=== PATIENT | male | born 1940 | race Caucasian/White ===

== ENCOUNTER 2018-01-08 06:33 | Inpatient (IN) | payer MEDICARE, OTHER ==
--- NOTE | 2018-01-08 07:48 | EDM.PDOC ---
ED HPI GENERAL MEDICAL PROBLEM - General Chief Complaint: Neuro Symptoms/Deficits Stated Complaint: LEFT ARM GOING NUMB Time Seen by Provider: 01/08/18 07:05 Source of Information: Reports: Patient, Family () History Limitations: Reports: No Limitations - History of Present Illness INITIAL COMMENTS - FREE TEXT/NARRATIVE: The patient states that he developed left forearm, including his wrist, hand, and fingers, weakness and decreased sensation around 05:00 this morning. He states that he was trying to shave, and was unable to hold his razor. The symptoms lasted about 5 minutes, and were not associated with a headache, nausea , or visual changes. The symptoms recurred around 06:30, and again lasted about 5 minutes. The patient states that he did not try any home remedies or take any medications. Here in the ED, the patient is completely back to normal. No prior similar symptoms. The patient is right-handed. He ordinarily takes a baby aspirin daily. The patient's PCP is JAE Turk. - Related Data Allergies Allergy/AdvReac Type Severity Reaction Status Date / Time No Known Allergies Allergy Verified 01/08/18 06:44 Home Meds: Home Meds Aspirin [Children's Aspirin] 81 mg PO DAILY 10/01/15 [History] Levothyroxine Sodium [Synthroid] 100 mcg PO DAILY 10/01/15 [History] Multivitamins,Therapeutic [Thera] 1 each PO WITHBREAKFAST tablet 12/07/15 [Rx] Calcium Citrate/Vitamin D3 [Citracal + D Maximum Caplet] 1 each PO DAILY [History] Hydrocodone/Acetaminophen [Hydrocodon-Acetaminophen 5-325] 1 each PO Q4H [History] Past Medical History HEENT History: Reports: Impaired Vision, Other (See Below) Other HEENT History: wears glasses, has upper denture Gastrointestinal History: Reports: Hiatal Hernia Musculoskeletal History: Reports: Osteoarthritis Endocrine/Metabolic History: Reports: Hypothyroidism Hematologic History: Reports: Anemia Oncologic (Cancer) History: Reports: Bladder - Past Surgical History HEENT Surgical History: Reports: Cataract Surgery, Oral Surgery ([place] teeth extraction), Tonsillectomy Cardiovascular Surgical History: Reports: Other (See Below) (right Port-A-Cath) GI Surgical History: Reports: Colonoscopy, EGD, Hernia, Inguinal (right) Male Surgical History: Reports: Cystectomy, Nephrectomy (right), Prostatectomy, Other (See Below) (Urostomy) Musculoskeletal Surgical History: Reports: Knee Replacement (bilateral), Other ( See Below) (Right thumb pinning) Other Oncologic Surgeries/Procedures: last chemo treatment was February 01 Social & Family History - Tobacco Use Smoking Status *Q: Never Smoker Second Hand Smoke Exposure: No - Alcohol Use Alcohol Use History: Yes Alcohol Use Frequency: Socially - Recreational Drug Use Recreational Drug Use: No - Living Situation & Occupation Living situation: Reports: , with Spouse 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 ED EXAM, NEURO - Physical Exam Exam: See Below Exam Limited By: No Limitations General Appearance: Alert, WD/WN, No Apparent Distress Eye Exam: Bilateral Eye: EOMI, Normal Inspection, PERRL Ears: Normal External Exam, Hearing Grossly Normal Nose: Normal Inspection, No Blood Throat/Mouth: Normal Inspection, Normal Lips, Normal Voice, No Airway Compromise Head Exam: Atraumatic, Normocephalic Neck: Normal Inspection, Full Range of Motion Respiratory/Chest: No Respiratory Distress, Lungs Clear, Normal Breath Sounds, No Accessory Muscle Use Cardiovascular: Normal Peripheral Pulses, Regular Rate, Rhythm, No Edema, No Gallop, No JVD, No Murmur, No Rub GI/Abdominal: Normal Bowel Sounds, Soft, Non-Tender, No Organomegaly, No Distention, No Abnormal Bruit, No Mass, Other (Urostomy bag C/D/I) (Male) Exam: Deferred Rectal (Males) Exam: Deferred Neurological: Alert, Normal Dorsiflexion, CN II-XII Intact, Normal Plantar Flexion, No Motor/Sensory Deficits, Oriented x 3 Back Exam: Normal Inspection, Full Range of Motion, NT Extremities: Normal Inspection, Normal Range of Motion, No Pedal Edema, Normal Capillary Refill Psychiatric: Normal Affect Skin Exam: Warm, Dry, Intact, Normal Color, No Rash EKG INTERPRETATION EKG Date: 01/08/18 Time: 07:38 Rhythm: NSR Rate (Beats/Min): 75 [place]: LAD-Left [place] Deviation P-Wave: Present QRS: LBBB Comparison: NA - No Prior EKG Course - Vital Signs Last Recorded V/S: Last Vital Signs Temp 37.2 C 01/08/18 06:40 Pulse 88 01/08/18 06:40 Resp 16 01/08/18 06:40 BP 143/82 H 01/08/18 06:40 Pulse Ox 98 01/08/18 06:40 - Orders/Labs/Meds Orders: Active Orders 24 hr Category Date Time Status Accu Check [Blood Glucose Check, Bedside] [RC] ONETIME Care 01/08/18 07:27 Active EKG Documentation Completion [RC] STAT Care 01/08/18 07:26 Active Labs: Laboratory Tests 01/08/18 Range/Units 07:52 POC Glucose 93 (83-110) mg/dL - Re-Assessments/Exams Free Text/Narrative Re-Assessment/Exam: 01/08/18 08:19 CT of the head without contrast is read by Dr. Ramírez as: 1. Mild senescent change. No acute intracranial abnormality is identified. 2. Small amount of fluid within the left mastoid sinus most likely due to retained secretions. 01/08/18 08:[address] Olmos at 08:25. He accepts the patient for admission to telemetry. Departure - Departure Time of Disposition: 08:27 Disposition: Admitted As Inpatient 65 Condition: Good Clinical Impression: Weakness, Paresthesia - Discharge Information - My Orders Last 24 Hours: My Active Orders 01/08/18 07:26 EKG Documentation Completion [RC] STAT 01/08/18 07:27 Accu Check [Blood Glucose Check, Bedside] [RC] ONETIME - Assessment/Plan Last 24 Hours: My Active Orders 01/08/18 07:26 EKG Documentation Completion [RC] STAT 01/08/18 07:27 Accu Check [Blood Glucose Check, Bedside] [RC] ONETIME
--- NOTE | 2018-01-08 08:15 | CT ---
Head CT Technique: Multiple axial sections through the brain were obtained. Intravenous contrast was not utilized. Comparison: No previous intracranial imaging. Findings: Ventricles along with basal cisterns and sulci over the convexities are mildly prominent. No abnormal parenchymal densities are seen. No evidence of intracranial hemorrhage. No midline shift or mass effect is seen. Bone window settings were reviewed which shows no acute calvarial abnormality. Minimal fluid is noted within the left mastoid sinus. No acute calvarial abnormality is seen. Impression: 1. Mild senescent change. No acute intracranial abnormality is identified. 2. Small amount of fluid within the left mastoid sinus most likely due to retained secretions. Diagnostic code #2
[2018-01-08] MEDS ORDERED: Bisacodyl 5 MG Tab PO PRN (13:09)
[2018-01-08] MEDS ORDERED: Polyethylene Glycol 3350 Powder 17 GM Packet PO PRN (13:09)
[2018-01-08] MEDS ORDERED: Docusate Sodium 100 MG Cap PO PRN (13:09)
[2018-01-08] MEDS ORDERED: Temazepam 7.5 MG Cap PO PRN (13:09)
[2018-01-08] MEDS ORDERED: HYDROmorphone 0.5 MG/0.5 ML SYRINGE IVPUSH PRN (13:09)
[2018-01-08] MEDS ORDERED: Promethazine 25 MG Tab PO PRN (13:09)
[2018-01-08] MEDS ORDERED: Acetaminophen 325 MG Tab PO PRN (13:09)
[2018-01-08] MEDS ORDERED: Promethazine 6.25 MG in Sodium Chloride 0.9% 50 ML IV PRN (13:09)
[2018-01-08] MEDS ORDERED: Magnesium Hydroxide 400 MG/5 ML Susp 30 ML Cup PO PRN (13:09)
[2018-01-08] MEDS ORDERED: hydrALAZINE 20 MG/ML SDV IVPUSH PRN ×2 (13:27→13:28)
--- NOTE | 2018-01-08 13:43 | PCM.HP ---
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 No current pain. He reports no fever, chills, dizziness, weakness, headache, nausea , vomiting, diarrhea, chest pain, or GI/ complaints. His original symptoms of left forearm/wrist/hand/fingers weakness and decreased sensation improved after 5 minutes in each episode. He had 2 episodes within 2 hours at home and was back to normal once arriving in the ED. His initial workup in the ED showed a Blood Glucose of 93 and elevated BP of 143/82. EKG showed NSR, LAD and LBBB. CT of the head showed mild senescent change, no acute intracranial abnormality, small amount of fluid within the left mastoid sinus. He is subsequently admitted to the medical floor on telemetry. He is a Full Code. His PCP is JAE Turk. R hip Pain Score (Numeric/FACES): 8 - Related Data Allergies/Adverse Reactions: Allergies Allergy/AdvReac Type Severity Reaction Status Date / Time No Known Allergies Allergy Verified 01/08/18 10:41 Home Medications: Home Meds Aspirin [Children's Aspirin] 81 mg PO DAILY 10/01/15 [History] Levothyroxine Sodium [Synthroid] 100 mcg PO DAILY 10/01/15 [History] Calcium Citrate/Vitamin D3 [Citracal + D Maximum Caplet] 1 each PO DAILY [History] Hydrocodone/Acetaminophen [Hydrocodon-Acetaminophen 5-325] 1 each PO Q4H [History] Past Medical History HEENT History: Reports: Impaired Vision, Other (See Below) Other HEENT History: wears glasses, has upper denture Cardiovascular History: Reports: Hypertension Respiratory History: Reports: Other (See Below) Gastrointestinal History: Reports: Hiatal Hernia Other Gastrointestinal History: R groin hernia repair Genitourinary History: Reports: Other (See Below) Other Genitourinary History: Stage IV bladder cancer, cystecomy, elevated PSA, prostatectomy, only has 1 kidney and has had partial bladder removed in [place] July 2014, has urostomy Musculoskeletal History: Reports: Osteoarthritis, Other (See Below) Other Musculoskeletal History: chronic pelvic pain r/t cancer in that area. Endocrine/Metabolic History: Reports: Hypothyroidism Hematologic History: Reports: Anemia Other Hematologic History: hyperkalemia, thrombocytopenia Immunologic History: Reports: Immunosuppression Oncologic (Cancer) History: Reports: Bladder, Other (See Below) Other Oncologic History: outter pelvic bone cancer. Dermatologic History: Reports: Other (See Below) Other Dermatologic History: cyst to neck (once it was removed, but grew back on back of head) - 1 about quarter size, one dime sized. - Infectious Disease History Infectious Disease History: Reports: Chicken Pox - Past Surgical History HEENT Surgical History: Reports: Cataract Surgery, Oral Surgery, Tonsillectomy Cardiovascular Surgical History: Reports: Other (See Below) GI Surgical History: Reports: Colonoscopy, EGD, Hernia, Inguinal, Other (See Below) Other GI Surgeries/Procedures: last week on sunday had a MRCP scan in [place] at [facility] stated everything was negative. Male Surgical History: Reports: Cystectomy, Nephrectomy, Prostatectomy, Other (See Below) Other Male Surgeries/Procedures: right nephrectomy. Endocrine Surgical History: Reports: None Musculoskeletal Surgical History: Reports: Knee Replacement, Other (See Below) Other Musculoskeletal Surgeries/Procedures:: bilateral knee replacement. Other Oncologic Surgeries/Procedures: last chemo treatment was October 2016 Dermatological Surgical History: Reports: None Social & Family History - Family History Family Medical History: Noncontributory - Tobacco Use Smoking Status *Q: Never Smoker Second Hand Smoke Exposure: No - Caffeine Use Caffeine Use: Reports: Coffee, Soda - Recreational Drug Use Recreational Drug Use: No - Living Situation & Occupation Living situation: Reports: , with Spouse Occupation: Employed (oil and gas superintendent truck hopper) H&P Review of Systems - Review of Systems: Review Of Systems: ROS reveals no pertinent complaints other than HPI. Exam - Exam Exam: See Below - Vital Signs Vital Signs: Last Vital Signs Temp 98.9 F 01/08/18 06:40 Pulse 88 01/08/18 06:40 Resp 16 01/08/18 06:40 BP 143/82 H 01/08/18 06:40 Pulse Ox 98 01/08/18 06:40 Weight: 164 lb 12.8 oz - Exam Quality Assessment: DVT Prophylaxis General: Alert, Oriented, Cooperative, Mild Distress HEENT: Conjunctiva Clear, EACs Clear, EOMI, Hearing Intact, Mucosa Moist & [place] , Nares Patent, Normal Nasal Septum, Posterior Pharynx Clear, Pupils Equal, Pupils Reactive, TMs Clear, PERRLA Neck: Supple, Trachea Midline Lungs: Clear to Auscultation, Normal Respiratory Effort Cardiovascular: Regular Rate, Regular Rhythm GI/Abdominal Exam: Normal Bowel Sounds, Soft, Non-Tender, No Organomegaly, No Distention, No Abnormal Bruit, No Mass, Pelvis Stable, Other (Urostomy bag C/D/I ) (Male) Exam: Deferred Rectal (Males) Exam: Deferred Back Exam: Normal Inspection, Full Range of Motion, NT Extremities: Normal Inspection, Normal Range of Motion, Non-Tender, Normal Capillary Refill, Pedal Edema Peripheral Pulses: 2+: Posterior Tibial (L), Posterior Tibial (R), Dorsalis Pedis (L), Dorsalis Pedis (R) Skin: Warm, Dry, Intact Neurological: Cranial Nerves Intact (grossly) Neuro Extensive - Mental Status: Alert, Oriented x3, Normal Mood/Affect, Normal Cognition Psychiatric: Alert, Normal Affect, Normal Mood - Patient Data Lab Results Last 24 hrs: Laboratory Results - last 24 hr 01/08/18 Range/Units 07:52 POC Glucose 93 (83-110) mg/dL - Problem List (1) Paresthesia SNOMED Code(s): 76191160 ICD Code: R20.2 - PARESTHESIA OF SKIN Status: Acute Priority: High Current Visit: Yes (2) Weakness SNOMED Code(s): 67334343 ICD Code: R53.1 - WEAKNESS Status: Acute Priority: High Current Visit: Yes (3) Bladder cancer metastasized to bone SNOMED Code(s): 13869551, 093339988 ICD Code: C67.9 - MALIGNANT NEOPLASM OF BLADDER, UNSPECIFIED; C79.51 - SECONDARY MALIGNANT NEOPLASM OF BONE Status: Chronic Priority: Low Current Visit: Yes (4) History of nephrectomy, unilateral SNOMED Code(s): 15791084501112 ICD Code: Z90.5 - ACQUIRED ABSENCE OF KIDNEY Status: Chronic Priority: Medium Current Visit: Yes (5) Hypertension SNOMED Code(s): 40048412 ICD Code: I10 - ESSENTIAL (PRIMARY) HYPERTENSION Status: Chronic Priority : High Current Visit: Yes Qualifiers: Hypertension type: unspecified Qualified Code(s): I10 - Essential (primary ) hypertension (6) Hypothyroidism SNOMED Code(s): 02464111 ICD Code: E03.9 - HYPOTHYROIDISM, UNSPECIFIED Status: Chronic Priority: Medium Current Visit: No Qualifiers: Hypothyroidism type: unspecified Qualified Code(s): E03.9 - Hypothyroidism , unspecified (7) Anemia SNOMED Code(s): 716644931 ICD Code: D64.9 - ANEMIA, UNSPECIFIED Status: Chronic Priority: Medium Current Visit: Yes Qualifiers: Anemia type: unspecified type Qualified Code(s): D64.9 - Anemia, unspecified Problem List Initiated/Reviewed/Updated: Yes Orders Last 24hrs: Active Orders 24 hr Category Date Time Status Admission Status [Patient Status] [ADT] Routine ADT 01/08/18 09:55 Active Ambulate [RC] ASDIRECTED Care 01/08/18 13:09 Ordered Cardiac Monitoring [RC] CONTINUOUS Care 01/08/18 13:10 Ordered Height and Weight [RC] DAILY Care 01/08/18 13:09 Ordered Intake and Output [RC] QSHIFT Care 01/08/18 13:10 Ordered May Shower [RC] ASDIRECTED Care 01/08/18 13:09 Ordered Oxygen Therapy [RC] PRN Care 01/08/18 13:09 Ordered Pulse Oximetry [RC] PRN Care 01/08/18 13:10 Ordered Up to Chair [RC] ASDIRECTED Care 01/08/18 13:09 Ordered VTE/DVT Education [RC] PER UNIT ROUTINE Care 01/08/18 13:09 Ordered Vital Signs [RC] Q4H Care 01/08/18 13:09 Ordered Consult to Spiritual Care [CONS] Routine Cons 01/08/18 13:09 Ordered OT Evaluation and Treatment [CONS] Routine Cons 01/08/18 13:09 Ordered PT Evaluation and Treatment [CONS] Routine Cons 01/08/18 13:09 Ordered Heart Healthy Diet [DIET] Diet 01/08/18 Lunch Active Carotid Comp [US] Routine Exams 01/08/18 13:19 Ordered Echo 2D wo Cont [US] Routine Exams 01/08/18 13:22 Ordered Echo Comp wo Cont [US] Routine Exams 01/08/18 13:18 Stop Req MRA Head Without Contrast [Ang Head wo Cont] [MR] Exams 01/08/18 13:20 Ordered Routine MRA Neck Without Contrast [Ang Neck wo Cont] [MR] Exams 01/08/18 13:21 Ordered Routine CBC WITH AUTO DIFF [HEME] AM Lab 01/09/18 05:11 Ordered CBC WITH AUTO DIFF [HEME] AM Lab 01/10/18 05:11 Ordered CBC WITH AUTO DIFF [HEME] AM Lab 01/11/18 05:11 Ordered CBC WITH AUTO DIFF [HEME] AM Lab 01/12/18 05:11 Ordered CBC WITH AUTO DIFF [HEME] AM Lab 01/13/18 05:11 Ordered COMPREHENSIVE METABOLIC PN,CMP [CHEM] AM Lab 01/09/18 05:11 Ordered COMPREHENSIVE METABOLIC PN,CMP [CHEM] AM Lab 01/10/18 05:11 Ordered COMPREHENSIVE METABOLIC PN,CMP [CHEM] AM Lab 01/11/18 05:11 Ordered COMPREHENSIVE METABOLIC PN,CMP [CHEM] AM Lab 01/12/18 05:11 Ordered COMPREHENSIVE METABOLIC PN,CMP [CHEM] AM Lab 01/13/18 05:11 Ordered LIPID PANEL [CHEM] AM Lab 01/09/18 05:11 Ordered Acetaminophen [Tylenol] Med 01/08/18 13:09 Ordered 650 mg PO Q4H PRN Acetaminophen/HYDROcodone [[place] 325-5 MG] Med 01/08/18 13:09 Ordered 1 tab PO Q4H PRN Aspirin Med 01/09/18 09:00 Ordered 81 mg PO DAILY Bisacodyl [Dulcolax] Med 01/08/18 13:09 Ordered 5 mg PO DAILY PRN Calcium Citrate/Vitamin D3 Med 01/09/18 09:00 Ordered 1 each PO DAILY Docusate Sodium [Colace] Med 01/08/18 13:09 Ordered 100 mg PO BID PRN Docusate Sodium/Sennosides [Senna Plus] Med 01/08/18 13:09 Ordered 1 tab PO BID PRN Famotidine [Pepcid] Med 01/08/18 13:30 Ordered 20 mg PO BID HYDROmorphone [Dilaudid] Med 01/08/18 13:09 Ordered 0.25 mg IVPUSH Q2H PRN Levothyroxine Med 01/09/18 09:00 Ordered 100 mcg PO DAILY Magnesium Hydroxide [Milk of Magnesia] Med 01/08/18 13:09 Ordered 30 ml PO Q12H PRN Polyethylene Glycol 3350 [MiraLAX] Med 01/08/18 13:09 Ordered 17 gm PO DAILY PRN Promethazine [Phenergan] Med 01/08/18 13:09 Ordered 25 mg PO Q6H PRN Promethazine [Phenergan] 6.25 mg Med 01/08/18 13:09 Ordered Sodium Chloride 0.9% [Normal Saline] 50 ml IV Q6H Temazepam [Restoril] Med 01/08/18 13:09 Ordered 7.5 mg PO BEDTIME PRN hydrALAZINE [Apresoline] Med 01/08/18 13:28 Ordered 10 mg IVPUSH Q12H PRN hydrALAZINE [Apresoline] Med 01/08/18 13:27 Stop Req 10 mg IVPUSH Q4H PRN Sequential Compression Device [OM.PC] Per Unit Routine Oth 01/08/18 13:10 Ordered Resuscitation Status Routine Resus Stat 01/08/18 11:18 Ordered Medication Orders Acetaminophen (Tylenol) 650 mg PO Q4H PRN PRN Reason: Pain (Mild 1-3)/fever Hydrocodone Bitart/Acetaminophen ([place] 325-5 Mg) 1 tab PO Q4H PRN PRN Reason: Pain (moderate 4-6) Aspirin (Aspirin) 81 mg PO DAILY POOJA Bisacodyl (Dulcolax) 5 mg PO DAILY PRN PRN Reason: Constipation Calcium Carbonate (Calcium Carbonate/Vitamin D 600 Mg-200 Unit) 1 tab PO DAILY POOJA Docusate Sodium (Colace) 100 mg PO BID PRN PRN Reason: Constipation Famotidine (Pepcid) 20 mg PO BID POOJA Hydralazine HCl (Apresoline) 10 mg IVPUSH Q4H PRN PRN Reason: Hypertension Hydromorphone HCl (Dilaudid) 0.25 mg IVPUSH Q2H PRN PRN Reason: Pain (severe 7-10) Promethazine HCl 6.25 mg/ (Sodium Chloride) 50.25 mls @ 100 mls/hr IV Q6H PRN PRN Reason: Nausea/Vomiting Levothyroxine Sodium (Synthroid) 100 mcg PO DAILY POOJA Magnesium Hydroxide (Milk Of Magnesia) 30 ml PO Q12H PRN PRN Reason: Constipation Polyethylene Glycol (Miralax) 17 gm PO DAILY PRN PRN Reason: Constipation Promethazine HCl (Phenergan) 25 mg PO Q6H PRN PRN Reason: Nausea/Vomiting Senna/Docusate Sodium (Senna Plus) 1 tab PO BID PRN PRN Reason: Constipation Temazepam (Restoril) 7.5 mg PO BEDTIME PRN PRN Reason: Sleep Assessment/Plan Comment:: I/P: Acute: Transient Weakness/Paresthesia - R/O TIA - Risk Factors: HTN, VTE risk 5: moderate/high - First episode; No smoking history; Blood sugar normal - Weakness/Paresthesia of left forearm to fingers; 2 episodes w/in 2 hours, both resolved within 5 minutes. - EKG showed NSR, LAD and LBBB - CT of the head showed mild senescent change, no acute intracranial abnormality - Check lipids in AM - MRA of neck without contrast--> No definite stenosis in neck vessels - MRA of head without contrast--> No abnormality seen - U/S Carotids pending results - 2D echo pending results - Consider blood thinning agent s/p imaging - Consider Holter monitor at D/C HTN -Acute on Chronic -Risk Factor: h/o HTN currently not on medication, right hip pain 6/10 -Elevated BP of 149/78 here -Antihypertensive medications d/c'd after the nephrectomy per pt -Pt hasn't noticed an elevated BP until this hospital visit -Hydralazine PRN -Consider pain management or antihypertensive medication at D/C -Recommend blood pressure checks at home 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 Reeves -F/U with ortho after discharge Hypothyroidism Anemia H/o R nephrectomy Plan: Admit to [facility] on telemetry Routine AM Labs Resume Thyroid Medication Heart Health Diet Code status: Full Code DVT prophylaxis: SCD, on Baby ASA GI prophylaxis: Pepcid He is a Full Code. His PCP is JAE Turk.
--- NOTE | 2018-01-08 14:34 | MR ---
MR angiogram of brain Technique: MR angiogram was obtained centered to the [place]. Multiple MIP images were obtained in multiple projections. Findings: There is artifact identified within the base cuts. Basilar artery and posterior cerebral arteries appear within normal limits. Visualized carotid siphon is within normal limits. Middle and anterior cerebral arteries appear within normal limits. No focal areas of stenosis are seen. No aneurysm is identified. Impression: 1. Artifact on the base cuts. 2. No abnormality otherwise is seen on MR angiogram of the brain. Diagnostic code #2
--- NOTE | 2018-01-08 15:22 | MR ---
Addendum: Please note that intravenous gadolinium was not obtained and images were all noncontrast due to low GFR. Other portions of the dictation remain the same. --- Addendum1 above dictated on [01/08/2018 15:29] by [Darby Ramírez, Keon Christopher] --- --- Addendum1 above signed on [01/08/2018 15:31] by [Darby Ramírez Hilton J.] --- --- Original report below dictated on [01/08/2018 15:17] by [Darby Ramírez Hilton J.] --- --- Original report below signed on [01/08/2018 15:19] by [Darby Ramírez Hilton J.] --- MR angiogram of neck (without and with intravenous contrast) Technique: Time of flight MR angiogram study obtained centered to the carotid bulb. Multiple MIP images were obtained. Intravenous contrast was then given and imaging obtained of the neck with multiple reconstructed MIP images. Findings: Contrast images shows artifact from swallowing. Time of flight images shows the distal common carotid arteries to be widely patent. Proximal internal carotid arteries are also widely patent. There is no stenosis seen within the carotid bulb. Contrast images shows no definite findings of internal carotid artery stenosis or common carotid artery stenosis. Vertebral vessels are felt to be patent into the basilar artery. Impression: 1. Less than optimal exam due to swallowing artifact. 2. No definite stenosis is seen within the neck vessels. Diagnostic code #2 --- Addendum1 signed ---
[2018-01-08] MEDS: Acetaminophen/HYDROcodone 325-5 MG Tab PO PRN ×2 (15:28→20:59)
--- NOTE | 2018-01-08 16:59 | US ---
Carotid ultrasound: Duplex and color flow imaging was obtained of the carotid arteries. Findings: Small amount of plaque identified within the right carotid bulb. Velocity measurements Right side: CCA has a peak systolic velocity of 0.74 m/s. ICA has a peak systolic velocity of 0.55 m/s and peak end-diastolic velocity of 0.25 m/s. ECA has a peak systolic velocity of 0.47 m/s. Vertebral artery has a peak systolic velocity of 0.38 m/s. ICA/CCA ratio is 0.75. Left side: CCA has a peak systolic velocity of 0.82 m/s. ICA has a peak systolic velocity of 0.59 m/s and peak end-diastolic velocity of 0.27 m/s. ECA has a peak systolic velocity of 0.57 m/s. Vertebral artery has a peak systolic velocity of 0.45 m/s. ICA/CCA ratio is 0.72. Impression: 1. Small amount of plaque within the right carotid bulb. 2. Velocity measurements are normal. Diagnostic code #2
[2018-01-08] MEDS: Famotidine 20 MG Tab PO SCH (20:59)
[2018-01-09 08:05] VITALS: BP 113/83
[2018-01-09] MEDS ORDERED: Aspirin 81 MG Tab.Chew PO SCH (09:00)
[2018-01-09] MEDS ORDERED: Levothyroxine 100 MCG Tab PO SCH (09:00)
[2018-01-09] MEDS ORDERED: Calcium Carbonate/Vitamin D3 600 MG-200 Units Tab PO SCH (09:00)
[2018-01-09] MEDS: Famotidine 20 MG Tab PO SCH (09:58)
--- NOTE | 2018-01-09 11:35 | PCM.DCSUM1 ---
Discharge Summary - Hospital Course HPI Initial Comments: The patient states that he developed left forearm, including his wrist, hand, and fingers, weakness and decreased sensation around 05:00 this morning. He states that he was trying to shave, and was unable to hold his razor. The symptoms lasted about 5 minutes, and were not associated with a headache, nausea , or visual changes. The symptoms recurred around 06:30, and again lasted about 5 minutes. The patient states that he did not try any home remedies or take any medications. Here in the ED, the patient is completely back to normal. No prior similar symptoms. The patient is right-handed. He ordinarily takes a baby aspirin daily. The patient's PCP is JAE Turk. - Discharge Data Discharge Date: 01/09/18 (ADMIT 01/08/18) Discharge Disposition: Home, Self-Care 01 Condition: Good - Discharge Diagnosis/Problem(s) (1) Paresthesia SNOMED Code(s): 08385788 ICD Code: R20.2 - PARESTHESIA OF SKIN Status: Acute Priority: High Current Visit: Yes (2) Weakness SNOMED Code(s): 20064148 ICD Code: R53.1 - WEAKNESS Status: Acute Priority: High Current Visit: Yes (3) Bladder cancer metastasized to bone SNOMED Code(s): 69039263, 275529958 ICD Code: C67.9 - MALIGNANT NEOPLASM OF BLADDER, UNSPECIFIED; C79.51 - SECONDARY MALIGNANT NEOPLASM OF BONE Status: Chronic Priority: Low Current Visit: Yes (4) History of nephrectomy, unilateral SNOMED Code(s): 22168568506753 ICD Code: Z90.5 - ACQUIRED ABSENCE OF KIDNEY Status: Chronic Priority: Medium Current Visit: Yes (5) Hypertension SNOMED Code(s): 48254495 ICD Code: I10 - ESSENTIAL (PRIMARY) HYPERTENSION Status: Chronic Priority : High Current Visit: Yes Qualifiers: Hypertension type: unspecified Qualified Code(s): I10 - Essential (primary ) hypertension (6) Hypothyroidism SNOMED Code(s): 63287283 ICD Code: E03.9 - HYPOTHYROIDISM, UNSPECIFIED Status: Chronic Priority: Medium Current Visit: No Qualifiers: Hypothyroidism type: unspecified Qualified Code(s): E03.9 - Hypothyroidism , unspecified (7) Anemia SNOMED Code(s): 729713736 ICD Code: D64.9 - ANEMIA, UNSPECIFIED Status: Chronic Priority: Medium Current Visit: Yes Qualifiers: Anemia type: unspecified type Qualified Code(s): D64.9 - Anemia, unspecified - Patient Summary/Data Operative Procedure(s) Performed: none Complications: none Consults: Consultations 01/08/18 13:09 Consult to Spiritual Care [CONS] Routine OT Evaluation and Treatment [CONS] Routine PT Evaluation and Treatment [CONS] Routine Labs Pending at D/C: none Recommended Follow-up Testing/Procedures: Follow up with PCP in 7-10 days. Follow up with Dr. Reeves after PET scan for possible hip surgery Planned Operative Procedure(s) after DC: none Hospital Course: I/P: Acute: Transient Weakness/Paresthesia - R/O TIA - Risk Factors: HTN, VTE risk 5: moderate/high - First episode; No smoking history; Blood sugar normal - Weakness/Paresthesia of left forearm to fingers; 2 episodes w/in 2 hours, both resolved within 5 minutes. - EKG showed NSR, LAD and LBBB - CT of the head showed mild senescent change, no acute intracranial abnormality - Check lipids in AM--> HDL is low at 38 - MRA of neck without contrast--> No definite stenosis in neck vessels - MRA of head without contrast--> No abnormality seen - U/S Carotids--> small amount of plaque in right carotid bulb - 2D echo--> LVEF 55-60% - Increase baby ASA to two tablets daily - Holter monitor at D/C Resolved: HTN -Acute on Chronic -Risk Factor: h/o HTN currently not on medication, right hip pain / -Elevated BP of 149/78 here-->113/83 -Antihypertensive medications d/c'd after the nephrectomy per pt -Pt hasn't noticed an elevated BP until this hospital visit -Hydralazine PRN -Continue at home pain medication regimen -Recommend blood pressure checks at home 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 Reeves -F/U with ortho after discharge Hypothyroidism Anemia H/o R nephrectomy Plan: Admit to [facility] on telemetry Routine AM Labs Resume Thyroid Medication Heart Health Diet Code status: Full Code DVT prophylaxis: SCD, on Baby ASA GI prophylaxis: Pepcid He is a Full Code. His PCP is JAE Turk. Duncan has recovered quite well after being admitted for transient weakness/ paresthesia. He had multiple tests done. So far all have been negative except for the carotid U/S showed a small amount of plaque in the right carotid bulb and his HDL is slightly low. His BP was slightly elevated, the highest being 149 /78, and is most likely due to his 6/10 right hip pain. He should f/u with orthopedics for this. In the meantime, I have recommended checking his BP three times per day. Clinically he is doing well and has had no new symptoms. He should follow-up with his primary care provider in 7-10 days. He was not discharged home on any new medications, but was told to take increase his baby aspirin to two daily. He was also discharged home with a Holter monitor x48 hrs. His BP was slightly elevated here and should be rechecked with his primary care provider. He will be discharged home today. - Patient Instructions Diet: Heart Healthy Diet Activity: As Tolerated Driving: May Drive Today Showering/Bathing: May Shower Other/Special Instructions: Return to ED if return of one-sided weakness, or worsening of symptoms including slurred speech, difficulty walking, lightheadedness, blurred vision, confusion - Discharge Plan Home Medications: Home Meds Aspirin [Children's Aspirin] 81 mg PO DAILY 10/01/15 [History] Levothyroxine Sodium [Synthroid] 100 mcg PO DAILY 10/01/15 [History] Calcium Citrate/Vitamin D3 [Citracal + D Maximum Caplet] 1 each PO DAILY [History] Hydrocodone/Acetaminophen [Hydrocodon-Acetaminophen 5-325] 1 each PO Q4H [History] Patient Handouts: Transient Ischemic Attack, Pybd-da-Inup, Weakness, Easy-to- Read, Paresthesia, Dxob-ia-Hius Referrals: Roxie Copeland OPHTHALMIC TECH [Primary Care Provider] - 01/15/18 12:45 pm (please attend your post hospital follow up appointment as scheduled.) - Discharge Summary/Plan Comment DC Time >30 min.: Yes (40) - General Info Date of Service: 01/09/18 Admission Dx/Problem (Free Text: Admission Diagnosis/Problem Admission Diagnosis/Problem Weakness Functional Status: Reports: Pain Controlled, Tolerating Diet, Ambulating, Urinating - Review of Systems General: Reports: No Symptoms. Denies: Fever, Weakness, Chills HEENT: Reports: No Symptoms Pulmonary: Reports: No Symptoms Cardiovascular: Reports: No Symptoms Gastrointestinal: Reports: No Symptoms Genitourinary: Reports: No Symptoms Musculoskeletal: Reports: No Symptoms Skin: Reports: No Symptoms Neurological: Reports: No Symptoms. Denies: Dizziness, Headache, Numbness, Paresthesia, Tingling, Weakness Psychiatric: Reports: No Symptoms - Patient Data Vitals - Most Recent: Last Vital Signs Temp 98.8 F 01/09/18 07:49 Pulse 80 01/09/18 07:49 Resp 14 01/09/18 07:49 BP 113/83 01/09/18 07:49 Pulse Ox 96 01/09/18 07:49 Weight - Most Recent: 162 lb 14.4 oz I&O - Last 24 hours: Intake & Output 01/08/18 01/09/18 01/09/18 22:59 06:59 14:59 Intake Total 660 500 Output Total 200 1550 Balance 460 -1050 Lab Results - Last 24 hrs: Laboratory Results - last 24 hr 01/09/18 01/09/18 Range/Units 07:06 07:06 WBC 4.35 (4.23-9.07) K/mm3 RBC 4.10 L (4.63-6.08) M/mm3 Hgb 12.1 L (13.7-17.5) gm/L Hct 37.4 L (40.1-51.0) % MCV 91.2 (79.0-92.2) fl MCH 29.5 (25.7-32.2) pg MCHC 32.4 (32.2-35.5) g/dl RDW Std Deviation 45.3 H (35.1-43.9) fL Plt Count 249 (163-337) K/mm3 MPV 10.2 (9.4-12.3) fl Neut % (Auto) 75.8 H (34.0-67.9) % Lymph % (Auto) 12.9 L (21.8-53.1) % [place] % (Auto) 9.7 (5.3-12.2) % Eos % (Auto) 0.9 (0.8-7.0) Baso % (Auto) 0.5 (0.1-1.2) % Neut # (Auto) 3.30 (1.78-5.38) K/mm3 Lymph # (Auto) 0.56 L (1.32-3.57) K/mm3 [place] # (Auto) 0.42 (0.30-0.82) K/mm3 Eos # (Auto) 0.04 (0.04-0.54) K/mm3 Baso # (Auto) 0.02 (0.01-0.08) K/mm3 Sodium 137 (136-145) mEq/L Potassium 4.1 (3.5-5.1) mEq/L Chloride 105 (98-107) mEq/L Carbon Dioxide 22 (21-32) mEq/L Anion Gap 14.1 (5-15) BUN 17 (7-18) mg/dL Creatinine 2.0 H (0.7-1.3) mg/dL Est Cr Clr Drug Dosing 28.46 mL/min Estimated GFR (MDRD) 32 (>60) mL/min BUN/Creatinine Ratio 8.5 L (14-18) Glucose 118 H (83-115) mg/dL Calcium 8.4 L (8.5-10.1) mg/dL Total Bilirubin 0.7 (0.2-1.0) mg/dL AST 15 (15-37) U/L ALT 8 L (16-63) U/L Alkaline Phosphatase 63 (46-116) U/L Total Protein 6.2 L (6.4-8.2) g/dl Albumin 3.0 L (3.4-5.0) g/dl Globulin 3.2 gm/dL Albumin/Globulin Ratio 0.9 L (1-2) Triglycerides 117 (<150) mg/dL Cholesterol 130 (<200) mg/dL LDL Cholesterol Direct 74 (<100) mg/dL HDL Cholesterol 38.0 L (40-59) mg/dL Med Orders - Current: Current Medications Acetaminophen (Tylenol) 650 mg PO Q4H PRN PRN Reason: Pain (Mild 1-3)/fever Hydrocodone Bitart/Acetaminophen ([place] 325-5 Mg) 1 tab PO Q4H PRN PRN Reason: Pain (moderate 4-6) Last Admin: 01/08/18 20:59 Dose: 1 tab Aspirin (Aspirin) 81 mg PO DAILY [facility] Last Admin: 01/09/18 09:58 Dose: 81 mg Bisacodyl (Dulcolax) 5 mg PO DAILY PRN PRN Reason: Constipation Calcium Carbonate (Calcium Carbonate/Vitamin D 600 Mg-200 Unit) 1 tab PO DAILY [facility] Last Admin: 01/09/18 09:58 Dose: 1 tab Docusate Sodium (Colace) 100 mg PO BID PRN PRN Reason: Constipation Famotidine (Pepcid) 20 mg PO BID [facility] Last Admin: 01/09/18 09:58 Dose: 20 mg Hydralazine HCl (Apresoline) 10 mg IVPUSH Q12H PRN PRN Reason: Hypertension Hydromorphone HCl (Dilaudid) 0.25 mg IVPUSH Q2H PRN PRN Reason: Pain (severe 7-10) Promethazine HCl 6.25 mg/ (Sodium Chloride) 50.25 mls @ 100 mls/hr IV Q6H PRN PRN Reason: Nausea/Vomiting Levothyroxine Sodium (Synthroid) 100 mcg PO DAILY [facility] Last Admin: 01/09/18 09:58 Dose: 100 mcg Magnesium Hydroxide (Milk Of Magnesia) 30 ml PO Q12H PRN PRN Reason: Constipation Polyethylene Glycol (Miralax) 17 gm PO DAILY PRN PRN Reason: Constipation Promethazine HCl (Phenergan) 25 mg PO Q6H PRN PRN Reason: Nausea/Vomiting Senna/Docusate Sodium (Senna Plus) 1 tab PO BID PRN PRN Reason: Constipation Temazepam (Restoril) 7.5 mg PO BEDTIME PRN PRN Reason: Sleep Discontinued Medications Hydralazine HCl (Apresoline) 10 mg IVPUSH Q4H PRN PRN Reason: Hypertension - Exam Quality Assessment: Reports: DVT Prophylaxis General: Reports: Alert, Oriented, Cooperative, No Acute Distress HEENT: Reports: Pupils Equal, Pupils Reactive, EOMI, Mucous Membr. Moist/Jones Neck: Reports: Supple Lungs: Reports: Clear to Auscultation, Normal Respiratory Effort Cardiovascular: Reports: Regular Rate, Regular Rhythm GI/Abdominal Exam: Normal Bowel Sounds, Soft, Non-Tender, No Organomegaly, No Distention, No Abnormal Bruit, No Mass, Pelvis Stable (Male) Exam: Deferred Rectal (Males) Exam: Deferred Back Exam: Reports: Normal Inspection, Full Range of Motion Extremities: Normal Inspection, Normal Range of Motion, Non-Tender, No Pedal Edema, Normal Capillary Refill Skin: Reports: Warm, Dry, Intact Neurological: Reports: No New Focal Deficit Psy/Mental Status: Reports: Alert, Normal Affect, Normal Mood
== END 2018-01-09 12:30 | disposition home or self-care (01) | DRG 948 ==
LOC: JD.ED 06:33 → JD.MS 09:55
PROVIDERS: ADMIT Internal Medicine; ATTEND Internal Medicine
DX: R53.1 Weakness (principal); C79.51 Secondary malignant neoplasm of bone; R20.2 Paresthesia of skin; H54.7 Unspecified visual loss; C67.9 Malignant neoplasm of bladder, unspecified; G89.3 Neoplasm related pain (acute) (chronic); Z85.51 Personal history of malignant neoplasm of bladder; Z90.5 Acquired absence of kidney; I65.21 Occlusion and stenosis of right carotid artery; M81.0 Age-related osteoporosis without current pathological fracture; E03.9 Hypothyroidism, unspecified; D64.9 Anemia, unspecified; I10 Essential (primary) hypertension; M19.90 Unspecified osteoarthritis, unspecified site; Z93.6 Other artificial openings of urinary tract status; Z90.6 Acquired absence of other parts of urinary tract; Z90.79 Acquired absence of other genital organ(s); Z96.653 Presence of artificial knee joint, bilateral; Z79.82 Long term (current) use of aspirin; Z79.899 Other long term (current) drug therapy; Z92.21 Personal history of antineoplastic chemotherapy
CPT/HCPCS: 36415; 70450; 70450-26; 70544; 70544-26; 70547; 70547-26; 80053; 80061; 82962; 85025; 93005; 93010; 93306; 93880; 93880-26; 96523; 97110-GP; 97161-GP; 97165-GO; 99285; 99285-25; A9270-GY; J1642

== ENCOUNTER 2018-02-02 05:00 | Inpatient (IN) | payer MEDICARE, OTHER ==
[2018-02-02] MEDS ORDERED: Ondansetron 4 MG/2 ML SDV IVPUSH ONE ×2 (05:36→07:58)
[2018-02-02] MEDS ORDERED: HYDROmorphone 0.5 MG/0.5 ML SYRINGE IVPUSH ONE (05:38)
--- NOTE | 2018-02-02 05:42 | EDM.PDOC ---
<Ivan Mehta - Last Filed: 02/02/18 06:50> ED HPI GENERAL MEDICAL PROBLEM - General Chief Complaint: Abdominal Pain Stated Complaint: ABDOMINAL PAIN/CA PT Time Seen by Provider: 02/02/18 05:18 Source of Information: Reports: Patient, Family () History Limitations: Reports: No Limitations - History of Present Illness INITIAL COMMENTS - FREE TEXT/NARRATIVE: The patient has a history of bladder cancer, status post cystectomy, right nephrectomy, prostatectomy, and urostomy. The patient states that he has had lower abdominal pain, primarily in the left lower quadrant, for the past 3-4 weeks. He was seen at [facility] on 12/30/2017, where, he states, a CT scan of the abdomen and pelvis found ileus. He states that he was put on a liquid diet for 4 days, which did not really help. Further workup included a MRCP, which was negative. Our medical records indicate that the patient underwent a CT scan of the pelvis on 01/15/2018, which found a right acetabular fracture. The patient indicates that he subsequently underwent and a PET scan last week which found metastases to the pelvis, possibly responsible for the pelvic fracture, however, the fracture is on the right, and the patient's pain is primarily on the left. The patient recently had diarrhea. A stool sample was sent on 01/30/2018 which was positive for C. difficile toxin, and the patient was started on oral vancomycin this past p.m., 01/31/2018. While he no longer has diarrhea, he continues to have abdominal pain. The patient now presents to the ED after developing nausea and emesis around 19: 00 last night. He took one tablet of Zofran ODT around 22:30, without much relief. No recent fever. No recent chest pain, dyspnea, or palpitations. The patient's PCP is Roxie Copeland. Left Lower Abdominal Pain Score (Numeric/FACES): 8 - Related Data Allergies Allergy/AdvReac Type Severity Reaction Status Date / Time No Known Allergies Allergy Verified 02/02/18 10:04 Home Meds: Home Meds Aspirin [Children's Aspirin] 162 mg PO DAILY 10/01/15 [History] Levothyroxine Sodium [Synthroid] 112 mcg PO DAILY 10/01/15 [History] Calcium Citrate/Vitamin D3 [Citracal + D Maximum Caplet] 2 tab PO DAILY [History] Morphine Sulfate [Morphine Sulfate ER] 15 mg PO QID 02/02/18 [History] Vancomycin 125 mg PO QID 02/02/18 [History] Past Medical History HEENT History: Reports: Impaired Vision, Other (See Below) Other HEENT History: wears glasses, has upper denture Gastrointestinal History: Reports: Hiatal Hernia Musculoskeletal History: Reports: Osteoarthritis Endocrine/Metabolic History: Reports: Hypothyroidism Hematologic History: Reports: Anemia Oncologic (Cancer) History: Reports: Bladder (Stage IV. Last CTx October 2016) - Infectious Disease History Infectious Disease History: Reports: Chicken Pox - Past Surgical History HEENT Surgical History: Reports: Cataract Surgery, Oral Surgery ([place] teeth extraction), Tonsillectomy Cardiovascular Surgical History: Reports: Vascular Surgery (right Port-A-Cath) GI Surgical History: Reports: Colonoscopy, EGD, Hernia, Inguinal (right) Male Surgical History: Reports: Cystectomy (July 2014), Nephrectomy ( right), Prostatectomy, Other (See Below) (Urostomy) Musculoskeletal Surgical History: Reports: Knee Replacement (bilateral), Other ( See Below) (Right thumb pinning) Social & Family History - Family History Family Medical History: Noncontributory - Tobacco Use Smoking Status *Q: Never Smoker - Caffeine Use Caffeine Use: Reports: Coffee, Soda - Alcohol Use Alcohol Use History: Yes Alcohol Use Frequency: Socially - Recreational Drug Use Recreational Drug Use: No - Living Situation & Occupation Living situation: Reports: , with Spouse Occupation: Retired ED ROS GENERAL - Review of Systems Review Of Systems: ROS reveals no pertinent complaints other than HPI. ED EXAM, GI/ABD - Physical Exam Exam: See Below Exam Limited By: No Limitations General Appearance: Alert, WD/WN, No Apparent Distress Eyes: Bilateral: Normal Appearance, EOMI Ears: Normal External Exam, Hearing Grossly Normal Nose: Normal Inspection, No Blood Throat/Mouth: Normal Inspection, Normal Lips, Normal Voice, No Airway Compromise Head: Atraumatic, Normocephalic Neck: Normal Inspection, Full Range of Motion Respiratory/Chest: No Respiratory Distress, Lungs Clear, Normal Breath Sounds, No Accessory Muscle Use Cardiovascular: Normal Peripheral Pulses, No Edema, No Gallop, No JVD, No Murmur , No Rub, Tachycardia (regular) GI/Abdominal Exam: Soft, No Organomegaly, No Distention, No Abnormal Bruit, No Mass, Tender (Primarily in the left lower quadrant, with mild tenderness to the remainder of the abdomen), Abnormal Bowel Sounds (Rushes), Other (Urostomy to the RLQ is C/D/I. Dark urine in the bag.) (Male) Exam: Deferred Rectal (Males) Exam: Deferred Back Exam: Normal Inspection, Full Range of Motion, NT Extremities: Normal Inspection, Normal Range of Motion, No Pedal Edema, Normal Capillary Refill Neurological: Alert, Oriented, Normal Cognition, No Motor/Sensory Deficits Psychiatric: Normal Affect Skin Exam: Warm, Dry, Intact, Normal Color, No Rash Course - Vital Signs Last Recorded V/S: Last Vital Signs Temp 36.3 C 02/02/18 05:06 Pulse 118 H 02/02/18 05:06 Resp 16 02/02/18 05:06 BP 148/84 H 02/02/18 05:06 Pulse Ox 96 02/02/18 05:06 - Orders/Labs/Meds Orders: Active Orders 24 hr Category Date Time Status Abdomen Pelvis w Cont [CT] Stat Exams 02/02/18 05:36 Taken UA W/MICROSCOPIC [URIN] Stat Lab 02/02/18 05:36 Ordered Morphine Med 02/02/18 07:38 Active 8 mg IVPUSH Q2H PRN Sodium Chloride 0.9% [Normal Saline] 1,000 ml Med 02/02/18 05:45 Active IV ASDIRECTED NG [Nasogastric Orogastric Tube Insertion] [OM.PC] Oth 02/02/18 08:28 Ordered Routine Medication Orders Sodium Chloride (Normal Saline) 1,000 mls @ 150 mls/hr IV ASDIRECTED POOJA Last Admin: 02/02/18 05:45 Dose: 150 mls/hr Morphine Sulfate (Morphine) 8 mg IVPUSH Q2H PRN PRN Reason: Pain Last Admin: 02/02/18 07:45 Dose: 8 mg Labs: Laboratory Tests 02/02/18 02/02/18 02/02/18 Range/Units 05:45 05:45 08:40 WBC 6.09 (4.23-9.07) K/mm3 RBC 4.66 (4.63-6.08) M/mm3 Hgb 13.6 L (13.7-17.5) gm/L Hct 41.3 (40.1-51.0) % MCV 88.6 (79.0-92.2) fl MCH 29.2 (25.7-32.2) pg MCHC 32.9 (32.2-35.5) g/dl RDW Std Deviation 46.0 H (35.1-43.9) fL Plt Count 331 (163-337) K/mm3 MPV 9.5 (9.4-12.3) fl Neutrophils % (Manual) 72 H (40-60) % Band Neutrophils % 13 H (0-10) % Lymphocytes % (Manual) 11 L (20-40) % Atypical Lymphs % 0 % Monocytes % (Manual) 4 (2-10) % Eosinophils % (Manual) 0 L (0.8-7.0) % Basophils % (Manual) 0 L (0.2-1.2) Platelet Estimate Adequate RBC Morph Comment Normal Sodium 139 (136-145) mEq/L Potassium 4.6 (3.5-5.1) mEq/L Chloride 103 (98-107) mEq/L Carbon Dioxide 24 (21-32) mEq/L Anion Gap 16.6 H (5-15) BUN 23 H (7-18) mg/dL Creatinine 2.3 H (0.7-1.3) mg/dL Est Cr Clr Drug Dosing 24.75 mL/min Estimated GFR (MDRD) 28 (>60) mL/min BUN/Creatinine Ratio 10.0 L (14-18) Glucose 148 H (83-115) mg/dL Lactic Acid 1.2 (0.4-2.0) mmol/L Calcium 8.8 (8.5-10.1) mg/dL Total Bilirubin 1.4 H (0.2-1.0) mg/dL AST 16 (15-37) U/L ALT 17 (16-63) U/L Alkaline Phosphatase 82 (46-116) U/L Total Protein 7.1 (6.4-8.2) g/dl Albumin 3.3 L (3.4-5.0) g/dl Globulin 3.8 gm/dL Albumin/Globulin Ratio 0.9 L (1-2) Lipase 132 (73-393) U/L Meds: Medications Generic Name Dose Route Start Last Admin Trade Name Freq PRN Reason Stop Dose Admin Sodium Chloride 1,000 mls @ 150 mls/hr 02/02/18 05:45 02/02/18 05:45 Normal Saline IV 150 mls/hr ASDIRECTED POOJA Administration Morphine Sulfate 8 mg 02/02/18 07:38 02/02/18 07:45 Morphine IVPUSH 8 mg Q2H PRN Administration Pain Discontinued Medications Generic Name Dose Route Start Last Admin Trade Name Donq PRN Reason Stop Dose Admin Diatrizoate Meglum/Diatrizoate Sod 90 ml 02/02/18 07:39 02/02/18 07:40 Gastrografin 37% PO 02/02/18 07:40 90 ml ONETIME ONE Administration Hydromorphone HCl 0.5 mg 02/02/18 05:38 02/02/18 05:45 Dilaudid IVPUSH 02/02/18 05:39 0.5 mg ONETIME ONE Administration Sodium Chloride 1,000 mls @ 1,000 mls/hr 02/02/18 08:28 Normal Saline IV 02/02/18 09:27 ONETIME ONE Iopamidol 100 ml 02/02/18 07:03 02/02/18 07:39 Isovue-370 (76%) IVPUSH 02/02/18 07:04 100 ml ONETIME ONE Administration Ondansetron HCl 4 mg 02/02/18 05:36 02/02/18 05:45 Zofran IVPUSH 02/02/18 05:37 4 mg ONETIME ONE Administration Ondansetron HCl Confirm 02/02/18 07:53 02/02/18 08:00 Zofran Administered 02/02/18 07:54 Not Given Dose 4 mg .ROUTE .STK-MED ONE Ondansetron HCl 4 mg 02/02/18 07:58 02/02/18 08:01 Zofran IVPUSH 02/02/18 07:59 4 mg ONETIME ONE Administration - Re-Assessments/Exams Free Text/Narrative Re-Assessment/Exam: 02/02/18 07:[address] Donta Mena, and care of the patient turned over to her at this time, for change of shift. Departure - Departure Disposition: Admitted As Inpatient 65 Clinical Impression: Small bowel obstruction Vomiting Qualifiers: Vomiting type: bilious vomiting Nausea presence: with nausea Qualified Code(s) : R11.14 - Bilious vomiting Abdominal pain Qualifiers: Abdominal location: generalized Qualified Code(s): R10.84 - Generalized abdominal pain Chronic kidney disease Qualifiers: Chronic kidney disease stage: unspecified stage Qualified Code(s): N18.9 - Chronic kidney disease, unspecified - Discharge Information - My Orders Last 24 Hours: My Active Orders 02/02/18 07:38 Morphine 8 mg IVPUSH Q2H PRN 02/02/18 08:28 NG [Nasogastric Orogastric Tube Insertion] [OM.PC] Routine - Assessment/Plan Last 24 Hours: My Active Orders 02/02/18 07:38 Morphine 8 mg IVPUSH Q2H PRN 02/02/18 08:28 NG [Nasogastric Orogastric Tube Insertion] [OM.PC] Routine <Donta Mena A - Last Filed: 02/02/18 10:19> Course - Re-Assessments/Exams Free Text/Narrative Re-Assessment/Exam: 02/02/18 08:53 Patient signed out to me. His labs are significant for a creatinine of 2.3. Review shows that baseline is 2 - 2.3. CBC is normal, no white count elevation. On reexam, patient appears well, no distress, mild diffuse abd TTP. He did have additional vomiting in the ED. CT a/p with contrast completed prior to my arrival shows Distended stomach, multiple loops of dilated small bowel with air- fluid levels which may represent illeus or small bowel obstruction and tapering of the small bowel in the anterior right inferior hemipelvis He also has a comminuted displaced unhealed R acetabular fracture which is already known. Discussed with Dr. Deshpande (surgeon) who recommends NG tube and requests we send lactate. He feels patient is appropriate for admission here. Discussed with Dr. Samuels who is concerned that with his co-morbidities he may require greater than 96 hours of admission. She will evaluate the patient in the ED and make a decision about whether or not to admit him here. Patient received IV contrast for scan prior to my arrival. He has no history of CAD/CHF or pulmonary disease. He appears mildly dehydrated. Will fluid resuscitate. Given ongoing vomiting (600cc of vomit when I arrived) we will give 2L NS. Departure - Departure Time of Disposition: 09:00
[2018-02-02] MEDS ORDERED: Sodium Chloride 0.9% 1,000 ML IV SCH (05:45)
[2018-02-02] MEDS ORDERED: Iopamidol 755 Mg/ML 100 ML Bottle IVPUSH ONE (07:03)
[2018-02-02] MEDS ORDERED: Morphine 4 MG/ML Syringe IVPUSH PRN ×2 (07:38→11:50)
[2018-02-02] MEDS ORDERED: Diatrizoate Meglumine/Diatrizoate Sodium 37% 120 ML Bottle PO ONE (07:39)
[2018-02-02] MEDS ORDERED: Ondansetron 4 MG/2 ML SDV ONE (07:53)
[2018-02-02] MEDS ORDERED: Sodium Chloride 0.9% 1,000 ML IV ONE (08:28)
--- NOTE | 2018-02-02 10:33 | PCM.CONS ---
H&P History of Present Illness - General Date of Service: 02/02/18 Admit Problem/Dx: Admission Diagnosis/Problem Admission Diagnosis/Problem Small bowel obstruction Source of Information: Patient - History of Present Illness Initial Comments - Free Text/Narative: 77 yo male, h/o multiple medical problems, presents with abdominal pain and nausea/emesis, which started last night (about 12 hours prior to presentation). He vomited several times at home and several times in the hospital. Has been passing flatus. Last BM was yesterday. He presented to the ED, where he received Zofran x 2 doses, Dilaudid, and morphine IV. CT was obtained in the ER, which was concerning for small bowel obstruction. An NG tube was placed in the ED, with removal of 300 cc of bilious fluid. No prior know episodes of SBO. In December 2017, he went to the ER in [place], and was told he had an ileus and was given a course of liquid diet for four days, with resolution. 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 His last course of chemotherapy was October of 2016. For his cancer care, he goes to [place] regularly (about every 1-3 months). He also has a h/o hypothyroidism, anemia, HTN, and CRF. Of note, the patient was diagnosed with C diff colitis about 3 days ago. Prior to that he was having diarrhea for about a week. He has been on a course of oral vancomycin. Diarrhea has resolved. He was on antibiotics a few months ago for some reason that the patient and family could not recall. His last admission at this facility was in December 2017, at which time, he had symptoms of possible TIA. Work-up was negative for TIA. He has a urostomy that has been functioning without problems. Patient is a poor historian, and medical records were incomplete, since he gets a lot of his care in [place]. Left Lower Abdominal Pain Score (Numeric/FACES): 0 - Related Data Allergies/Adverse Reactions: Allergies Allergy/AdvReac Type Severity Reaction Status Date / Time No Known Allergies Allergy Verified 02/02/18 10:04 Home Medications: Home Meds Aspirin [Children's Aspirin] 162 mg PO DAILY 10/01/15 [History] Levothyroxine Sodium [Synthroid] 112 mcg PO DAILY 10/01/15 [History] Calcium Citrate/Vitamin D3 [Citracal + D Maximum Caplet] 2 tab PO DAILY [History] Morphine Sulfate [Morphine Sulfate ER] 15 mg PO QID 02/02/18 [History] Vancomycin 125 mg PO QID 02/02/18 [History] Past Medical History HEENT History: Reports: Impaired Vision, Other (See Below) Other HEENT History: wears glasses, has upper denture Cardiovascular History: Reports: None Gastrointestinal History: Reports: Hiatal Hernia Other Gastrointestinal History: R groin hernia repair Genitourinary History: Reports: Other (See Below) Other Genitourinary History: h/o bladder cancer s/p cystectomy with urostomy ( stoma in RLQ) Musculoskeletal History: Reports: Arthritis Other Musculoskeletal History: chronic pelvic pain r/t cancer in that area. 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 - Infectious Disease History Infectious Disease History: Reports: C-Difficile (diagnosed 3 days ago.), Chicken Pox - Past Surgical History HEENT Surgical History: Reports: Cataract Surgery, Oral Surgery, Tonsillectomy Cardiovascular Surgical History: Reports: None GI Surgical History: Reports: Colonoscopy, EGD, Hernia, Inguinal Male Surgical History: Reports: Cystectomy (performed 4 years ago for bladder cancer), Nephrectomy, Prostatectomy, Other (See Below) Musculoskeletal Surgical History: Reports: Knee Replacement, Other (See Below) Other Musculoskeletal Surgeries/Procedures:: bilateral knee replacements Oncologic Surgical History: Reports: None Dermatological Surgical History: Reports: None Social & Family History - Family History Family Medical History: Noncontributory - Tobacco Use Smoking Status *Q: Never Smoker - Caffeine Use Caffeine Use: Reports: Coffee, Soda - Alcohol Use Alcohol Use History: No - Recreational Drug Use Recreational Drug Use: No - Living Situation & Occupation Living situation: Reports: (Lives with here in [place]), with Spouse Occupation: Retired H&P Review of Systems - Review of Systems: Review Of Systems: See Below General: Reports: No Symptoms Pulmonary: Reports: No Symptoms Cardiovascular: Reports: No Symptoms Musculoskeletal: Reports: Other (patient ambulates with a cane/walker at home, given his RIGHT hip fracture) Skin: Reports: No Symptoms Exam - Exam Exam: See Below - Vital Signs Vital Signs: Last Vital Signs Temp 36.7 C 02/02/18 10:01 Pulse 94 02/02/18 10:01 Resp 18 02/02/18 10:01 BP 121/79 02/02/18 10:01 Pulse Ox 95 02/02/18 10:01 Weight: 73.21 kg - Exam General: Alert, Oriented, Cooperative HEENT: Conjunctiva Clear. No: Scleral Icterus Lungs: Clear to Auscultation, Normal Respiratory Effort Cardiovascular: Regular Rate, Regular Rhythm, Normal S1, Normal S2. No: Systolic Murmur GI/Abdominal Exam: Normal Bowel Sounds, Soft, Non-Tender, Distended (MODERATELY DISTENDED), Other (well-healed midline surgical scar) Extremities: Normal Inspection Neuro Extensive - Mental Status: Alert, Oriented x3, Normal Mood/Affect Psychiatric: Alert, Normal Affect, Normal Mood - Patient Data Lab Results Last 24 hrs: Laboratory Results - last 24 hr 02/02/18 02/02/18 02/02/18 Range/Units 05:45 05:45 08:40 WBC 6.09 (4.23-9.07) K/mm3 RBC 4.66 (4.63-6.08) M/mm3 Hgb 13.6 L (13.7-17.5) gm/L Hct 41.3 (40.1-51.0) % MCV 88.6 (79.0-92.2) fl MCH 29.2 (25.7-32.2) pg MCHC 32.9 (32.2-35.5) g/dl RDW Std Deviation 46.0 H (35.1-43.9) fL Plt Count 331 (163-337) K/mm3 MPV 9.5 (9.4-12.3) fl Neutrophils % (Manual) 72 H (40-60) % Band Neutrophils % 13 H (0-10) % Lymphocytes % (Manual) 11 L (20-40) % Atypical Lymphs % 0 % Monocytes % (Manual) 4 (2-10) % Eosinophils % (Manual) 0 L (0.8-7.0) % Basophils % (Manual) 0 L (0.2-1.2) Platelet Estimate Adequate RBC Morph Comment Normal Sodium 139 (136-145) mEq/L Potassium 4.6 (3.5-5.1) mEq/L Chloride 103 (98-107) mEq/L Carbon Dioxide 24 (21-32) mEq/L Anion Gap 16.6 H (5-15) BUN 23 H (7-18) mg/dL Creatinine 2.3 H (0.7-1.3) mg/dL Est Cr Clr Drug Dosing 24.75 mL/min Estimated GFR (MDRD) 28 (>60) mL/min BUN/Creatinine Ratio 10.0 L (14-18) Glucose 148 H (83-115) mg/dL Lactic Acid 1.2 (0.4-2.0) mmol/L Calcium 8.8 (8.5-10.1) mg/dL Total Bilirubin 1.4 H (0.2-1.0) mg/dL AST 16 (15-37) U/L ALT 17 (16-63) U/L Alkaline Phosphatase 82 (46-116) U/L Total Protein 7.1 (6.4-8.2) g/dl Albumin 3.3 L (3.4-5.0) g/dl Globulin 3.8 gm/dL Albumin/Globulin Ratio 0.9 L (1-2) Lipase 132 (73-393) U/L Result Diagrams: 02/02/18 05:45 02/02/18 05:45 Imaging Impressions Last 24 hrs: CT Abd/Pelvis with PO/IV contrast: Per [facility]Rad: 1. Right nephrectomy 2. Distended stomach. There are multiple loops of dilated small bowel with air- fluid levels. This may represent ileus or small bowel obstruction. Tapering of the small bowel in the anterior right inferior hemipelvis. 3. Right ileostomy and left ureteral diversion. 4. Comminuted displaced unhealed right acetabular fracture. Cement is seen in the right ileum. Unhealed fractures in this region. Consult PN Assessment/Plan Procedures: Procedures ASSAY OF CREATININE (12/14/15) ASSAY OF FERRITIN (11/25/15) ASSAY OF LIPASE (07/27/17) ASSAY OF SERUM ALBUMIN (11/25/15) ASSAY OF TROPONIN QUANT (12/14/15) ASSAY THYROID STIM HORMONE (01/28/18) C DIFF AMPLIFIED PROBE (01/30/18) C-REACTIVE PROTEIN (07/27/17) CHEST X-RAY 2VW FRONTAL&LATL (12/14/15) COMPLETE CBC AUTOMATED (07/27/17) COMPLETE CBC W/AUTO DIFF WBC (01/15/18) COMPREHEN METABOLIC PANEL (01/15/18) CREATINE MB FRACTION (12/14/15) CRYPTOSPORIDIUM AG IA (01/30/18) CT ABD & PELVIS W/O CONTRAST (05/13/14) CT HEAD/BRAIN W/O DYE (01/08/18) CT PELVIS W/O DYE (01/15/18) ECG MONIT/REPRT UP TO 48 HRS (01/09/18) ECG MONIT/REPRT UP TO 48 HRS (01/09/18) ELECTROCARDIOGRAM TRACING (01/08/18) EMERGENCY DEPT VISIT (01/08/18) EXTRACRANIAL BILAT STUDY (01/08/18) GAIT TRAINING THERAPY (12/06/15) GIARDIA AG IA (01/30/18) GLUCOSE BLOOD TEST (01/08/18) H PYLORI (C-13) BREATH (01/15/18) IRRIG DRUG DELIVERY DEVICE (01/08/18) LEUKOCYTE ASSESSMENT FECAL (01/30/18) LIPID PANEL (01/08/18) LUNG PERFUSION IMAGING (12/14/15) MANUAL THERAPY 1/> REGIONS (12/28/15) MEASURE BLOOD OXYGEN LEVEL (12/06/15) METABOLIC PANEL TOTAL CA (11/25/15) MICROBE SUSCEPTIBLE BLAIRE (09/05/17) MR ANGIOGRAPHY HEAD W/O DYE (01/08/18) MR ANGIOGRAPHY NECK W/O DYE (01/08/18) MR-STAPH DNA AMP PROBE (11/30/15) MRI JNT OF LWR EXTRE W/O DYE (08/10/17) NEUROMUSCULAR REEDUCATION (12/28/15) OFFICE/OUTPATIENT VISIT EST (11/22/17) OT EVAL LOW COMPLEX 30 MIN (01/08/18) OT EVALUATION (12/06/15) PROTHROMBIN TIME (12/14/15) PT EVAL LOW COMPLEX 20 MIN (01/08/18) PT EVALUATION (12/17/15) ROTAVIRUS AG IA (01/30/18) ROUTINE VENIPUNCTURE (01/28/18) SELF CARE MNGMENT TRAINING (12/06/15) STOOL CULTR AEROBIC BACT EA (01/30/18) THERAPEUTIC ACTIVITIES (12/06/15) THERAPEUTIC EXERCISES (01/08/18) THROMBOPLASTIN TIME PARTIAL (09/10/15) TTE W/DOPPLER COMPLETE (01/08/18) URINALYSIS AUTO W/SCOPE (09/05/17) URINE BACTERIA CULTURE (09/05/17) URINE CULTURE/COLONY COUNT (09/05/17) X-RAY EXAM HIP UNI 2-3 VIEWS (01/15/18) X-RAY EXAM OF FEMUR 2/> (11/22/17) X-RAY EXAM OF KNEE 1 OR 2 (12/06/15) X-RAY EXAM OF KNEE 3 (11/22/17) X-RAY UPPER GI DELAY W/O KUB (05/04/14) (1) Small bowel obstruction SNOMED Code(s): 730286041 Code(s): K56.609 - UNSP INTESTNL OBST, UNSP TO PARTIAL VERSUS COMPLETE OBST Current Visit: Yes Problem List Initiated/Reviewed/Updated: Yes Plan: 77 yo male, h/o multiple medical problems (CRF - baseline Cr 2.0, today is 2.3, hypothyroidism, anemia), on ASA 162 mg daily, with a history significant for bladder cancer s/p laparotomy, cystectomy, RIGHT nephrectomy, and urostomy, presenting with small bowel obstruction. No evidence of abdominal wall hernias on exam and on CT scan. 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 Afebrile, with benign abdominal exam, WBC nomal, and lactate normal. No concern for bowel ischemia at this time. CT scan images and result reviewed. There appears to be a possible transition point in the pelvis. Contrast reaches the proximal to mid small bowel. - NG tube for proximal decompression. This will be riley to resolution of his SBO. - Repeat abdominal X-ray to assess passage of oral contrast into the colon. If contrast transits successfully into colon, the patient has a very high chance of avoiding surgical intervention. - If patient requires surgical intervention, it may be beneficial to be at a hospital with urology support (given the urostomy). Recent h/o C diff colitis. - Since patient will be NPO, IV Flagyl is a good option. Appreciate primary management by the Hospitalist service. Case was discussed with Dr. Purnima Samuels, hospitalist. Sae Villa M.D., F.A.C.S. General Surgery Pager: [phone] Requesting Provider: Dr. Donta Mena Date Consult Requested: 02/02/18 Reason for Consult: small bowel obstruction
[2018-02-02] MEDS ORDERED: Ondansetron 4 MG/2 ML SDV IVPUSH PRN (11:49)
--- NOTE | 2018-02-02 11:51 | PCM.HP ---
H&P History of Present Illness - General Date of Service: 02/02/18 Admit Problem/Dx: Admission Diagnosis/Problem Admission Diagnosis/Problem Small bowel obstruction Source of Information: Patient, Family, Provider History Limitations: Reports: No Limitations - History of Present Illness Initial Comments - Free Text/Narative: 77 year old male with PMH of bladder cancer, stage IV who recently had a PET scan in late December 2017 which documented mets to his pelvis. He had been seen at [facility] roughly 2 weeks ago with left UE numbness. He and his stated that a stroke work up was negative. Around that same time frame, he reported having abdominal pain. This was roughly one to two weeks prior to the left arm discomfort. At that time the abdominal discomfort was evaluated at [facility]. They (he and his ) reported that he had an ileus, and he was treated conservatively on a liquid diet. He lost weight, still experienced discomfort and had additional work up including an MRCP. It was negative. On this occasional, he reportedly had an ileus, however with his presentation, an SBO would be more likely. He has had worsening abdominal pain with nausea and vomiting. No fever. No difficulty passing urine. He has had flatus. He continues to have an appetite. There has been no bile or blood in the vomitus. He will be admitted to [facility] with telemetry. He is NPO, an NGT will be placed on the floor. Contact precautions have been ordered, he apparently was diagnosed with C diff roughly forty-eight hours [employer] [employer]. He has taken about six doses of oral Vancomycin. A general surgical consult has been placed for evaluation of his abdominal pain. Additional factors affecting treatment include an extensive surgical past history: cystectomy; right nephrectomy; prostatectomy; urostomy. He is a full code. Onset of Symptoms: Reports: Gradual Symptom Onset Date: 01/19/18 Duration of Symptoms: Reports: Week(s):, Getting Worse Location: Reports: Abdomen, Generalized Quality: Reports: Same as Previous Episode Severity: Moderate Improves with: Reports: Medication Worsens with: Reports: Eating Associated Symptoms: Reports: Confusion (no), Chest Pain (no), Cough (no), Diaphoresis (no), Fever/Chills (no), Loss of Appetite, Nausea/Vomiting, Weakness Left Lower Abdominal Pain Score (Numeric/FACES): 0 - Related Data Allergies/Adverse Reactions: Allergies Allergy/AdvReac Type Severity Reaction Status Date / Time No Known Allergies Allergy Verified 02/02/18 10:04 Home Medications: Home Meds Aspirin [Children's Aspirin] 162 mg PO DAILY 10/01/15 [History] Levothyroxine Sodium [Synthroid] 112 mcg PO DAILY 10/01/15 [History] Calcium Citrate/Vitamin D3 [Citracal + D Maximum Caplet] 2 tab PO DAILY [History] Morphine Sulfate [Morphine Sulfate ER] 15 mg PO QID 02/02/18 [History] Vancomycin 125 mg PO QID 02/02/18 [History] Past Medical History HEENT History: Reports: Impaired Vision, Other (See Below) Other HEENT History: wears glasses, has upper denture Cardiovascular History: Reports: None Respiratory History: Reports: PE (h/o pulmonary embolism, now off anticoagulation) Gastrointestinal History: Reports: Hiatal Hernia Other Gastrointestinal History: R groin hernia repair Genitourinary History: Reports: Other (See Below) Other Genitourinary History: h/o bladder cancer s/p cystectomy with urostomy ( stoma in RLQ) Musculoskeletal History: Reports: Arthritis Other Musculoskeletal History: chronic pelvic pain r/t cancer in that area. 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 - Infectious Disease History Infectious Disease History: Reports: C-Difficile (diagnosed 3 days ago.), Chicken Pox - Past Surgical History HEENT Surgical History: Reports: Cataract Surgery, Oral Surgery, Tonsillectomy Cardiovascular Surgical History: Reports: None GI Surgical History: Reports: Colonoscopy, EGD, Hernia, Inguinal Male Surgical History: Reports: Cystectomy, Nephrectomy, Prostatectomy, Other (See Below) Musculoskeletal Surgical History: Reports: Knee Replacement, Other (See Below) Other Musculoskeletal Surgeries/Procedures:: bilateral knee replacements Oncologic Surgical History: Reports: None Dermatological Surgical History: Reports: None Social & Family History - Family History Family Medical History: Noncontributory - Tobacco Use Smoking Status *Q: Never Smoker - Caffeine Use Caffeine Use: Reports: Coffee, Soda - Recreational Drug Use Recreational Drug Use: No - Living Situation & Occupation Living situation: Reports: , with Spouse Occupation: Retired H&P Review of Systems - Review of Systems: Review Of Systems: See Below General: Reports: Weakness HEENT: Reports: No Symptoms Pulmonary: Reports: No Symptoms Cardiovascular: Reports: No Symptoms Gastrointestinal: Reports: Abdominal Pain, Flatus, Nausea, Vomiting Genitourinary: Reports: No Symptoms Musculoskeletal: Reports: No Symptoms Skin: Reports: No Symptoms Psychiatric: Reports: No Symptoms Neurological: Reports: No Symptoms Hematologic/Lymphatic: Reports: No Symptoms Immunologic: Reports: No Symptoms Exam - Exam Exam: See Below - Vital Signs Vital Signs: Last Vital Signs Temp 36.7 C 02/02/18 10:01 Pulse 94 02/02/18 10:01 Resp 18 02/02/18 10:01 BP 121/79 02/02/18 10:01 Pulse Ox 95 02/02/18 10:01 Weight: 73.21 kg - Exam Quality Assessment: Supplemental Oxygen, DVT Prophylaxis General: Alert, Oriented, Cooperative HEENT: Conjunctiva Clear, EOMI, Hearing Intact, Mucosa Moist & [place], Nares Patent, Normal Nasal Septum, Pupils Equal, Pupils Reactive, PERRLA Neck: Trachea Midline Lungs: Clear to Auscultation, Normal Respiratory Effort Cardiovascular: Regular Rate, Regular Rhythm GI/Abdominal Exam: Normal Bowel Sounds, Soft, No Organomegaly, No Distention, No Mass, Guarding (no), Rigid (no), Rebound (no), Tender (LUQ), Other (Urostomy) (Male) Exam: Deferred Rectal (Males) Exam: Deferred Back Exam: Normal Inspection Extremities: Normal Inspection, Non-Tender, Slow Capillary Refill Skin: Warm, Dry, Intact Neurological: Cranial Nerves Intact Neuro Extensive - Mental Status: Alert, Oriented x3, Normal Mood/Affect, Normal Cognition, Memory Intact Neuro Extensive - Motor, Sensory, Reflexes: CN II-XII Intact Psychiatric: Alert, Normal Affect, Normal Mood - Patient Data Lab Results Last 24 hrs: Laboratory Results - last 24 hr 02/02/18 02/02/18 02/02/18 Range/Units 05:45 05:45 08:40 WBC 6.09 (4.23-9.07) K/mm3 RBC 4.66 (4.63-6.08) M/mm3 Hgb 13.6 L (13.7-17.5) gm/L Hct 41.3 (40.1-51.0) % MCV 88.6 (79.0-92.2) fl MCH 29.2 (25.7-32.2) pg MCHC 32.9 (32.2-35.5) g/dl RDW Std Deviation 46.0 H (35.1-43.9) fL Plt Count 331 (163-337) K/mm3 MPV 9.5 (9.4-12.3) fl Neutrophils % (Manual) 72 H (40-60) % Band Neutrophils % 13 H (0-10) % Lymphocytes % (Manual) 11 L (20-40) % Atypical Lymphs % 0 % Monocytes % (Manual) 4 (2-10) % Eosinophils % (Manual) 0 L (0.8-7.0) % Basophils % (Manual) 0 L (0.2-1.2) Platelet Estimate Adequate RBC Morph Comment Normal Sodium 139 (136-145) mEq/L Potassium 4.6 (3.5-5.1) mEq/L Chloride 103 (98-107) mEq/L Carbon Dioxide 24 (21-32) mEq/L Anion Gap 16.6 H (5-15) BUN 23 H (7-18) mg/dL Creatinine 2.3 H (0.7-1.3) mg/dL Est Cr Clr Drug Dosing 24.75 mL/min Estimated GFR (MDRD) 28 (>60) mL/min BUN/Creatinine Ratio 10.0 L (14-18) Glucose 148 H (83-115) mg/dL Lactic Acid 1.2 (0.4-2.0) mmol/L Calcium 8.8 (8.5-10.1) mg/dL Total Bilirubin 1.4 H (0.2-1.0) mg/dL AST 16 (15-37) U/L ALT 17 (16-63) U/L Alkaline Phosphatase 82 (46-116) U/L Total Protein 7.1 (6.4-8.2) g/dl Albumin 3.3 L (3.4-5.0) g/dl Globulin 3.8 gm/dL Albumin/Globulin Ratio 0.9 L (1-2) Lipase 132 (73-393) U/L Result Diagrams: 02/03/18 06:25 02/03/18 06:25 - Problem List (1) Abdominal pain SNOMED Code(s): 27470862 ICD Code: R10.9 - UNSPECIFIED ABDOMINAL PAIN Status: Acute Current Visit : Yes Qualifiers: Abdominal location: generalized Qualified Code(s): R10.84 - Generalized abdominal pain (2) Chronic kidney disease SNOMED Code(s): 197876593 ICD Code: N18.9 - CHRONIC KIDNEY DISEASE, UNSPECIFIED Status: Acute Current Visit: Yes Qualifiers: Chronic kidney disease stage: unspecified stage Qualified Code(s): N18.9 - Chronic kidney disease, unspecified (3) Small bowel obstruction SNOMED Code(s): 602115710 ICD Code: K56.609 - UNSP INTESTNL OBST, UNSP TO PARTIAL VERSUS COMPLETE OBST Status: Acute Current Visit: Yes (4) Vomiting SNOMED Code(s): 622156127 ICD Code: R11.10 - VOMITING, UNSPECIFIED Status: Acute Current Visit: Yes Qualifiers: Vomiting type: bilious vomiting Nausea presence: with nausea Qualified Code(s): R11.14 - Bilious vomiting (5) Weakness SNOMED Code(s): 52648344 ICD Code: R53.1 - WEAKNESS Status: Acute Priority: High Current Visit: No (6) Bladder cancer metastasized to bone SNOMED Code(s): 29469165, 681615100 ICD Code: C67.9 - MALIGNANT NEOPLASM OF BLADDER, UNSPECIFIED; C79.51 - SECONDARY MALIGNANT NEOPLASM OF BONE Status: Chronic Priority: Low Current Visit: No (7) History of nephrectomy, unilateral SNOMED Code(s): 37279816611097 ICD Code: Z90.5 - ACQUIRED ABSENCE OF KIDNEY Status: Chronic Priority: Medium Current Visit: No (8) Hypothyroidism SNOMED Code(s): 89545758 ICD Code: E03.9 - HYPOTHYROIDISM, UNSPECIFIED Status: Chronic Priority: Medium Current Visit: No Qualifiers: Hypothyroidism type: unspecified Qualified Code(s): E03.9 - Hypothyroidism , unspecified Problem List Initiated/Reviewed/Updated: Yes Orders Last 24hrs: Active Orders 24 hr Category Date Time Status Patient Status [ADT] Routine ADT 02/02/18 08:59 Active Activity as Tolerated [RC] .Routine Care 02/02/18 11:43 Ordered Vital Signs [RC] PER UNIT ROUTINE Care 02/02/18 11:42 Ordered Consult to Case Management [CONS] Routine Cons 02/04/18 11:00 Ordered Consult to Occupational Therapy [OT Evaluation and Cons 02/04/18 09:00 Ordered Treatment] [CONS] Routine Consult to Physical Therapy [PT Evaluation and Cons 02/04/18 09:00 Ordered Treatment] [CONS] Routine NPO [Nothing Per Oral Diet] [DIET] Diet 02/02/18 Lunch Ordered Abdomen Pelvis w Cont [CT] Stat Exams 02/02/18 05:36 Taken BMP [BASIC METABOLIC PANEL,BMP] [CHEM] DAILY Lab 02/03/18 05:00 Ordered BMP [BASIC METABOLIC PANEL,BMP] [CHEM] DAILY Lab 02/04/18 05:00 Ordered BMP [BASIC METABOLIC PANEL,BMP] [CHEM] DAILY Lab 02/05/18 05:00 Ordered BMP [BASIC METABOLIC PANEL,BMP] [CHEM] DAILY Lab 02/06/18 05:00 Ordered CBC WITH AUTO DIFF [HEME] DAILY Lab 02/03/18 05:00 Ordered CBC WITH AUTO DIFF [HEME] DAILY Lab 02/04/18 05:00 Ordered CBC WITH AUTO DIFF [HEME] DAILY Lab 02/05/18 05:00 Ordered CBC WITH AUTO DIFF [HEME] DAILY Lab 02/06/18 05:00 Ordered CRP [C-REACTIVE PROTEIN] [CHEM] DAILY Lab 02/03/18 05:00 Ordered CRP [C-REACTIVE PROTEIN] [CHEM] DAILY Lab 02/04/18 05:00 Ordered CRP [C-REACTIVE PROTEIN] [CHEM] DAILY Lab 02/05/18 05:00 Ordered CRP [C-REACTIVE PROTEIN] [CHEM] DAILY Lab 02/06/18 05:00 Ordered LACTIC ACID [CHEM] DAILY Lab 02/03/18 05:00 Ordered LACTIC ACID [CHEM] DAILY Lab 02/04/18 05:00 Ordered MAGNESIUM [CHEM] DAILY Lab 02/03/18 05:00 Ordered MAGNESIUM [CHEM] DAILY Lab 02/04/18 05:00 Ordered MAGNESIUM [CHEM] DAILY Lab 02/05/18 05:00 Ordered MAGNESIUM [CHEM] DAILY Lab 02/06/18 05:00 Ordered Lactated Ringers @ 125 MLS/HR(1000ml Bag) Med 02/02/18 12:00 Ordered Lactated Ringers [Ringers, Lactated] 1,000 ml IV ASDIRECTED Morphine Med 02/02/18 11:50 Ordered 4 mg IVPUSH Q6H PRN Ondansetron [Zofran] Med 02/02/18 11:49 Ordered 4 mg IVPUSH Q8H PRN Sodium Chloride 0.9% [Normal Saline] 1,000 ml Med 02/02/18 05:45 Active IV ASDIRECTED metroNIDAZOLE/Normal Saline [Flagyl 500 MG in NS 100 ML Med 02/02/18 11:45 Ordered ] 500 mg Premix Bag 1 bag IV Q8H NG [Nasogastric Orogastric Tube Insertion] [OM.PC] Oth 02/02/18 08:28 Ordered Routine Medication Orders Sodium Chloride (Normal Saline) 1,000 mls @ 150 mls/hr IV ASDIRECTED POOJA Last Admin: 02/02/18 05:45 Dose: 150 mls/hr Metronidazole 500 mg/ Premix 100 mls @ 100 mls/hr IV Q8H [facility] Lactated Ringer's (Ringers, Lactated) 1,000 mls @ 125 mls/hr IV ASDIRECTED [facility] Morphine Sulfate (Morphine) 4 mg IVPUSH Q6H PRN PRN Reason: Pain (moderate 4-6) Ondansetron HCl (Zofran) 4 mg IVPUSH Q8H PRN PRN Reason: Nausea/Vomiting Assessment/Plan Comment:: Impression: Small bowel obstruction, S/P multiple abdominal surgeries Acute on chronic renal failure, baseline Cr 1.5 (January 2018) History of bladder cancer, stage IV with mets to the pelvis Recent TIA presentation with LUE numbness Chronic Hypothyroidism HTN EKG with LBBB Unilateral nephrectomy, right Prostatectomy Cystectomy Plan: IVF with LR Replace electrolytes Serial radiographic imaging Gen Surgery consult NGT to LIS Hold oral meds Daily labs DVT prophylaxis GI prophylaxis Consult PT/OT/CM
[2018-02-02] MEDS: Lactated Ringers 1,000 ML IV SCH ×2 (12:01→23:55)
[2018-02-02] MEDS: metroNIDAZOLE/Normal Saline 500 MG in Premix Bag 1 BAG IV SCH ×2 (14:07→20:17)
[2018-02-02] MEDS: Heparin Sodium 5,000 Units/ML Vial SUBCUT SCH ×2 (15:16→22:12)
[2018-02-03] MEDS: metroNIDAZOLE/Normal Saline 500 MG in Premix Bag 1 BAG IV SCH ×3 (04:13→20:38)
[2018-02-03] MEDS: Heparin Sodium 5,000 Units/ML Vial SUBCUT SCH ×3 (06:07→22:53)
--- NOTE | 2018-02-03 08:32 | CR ---
Abdomen: Supine view of the abdomen was obtained. Comparison: Prior abdominal x-ray of 02/02/18. Continuing dilated air-filled loops of small bowel are seen. Contrast noted within the colon on the left side. Surgical anastomotic sutures are seen within the right abdomen. Multiple surgical clips are seen. A nasogastric tube lies slightly passed the gastroesophageal junction and has been somewhat withdrawn from previous exam. Bony structures shows nothing acute and appears stable from previous exam. Impression: 1. Continuing dilated air-filled loops of small bowel. Uncertain if this represents continuing small bowel obstruction or represents an ileus. 2. Previous nasogastric tube has been slightly withdrawn from prior exam but still lies slightly passed the gastroesophageal junction. 3. Previous abdominal surgery. Diagnostic code #3
--- NOTE | 2018-02-03 08:59 | PCM.PN ---
- General Info Date of Service: 02/03/18 Subjective Update: Improvement of AXR, NGT out put has decreased; patient has started ice chips. Functional Status: Reports: Pain Controlled, Tolerating Diet (NPO), Ambulating, Urinating - Review of Systems General: Reports: No Symptoms HEENT: Reports: No Symptoms Pulmonary: Reports: No Symptoms Cardiovascular: Reports: No Symptoms Gastrointestinal: Reports: No Symptoms Genitourinary: Reports: No Symptoms Musculoskeletal: Reports: No Symptoms Skin: Reports: No Symptoms Neurological: Reports: No Symptoms Psychiatric: Reports: No Symptoms - Patient Data Vitals - Most Recent: Last Vital Signs Temp 36.6 C 02/03/18 04:04 Pulse 78 02/03/18 04:04 Resp 16 02/03/18 04:04 BP 128/73 02/03/18 04:04 Pulse Ox 95 02/03/18 04:04 Weight - Most Recent: 73.255 kg I&O - Last 24 Hours: Intake & Output 02/02/18 02/03/18 02/03/18 22:59 06:59 14:59 Intake Total 1364 1336 Output Total 440 630 Balance 924 706 Lab Results Last 24 Hours: Laboratory Results - last 24 hr 02/02/18 02/02/18 02/03/18 Range/Units 08:40 12:09 06:25 WBC 4.83 (4.23-9.07) K/mm3 RBC 3.72 L (4.63-6.08) M/mm3 Hgb 11.0 L (13.7-17.5) gm/L Hct 34.1 L (40.1-51.0) % MCV 91.7 (79.0-92.2) fl MCH 29.6 (25.7-32.2) pg MCHC 32.3 (32.2-35.5) g/dl RDW Std Deviation 47.8 H (35.1-43.9) fL Plt Count 233 (163-337) K/mm3 MPV 9.9 (9.4-12.3) fl Neut % (Auto) 76.2 H (34.0-67.9) % Lymph % (Auto) 9.1 L (21.8-53.1) % [place] % (Auto) 12.0 (5.3-12.2) % Eos % (Auto) 2.3 (0.8-7.0) Baso % (Auto) 0.2 (0.1-1.2) % Neut # (Auto) 3.68 (1.78-5.38) K/mm3 Lymph # (Auto) 0.44 L (1.32-3.57) K/mm3 [place] # (Auto) 0.58 (0.30-0.82) K/mm3 Eos # (Auto) 0.11 (0.04-0.54) K/mm3 Baso # (Auto) 0.01 (0.01-0.08) K/mm3 Manual Slide Review Abnormal smear Sodium (136-145) mEq/L Potassium (3.5-5.1) mEq/L Chloride (98-107) mEq/L Carbon Dioxide (21-32) mEq/L Anion Gap (5-15) BUN (7-18) mg/dL Creatinine (0.7-1.3) mg/dL Est Cr Clr Drug Dosing mL/min Estimated GFR (MDRD) (>60) mL/min BUN/Creatinine Ratio (14-18) Glucose (83-115) mg/dL Lactic Acid 1.2 (0.4-2.0) mmol/L Calcium (8.5-10.1) mg/dL Magnesium (1.8-2.4) mg/dl C-Reactive Protein (<1.0) mg/dL Urine Color [place] H (Yellow) Urine Appearance Cloudy H (Clear) Urine pH 6.5 (5.0-8.0) Ur Specific Reading 1.015 (1.005-1.030) Urine Protein 2+ H (Negative) Urine Glucose (UA) Negative (Negative) Urine Ketones Negative (Negative) Urine Occult Blood 3+ H (Negative) Urine Nitrite Negative (Negative) Urine Bilirubin Negative (Negative) Urine Urobilinogen 0.2 (0.2-1.0) Ur Leukocyte Esterase Negative (Negative) Urine RBC 50-75 H (0-5) /hpf Urine WBC 0-5 (0-5) /hpf Ur Epithelial Cells Not seen (0-5) /hpf Urine Bacteria Few (FEW) /hpf Urine Mucus Not seen (FEW) /hpf 02/03/18 02/03/18 Range/Units 06:25 06:25 WBC (4.23-9.07) K/mm3 RBC (4.63-6.08) M/mm3 Hgb (13.7-17.5) gm/L Hct (40.1-51.0) % MCV (79.0-92.2) fl MCH (25.7-32.2) pg MCHC (32.2-35.5) g/dl RDW Std Deviation (35.1-43.9) fL Plt Count (163-337) K/mm3 MPV (9.4-12.3) fl Neut % (Auto) (34.0-67.9) % Lymph % (Auto) (21.8-53.1) % [place] % (Auto) (5.3-12.2) % Eos % (Auto) (0.8-7.0) Baso % (Auto) (0.1-1.2) % Neut # (Auto) (1.78-5.38) K/mm3 Lymph # (Auto) (1.32-3.57) K/mm3 [place] # (Auto) (0.30-0.82) K/mm3 Eos # (Auto) (0.04-0.54) K/mm3 Baso # (Auto) (0.01-0.08) K/mm3 Manual Slide Review Sodium 141 (136-145) mEq/L Potassium 4.0 (3.5-5.1) mEq/L Chloride 108 H (98-107) mEq/L Carbon Dioxide 25 (21-32) mEq/L Anion Gap 12.0 (5-15) BUN 23 H (7-18) mg/dL Creatinine 2.0 H (0.7-1.3) mg/dL Est Cr Clr Drug Dosing 28.46 mL/min Estimated GFR (MDRD) 32 (>60) mL/min BUN/Creatinine Ratio 11.5 L (14-18) Glucose 97 (83-115) mg/dL Lactic Acid 0.9 (0.4-2.0) mmol/L Calcium 7.5 L (8.5-10.1) mg/dL Magnesium 1.8 (1.8-2.4) mg/dl C-Reactive Protein 11.3 H* (<1.0) mg/dL Urine Color (Yellow) Urine Appearance (Clear) Urine pH (5.0-8.0) Ur Specific Reading (1.005-1.030) Urine Protein (Negative) Urine Glucose (UA) (Negative) Urine Ketones (Negative) Urine Occult Blood (Negative) Urine Nitrite (Negative) Urine Bilirubin (Negative) Urine Urobilinogen (0.2-1.0) Ur Leukocyte Esterase (Negative) Urine RBC (0-5) /hpf Urine WBC (0-5) /hpf Ur Epithelial Cells (0-5) /hpf Urine Bacteria (FEW) /hpf Urine Mucus (FEW) /hpf Med Orders - Current: Current Medications Heparin Sodium (Porcine) (Heparin Sodium) 5,000 units SUBCUT Q8H [facility] Last Admin: 02/03/18 06:07 Dose: 5,000 units Metronidazole 500 mg/ Premix 100 mls @ 100 mls/hr IV Q8H [facility] Last Admin: 02/03/18 04:13 Dose: 100 mls/hr Lactated Ringer's (Ringers, Lactated) 1,000 mls @ 125 mls/hr IV ASDIRECTED [facility] Last Admin: 02/02/18 23:55 Dose: 125 mls/hr Morphine Sulfate (Morphine) 4 mg IVPUSH Q6H PRN PRN Reason: Pain (moderate 4-6) Last Admin: 02/02/18 20:13 Dose: 4 mg Ondansetron HCl (Zofran) 4 mg IVPUSH Q8H PRN PRN Reason: Nausea/Vomiting Discontinued Medications Diatrizoate Meglum/Diatrizoate Sod (Gastrografin 37%) 90 ml PO ONETIME ONE Stop: 02/02/18 07:40 Last Admin: 02/02/18 07:40 Dose: 90 ml Hydromorphone HCl (Dilaudid) 0.5 mg IVPUSH ONETIME ONE Stop: 02/02/18 05:39 Last Admin: 02/02/18 05:45 Dose: 0.5 mg Sodium Chloride (Normal Saline) 1,000 mls @ 150 mls/hr IV ASDIRECTED [facility] Last Admin: 02/02/18 05:45 Dose: 150 mls/hr Sodium Chloride (Normal Saline) 1,000 mls @ 1,000 mls/hr IV ONETIME ONE Stop: 02/02/18 09:27 Last Admin: 02/02/18 10:44 Dose: Not Given Iopamidol (Isovue-370 (76%)) 100 ml IVPUSH ONETIME ONE Stop: 02/02/18 07:04 Last Admin: 02/02/18 07:39 Dose: 100 ml Morphine Sulfate (Morphine) 8 mg IVPUSH Q2H PRN PRN Reason: Pain Last Admin: 02/02/18 07:45 Dose: 8 mg Ondansetron HCl (Zofran) 4 mg IVPUSH ONETIME ONE Stop: 02/02/18 05:37 Last Admin: 02/02/18 05:45 Dose: 4 mg Ondansetron HCl (Zofran) Confirm Administered Dose 4 mg .ROUTE .STK-MED ONE Stop: 02/02/18 07:54 Last Admin: 02/02/18 08:00 Dose: Not Given Ondansetron HCl (Zofran) 4 mg IVPUSH ONETIME ONE Stop: 02/02/18 07:59 Last Admin: 02/02/18 08:01 Dose: 4 mg - Exam Quality Assessment: Supplemental Oxygen, DVT Prophylaxis General: Alert, Oriented, Cooperative, No Acute Distress HEENT: Pupils Equal, Pupils Reactive, EOMI Neck: Trachea Midline, No JVD Lungs: Clear to Auscultation, Normal Respiratory Effort Cardiovascular: Regular Rate, Regular Rhythm GI/Abdominal Exam: Normal Bowel Sounds, Soft, Non-Tender (LLQ), No Organomegaly , No Distention, No Mass, Distended, Tender (Male) Exam: Deferred Back Exam: Normal Inspection Extremities: Normal Inspection, Non-Tender, Normal Capillary Refill Skin: Warm, Dry, Intact Neurological: No New Focal Deficit, Normal Gait, Normal Speech Psy/Mental Status: Alert, Normal Affect, Normal Mood - Problem List Review Problem List Initiated/Reviewed/Updated: Yes - My Orders Last 24 Hours: My Active Orders 02/02/18 11:42 Vital Signs [RC] Q4HR 02/02/18 11:43 Activity as Tolerated [RC] .Routine 02/02/18 11:49 Ondansetron [Zofran] 4 mg IVPUSH Q8H PRN 02/02/18 11:50 Morphine 4 mg IVPUSH Q6H PRN 02/02/18 12:00 Lactated Ringers [Ringers, Lactated] 1,000 ml IV ASDIRECTED metroNIDAZOLE/Normal Saline [Flagyl 500 MG in NS 100 ML] 500 mg Premix Bag 1 bag IV Q8H 02/02/18 15:00 Heparin Sodium 5,000 units SUBCUT Q8H 02/02/18 15:22 Code Status [Resuscitation Status] Routine 02/02/18 Lunch NPO [Nothing Per Oral Diet] [DIET] 02/04/18 05:00 BMP [BASIC METABOLIC PANEL,BMP] [CHEM] DAILY CBC WITH AUTO DIFF [HEME] DAILY CRP [C-REACTIVE PROTEIN] [CHEM] DAILY LACTIC ACID [CHEM] DAILY MAGNESIUM [CHEM] DAILY 02/04/18 07:00 CBC W/O DIFF,HEMOGRAM [HEME] MOTH@0700 02/04/18 09:00 Consult to Occupational Therapy [OT Evaluation and Treatment] [CONS] Routine Consult to Physical Therapy [PT Evaluation and Treatment] [CONS] Routine 02/04/18 11:00 Consult to Case Management [CONS] Routine 02/05/18 05:00 BMP [BASIC METABOLIC PANEL,BMP] [CHEM] DAILY CBC WITH AUTO DIFF [HEME] DAILY CRP [C-REACTIVE PROTEIN] [CHEM] DAILY MAGNESIUM [CHEM] DAILY 02/06/18 05:00 BMP [BASIC METABOLIC PANEL,BMP] [CHEM] DAILY CBC WITH AUTO DIFF [HEME] DAILY CRP [C-REACTIVE PROTEIN] [CHEM] DAILY MAGNESIUM [CHEM] DAILY 02/07/18 07:00 CBC W/O DIFF,HEMOGRAM [HEME] MOTH@0700 02/11/18 07:00 CBC W/O DIFF,HEMOGRAM [HEME] MOTH@0700 02/14/18 07:00 CBC W/O DIFF,HEMOGRAM [HEME] MOTH@0700 02/18/18 07:00 CBC W/O DIFF,HEMOGRAM [HEME] MOTH@0700 02/21/18 07:00 CBC W/O DIFF,HEMOGRAM [HEME] MOTH@0700 - Plan Plan:: Impression: Small bowel obstruction, S/P multiple abdominal surgeries Acute on chronic renal failure has improved, baseline Cr 1.5 (January 2018) History of bladder cancer, stage IV with mets to the pelvis Recent TIA presentation with LUE numbness Chronic Hypothyroidism HTN EKG, LBBB Unilateral nephrectomy, right Prostatectomy Cystectomy Plan: IVF with LR Replace electrolytes Serial radiographic imaging Gen Surgery consult NGT to LIS Hold oral meds Daily labs DVT prophylaxis GI prophylaxis Consult PT/OT/CM
[2018-02-03] MEDS: Lactated Ringers 1,000 ML IV SCH ×2 (09:22→19:04)
--- NOTE | 2018-02-03 09:30 | PCM.CONSN ---
- General Info Date of Service: 02/03/18 Subjective Update: Overnight, no acute events. The patient went to X-ray this morning. Abdominal pain has been mild and intermittent. Denies pain currently. Denies nausea/emesis. Does not feel hungry. Has been passing flatus. Had 3 episodes of watery bowel movement this morning (Patient drank oral contrast yesterday). - Patient Data Vitals - Most Recent: Last Vital Signs Temp 36.7 C 02/03/18 07:54 Pulse 80 02/03/18 07:54 Resp 18 02/03/18 07:54 BP 101/74 02/03/18 07:54 Pulse Ox 95 02/03/18 07:54 Weight - Most Recent: 73.255 kg I&O - Last 24 Hours: Intake & Output 02/02/18 02/03/18 02/03/18 22:59 06:59 14:59 Intake Total 1364 1336 Output Total 440 630 Balance 924 706 Lab Results Last 24 Hours: Laboratory Results - last 24 hr 02/02/18 02/03/18 02/03/18 Range/Units 12:09 06:25 06:25 WBC 4.83 (4.23-9.07) K/mm3 RBC 3.72 L (4.63-6.08) M/mm3 Hgb 11.0 L (13.7-17.5) gm/L Hct 34.1 L (40.1-51.0) % MCV 91.7 (79.0-92.2) fl MCH 29.6 (25.7-32.2) pg MCHC 32.3 (32.2-35.5) g/dl RDW Std Deviation 47.8 H (35.1-43.9) fL Plt Count 233 (163-337) K/mm3 MPV 9.9 (9.4-12.3) fl Neut % (Auto) 76.2 H (34.0-67.9) % Lymph % (Auto) 9.1 L (21.8-53.1) % [place] % (Auto) 12.0 (5.3-12.2) % Eos % (Auto) 2.3 (0.8-7.0) Baso % (Auto) 0.2 (0.1-1.2) % Neut # (Auto) 3.68 (1.78-5.38) K/mm3 Lymph # (Auto) 0.44 L (1.32-3.57) K/mm3 [place] # (Auto) 0.58 (0.30-0.82) K/mm3 Eos # (Auto) 0.11 (0.04-0.54) K/mm3 Baso # (Auto) 0.01 (0.01-0.08) K/mm3 Manual Slide Review Abnormal smear Sodium 141 (136-145) mEq/L Potassium 4.0 (3.5-5.1) mEq/L Chloride 108 H (98-107) mEq/L Carbon Dioxide 25 (21-32) mEq/L Anion Gap 12.0 (5-15) BUN 23 H (7-18) mg/dL Creatinine 2.0 H (0.7-1.3) mg/dL Est Cr Clr Drug Dosing 28.46 mL/min Estimated GFR (MDRD) 32 (>60) mL/min BUN/Creatinine Ratio 11.5 L (14-18) Glucose 97 (83-115) mg/dL Lactic Acid (0.4-2.0) mmol/L Calcium 7.5 L (8.5-10.1) mg/dL Magnesium 1.8 (1.8-2.4) mg/dl C-Reactive Protein 11.3 H* (<1.0) mg/dL Urine Color Brave H (Yellow) Urine Appearance Cloudy H (Clear) Urine pH 6.5 (5.0-8.0) Ur Specific [place] 1.015 (1.005-1.030) Urine Protein 2+ H (Negative) Urine Glucose (UA) Negative (Negative) Urine Ketones Negative (Negative) Urine Occult Blood 3+ H (Negative) Urine Nitrite Negative (Negative) Urine Bilirubin Negative (Negative) Urine Urobilinogen 0.2 (0.2-1.0) Ur Leukocyte Esterase Negative (Negative) Urine RBC 50-75 H (0-5) /hpf Urine WBC 0-5 (0-5) /hpf Ur Epithelial Cells Not seen (0-5) /hpf Urine Bacteria Few (FEW) /hpf Urine Mucus Not seen (FEW) /hpf 02/03/18 Range/Units 06:25 WBC (4.23-9.07) K/mm3 RBC (4.63-6.08) M/mm3 Hgb (13.7-17.5) gm/L Hct (40.1-51.0) % MCV (79.0-92.2) fl MCH (25.7-32.2) pg MCHC (32.2-35.5) g/dl RDW Std Deviation (35.1-43.9) fL Plt Count (163-337) K/mm3 MPV (9.4-12.3) fl Neut % (Auto) (34.0-67.9) % Lymph % (Auto) (21.8-53.1) % [place] % (Auto) (5.3-12.2) % Eos % (Auto) (0.8-7.0) Baso % (Auto) (0.1-1.2) % Neut # (Auto) (1.78-5.38) K/mm3 Lymph # (Auto) (1.32-3.57) K/mm3 [place] # (Auto) (0.30-0.82) K/mm3 Eos # (Auto) (0.04-0.54) K/mm3 Baso # (Auto) (0.01-0.08) K/mm3 Manual Slide Review Sodium (136-145) mEq/L Potassium (3.5-5.1) mEq/L Chloride (98-107) mEq/L Carbon Dioxide (21-32) mEq/L Anion Gap (5-15) BUN (7-18) mg/dL Creatinine (0.7-1.3) mg/dL Est Cr Clr Drug Dosing mL/min Estimated GFR (MDRD) (>60) mL/min BUN/Creatinine Ratio (14-18) Glucose (83-115) mg/dL Lactic Acid 0.9 (0.4-2.0) mmol/L Calcium (8.5-10.1) mg/dL Magnesium (1.8-2.4) mg/dl C-Reactive Protein (<1.0) mg/dL Urine Color (Yellow) Urine Appearance (Clear) Urine pH (5.0-8.0) Ur Specific [place] (1.005-1.030) Urine Protein (Negative) Urine Glucose (UA) (Negative) Urine Ketones (Negative) Urine Occult Blood (Negative) Urine Nitrite (Negative) Urine Bilirubin (Negative) Urine Urobilinogen (0.2-1.0) Ur Leukocyte Esterase (Negative) Urine RBC (0-5) /hpf Urine WBC (0-5) /hpf Ur Epithelial Cells (0-5) /hpf Urine Bacteria (FEW) /hpf Urine Mucus (FEW) /hpf Med Orders - Current: Current Medications Heparin Sodium (Porcine) (Heparin Sodium) 5,000 units SUBCUT Q8H [facility] Last Admin: 02/03/18 06:07 Dose: 5,000 units Metronidazole 500 mg/ Premix 100 mls @ 100 mls/hr IV Q8H [facility] Last Admin: 02/03/18 04:13 Dose: 100 mls/hr Lactated Ringer's (Ringers, Lactated) 1,000 mls @ 125 [facility]ls[facility] Last Admin: 02/03/18 09:22 Dose: 125 mls/hr Morphine Sulfate (Morphine) 4 mg IVPUSH Q6H PRN PRN Reason: Pain (moderate 4-6) Last Admin: 02/02/18 20:13 Dose: 4 mg Ondansetron HCl (Zofran) 4 mg IVPUSH Q8H PRN PRN Reason: Nausea/Vomiting Discontinued Medications Diatrizoate Meglum/Diatrizoate Sod (Gastrografin 37%) 90 ml PO ONETIME ONE Stop: 02/02/18 07:40 Last Admin: 02/02/18 07:40 Dose: 90 ml Hydromorphone HCl (Dilaudid) 0.5 mg IVPUSH ONETIME ONE Stop: 02/02/18 05:39 Last Admin: 02/02/18 05:45 Dose: 0.5 mg Sodium Chloride (Normal Saline) 1,000 mls @ 150 mls[facility] Last Admin: 02/02/18 05:45 Dose: 150 mls/hr Sodium Chloride (Normal Saline) 1,000 mls @ 1,000 mls/hr IV ONETIME ONE Stop: 02/02/18 09:27 Last Admin: 02/02/18 10:44 Dose: Not Given Iopamidol (Isovue-370 (76%)) 100 ml IVPUSH ONETIME ONE Stop: 02/02/18 07:04 Last Admin: 02/02/18 07:39 Dose: 100 ml Morphine Sulfate (Morphine) 8 mg IVPUSH Q2H PRN PRN Reason: Pain Last Admin: 02/02/18 07:45 Dose: 8 mg Ondansetron HCl (Zofran) 4 mg IVPUSH ONETIME ONE Stop: 02/02/18 05:37 Last Admin: 02/02/18 05:45 Dose: 4 mg Ondansetron HCl (Zofran) Confirm Administered Dose 4 mg .ROUTE .STK-MED ONE Stop: 02/02/18 07:54 Last Admin: 02/02/18 08:00 Dose: Not Given Ondansetron HCl (Zofran) 4 mg IVPUSH ONETIME ONE Stop: 02/02/18 07:59 Last Admin: 02/02/18 08:01 Dose: 4 mg - Exam General: Alert, Oriented, No Acute Distress GI/Abdominal Exam: Normal Bowel Sounds, Soft, No Distention, Tender (mildly tender in the lower abdomen.) Consult PN Assessment/Plan Procedures: Procedures ASSAY OF CREATININE (12/14/15) ASSAY OF FERRITIN (11/25/15) ASSAY OF LIPASE (07/27/17) ASSAY OF SERUM ALBUMIN (11/25/15) ASSAY OF TROPONIN QUANT (12/14/15) ASSAY THYROID STIM HORMONE (01/28/18) C DIFF AMPLIFIED PROBE (01/30/18) C-REACTIVE PROTEIN (07/27/17) CHEST X-RAY 2VW FRONTAL&LATL (12/14/15) COMPLETE CBC AUTOMATED (07/27/17) COMPLETE CBC W/AUTO DIFF WBC (01/15/18) COMPREHEN METABOLIC PANEL (01/15/18) CREATINE MB FRACTION (12/14/15) CRYPTOSPORIDIUM AG IA (01/30/18) CT ABD & PELVIS W/O CONTRAST (05/13/14) CT HEAD/BRAIN W/O DYE (01/08/18) CT PELVIS W/O DYE (01/15/18) ECG MONIT/REPRT UP TO 48 HRS (01/09/18) ECG MONIT/REPRT UP TO 48 HRS (01/09/18) ELECTROCARDIOGRAM TRACING (01/08/18) EMERGENCY DEPT VISIT (01/08/18) EXTRACRANIAL BILAT STUDY (01/08/18) GAIT TRAINING THERAPY (12/06/15) GIARDIA AG IA (01/30/18) GLUCOSE BLOOD TEST (01/08/18) H PYLORI (C-13) BREATH (01/15/18) IRRIG DRUG DELIVERY DEVICE (01/08/18) LEUKOCYTE ASSESSMENT FECAL (01/30/18) LIPID PANEL (01/08/18) LUNG PERFUSION IMAGING (12/14/15) MANUAL THERAPY 1/> REGIONS (12/28/15) MEASURE BLOOD OXYGEN LEVEL (12/06/15) METABOLIC PANEL TOTAL CA (11/25/15) MICROBE SUSCEPTIBLE BLAIRE (09/05/17) MR ANGIOGRAPHY HEAD W/O DYE (01/08/18) MR ANGIOGRAPHY NECK W/O DYE (01/08/18) MR-STAPH DNA AMP PROBE (11/30/15) MRI JNT OF LWR EXTRE W/O DYE (08/10/17) NEUROMUSCULAR REEDUCATION (12/28/15) OFFICE/OUTPATIENT VISIT EST (11/22/17) OT EVAL LOW COMPLEX 30 MIN (01/08/18) OT EVALUATION (12/06/15) PROTHROMBIN TIME (12/14/15) PT EVAL LOW COMPLEX 20 MIN (01/08/18) PT EVALUATION (12/17/15) ROTAVIRUS AG IA (01/30/18) ROUTINE VENIPUNCTURE (01/28/18) SELF CARE MNGMENT TRAINING (12/06/15) STOOL CULTR AEROBIC BACT EA (01/30/18) THERAPEUTIC ACTIVITIES (12/06/15) THERAPEUTIC EXERCISES (01/08/18) THROMBOPLASTIN TIME PARTIAL (09/10/15) TTE W/DOPPLER COMPLETE (01/08/18) URINALYSIS AUTO W/SCOPE (09/05/17) URINE BACTERIA CULTURE (09/05/17) URINE CULTURE/COLONY COUNT (09/05/17) X-RAY EXAM HIP UNI 2-3 VIEWS (01/15/18) X-RAY EXAM OF FEMUR 2/> (11/22/17) X-RAY EXAM OF KNEE 1 OR 2 (12/06/15) X-RAY EXAM OF KNEE 3 (11/22/17) X-RAY UPPER GI DELAY W/O KUB (05/04/14) (1) Small bowel obstruction SNOMED Code(s): 039604375 Code(s): K56.609 - UNSP INTESTNL OBST, UNSP TO PARTIAL VERSUS COMPLETE OBST Current Visit: Yes Problem List Initiated/Reviewed/Updated: Yes My Orders Last 24 Hours: My Active Orders 02/02/18 12:02 NG [Gastrointestinal Tube Mgmt] [RC] QSHIFT 02/02/18 13:00 Abdomen 1V Upright [CR] Routine Plan: 77 yo male, h/o multiple medical problems (CRF, hypothyroidism, anemia), on ASA 162 mg daily, with a history significant for bladder cancer s/p laparotomy, cystectomy, RIGHT nephrectomy, and urostomy, presenting with small bowel obstruction, 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 HD#2 - Abdominal X-ray (from this morning) image and result reviewed. There appears to be contrast that has transited to the LEFT colon. This is encouraging, as there is a high chance that the patient will avoid surgical intervention to treat his SBO. There is persistent dilated loops of small bowel. - Continue NG tube for proximal decompression for now. - NG tube was flushed and the sump port was adjusted. The NG tube suction level was also adjusted. The NG tube is now functioning. Nursing staff and patient/ family were educated on management of the NG tube to ensure that it works. - Change canister now to monitor the volume and color of the NG output. - Continue IV Flagyl for treatment of C diff colitis. Appreciate primary management by the Hospitalist service. Case was discussed with Dr. Purnima Samuels, hospitalist. Sae Villa M.D., F.A.C.S. General Surgery Pager: [phone]
[2018-02-03] MEDS ORDERED: Magnesium Sulfate/Water 2 GM in Premix Bag 1 BAG IV ONE (09:50)
[2018-02-04] MEDS: metroNIDAZOLE/Normal Saline 500 MG in Premix Bag 1 BAG IV SCH ×3 (03:35→20:50)
[2018-02-04] MEDS: Heparin Sodium 5,000 Units/ML Vial SUBCUT SCH ×3 (06:36→23:32)
[2018-02-04] MEDS: Lactated Ringers 1,000 ML IV SCH ×3 (06:55→23:51)
--- NOTE | 2018-02-04 07:07 | CR ---
Abdomen: Upright view of the abdomen was obtained. Comparison: Prior CT abdomen and pelvis exam performed earlier on the same day (7:16 AM). Dilated loops of small bowel are noted. Contrast is seen both within the left kidney and within the bowel compatible with recent CT study. Nasogastric tube has been placed with tip lying within the stomach fundus. Several old left-sided rib fractures are noted. Multiple surgical clips are seen. Right-sided infusion port is seen within the chest. Impression: 1. Dilated small bowel loops compatible with small bowel obstruction. Nasogastric tube is now seen with tip lying within the stomach fundus. 2. Other incidental findings. Diagnostic code #3
--- NOTE | 2018-02-04 08:25 | CT ---
CT abdomen and pelvis Technique: Multiple axial sections were obtained from above the dome of the diaphragm inferiorly through the pubic symphysis. Intravenous and oral contrast was utilized. Delayed images were obtained through the pelvis. Comparison: Prior CT abdomen and pelvis exam performed as a noncontrast study dated 05/13/14. Findings: Dilated small bowel loops are seen. Distal portions of the small bowel are decompressed. Findings most likely due to mid to distal small bowel obstruction. Etiology not seen which raises possibility of adhesions. Several loops of small bowel within the left abdomen show rather prominent wall thickening. Visualized lung bases show nothing acute. Liver shows no focal parenchymal abnormality. Small to moderate sized hiatal hernia is seen with gastroesophageal reflux of contrast. Spleen appears normal. Adrenal glands show no nodule. Prior right nephrectomy is seen with surgical clips seen within the right renal bed. Cyst is noted off the anterior mid left kidney measuring approximately 3.5 cm in size. Left kidney is otherwise unremarkable. Aorta shows no aneurysmal dilatation. No retroperitoneal adenopathy or mesenteric abnormality is seen. Fat-containing left inguinal hernia is noted. No pelvic mass or adenopathy is seen. Previous bladder resection is noted. Ileal loop noted within the right lower abdomen. Ostomy noted within the right lower abdomen. Bone window settings were reviewed which show old fracture within the right acetabulum with nonunion of several fracture lines. Bone cement noted within the right pelvis above the right hip. Degenerative change noted throughout the spine. Compression deformity noted of L1 which appears to be old. Impression: 1. Dilated small bowel loops. Several loops show rather prominent wall thickening. Findings most likely due to mid to distal small bowel obstruction. Etiology not seen and findings most likely from an adhesion. 2. Prior right nephrectomy as well as bladder removal. Right ileal loop is seen with ostomy. 3. Other incidental findings which are stable. Diagnostic code #5 I agree with preliminary report from [facility], finalized at 02/02/18, 9:08 AM Central Time
--- NOTE | 2018-02-04 10:09 | PCM.CONSN ---
- General Info Date of Service: 02/04/18 Subjective Update: No acute events overnight. This morning, the NG tube fell out. The patient reports mild intermittent pain in the LEFT abdomen. Denies abdominal distention. Denies nausea/emesis. Has been passing flatus. Had a watery bowel movement this morning. Patient would like something to drink. - Patient Data Vitals - Most Recent: Last Vital Signs Temp 37.3 C 02/04/18 08:04 Pulse 77 02/04/18 08:04 Resp 16 02/04/18 03:43 BP 129/79 02/04/18 08:04 Pulse Ox 95 02/04/18 08:04 Weight - Most Recent: 73.618 kg I&O - Last 24 Hours: Intake & Output 02/03/18 02/04/18 02/04/18 22:59 06:59 14:59 Intake Total 1349 1149 Output Total 800 1000 Balance 549 149 Lab Results Last 24 Hours: Laboratory Results - last 24 hr 02/04/18 02/04/18 02/04/18 Range/Units 06:09 06:09 06:09 WBC 5.50 (4.23-9.07) K/mm3 RBC 3.45 L (4.63-6.08) M/mm3 Hgb 10.2 L (13.7-17.5) gm/L Hct 31.6 L (40.1-51.0) % MCV 91.6 (79.0-92.2) fl MCH 29.6 (25.7-32.2) pg MCHC 32.3 (32.2-35.5) g/dl RDW Std Deviation 46.5 H (35.1-43.9) fL Plt Count 215 (163-337) K/mm3 MPV 10.0 (9.4-12.3) fl Neut % (Auto) 81.2 H (34.0-67.9) % Lymph % (Auto) 6.4 L (21.8-53.1) % [place] % (Auto) 10.9 (5.3-12.2) % Eos % (Auto) 0.9 (0.8-7.0) Baso % (Auto) 0.4 (0.1-1.2) % Neut # (Auto) 4.47 (1.78-5.38) K/mm3 Lymph # (Auto) 0.35 L (1.32-3.57) K/mm3 [place] # (Auto) 0.60 (0.30-0.82) K/mm3 Eos # (Auto) 0.05 (0.04-0.54) K/mm3 Baso # (Auto) 0.02 (0.01-0.08) K/mm3 Manual Slide Review Abnormal smear Sodium 141 (136-145) mEq/L Potassium 3.8 (3.5-5.1) mEq/L Chloride 108 H (98-107) mEq/L Carbon Dioxide 23 (21-32) mEq/L Anion Gap 13.8 (5-15) BUN 17 (7-18) mg/dL Creatinine 1.7 H (0.7-1.3) mg/dL Est Cr Clr Drug Dosing 33.48 mL/min Estimated GFR (MDRD) 39 (>60) mL/min BUN/Creatinine Ratio 10.0 L (14-18) Glucose 90 (83-115) mg/dL Lactic Acid 0.7 (0.4-2.0) mmol/L Calcium 7.3 L (8.5-10.1) mg/dL Magnesium 2.1 (1.8-2.4) mg/dl C-Reactive Protein 13.7 H* (<1.0) mg/dL Med Orders - Current: Current Medications Heparin Sodium (Porcine) (Heparin Sodium) 5,000 units SUBCUT Q8H [facility] Last Admin: 02/04/18 06:36 Dose: 5,000 units Metronidazole 500 mg/ Premix 100 mls @ 100 mls/hr IV Q8H [facility] Last Admin: 02/04/18 03:35 Dose: 100 mls/hr Lactated Ringer's (Ringers, Lactated) 1,000 mls @ 125 mls/hr IV [facility]ED [facility] Last Admin: 02/04/18 06:55 Dose: 125 mls/hr Morphine Sulfate (Morphine) 4 mg IVPUSH Q6H PRN PRN Reason: Pain (moderate 4-6) Last Admin: 02/02/18 20:13 Dose: 4 mg Ondansetron HCl (Zofran) 4 mg IVPUSH Q8H PRN PRN Reason: Nausea/Vomiting Discontinued Medications Diatrizoate Meglum/Diatrizoate Sod (Gastrografin 37%) 90 ml PO ONETIME ONE Stop: 02/02/18 07:40 Last Admin: 02/02/18 07:40 Dose: 90 ml Hydromorphone HCl (Dilaudid) 0.5 mg IVPUSH ONETIME ONE Stop: 02/02/18 05:39 Last Admin: 02/02/18 05:45 Dose: 0.5 mg Sodium Chloride (Normal Saline) 1,000 mls @ 150 mls/hr IV [facility] Last Admin: 02/02/18 05:45 Dose: 150 mls/hr Sodium Chloride (Normal Saline) 1,000 mls @ 1,000 mls/hr IV ONETIME ONE Stop: 02/02/18 09:27 Last Admin: 02/02/18 10:44 Dose: Not Given Magnesium Sulfate 2 gm/ Premix 50 mls @ 25 mls/hr IV ONETIME ONE Stop: 02/03/18 11:49 Last Admin: 02/03/18 10:56 Dose: 25 mls/hr Iopamidol (Isovue-370 (76%)) 100 ml IVPUSH ONETIME ONE Stop: 02/02/18 07:04 Last Admin: 02/02/18 07:39 Dose: 100 ml Morphine Sulfate (Morphine) 8 mg IVPUSH Q2H PRN PRN Reason: Pain Last Admin: 02/02/18 07:45 Dose: 8 mg Ondansetron HCl (Zofran) 4 mg IVPUSH ONETIME ONE Stop: 02/02/18 05:37 Last Admin: 02/02/18 05:45 Dose: 4 mg Ondansetron HCl (Zofran) Confirm Administered Dose 4 mg .ROUTE .STK-MED ONE Stop: 02/02/18 07:54 Last Admin: 02/02/18 08:00 Dose: Not Given Ondansetron HCl (Zofran) 4 mg IVPUSH ONETIME ONE Stop: 02/02/18 07:59 Last Admin: 02/02/18 08:01 Dose: 4 mg - Exam General: Alert, Oriented, Cooperative GI/Abdominal Exam: Normal Bowel Sounds, Soft, No Distention, Tender (mildly tender to the LEFT abdomen. No peritoneal signs.) Extremities: Normal Inspection Psy/Mental Status: Alert, Normal Affect, Normal Mood Consult PN Assessment/Plan Procedures: Procedures ASSAY OF CREATININE (12/14/15) ASSAY OF FERRITIN (11/25/15) ASSAY OF LIPASE (07/27/17) ASSAY OF SERUM ALBUMIN (11/25/15) ASSAY OF TROPONIN QUANT (12/14/15) ASSAY THYROID STIM HORMONE (01/28/18) C DIFF AMPLIFIED PROBE (01/30/18) C-REACTIVE PROTEIN (07/27/17) CHEST X-RAY 2VW FRONTAL&LATL (12/14/15) COMPLETE CBC AUTOMATED (07/27/17) COMPLETE CBC W/AUTO DIFF WBC (01/15/18) COMPREHEN METABOLIC PANEL (01/15/18) CREATINE MB FRACTION (12/14/15) CRYPTOSPORIDIUM AG IA (01/30/18) CT ABD & PELVIS W/O CONTRAST (05/13/14) CT HEAD/BRAIN W/O DYE (01/08/18) CT PELVIS W/O DYE (01/15/18) ECG MONIT/REPRT UP TO 48 HRS (01/09/18) ECG MONIT/REPRT UP TO 48 HRS (01/09/18) ELECTROCARDIOGRAM TRACING (01/08/18) EMERGENCY DEPT VISIT (01/08/18) EXTRACRANIAL BILAT STUDY (01/08/18) GAIT TRAINING THERAPY (12/06/15) GIARDIA AG IA (01/30/18) GLUCOSE BLOOD TEST (01/08/18) H PYLORI (C-13) BREATH (01/15/18) IRRIG DRUG DELIVERY DEVICE (01/08/18) LEUKOCYTE ASSESSMENT FECAL (01/30/18) LIPID PANEL (01/08/18) LUNG PERFUSION IMAGING (12/14/15) MANUAL THERAPY 1/> REGIONS (12/28/15) MEASURE BLOOD OXYGEN LEVEL (12/06/15) METABOLIC PANEL TOTAL CA (11/25/15) MICROBE SUSCEPTIBLE BLAIRE (09/05/17) MR ANGIOGRAPHY HEAD W/O DYE (01/08/18) MR ANGIOGRAPHY NECK W/O DYE (01/08/18) MR-STAPH DNA AMP PROBE (11/30/15) MRI JNT OF LWR EXTRE W/O DYE (08/10/17) NEUROMUSCULAR REEDUCATION (12/28/15) OFFICE/OUTPATIENT VISIT EST (11/22/17) OT EVAL LOW COMPLEX 30 MIN (01/08/18) OT EVALUATION (12/06/15) PROTHROMBIN TIME (12/14/15) PT EVAL LOW COMPLEX 20 MIN (01/08/18) PT EVALUATION (12/17/15) ROTAVIRUS AG IA (01/30/18) ROUTINE VENIPUNCTURE (01/28/18) SELF CARE MNGMENT TRAINING (12/06/15) STOOL CULTR AEROBIC BACT EA (01/30/18) THERAPEUTIC ACTIVITIES (12/06/15) THERAPEUTIC EXERCISES (01/08/18) THROMBOPLASTIN TIME PARTIAL (09/10/15) TTE W/DOPPLER COMPLETE (01/08/18) URINALYSIS AUTO W/SCOPE (09/05/17) URINE BACTERIA CULTURE (09/05/17) URINE CULTURE/COLONY COUNT (09/05/17) X-RAY EXAM HIP UNI 2-3 VIEWS (01/15/18) X-RAY EXAM OF FEMUR 2/> (11/22/17) X-RAY EXAM OF KNEE 1 OR 2 (12/06/15) X-RAY EXAM OF KNEE 3 (11/22/17) X-RAY UPPER GI DELAY W/O KUB (05/04/14) (1) Small bowel obstruction SNOMED Code(s): 086787355 Code(s): K56.609 - UNSP INTESTNL OBST, UNSP TO PARTIAL VERSUS COMPLETE OBST Current Visit: Yes Problem List Initiated/Reviewed/Updated: Yes My Orders Last 24 Hours: My Active Orders 02/03/18 10:24 Communication Order [RC] 04,1016,22 Plan: 77 yo male, h/o multiple medical problems (CRF, hypothyroidism, anemia), on ASA 162 mg daily, with a history significant for bladder cancer s/p laparotomy, cystectomy, RIGHT nephrectomy, and urostomy, presenting with small bowel obstruction, 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 HD#3 - Abdominal X-ray from yesterday showed contrast in the LEFT colon. This is encouraging, as there is a high chance that the patient will avoid surgical intervention to treat his SBO. - NG tube has fallen out accidentally this morning. Output from NG tube was 150 cc past 24 hours, and the output appears nonbilious in the canister. He has no nausea/emesis/abdominal distention. Abdomen exam is reassuring with normal bowel sounds, soft, and not distended. - No need to replace NG tube at this time. May start on a clear liquid diet. - Continue IV Flagyl for treatment of C diff colitis. Appreciate primary management by the Hospitalist service. Case was discussed with Dr. Purnima Samuels, hospitalist. Sae Villa M.D., F.A.C.S. General Surgery Pager: [phone]
--- NOTE | 2018-02-04 12:28 | PCM.PN ---
- General Info Date of Service: 02/04/18 Admission Dx/Problem (Free Text): Admission Diagnosis/Problem Admission Diagnosis/Problem Small bowel obstruction Subjective Update: In to see Duncan. He reports that his NG tube fell out this morning. He states that his pain has improved but is still present on the left side of his abdomen. No acute events overnight. Denies abdominal distention. Denies N/V. He states he has been experiencing flatus and had a watery BM this morning. Diet advanced to clear liquids and patient reports he has tolerated this diet thus far. Functional Status: Reports: Pain Controlled, Tolerating Diet (advanced to clear liquids this morning ), Ambulating, Urinating - Review of Systems General: Reports: No Symptoms. Denies: Fever, Weakness HEENT: Reports: No Symptoms, Sore Throat (from NG tube ). Denies: Sinus Congestion Pulmonary: Reports: No Symptoms. Denies: Shortness of Breath, Cough Cardiovascular: Reports: No Symptoms. Denies: Chest Pain, Palpitations, Edema Gastrointestinal: Reports: No Symptoms, Abdominal Pain (mild, improved ), Other (Watery BM). Denies: Constipation, Nausea, Vomiting Genitourinary: Reports: No Symptoms, Other (No issues with urostomy, normal UOP ) Musculoskeletal: Reports: Other (Right hip pain (fracture in right acetabulum) ) Skin: Reports: No Symptoms. Denies: Cyanosis, Pallor Neurological: Reports: No Symptoms. Denies: Confusion, Dizziness, Headache Psychiatric: Reports: No Symptoms. Denies: Confusion, Depression - Patient Data Vitals - Most Recent: Last Vital Signs Temp 99.1 F 02/04/18 08:04 Pulse 88 02/04/18 12:08 Resp 16 02/04/18 12:08 BP 130/73 02/04/18 12:08 Pulse Ox 96 02/04/18 12:08 Weight - Most Recent: 162 lb 4.8 oz I&O - Last 24 Hours: Intake & Output 02/03/18 02/04/18 02/04/18 22:59 06:59 14:59 Intake Total 1349 1149 Output Total 800 1000 Balance 549 149 Lab Results Last 24 Hours: Laboratory Results - last 24 hr 02/04/18 02/04/18 02/04/18 Range/Units 06:09 06:09 06:09 WBC 5.50 (4.23-9.07) K/mm3 RBC 3.45 L (4.63-6.08) M/mm3 Hgb 10.2 L (13.7-17.5) gm/L Hct 31.6 L (40.1-51.0) % MCV 91.6 (79.0-92.2) fl MCH 29.6 (25.7-32.2) pg MCHC 32.3 (32.2-35.5) g/dl RDW Std Deviation 46.5 H (35.1-43.9) fL Plt Count 215 (163-337) K/mm3 MPV 10.0 (9.4-12.3) fl Neut % (Auto) 81.2 H (34.0-67.9) % Lymph % (Auto) 6.4 L (21.8-53.1) % [place] % (Auto) 10.9 (5.3-12.2) % Eos % (Auto) 0.9 (0.8-7.0) Baso % (Auto) 0.4 (0.1-1.2) % Neut # (Auto) 4.47 (1.78-5.38) K/mm3 Lymph # (Auto) 0.35 L (1.32-3.57) K/mm3 [place] # (Auto) 0.60 (0.30-0.82) K/mm3 Eos # (Auto) 0.05 (0.04-0.54) K/mm3 Baso # (Auto) 0.02 (0.01-0.08) K/mm3 Manual Slide Review Abnormal smear Sodium 141 (136-145) mEq/L Potassium 3.8 (3.5-5.1) mEq/L Chloride 108 H (98-107) mEq/L Carbon Dioxide 23 (21-32) mEq/L Anion Gap 13.8 (5-15) BUN 17 (7-18) mg/dL Creatinine 1.7 H (0.7-1.3) mg/dL Est Cr Clr Drug Dosing 33.48 mL/min Estimated GFR (MDRD) 39 (>60) mL/min BUN/Creatinine Ratio 10.0 L (14-18) Glucose 90 (83-115) mg/dL Lactic Acid 0.7 (0.4-2.0) mmol/L Calcium 7.3 L (8.5-10.1) mg/dL Magnesium 2.1 (1.8-2.4) mg/dl C-Reactive Protein 13.7 H* (<1.0) mg/dL Med Orders - Current: Current Medications Heparin Sodium (Porcine) (Heparin Sodium) 5,000 units SUBCUT Q8H [facility] Last Admin: 02/04/18 06:36 Dose: 5,000 units Metronidazole 500 mg/ Premix 100 mls @ 100 mls/hr IV Q8H [facility] Last Admin: 02/04/18 12:02 Dose: 100 mls/hr Lactated Ringer's (Ringers, Lactated) 1,000 mls @ 125 [facility] Last Admin: 02/04/18 06:55 Dose: 125 mls/hr Morphine Sulfate (Morphine) 4 mg IVPUSH Q6H PRN PRN Reason: Pain (moderate 4-6) Last Admin: 02/02/18 20:13 Dose: 4 mg Ondansetron HCl (Zofran) 4 mg IVPUSH Q8H PRN PRN Reason: Nausea/Vomiting Discontinued Medications Diatrizoate Meglum/Diatrizoate Sod (Gastrografin 37%) 90 ml PO ONETIME ONE Stop: 02/02/18 07:40 Last Admin: 02/02/18 07:40 Dose: 90 ml Hydromorphone HCl (Dilaudid) 0.5 mg IVPUSH ONETIME ONE Stop: 02/02/18 05:39 Last Admin: 02/02/18 05:45 Dose: 0.5 mg Sodium Chloride (Normal Saline) 1,000 mls @ 150 [facility] Last Admin: 02/02/18 05:45 Dose: 150 mls/hr Sodium Chloride (Normal Saline) 1,000 mls @ 1,000 mls/hr IV ONETIME ONE Stop: 02/02/18 09:27 Last Admin: 02/02/18 10:44 Dose: Not Given Magnesium Sulfate 2 gm/ Premix 50 mls @ 25 mls/hr IV ONETIME ONE Stop: 02/03/18 11:49 Last Admin: 02/03/18 10:56 Dose: 25 mls/hr Iopamidol (Isovue-370 (76%)) 100 ml IVPUSH ONETIME ONE Stop: 02/02/18 07:04 Last Admin: 02/02/18 07:39 Dose: 100 ml Morphine Sulfate (Morphine) 8 mg IVPUSH Q2H PRN PRN Reason: Pain Last Admin: 02/02/18 07:45 Dose: 8 mg Ondansetron HCl (Zofran) 4 mg IVPUSH ONETIME ONE Stop: 02/02/18 05:37 Last Admin: 02/02/18 05:45 Dose: 4 mg Ondansetron HCl (Zofran) Confirm Administered Dose 4 mg .ROUTE .STK-MED ONE Stop: 02/02/18 07:54 Last Admin: 02/02/18 08:00 Dose: Not Given Ondansetron HCl (Zofran) 4 mg IVPUSH ONETIME ONE Stop: 02/02/18 07:59 Last Admin: 02/02/18 08:01 Dose: 4 mg - Exam Quality Assessment: DVT Prophylaxis. No: Supplemental Oxygen General: Alert, Oriented, Cooperative, No Acute Distress HEENT: Pupils Equal, Pupils Reactive, EOMI, Mucous Membr. Moist/[place] Neck: Supple. No: Lymphadenopathy Lungs: Clear to Auscultation, Normal Respiratory Effort Cardiovascular: Regular Rate, Regular Rhythm, No Murmurs GI/Abdominal Exam: Normal Bowel Sounds, Soft, Distended (mild ), Tender (mild, left side ) (Male) Exam: Deferred Back Exam: Normal Inspection, Full Range of Motion Extremities: Normal Inspection, No Pedal Edema, Normal Capillary Refill, Other ( Ambulates but is not putting weight on right LE ) Peripheral Pulses: 2+: Radial (L), Radial (R), Posterior Tibial (L), Posterior Tibial (R), Dorsalis Pedis (L), Dorsalis Pedis (R) Skin: Warm, Dry, Intact Neurological: No New Focal Deficit, Strength Equal Bilateral, Cranial Nerves Intact (grossly ) Psy/Mental Status: Alert, Normal Affect, Normal Mood - Problem List Review Problem List Initiated/Reviewed/Updated: Yes - Plan Plan:: Impression: Acute: Small bowel obstruction - Risk factors: S/P multiple abdominal surgeries - NG to LIS --> fell out this morning, will not be replaced at this time - NPO diet --> advanced to clear liquids this morning, tolerating thus far - General surgery (Dr. Deshpande) consulted and following - Serial abdominal xrays show improvement - IVF LR 125 ml/hr C. difficile - Per ED records, stool sample was sent 01/30/2018 and was positive for C. difficile toxin, patient was started on oral vancomycin 01/31/2018 - Receiving Flagyl 500 mg IV q 8 hr during admission with strict NPO Acute on chronic renal failure - BUN 17, Cr 1.8. eGFR 38 today - Baseline Cr 1.5 to 2.0 (January 2018) - Monitor Acute decline in Hgb - Hgb 10.2 today, was 13.6 at admit - Likely 2/2 volume status - Monitor --> if further decline, consider FOBT Hypocalcemia - Ca 7.3 on BMP today, corrected Ca 7.9 - Will replete with calcium carbonate 1200 mg po BID History of bladder cancer, stage IV with mets to the pelvis - Per ED records, patient underwent a CT scan of the pelvis on 01/15/2018 which found a right acetabular fracture --> Patient indicates that he subsequently underwent PET scan last week which found metastases to the pelvis and possibly responsible for current pelvic fracture - Continue PT/OT Chronic: Hypothyroidism HTN EKG, LBBB Unilateral nephrectomy, right Prostatectomy Cystectomy Hx of recent TIA --> December 2017, Work-up was negative for TIA Plan: Continue IVF with LR Replace electrolytes Serial radiographic imaging Gen Surgery consult NGT to LIS --> fell out this morning, Hold oral meds --> may resume Daily labs Consult PT/OT/CM DVT prophylaxis: Heparin PCP: JAE Lawson
[2018-02-04] MEDS: Calcium Carbonate 600 MG Tab PO SCH (16:50)
[2018-02-05] MEDS: metroNIDAZOLE/Normal Saline 500 MG in Premix Bag 1 BAG IV SCH (04:46)
[2018-02-05] MEDS: Calcium Carbonate 600 MG Tab PO SCH ×2 (06:21→17:27)
[2018-02-05] MEDS: Heparin Sodium 5,000 Units/ML Vial SUBCUT SCH ×3 (06:22→22:08)
[2018-02-05] MEDS ORDERED: Magnesium Sulfate/Water 2 GM in Premix Bag 1 BAG IV ONE (07:44)
[2018-02-05] MEDS: Lactated Ringers 1,000 ML IV SCH (08:28)
--- NOTE | 2018-02-05 10:43 | PCM.CONSN ---
- General Info Date of Service: 02/05/18 Subjective Update: No acute overnight events. Patient was started on clear liquid diet yesterday, which he tolerated well. Denies distention, nausea, or emesis. Patient does feel a little hungry this morning. Had a BM this morning, which was watery. Had 5 BM's yesterday, which were also watery. Has been passing flatus. Has been ambulating with walker, with assistance with physical therapy. - Patient Data Vitals - Most Recent: Last Vital Signs Temp 37.1 C 02/05/18 07:30 Pulse 59 L 02/05/18 07:30 Resp 18 02/05/18 07:30 BP 109/66 02/05/18 07:30 Pulse Ox 96 02/05/18 07:30 Weight - Most Recent: 75.07 kg I&O - Last 24 Hours: Intake & Output 02/04/18 02/05/18 02/05/18 22:59 06:59 14:59 Intake Total 1989 1995 Output Total 750 500 Balance 1240 1496 Lab Results Last 24 Hours: Laboratory Results - last 24 hr 02/05/18 02/05/18 Range/Units 05:51 05:51 WBC 4.83 (4.23-9.07) K/mm3 RBC 3.22 L (4.63-6.08) M/mm3 Hgb 9.4 L (13.7-17.5) gm/L Hct 29.5 L (40.1-51.0) % MCV 91.6 (79.0-92.2) fl MCH 29.2 (25.7-32.2) pg MCHC 31.9 L (32.2-35.5) g/dl RDW Std Deviation 46.3 H (35.1-43.9) fL Plt Count 198 (163-337) K/mm3 MPV 10.3 (9.4-12.3) fl Neut % (Auto) 76.0 H (34.0-67.9) % Lymph % (Auto) 11.2 L (21.8-53.1) % [place] % (Auto) 9.9 (5.3-12.2) % Eos % (Auto) 2.5 (0.8-7.0) Baso % (Auto) 0.2 (0.1-1.2) % Neut # (Auto) 3.67 (1.78-5.38) K/mm3 Lymph # (Auto) 0.54 L (1.32-3.57) K/mm3 [place] # (Auto) 0.48 (0.30-0.82) K/mm3 Eos # (Auto) 0.12 (0.04-0.54) K/mm3 Baso # (Auto) 0.01 (0.01-0.08) K/mm3 Sodium 141 (136-145) mEq/L Potassium 3.5 (3.5-5.1) mEq/L Chloride 108 H (98-107) mEq/L Carbon Dioxide 23 (21-32) mEq/L Anion Gap 13.5 (5-15) BUN 12 (7-18) mg/dL Creatinine 1.4 H (0.7-1.3) mg/dL Est Cr Clr Drug Dosing 40.66 mL/min Estimated GFR (MDRD) 49 (>60) mL/min BUN/Creatinine Ratio 8.6 L (14-18) Glucose 97 (83-115) mg/dL Calcium 7.3 L (8.5-10.1) mg/dL Magnesium 1.7 L (1.8-2.4) mg/dl C-Reactive Protein 12.7 H* (<1.0) mg/dL Med Orders - Current: Current Medications Calcium Carbonate/Glycine (Calcium Carbonate) 1,200 mg PO BIDMEALS [facility] Last Admin: 02/05/18 06:21 Dose: 1,200 mg Heparin Sodium (Porcine) (Heparin Sodium) 5,000 units SUBCUT Q8H [facility] Last Admin: 02/05/18 06:22 Dose: 5,000 units Metronidazole 500 mg/ Premix 100 mls @ 100 mls/hr IV Q8H [facility] Last Admin: 02/05/18 04:46 Dose: 100 mls/hr Lactated Ringer's (Ringers, Lactated) 1,000 mls @ 125 mls/hr IV ASDIRECTED [facility] Last Admin: 02/05/18 08:28 Dose: 125 mls/hr Morphine Sulfate (Morphine) 4 mg IVPUSH Q6H PRN PRN Reason: Pain (moderate 4-6) Last Admin: 02/02/18 20:13 Dose: 4 mg Ondansetron HCl (Zofran) 4 mg IVPUSH Q8H PRN PRN Reason: Nausea/Vomiting Discontinued Medications Diatrizoate Meglum/Diatrizoate Sod (Gastrografin 37%) 90 ml PO ONETIME ONE Stop: 02/02/18 07:40 Last Admin: 02/02/18 07:40 Dose: 90 ml Hydromorphone HCl (Dilaudid) 0.5 mg IVPUSH ONETIME ONE Stop: 02/02/18 05:39 Last Admin: 02/02/18 05:45 Dose: 0.5 mg Sodium Chloride (Normal Saline) 1,000 mls @ 150 mls/hr IV [facility] Last Admin: 02/02/18 05:45 Dose: 150 mls/hr Sodium Chloride (Normal Saline) 1,000 mls @ 1,000 mls/hr IV ONETIME ONE Stop: 02/02/18 09:27 Last Admin: 02/02/18 10:44 Dose: Not Given Magnesium Sulfate 2 gm/ Premix 50 mls @ 25 mls/hr IV ONETIME ONE Stop: 02/03/18 11:49 Last Admin: 02/03/18 10:56 Dose: 25 mls/hr Magnesium Sulfate 2 gm/ Premix 50 mls @ 25 mls/hr IV ONETIME ONE Stop: 02/05/18 09:43 Last Admin: 02/05/18 08:45 Dose: 25 mls/hr Iopamidol (Isovue-370 (76%)) 100 ml IVPUSH ONETIME ONE Stop: 02/02/18 07:04 Last Admin: 02/02/18 07:39 Dose: 100 ml Morphine Sulfate (Morphine) 8 mg IVPUSH Q2H PRN PRN Reason: Pain Last Admin: 02/02/18 07:45 Dose: 8 mg Ondansetron HCl (Zofran) 4 mg IVPUSH ONETIME ONE Stop: 02/02/18 05:37 Last Admin: 02/02/18 05:45 Dose: 4 mg Ondansetron HCl (Zofran) Confirm Administered Dose 4 mg .ROUTE .STK-MED ONE Stop: 02/02/18 07:54 Last Admin: 02/02/18 08:00 Dose: Not Given Ondansetron HCl (Zofran) 4 mg IVPUSH ONETIME ONE Stop: 02/02/18 07:59 Last Admin: 02/02/18 08:01 Dose: 4 mg - Exam General: Alert, Oriented, Cooperative GI/Abdominal Exam: Normal Bowel Sounds, Soft, Non-Tender, No Distention Extremities: Normal Inspection Psy/Mental Status: Alert, Normal Affect, Normal Mood Consult PN Assessment/Plan Procedures: Procedures ASSAY OF CREATININE (12/14/15) ASSAY OF FERRITIN (11/25/15) ASSAY OF LIPASE (07/27/17) ASSAY OF SERUM ALBUMIN (11/25/15) ASSAY OF TROPONIN QUANT (12/14/15) ASSAY THYROID STIM HORMONE (01/28/18) C DIFF AMPLIFIED PROBE (01/30/18) C-REACTIVE PROTEIN (07/27/17) CHEST X-RAY 2VW FRONTAL&LATL (12/14/15) COMPLETE CBC AUTOMATED (07/27/17) COMPLETE CBC W/AUTO DIFF WBC (01/15/18) COMPREHEN METABOLIC PANEL (01/15/18) CREATINE MB FRACTION (12/14/15) CRYPTOSPORIDIUM AG IA (01/30/18) CT ABD & PELVIS W/O CONTRAST (05/13/14) CT HEAD/BRAIN W/O DYE (01/08/18) CT PELVIS W/O DYE (01/15/18) ECG MONIT/REPRT UP TO 48 HRS (01/09/18) ECG MONIT/REPRT UP TO 48 HRS (01/09/18) ELECTROCARDIOGRAM TRACING (01/08/18) EMERGENCY DEPT VISIT (01/08/18) EXTRACRANIAL BILAT STUDY (01/08/18) GAIT TRAINING THERAPY (12/06/15) GIARDIA AG IA (01/30/18) GLUCOSE BLOOD TEST (01/08/18) H PYLORI (C-13) BREATH (01/15/18) IRRIG DRUG DELIVERY DEVICE (01/08/18) LEUKOCYTE ASSESSMENT FECAL (01/30/18) LIPID PANEL (01/08/18) LUNG PERFUSION IMAGING (12/14/15) MANUAL THERAPY 1/> REGIONS (12/28/15) MEASURE BLOOD OXYGEN LEVEL (12/06/15) METABOLIC PANEL TOTAL CA (11/25/15) MICROBE SUSCEPTIBLE BLAIRE (09/05/17) MR ANGIOGRAPHY HEAD W/O DYE (01/08/18) MR ANGIOGRAPHY NECK W/O DYE (01/08/18) MR-STAPH DNA AMP PROBE (11/30/15) MRI JNT OF LWR EXTRE W/O DYE (08/10/17) NEUROMUSCULAR REEDUCATION (12/28/15) OFFICE/OUTPATIENT VISIT EST (11/22/17) OT EVAL LOW COMPLEX 30 MIN (01/08/18) OT EVALUATION (12/06/15) PROTHROMBIN TIME (12/14/15) PT EVAL LOW COMPLEX 20 MIN (01/08/18) PT EVALUATION (12/17/15) ROTAVIRUS AG IA (01/30/18) ROUTINE VENIPUNCTURE (01/28/18) SELF CARE MNGMENT TRAINING (12/06/15) STOOL CULTR AEROBIC BACT EA (01/30/18) THERAPEUTIC ACTIVITIES (12/06/15) THERAPEUTIC EXERCISES (01/08/18) THROMBOPLASTIN TIME PARTIAL (09/10/15) TTE W/DOPPLER COMPLETE (01/08/18) URINALYSIS AUTO W/SCOPE (09/05/17) URINE BACTERIA CULTURE (09/05/17) URINE CULTURE/COLONY COUNT (09/05/17) X-RAY EXAM HIP UNI 2-3 VIEWS (01/15/18) X-RAY EXAM OF FEMUR 2/> (11/22/17) X-RAY EXAM OF KNEE 1 OR 2 (12/06/15) X-RAY EXAM OF KNEE 3 (11/22/17) X-RAY UPPER GI DELAY W/O KUB (05/04/14) (1) Small bowel obstruction SNOMED Code(s): 491927247 Code(s): K56.609 - UNSP INTESTNL OBST, UNSP TO PARTIAL VERSUS COMPLETE OBST Current Visit: Yes Problem List Initiated/Reviewed/Updated: Yes My Orders Last 24 Hours: My Active Orders 02/04/18 Lunch Clear Liquid Diet [DIET] Plan: 77 yo male, h/o multiple medical problems (CRF, hypothyroidism, anemia), on ASA 162 mg daily, with a history significant for bladder cancer s/p laparotomy, cystectomy, RIGHT nephrectomy, and urostomy, presenting with small bowel obstruction, 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 HD#4 Patient doing well, tolerating liquid diet. - May advance diet. - Continue C diff treatment, currently on IV Flagyl. Appreciate primary management by the Hospitalist service. Case was discussed with Dr. Purnima Samuels, hospitalist. Tomorrow, if the patient remains in the hospital, surgical care will be taken over by Dr. Beverly Pabon. Sae Villa M.D., F.A.C.S. General Surgery Pager: [phone]
--- NOTE | 2018-02-05 13:07 | PCM.PN ---
- General Info Date of Service: 02/05/18 Admission Dx/Problem (Free Text): Admission Diagnosis/Problem Admission Diagnosis/Problem Small bowel obstruction Subjective Update: In to see Duncan. He reports that clear liquid diet has been well tolerated. He states he is still having watery BMs and are green in color. Total 5 BMs yesterday. Denies N/V. He also denies any lightheadedness or dizziness. He reports he has been walking with therapy with no issues. Functional Status: Reports: Pain Controlled, Tolerating Diet, Ambulating, Urinating - Review of Systems General: Reports: No Symptoms. Denies: Fever, Weakness HEENT: Reports: No Symptoms. Denies: Sinus Congestion, Sore Throat Pulmonary: Reports: No Symptoms. Denies: Shortness of Breath, Cough Cardiovascular: Reports: No Symptoms. Denies: Chest Pain, Palpitations, Edema Gastrointestinal: Reports: No Symptoms, Flatus, Other (Watery BMs ). Denies: Abdominal Pain, Constipation, Nausea, Vomiting Genitourinary: Reports: No Symptoms. Denies: Dysuria, Frequency Musculoskeletal: Reports: No Symptoms. Denies: Joint Pain Skin: Reports: No Symptoms. Denies: Cyanosis Neurological: Reports: No Symptoms. Denies: Confusion, Dizziness, Headache Psychiatric: Reports: No Symptoms. Denies: Confusion, Depression, Anxiety - Patient Data Vitals - Most Recent: Last Vital Signs Temp 98.8 F 02/05/18 07:30 Pulse 59 L 02/05/18 07:30 Resp 18 02/05/18 07:30 BP 109/66 02/05/18 07:30 Pulse Ox 96 02/05/18 07:30 Weight - Most Recent: 165 lb 8 oz I&O - Last 24 Hours: Intake & Output 02/04/18 02/05/18 02/05/18 22:59 06:59 14:59 Intake Total 1989 Output Total 750 500 Balance 1240 1496 360 Lab Results Last 24 Hours: Laboratory Results - last 24 hr 02/05/18 02/05/18 Range/Units 05:51 05:51 WBC 4.83 (4.23-9.07) K/mm3 RBC 3.22 L (4.63-6.08) M/mm3 Hgb 9.4 L (13.7-17.5) gm/L Hct 29.5 L (40.1-51.0) % MCV 91.6 (79.0-92.2) fl MCH 29.2 (25.7-32.2) pg MCHC 31.9 L (32.2-35.5) g/dl RDW Std Deviation 46.3 H (35.1-43.9) fL Plt Count 198 (163-337) K/mm3 MPV 10.3 (9.4-12.3) fl Neut % (Auto) 76.0 H (34.0-67.9) % Lymph % (Auto) 11.2 L (21.8-53.1) % [place] % (Auto) 9.9 (5.3-12.2) % Eos % (Auto) 2.5 (0.8-7.0) Baso % (Auto) 0.2 (0.1-1.2) % Neut # (Auto) 3.67 (1.78-5.38) K/mm3 Lymph # (Auto) 0.54 L (1.32-3.57) K/mm3 [place] # (Auto) 0.48 (0.30-0.82) K/mm3 Eos # (Auto) 0.12 (0.04-0.54) K/mm3 Baso # (Auto) 0.01 (0.01-0.08) K/mm3 Sodium 141 (136-145) mEq/L Potassium 3.5 (3.5-5.1) mEq/L Chloride 108 H (98-107) mEq/L Carbon Dioxide 23 (21-32) mEq/L Anion Gap 13.5 (5-15) BUN 12 (7-18) mg/dL Creatinine 1.4 H (0.7-1.3) mg/dL Est Cr Clr Drug Dosing 40.66 mL/min Estimated GFR (MDRD) 49 (>60) mL/min BUN/Creatinine Ratio 8.6 L (14-18) Glucose 97 (83-115) mg/dL Calcium 7.3 L (8.5-10.1) mg/dL Magnesium 1.7 L (1.8-2.4) mg/dl C-Reactive Protein 12.7 H* (<1.0) mg/dL Med Orders - Current: Current Medications Calcium Carbonate/Glycine (Calcium Carbonate) 1,200 mg PO BIDMEALS [facility] Last Admin: 02/05/18 06:21 Dose: 1,200 mg Heparin Sodium (Porcine) (Heparin Sodium) 5,000 units SUBCUT Q8H [facility] Last Admin: 02/05/18 06:22 Dose: 5,000 units Lactated Ringer's (Ringers, Lactated) 1,000 mls @ 125 [facility] Last Admin: 02/05/18 08:28 Dose: 125 mls/hr Morphine Sulfate (Morphine) 4 mg IVPUSH Q6H PRN PRN Reason: Pain (moderate 4-6) Last Admin: 02/02/18 20:13 Dose: 4 mg Ondansetron HCl (Zofran) 4 mg IVPUSH Q8H PRN PRN Reason: Nausea/Vomiting Vancomycin HCl (First-Vancomycin 50 Compounding Kit) 125 mg PO QID [facility] Discontinued Medications Diatrizoate Meglum/Diatrizoate Sod (Gastrografin 37%) 90 ml PO ONETIME ONE Stop: 02/02/18 07:40 Last Admin: 02/02/18 07:40 Dose: 90 ml Hydromorphone HCl (Dilaudid) 0.5 mg IVPUSH ONETIME ONE Stop: 02/02/18 05:39 Last Admin: 02/02/18 05:45 Dose: 0.5 mg Sodium Chloride (Normal Saline) 1,000 mls @ 150 [facility]ls[facility] Last Admin: 02/02/18 05:45 Dose: 150 mls/hr Sodium Chloride (Normal Saline) 1,000 mls @ 1,000 mls/hr IV ONETIME ONE Stop: 02/02/18 09:27 Last Admin: 02/02/18 10:44 Dose: Not Given Metronidazole 500 mg/ Premix 100 mls @ 100 mls/hr IV Q8H [facility] Last Admin: 02/05/18 04:46 Dose: 100 mls/hr Magnesium Sulfate 2 gm/ Premix 50 mls @ 25 mls/hr IV ONETIME ONE Stop: 02/03/18 11:49 Last Admin: 02/03/18 10:56 Dose: 25 mls/hr Magnesium Sulfate 2 gm/ Premix 50 mls @ 25 mls/hr IV ONETIME ONE Stop: 02/05/18 09:43 Last Admin: 02/05/18 08:45 Dose: 25 mls/hr Iopamidol (Isovue-370 (76%)) 100 ml IVPUSH ONETIME ONE Stop: 02/02/18 07:04 Last Admin: 02/02/18 07:39 Dose: 100 ml Morphine Sulfate (Morphine) 8 mg IVPUSH Q2H PRN PRN Reason: Pain Last Admin: 02/02/18 07:45 Dose: 8 mg Ondansetron HCl (Zofran) 4 mg IVPUSH ONETIME ONE Stop: 02/02/18 05:37 Last Admin: 02/02/18 05:45 Dose: 4 mg Ondansetron HCl (Zofran) Confirm Administered Dose 4 mg .ROUTE .STK-MED ONE Stop: 02/02/18 07:54 Last Admin: 02/02/18 08:00 Dose: Not Given Ondansetron HCl (Zofran) 4 mg IVPUSH ONETIME ONE Stop: 02/02/18 07:59 Last Admin: 02/02/18 08:01 Dose: 4 mg - Exam Quality Assessment: No: Supplemental Oxygen General: Alert, Oriented, Cooperative, No Acute Distress HEENT: Pupils Equal, Pupils Reactive, EOMI, Mucous Membr. Moist/[place] Neck: Supple. No: Lymphadenopathy Lungs: Clear to Auscultation, Normal Respiratory Effort Cardiovascular: Regular Rate, Regular Rhythm, No Murmurs GI/Abdominal Exam: Normal Bowel Sounds, Soft, Non-Tender, No Distention (Male) Exam: Deferred Back Exam: Normal Inspection, Full Range of Motion Extremities: Normal Inspection, Non-Tender, No Pedal Edema, Other (He is still ambulating but tries not to put weight on his right LE) Peripheral Pulses: 2+: Radial (L), Radial (R), Posterior Tibial (L), Posterior Tibial (R), Dorsalis Pedis (L), Dorsalis Pedis (R) Skin: Warm, Dry, Intact Neurological: No New Focal Deficit, Strength Equal Bilateral, Cranial Nerves Intact (grossly ) Psy/Mental Status: Alert, Normal Affect, Normal Mood - Problem List Review Problem List Initiated/Reviewed/Updated: Yes - My Orders Last 24 Hours: My Active Orders 02/04/18 17:00 Calcium Carbonate 1,200 mg PO BIDMEALS - Plan Plan:: Impression: Acute: Small bowel obstruction - Risk factors: S/P multiple abdominal surgeries - NG to LIS d/c'd - NPO diet initially then advanced to clear liquids and tolerated well, will advance to full liquids as Dr. Deshpande agrees and if tolerates then can trial soft diet for evening meal - CRP 12.7 today, yesterday 13.7 - General surgery (Dr. Deshpande) consulted and following - Serial abdominal xrays show improvement - IVF LR 125 ml/hr --> will decrease to 50 ml/hr as patient is now consuming oral diet C. difficile - Per ED records, stool sample was sent 01/30/2018 and was positive for C. difficile toxin, patient was started on oral vancomycin 01/31/2018 - Flagyl 500 mg IV q 8 hr during admission with strict NPO --> diet advanced to full liquids therefore will change back to vancomycin 125 mg po QID Acute on chronic renal failure - BUN 12, Cr 1.4, eGFR 49 today, BUN 17, Cr 1.8. eGFR 38 yesterday - Baseline Cr 1.5 to 2.0 (January 2018) - Monitor Acute decline in Hgb - Hgb 9.4 today, 10.2 yesterday, and was 13.6 at admit - Likely 2/2 volume status as weight is also up approximately 4# --> will provide lasix 20 mg IV x 1 and assess Hgb tomorrow - Monitor --> if further decline, consider FOBT Hypocalcemia - Ca 7.3 on BMP, corrected Ca 7.9 - Will replete with calcium carbonate 1200 mg po BID - Monitor Hypomagnesemia - Mg 1.7 today - Will replete with Mg sulfate 2 gm x 1 dose - Monitor History of bladder cancer, stage IV with mets to the pelvis - Per ED records, patient underwent a CT scan of the pelvis on 01/15/2018 which found a right acetabular fracture --> Patient indicates that he subsequently underwent PET scan last week which found metastases to the pelvis and possibly responsible for current pelvic fracture - Continue PT/OT Chronic: Hypothyroidism HTN EKG, LBBB Unilateral nephrectomy, right Prostatectomy Cystectomy Hx of recent TIA --> December 2017, Work-up was negative for TIA Plan: IVF with LR Encourage activity Replace electrolytes Serial radiographic imaging Gen Surgery consult NGT to LIS d/c'd Hold oral meds --> may resume Daily labs PT/OT CM/SW for discharge planning --> plan for discharge home tomorrow, 02/06/18 DVT prophylaxis: Heparin PCP: JAE Lawson
[2018-02-05] MEDS ORDERED: Lactated Ringers 1,000 ML IV SCH (13:45)
[2018-02-05] MEDS: Vancomycin 50 MG/ML 150ML Oral Solution Kit PO SCH ×3 (14:04→20:28)
[2018-02-05] MEDS ORDERED: Furosemide 20 MG/2 ML VIAL IVPUSH ONE (14:11)
[2018-02-06] MEDS: Heparin Sodium 5,000 Units/ML Vial SUBCUT SCH ×2 (06:29→15:45)
[2018-02-06] MEDS: Calcium Carbonate 600 MG Tab PO SCH ×2 (06:29→16:01)
[2018-02-06] MEDS: Vancomycin 50 MG/ML 150ML Oral Solution Kit PO SCH ×3 (08:06→16:01)
[2018-02-06] MEDS: Magnesium Sulfate/Water 2 GM in Premix Bag 1 BAG IV SCH ×2 (11:09→13:37)
[2018-02-06] MEDS ORDERED: Potassium Chloride 20 MEQ Tab.ER PO ONE (11:30)
--- NOTE | 2018-02-06 12:00 | PCM.DCSUM1 ---
Discharge Summary - Hospital Course HPI Initial Comments: 77 year old male with PMH of bladder cancer, stage IV who recently had a PET scan in late December 2017 which documented mets to his pelvis. He had been seen at [facility] roughly 2 weeks ago with left UE numbness. He and his stated that a stroke work up was negative. Around that same time frame, he reported having abdominal pain. This was roughly one to two weeks prior to the left arm discomfort. At that time the abdominal discomfort was evaluated at [facility]. They (he and his ) reported that he had an ileus, and he was treated conservatively on a liquid diet. He lost weight, still experienced discomfort and had additional work up including an MRCP. It was negative. On this occasional, he reportedly had an ileus, however with his presentation, an SBO would be more likely. He has had worsening abdominal pain with nausea and vomiting. No fever. No difficulty passing urine. He has had flatus. He continues to have an appetite. There has been no bile or blood in the vomitus. He will be admitted to [place] with telemetry. He is NPO, an NGT will be placed on the floor. Contact precautions have been ordered, he apparently was diagnosed with C diff roughly forty-eight hours [employer]. He has taken about six doses of oral Vancomycin. A general surgical consult has been placed for evaluation of his abdominal pain. Additional factors affecting treatment include an extensive surgical past history: cystectomy; right nephrectomy; prostatectomy; urostomy. He is a full code. Diagnosis: Stroke: No - Discharge Data Discharge Date: 02/06/18 Discharge Disposition: Home, Self-Care 01 Condition: Good - Patient Summary/Data Operative Procedure(s) Performed: None Complications: None Consults: Consultations 02/04/18 09:00 Consult to Occupational Therapy [OT Evaluation and Treatment] [CONS] Routine Consult to Physical Therapy [PT Evaluation and Treatment] [CONS] Routine 02/04/18 11:00 Consult to Case Management [CONS] Routine Labs Pending at D/C: None Recommended Follow-up Testing/Procedures: PCP in 7-10 days BMP at that time Mg at that time CBC per PCP Planned Operative Procedure(s) after DC: None Hospital Course: Impression: Acute: Small bowel obstruction - Risk factors: S/P multiple abdominal surgeries - NG to LIS d/c'd - NPO diet initially then advanced to clear liquids and tolerated well, advanced to full liquids then regular diet and he tolerated well - CRP 9.1 today, trending down - General surgery consulted and following - Serial abdominal xrays show improvement - IVF LR 125 ml/hr --> will decrease to 50 ml/hr as patient is now consuming oral diet C. difficile - Per ED records, stool sample was sent 01/30/2018 and was positive for C. difficile toxin, patient was started on oral vancomycin 01/31/2018 - Flagyl 500 mg IV q 8 hr during admission with strict NPO --> diet advanced to full liquids therefore will change back to vancomycin 125 mg po QID Acute on chronic renal failure - BUN 8, Cr 1.5, eGFR 45 today - Baseline Cr 1.5 to 2.0 (January 2018) - Monitor Acute decline in Hgb - Hgb 10.5 today, yesterday 9.4 - Likely 2/2 volume status as weight is also up approximately 4# --> will provide lasix 20 mg IV x 1 and assess Hgb tomorrow --> improved - Monitor Hypocalcemia - Ca 7.3 on BMP, corrected Ca 7.9 - Will replete with calcium carbonate 1200 mg po BID - Monitor Hypomagnesemia - Mg 1.7 today and yesterday - Will replete with Mg sulfate 2 gm x 1 dose - Recommend Mg to be checked by PCP Hypokalemia - 3.3 today, 3.5 yesterday - Likely 2/2 Lasix given yesterday - Will send home with Thermotabs daily x 3 days at d/c - Recommend BMP to be checked by PCP Hyponatremia - Na 133 today - Likely 2/2 Lasix yesterday - Will provide potassium 60 mEq prior to discharge - Thermotabs 2 tabs po BID x 3 days at d/c - Recommend BMP to be checked by PCP History of bladder cancer, stage IV with mets to the pelvis - Per ED records, patient underwent a CT scan of the pelvis on 01/15/2018 which found a right acetabular fracture --> Patient indicates that he subsequently underwent PET scan last week which found metastases to the pelvis and possibly responsible for current pelvic fracture - Continue PT/OT Chronic: Hypothyroidism HTN EKG, LBBB Unilateral nephrectomy, right Prostatectomy Cystectomy Hx of recent TIA --> December 2017, Work-up was negative for TIA Plan: IVF with LR Encourage activity Replace electrolytes Serial radiographic imaging Gen Surgery consult NGT to LIS d/c'd Hold oral meds --> may resume Daily labs PT/OT CM/SW for discharge planning --> plan for discharge home today, 02/06/18 DVT prophylaxis: Heparin PCP: JAE Lawson Hospital Course: Duncan was admitted for abdominal pain and N/V. Patient does have history of multiple abdominal surgeries. General surgery was consulted and patient found to have SBO. NG tube for proximal decompression was ordered as well as serial abdominal X-rays to assess passage of oral contrast into the colon. He has improved during his stay. Diet was advanced slowly and he tolerated these changes with regular diet at discharge. Additionally, patient began treatment for cdiff prior to admission on 01/31/18. Patient was started on oral vancomycin 01/31/2018. This was changed to Flagyl 500 mg IV q 8 hr during admission with strict NPO. Vancomycin po re-started once NPO status d/c'd. Patient also has a history of recent right acetabular fracture and history of bladder cancer with mets to pelvis. He worked with PT/OT and did very well. Renal function was stable during admission with baseline Cr 1.5 to 2.0 per records. Labs showed hypocalcemia, hypomagnesemia, hypokalemia, and hyponatremia. He received calcium carbonate 1200 mg po BID. Patient received Mg sulfate 2 gm x 2 doses with Mg oxide 400 mg po BID prescribed at D/C. Patient received KCl 60 mEq x 1 prior to discharge and Rx for thermotabs daily x 3 days given at D/C. Recommend BMP and Mg be re-checked on 02/08/18. Patient's Hgb also declined and was thought to be related to volume status as patient was receiving IVF LR at 100 ml /hr. Patient's weight also increased 4#. Lasix 20 mg IV x 1 given and Hgb improved. PCP to re-check CBC. Patient to see PCP in 7-10 days. New medications at discharge: Mg oxide 400 mg po BID, Thermotabs 2 tabs po BID x 3 days. Patient is stable and ready for discharge home today. Patient and patient's are agreeable to this plan. - Patient Instructions Diet: Heart Healthy Diet, Usual Diet as Tolerated Activity: As Tolerated Driving: Do Not Drive (for 24 hours ) Showering/Bathing: May Shower Notify Provider of: Fever - Discharge Plan Prescriptions/Med Rec: Magnesium Oxide 400 mg PO BID #20 tablet Potassium Chloride/NaCl [Thermotabs] 2 each PO BID #12 tablet Home Medications: Home Meds Aspirin [Children's Aspirin] 162 mg PO DAILY 10/01/15 [History] Levothyroxine Sodium [Synthroid] 112 mcg PO DAILY 10/01/15 [History] Calcium Citrate/Vitamin D3 [Citracal + D Maximum Caplet] 2 tab PO DAILY [History] Morphine Sulfate [Morphine Sulfate ER] 15 mg PO BID 02/02/18 [History] Vancomycin 125 mg PO QID 02/02/18 [History] Magnesium Oxide 400 mg PO BID #20 tablet 02/06/18 [Rx] Potassium Chloride/NaCl [Thermotabs] 2 each PO BID #12 tablet 02/06/18 [Rx] Patient Handouts: Small Bowel Obstruction, [id number] Forms: ED Department Discharge Referrals: Roxie Copeland [employer] [Primary Care Provider] - - Discharge Summary/Plan Comment DC Time >30 min.: Yes (45) - General Info Admission Dx/Problem (Free Text: Admission Diagnosis/Problem Admission Diagnosis/Problem Small bowel obstruction Subjective Update: In to see Duncan. He reports that he had a regular diet this morning and has tolerated this well. He reports continued watery BMs that are green in color; this is unchanged for past several days. He denies N/V. He reports very mild abdominal tenderness on left side. Denies distention. He is ready for discharge today. Functional Status: Reports: Pain Controlled, Tolerating Diet, Ambulating, Urinating - Review of Systems General: Reports: No Symptoms. Denies: Fever, Weakness HEENT: Reports: No Symptoms. Denies: Sinus Congestion, Sore Throat Pulmonary: Reports: No Symptoms. Denies: Shortness of Breath, Cough Cardiovascular: Reports: No Symptoms. Denies: Chest Pain, Palpitations, Edema Gastrointestinal: Reports: Abdominal Pain (very mild ), Other (Watery BMs ). Denies: Nausea, Vomiting Genitourinary: Reports: No Symptoms. Denies: Dysuria, Frequency, Burning Musculoskeletal: Reports: No Symptoms, Other (Right hip pain, has acetabular fracture on right side ) Skin: Reports: No Symptoms Neurological: Reports: No Symptoms. Denies: Confusion, Dizziness, Headache Psychiatric: Reports: No Symptoms. Denies: Confusion, Depression, Anxiety - Patient Data Vitals - Most Recent: Last Vital Signs Temp 97.9 F 02/06/18 03:51 Pulse 65 02/06/18 03:51 Resp 20 02/06/18 03:51 BP 120/83 02/06/18 03:51 Pulse Ox 98 02/06/18 03:51 Weight - Most Recent: 164 lb 1.6 oz I&O - Last 24 hours: Intake & Output 02/05/18 02/06/18 02/06/18 22:59 06:59 14:59 Intake Total 2883 600 160 Output Total 2100 1650 Balance 783 -1050 160 Lab Results - Last 24 hrs: Laboratory Results - last 24 hr 02/06/18 02/06/18 Range/Units 05:36 05:36 WBC 4.44 (4.23-9.07) K/mm3 RBC 3.64 L (4.63-6.08) M/mm3 Hgb 10.5 L (13.7-17.5) gm/L Hct 32.6 L (40.1-51.0) % MCV 89.6 (79.0-92.2) fl MCH 28.8 (25.7-32.2) pg MCHC 32.2 (32.2-35.5) g/dl RDW Std Deviation 44.6 H (35.1-43.9) fL Plt Count 215 (163-337) K/mm3 MPV 10.3 (9.4-12.3) fl Neut % (Auto) 72.5 H (34.0-67.9) % Lymph % (Auto) 10.4 L (21.8-53.1) % Smith % (Auto) 13.7 H (5.3-12.2) % Eos % (Auto) 2.7 (0.8-7.0) Baso % (Auto) 0.2 (0.1-1.2) % Neut # (Auto) 3.22 (1.78-5.38) K/mm3 Lymph # (Auto) 0.46 L (1.32-3.57) K/mm3 Smith # (Auto) 0.61 (0.30-0.82) K/mm3 Eos # (Auto) 0.12 (0.04-0.54) K/mm3 Baso # (Auto) 0.01 (0.01-0.08) K/mm3 Sodium 133 L (136-145) mEq/L Potassium 3.3 L (3.5-5.1) mEq/L Chloride 102 (98-107) mEq/L Carbon Dioxide 26 (21-32) mEq/L Anion Gap 8.3 (5-15) BUN 8 (7-18) mg/dL Creatinine 1.5 H (0.7-1.3) mg/dL Est Cr Clr Drug Dosing 37.95 mL/min Estimated GFR (MDRD) 45 (>60) mL/min BUN/Creatinine Ratio 5.3 L (14-18) Glucose 101 (83-115) mg/dL Calcium 7.4 L (8.5-10.1) mg/dL Magnesium 1.7 L (1.8-2.4) mg/dl C-Reactive Protein 9.1 H* (<1.0) mg/dL Med Orders - Current: Current Medications Calcium Carbonate/Glycine (Calcium Carbonate) 1,200 mg PO BIDMEALS [facility] Last Admin: 02/06/18 06:29 Dose: 1,200 mg Heparin Sodium (Porcine) (Heparin Sodium) 5,000 units SUBCUT Q8H [facility] Last Admin: 02/06/18 06:29 Dose: 5,000 units Magnesium Sulfate 2 gm/ Premix 50 mls @ 25 mls/hr IV Q2H [facility] Stop: 02/06/18 14:59 Last Admin: 02/06/18 11:09 Dose: 25 mls/hr Morphine Sulfate (Morphine) 4 mg IVPUSH Q6H PRN PRN Reason: Pain (moderate 4-6) Last Admin: 02/02/18 20:13 Dose: 4 mg Ondansetron HCl (Zofran) 4 mg IVPUSH Q8H PRN PRN Reason: Nausea/Vomiting Vancomycin HCl (First-Vancomycin 50 Compounding Kit) 125 mg PO QID [facility] Last Admin: 02/06/18 08:06 Dose: 125 mg Discontinued Medications Diatrizoate Meglum/Diatrizoate Sod (Gastrografin 37%) 90 ml PO ONETIME ONE Stop: 02/02/18 07:40 Last Admin: 02/02/18 07:40 Dose: 90 ml Furosemide (Lasix) 20 mg IVPUSH ONETIME ONE Stop: 02/05/18 14:12 Last Admin: 02/05/18 14:25 Dose: 20 mg Hydromorphone HCl (Dilaudid) 0.5 mg IVPUSH ONETIME ONE Stop: 02/02/18 05:39 Last Admin: 02/02/18 05:45 Dose: 0.5 mg Sodium Chloride (Normal Saline) 1,000 mls @ 150 mls/hr IV ASDIRECTED [facility] Last Admin: 02/02/18 05:45 Dose: 150 mls/hr Sodium Chloride (Normal Saline) 1,000 mls @ 1,000 mls/hr IV ONETIME ONE Stop: 02/02/18 09:27 Last Admin: 02/02/18 10:44 Dose: Not Given Metronidazole 500 mg/ Premix 100 mls @ 100 mls/hr IV Q8H [facility] Last Admin: 02/05/18 04:46 Dose: 100 mls/hr Lactated Ringer's (Ringers, Lactated) 1,000 mls @ 125 mls/hr IV ASDIRECTED [facility] Last Admin: 02/05/18 08:28 Dose: 125 mls/hr Magnesium Sulfate 2 gm/ Premix 50 mls @ 25 mls/hr IV ONETIME ONE Stop: 02/03/18 11:49 Last Admin: 02/03/18 10:56 Dose: 25 mls/hr Magnesium Sulfate 2 gm/ Premix 50 mls @ 25 mls/hr IV ONETIME ONE Stop: 02/05/18 09:43 Last Admin: 02/05/18 08:45 Dose: 25 mls/hr Lactated Ringer's (Ringers, Lactated) 1,000 mls @ 50 mls/hr IV ASDIRECTED [facility] Iopamidol (Isovue-370 (76%)) 100 ml IVPUSH ONETIME ONE Stop: 02/02/18 07:04 Last Admin: 02/02/18 07:39 Dose: 100 ml Morphine Sulfate (Morphine) 8 mg IVPUSH Q2H PRN PRN Reason: Pain Last Admin: 02/02/18 07:45 Dose: 8 mg Ondansetron HCl (Zofran) 4 mg IVPUSH ONETIME ONE Stop: 02/02/18 05:37 Last Admin: 02/02/18 05:45 Dose: 4 mg Ondansetron HCl (Zofran) Confirm Administered Dose 4 mg .ROUTE .STK-MED ONE Stop: 02/02/18 07:54 Last Admin: 02/02/18 08:00 Dose: Not Given Ondansetron HCl (Zofran) 4 mg IVPUSH ONETIME ONE Stop: 02/02/18 07:59 Last Admin: 02/02/18 08:01 Dose: 4 mg Potassium Chloride (Klor-Con M20) 60 meq PO ONETIME ONE Stop: 02/06/18 11:31 Last Admin: 02/06/18 11:09 Dose: 60 meq - Exam Quality Assessment: Denies: Supplemental Oxygen General: Reports: Alert, Oriented, Cooperative, No Acute Distress HEENT: Reports: Pupils Equal, Pupils Reactive, EOMI, Mucous Membr. Moist/[place] Neck: Reports: Supple. Denies: Lymphadenopathy Lungs: Reports: Clear to Auscultation, Normal Respiratory Effort Cardiovascular: Reports: Regular Rate, Regular Rhythm, No Murmurs GI/Abdominal Exam: Normal Bowel Sounds, Soft, Non-Tender, No Distention (Male) Exam: Deferred Rectal (Males) Exam: Deferred Back Exam: Reports: Normal Inspection, Full Range of Motion Extremities: Normal Inspection, Normal Range of Motion, Non-Tender, No Pedal Edema, Normal Capillary Refill Skin: Reports: Warm, Dry, Intact Neurological: Reports: No New Focal Deficit, Strength Equal Bilateral, Cranial Nerves Intact (grossly) Psy/Mental Status: Reports: Alert, Normal Affect, Normal Mood
[2018-02-06 12:09] VITALS: BP 114/70
--- NOTE | 2018-02-06 12:25 | PCM.CONSN ---
- General Info Date of Service: 02/06/18 - Patient Data Vitals - Most Recent: Last Vital Signs Temp 98.6 F 02/06/18 08:02 Pulse 79 02/06/18 11:30 Resp 14 02/06/18 11:27 BP 114/70 02/06/18 11:30 Pulse Ox 97 02/06/18 11:30 Weight - Most Recent: 164 lb 1.6 oz I&O - Last 24 Hours: Intake & Output 02/05/18 02/06/18 02/06/18 22:59 06:59 14:59 Intake Total 2883 600 160 Output Total 2100 1650 Balance 783 -1050 160 Lab Results Last 24 Hours: Laboratory Results - last 24 hr 02/06/18 02/06/18 Range/Units 05:36 05:36 WBC 4.44 (4.23-9.07) K/mm3 RBC 3.64 L (4.63-6.08) M/mm3 Hgb 10.5 L (13.7-17.5) gm/L Hct 32.6 L (40.1-51.0) % MCV 89.6 (79.0-92.2) fl MCH 28.8 (25.7-32.2) pg MCHC 32.2 (32.2-35.5) g/dl RDW Std Deviation 44.6 H (35.1-43.9) fL Plt Count 215 (163-337) K/mm3 MPV 10.3 (9.4-12.3) fl Neut % (Auto) 72.5 H (34.0-67.9) % Lymph % (Auto) 10.4 L (21.8-53.1) % Grainger % (Auto) 13.7 H (5.3-12.2) % Eos % (Auto) 2.7 (0.8-7.0) Baso % (Auto) 0.2 (0.1-1.2) % Neut # (Auto) 3.22 (1.78-5.38) K/mm3 Lymph # (Auto) 0.46 L (1.32-3.57) K/mm3 Grainger # (Auto) 0.61 (0.30-0.82) K/mm3 Eos # (Auto) 0.12 (0.04-0.54) K/mm3 Baso # (Auto) 0.01 (0.01-0.08) K/mm3 Sodium 133 L (136-145) mEq/L Potassium 3.3 L (3.5-5.1) mEq/L Chloride 102 (98-107) mEq/L Carbon Dioxide 26 (21-32) mEq/L Anion Gap 8.3 (5-15) BUN 8 (7-18) mg/dL Creatinine 1.5 H (0.7-1.3) mg/dL Est Cr Clr Drug Dosing 37.95 mL/min Estimated GFR (MDRD) 45 (>60) mL/min BUN/Creatinine Ratio 5.3 L (14-18) Glucose 101 (83-115) mg/dL Calcium 7.4 L (8.5-10.1) mg/dL Magnesium 1.7 L (1.8-2.4) mg/dl C-Reactive Protein 9.1 H* (<1.0) mg/dL Med Orders - Current: Current Medications Calcium Carbonate/Glycine (Calcium Carbonate) 1,200 mg PO BIDMEALS [facility] Last Admin: 02/06/18 06:29 Dose: 1,200 mg Heparin Sodium (Porcine) (Heparin Sodium) 5,000 units SUBCUT Q8H [facility] Last Admin: 02/06/18 06:29 Dose: 5,000 units Magnesium Sulfate 2 gm/ Premix 50 mls @ 25 mls/hr IV Q2H [facility] Stop: 02/06/18 14:59 Last Admin: 02/06/18 11:09 Dose: 25 mls/hr Morphine Sulfate (Morphine) 4 mg IVPUSH Q6H PRN PRN Reason: Pain (moderate 4-6) Last Admin: 02/02/18 20:13 Dose: 4 mg Ondansetron HCl (Zofran) 4 mg IVPUSH Q8H PRN PRN Reason: Nausea/Vomiting Vancomycin HCl (First-Vancomycin 50 Compounding Kit) 125 mg PO QID [facility] Last Admin: 02/06/18 08:06 Dose: 125 mg Discontinued Medications Diatrizoate Meglum/Diatrizoate Sod (Gastrografin 37%) 90 ml PO ONETIME ONE Stop: 02/02/18 07:40 Last Admin: 02/02/18 07:40 Dose: 90 ml Furosemide (Lasix) 20 mg IVPUSH ONETIME ONE Stop: 02/05/18 14:12 Last Admin: 02/05/18 14:25 Dose: 20 mg Hydromorphone HCl (Dilaudid) 0.5 mg IVPUSH ONETIME ONE Stop: 02/02/18 05:39 Last Admin: 02/02/18 05:45 Dose: 0.5 mg Sodium Chloride (Normal Saline) 1,000 mls @ 150 mls/hr IV ASDIRECTED [facility] Last Admin: 02/02/18 05:45 Dose: 150 mls/hr Sodium Chloride (Normal Saline) 1,000 mls @ 1,000 mls/hr IV ONETIME ONE Stop: 02/02/18 09:27 Last Admin: 02/02/18 10:44 Dose: Not Given Metronidazole 500 mg/ Premix 100 mls @ 100 mls/hr IV Q8H [facility] Last Admin: 02/05/18 04:46 Dose: 100 mls/hr Lactated Ringer's (Ringers, Lactated) 1,000 mls @ 125 mls/hr IV ASDIRECTED [facility] Last Admin: 02/05/18 08:28 Dose: 125 mls/hr Magnesium Sulfate 2 gm/ Premix 50 mls @ 25 mls/hr IV ONETIME ONE Stop: 02/03/18 11:49 Last Admin: 02/03/18 10:56 Dose: 25 mls/hr Magnesium Sulfate 2 gm/ Premix 50 mls @ 25 mls/hr IV ONETIME ONE Stop: 02/05/18 09:43 Last Admin: 02/05/18 08:45 Dose: 25 mls/hr Lactated Ringer's (Ringers, Lactated) 1,000 mls @ 50 mls/hr IV ASDIRECTED [facility] Iopamidol (Isovue-370 (76%)) 100 ml IVPUSH ONETIME ONE Stop: 02/02/18 07:04 Last Admin: 02/02/18 07:39 Dose: 100 ml Morphine Sulfate (Morphine) 8 mg IVPUSH Q2H PRN PRN Reason: Pain Last Admin: 02/02/18 07:45 Dose: 8 mg Ondansetron HCl (Zofran) 4 mg IVPUSH ONETIME ONE Stop: 02/02/18 05:37 Last Admin: 02/02/18 05:45 Dose: 4 mg Ondansetron HCl (Zofran) Confirm Administered Dose 4 mg .ROUTE .STK-MED ONE Stop: 02/02/18 07:54 Last Admin: 02/02/18 08:00 Dose: Not Given Ondansetron HCl (Zofran) 4 mg IVPUSH ONETIME ONE Stop: 02/02/18 07:59 Last Admin: 02/02/18 08:01 Dose: 4 mg Potassium Chloride (Klor-Con M20) 60 meq PO ONETIME ONE Stop: 02/06/18 11:31 Last Admin: 02/06/18 11:09 Dose: 60 meq Consult PN Assessment/Plan Procedures: Procedures ASSAY OF CREATININE (12/14/15) ASSAY OF FERRITIN (11/25/15) ASSAY OF LIPASE (07/27/17) ASSAY OF SERUM ALBUMIN (11/25/15) ASSAY OF TROPONIN QUANT (12/14/15) ASSAY THYROID STIM HORMONE (01/28/18) C DIFF AMPLIFIED PROBE (01/30/18) C-REACTIVE PROTEIN (07/27/17) CHEST X-RAY 2VW FRONTAL&LATL (12/14/15) COMPLETE CBC AUTOMATED (07/27/17) COMPLETE CBC W/AUTO DIFF WBC (01/15/18) COMPREHEN METABOLIC PANEL (01/15/18) CREATINE MB FRACTION (12/14/15) CRYPTOSPORIDIUM AG IA (01/30/18) CT ABD & PELVIS W/O CONTRAST (05/13/14) CT HEAD/BRAIN W/O DYE (01/08/18) CT PELVIS W/O DYE (01/15/18) ECG MONIT/REPRT UP TO 48 HRS (01/09/18) ECG MONIT/REPRT UP TO 48 HRS (01/09/18) ELECTROCARDIOGRAM TRACING (01/08/18) EMERGENCY DEPT VISIT (01/08/18) EXTRACRANIAL BILAT STUDY (01/08/18) GAIT TRAINING THERAPY (12/06/15) GIARDIA AG IA (01/30/18) GLUCOSE BLOOD TEST (01/08/18) H PYLORI (C-13) BREATH (01/15/18) IRRIG DRUG DELIVERY DEVICE (01/08/18) LEUKOCYTE ASSESSMENT FECAL (01/30/18) LIPID PANEL (01/08/18) LUNG PERFUSION IMAGING (12/14/15) MANUAL THERAPY 1/> REGIONS (12/28/15) MEASURE BLOOD OXYGEN LEVEL (12/06/15) METABOLIC PANEL TOTAL CA (11/25/15) MICROBE SUSCEPTIBLE BLAIRE (09/05/17) MR ANGIOGRAPHY HEAD W/O DYE (01/08/18) MR ANGIOGRAPHY NECK W/O DYE (01/08/18) MR-STAPH DNA AMP PROBE (11/30/15) MRI JNT OF LWR EXTRE W/O DYE (08/10/17) NEUROMUSCULAR REEDUCATION (12/28/15) OFFICE/OUTPATIENT VISIT EST (11/22/17) OT EVAL LOW COMPLEX 30 MIN (01/08/18) OT EVALUATION (12/06/15) PROTHROMBIN TIME (12/14/15) PT EVAL LOW COMPLEX 20 MIN (01/08/18) PT EVALUATION (12/17/15) ROTAVIRUS AG IA (01/30/18) ROUTINE VENIPUNCTURE (01/28/18) SELF CARE MNGMENT TRAINING (12/06/15) STOOL CULTR AEROBIC BACT EA (01/30/18) THERAPEUTIC ACTIVITIES (12/06/15) THERAPEUTIC EXERCISES (01/08/18) THROMBOPLASTIN TIME PARTIAL (09/10/15) TTE W/DOPPLER COMPLETE (01/08/18) URINALYSIS AUTO W/SCOPE (09/05/17) URINE BACTERIA CULTURE (09/05/17) URINE CULTURE/COLONY COUNT (09/05/17) X-RAY EXAM HIP UNI 2-3 VIEWS (01/15/18) X-RAY EXAM OF FEMUR 2/> (11/22/17) X-RAY EXAM OF KNEE 1 OR 2 (12/06/15) X-RAY EXAM OF KNEE 3 (11/22/17) X-RAY UPPER GI DELAY W/O KUB (05/04/14) Problem List Initiated/Reviewed/Updated: Yes Plan: This is a follow up surgical consult. THe patient now is pain free and passing gas. He is eating without problem PE--abd is soft and nontender. Resolved partial SBO no surgery needed at this time will sign off call if needed
[2018-02-06] MEDS ORDERED: Potassium Chloride/Sodium Chloride Tab PO SCH (21:00)
[2018-02-06] MEDS ORDERED: Magnesium Oxide 400 MG Tab PO SCH (21:00)
== END 2018-02-06 16:06 | disposition home or self-care (01) | DRG 389 ==
LOC: JD.ED 05:00 → JD.MS 08:59
PROVIDERS: ADMIT Internal Medicine Cardiovascular Disease; ATTEND Internal Medicine Cardiovascular Disease
DX: K56.609 Unspecified intestinal obstruction, unspecified as to partial versus complete obstruction (principal); E86.0 Dehydration; K56.51 Intestinal adhesions [bands], with partial obstruction; C79.89 Secondary malignant neoplasm of other specified sites; A04.72 Enterocolitis due to Clostridium difficile, not specified as recurrent; C79.51 Secondary malignant neoplasm of bone; N17.9 Acute kidney failure, unspecified; M19.90 Unspecified osteoarthritis, unspecified site; Z96.653 Presence of artificial knee joint, bilateral; E87.1 Hypo-osmolality and hyponatremia; S32.401D Unspecified fracture of right acetabulum, subsequent encounter for fracture with routine healing; E87.6 Hypokalemia; Z85.51 Personal history of malignant neoplasm of bladder; E83.51 Hypocalcemia; E83.42 Hypomagnesemia; Z90.5 Acquired absence of kidney; D64.9 Anemia, unspecified; N18.9 Chronic kidney disease, unspecified; E03.9 Hypothyroidism, unspecified; I12.9 Hypertensive chronic kidney disease with stage 1 through stage 4 chronic kidney disease, or unspecified chronic kidney disease; I44.7 Left bundle-branch block, unspecified; M84.550D Pathological fracture in neoplastic disease, pelvis, subsequent encounter for fracture with routine healing; Z79.899 Other long term (current) drug therapy; Z79.82 Long term (current) use of aspirin; Z92.21 Personal history of antineoplastic chemotherapy; Z93.2 Ileostomy status; Z98.890 Other specified postprocedural states
CPT/HCPCS: 36415; 74177; 80053; 83605; 83690; 85007; 85027; 96361; 96374; 96375; 96376; 99285; J1170; J2270; J2405 ×2; J7040; Q9963; Q9967; 74018; 74018-26; 80048; 81001; 83735; 85025; 86140; 97116-GP; 97162-GP; 97165-GO; A9270-GY; C1751; J1644; J3370; J3475; J7120

== ENCOUNTER 2018-02-24 15:26 | Emergency (ER) | payer MEDICARE ==
[2018-02-24 15:38] VITALS: BP 136/74
--- NOTE | 2018-02-24 16:42 | EDM.PDOC ---
ED HPI GENERAL MEDICAL PROBLEM - General Chief Complaint: Cardiovascular Problem Stated Complaint: FEET AND LEGS SWELLING Time Seen by Provider: 02/24/18 16:08 Source of Information: Reports: Patient History Limitations: Reports: No Limitations - History of Present Illness INITIAL COMMENTS - FREE TEXT/NARRATIVE: 77-year-old male presents for evaluation and treatment of swelling to the bilateral legs and feet. Patient had an eventful last few months. He is hospitalized urine [facility] from February 02. He is diagnosed with an ileus and this was conservatively managed without surgery. Patient was recently hospitalized at [facility] in [place]. He had a small bowel obstruction. Reports had 16 inches of the small bowel removed. He was just discharged on Sunday. Reports since being discharged she is passing gas. His stools are looser than normal but is not appreciated any blood in his stools. He denies any nausea or vomiting. Does not have much appetite at this point. Patient reports he appreciated swelling to the bilateral legs and testicles yesterday. He does not have a scale at home is unable to appreciate any weight changes. He denies any cough or shortness of breath. No chest pain. Denies any leg pain. Patient was on Lovenox recently during his hospitalization. Patient is currently on oral vancomycin for possibly C. difficile colitis. Reports that while in [place] they questioned if he is just possibly a carrier. patient has a past medical history significant for bladder cancer and kidney cancer. He has a urostomy after having his bladder removed and his right kidney removed. - Related Data Allergies Allergy/AdvReac Type Severity Reaction Status Date / Time No Known Allergies Allergy Verified 02/02/18 10:04 Home Meds: Home Meds Aspirin [Children's Aspirin] 81 mg PO DAILY 10/01/15 [History] Levothyroxine Sodium [Synthroid] 75 mcg PO DAILY 10/01/15 [History] Calcium Citrate/Vitamin D3 [Citracal + D Maximum Caplet] 1 tab PO DAILY [History] Vancomycin 125 mg PO QID 02/02/18 [History] Atezolizumab [Tecentriq] 1 applic IV ASDIRECTED 02/24/18 [History] Furosemide [Lasix] 20 mg PO DAILY #30 tab 02/24/18 [Rx] Ondansetron [Zofran ODT] 4 mg PO ASDIRECTED PRN 02/24/18 [History] Potassium Chloride 10 meq PO DAILY #30 tablet.er 02/24/18 [Rx] Potassium Chloride/NaCl [Thermotabs] 40 meq PO DAILY 02/24/18 [History] Past Medical History HEENT History: Reports: Impaired Vision, Other (See Below) Other HEENT History: wears glasses, has upper denture Cardiovascular History: Reports: None Respiratory History: Reports: PE Gastrointestinal History: Reports: Hiatal Hernia Other Gastrointestinal History: R groin hernia repair Genitourinary History: Reports: Other (See Below) Other Genitourinary History: h/o bladder cancer s/p cystectomy with urostomy ( stoma in RLQ) Musculoskeletal History: Reports: Arthritis Other Musculoskeletal History: chronic pelvic pain r/t cancer in that area. 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 - Infectious Disease History Infectious Disease History: Reports: C-Difficile, Chicken Pox - Past Surgical History HEENT Surgical History: Reports: Cataract Surgery, Oral Surgery, Tonsillectomy Cardiovascular Surgical History: Reports: None GI Surgical History: Reports: Colonoscopy, EGD, Hernia, Inguinal Male Surgical History: Reports: Cystectomy, Nephrectomy, Prostatectomy, Other (See Below) Musculoskeletal Surgical History: Reports: Knee Replacement, Other (See Below) Other Musculoskeletal Surgeries/Procedures:: bilateral knee replacements Oncologic Surgical History: Reports: None Dermatological Surgical History: Reports: None Social & Family History - Family History Family Medical History: Noncontributory - Tobacco Use Smoking Status *Q: Never Smoker - Caffeine Use Caffeine Use: Reports: Coffee, Soda, Tea - Recreational Drug Use Recreational Drug Use: No - Living Situation & Occupation Living situation: Reports: , with Spouse Occupation: Employed ED ROS GENERAL - Review of Systems Review Of Systems: See Below Constitutional: Reports: Weakness, Weight Loss (due to recent hospitalizations and surgery, no scale to precisely measure). Denies: Fever, Chills Respiratory: Denies: Shortness of Breath, Cough Cardiovascular: Reports: Edema (bilateral legs right > left). Denies: Chest Pain GI/Abdominal: Reports: Diarrhea. Denies: Abdominal Pain, Bloody Stool, Nausea, Vomiting ED EXAM, GENERAL - Physical Exam Exam: See Below Exam Limited By: No Limitations General Appearance: Alert, WD/WN, No Apparent Distress Eye Exam: Bilateral Eye: Normal Inspection Ears: Normal External Exam Nose: Normal Inspection Throat/Mouth: Normal Inspection, Normal Lips, Normal Voice, No Airway Compromise Respiratory/Chest: No Respiratory Distress, Lungs Clear, Normal Breath Sounds Cardiovascular: Normal Peripheral Pulses, Regular Rate, Rhythm, No Murmur Peripheral Pulses: 2+: Dorsalis Pedis (L), Dorsalis Pedis (R) (posterior tib pulses obscured by edema) GI/Abdominal: Normal Bowel Sounds, Soft, Other (large scar to the abdomen, healing, draining small amount of serious fluid, multiple shirley present; urostomy to the right mid abdomen) Extremities: Normal Inspection, Non-Tender, Other (3+ pitting edema to the right , 1+ nonpitting edema to the left). No: Lis's Sign Neurological: Alert, Oriented, Normal Cognition Psychiatric: Normal Affect, Normal Mood Skin Exam: Warm, Dry, Normal Color EKG INTERPRETATION EKG Date: 02/24/18 Time: 17:00 Rhythm: NSR Rate (Beats/Min): 87 [place]: LAD-Left [place] Deviation P-Wave: Present QRS: LBBB ST-T: Normal QT: Normal Comparison: No Change EKG Interpretation Comments: NSR at 87 bpm. No ischemic changes. LBBB. LAD. No change from 01-08-18 EKG. Reviewed by myself and Dr. Mehta Course - Vital Signs Last Recorded V/S: Last Vital Signs Temp 97.8 F 02/24/18 15:37 Pulse 94 02/24/18 15:37 Resp 20 02/24/18 15:37 BP 136/74 02/24/18 15:37 Pulse Ox 96 02/24/18 15:37 - Orders/Labs/Meds Labs: Laboratory Tests 02/24/18 02/24/18 02/24/18 Range/Units 16:31 16:31 16:31 WBC 7.40 (4.23-9.07) K/mm3 RBC 3.45 L (4.63-6.08) M/mm3 Hgb 10.0 L (13.7-17.5) gm/L Hct 30.4 L (40.1-51.0) % MCV 88.1 (79.0-92.2) fl MCH 29.0 (25.7-32.2) pg MCHC 32.9 (32.2-35.5) g/dl RDW Std Deviation 50.6 H (35.1-43.9) fL Plt Count 324 (163-337) K/mm3 MPV 10.1 (9.4-12.3) fl Neutrophils % (Manual) 76 H (40-60) % Band Neutrophils % 0 (0-10) % Lymphocytes % (Manual) 12 L (20-40) % Atypical Lymphs % 0 % Monocytes % (Manual) 8 (2-10) % Eosinophils % (Manual) 4 (0.8-7.0) % Basophils % (Manual) 0 L (0.2-1.2) Platelet Estimate Adequate Plt Morphology Comment Normal RBC Morph Comment Normal Sodium 138 (136-145) mEq/L Potassium 3.9 (3.5-5.1) mEq/L Chloride 104 (98-107) mEq/L Carbon Dioxide 24 (21-32) mEq/L Anion Gap 13.9 (5-15) BUN 5 L (7-18) mg/dL Creatinine 1.3 (0.7-1.3) mg/dL Est Cr Clr Drug Dosing 43.78 mL/min Estimated GFR (MDRD) 53 (>60) mL/min BUN/Creatinine Ratio 3.8 L (14-18) Glucose 102 (83-115) mg/dL Calcium 7.2 L (8.5-10.1) mg/dL Total Bilirubin 0.6 (0.2-1.0) mg/dL AST 21 (15-37) U/L ALT 9 L (16-63) U/L Alkaline Phosphatase 50 (46-116) U/L NT-Pro-B Natriuret Pep 2882 H (0-450) pg/mL Total Protein 5.4 L (6.4-8.2) g/dl Albumin 2.2 L (3.4-5.0) g/dl Globulin 3.2 gm/dL Albumin/Globulin Ratio 0.7 L (1-2) Meds: Medications Discontinued Medications Generic Name Dose Route Start Last Admin Trade Name Yvonne PRN Reason Stop Dose Admin Furosemide 20 mg 02/24/18 18:43 02/24/18 18:54 Lasix PO 02/24/18 18:44 20 mg ONETIME ONE Administration Potassium Chloride 10 meq 02/24/18 18:43 02/24/18 18:54 Klor-Con 10 PO 02/24/18 18:44 10 meq ONETIME ONE Administration - Radiology Interpretation Free Text/Narrative:: chest xrat shows a port placement no pulmonary congestion. no acute intrathoracic process. right lower leg ultrasound impression per [facility]: No DVT. - Re-Assessments/Exams Free Text/Narrative Re-Assessment/Exam: 02/24/18 18:42 I reviewed the labs and imaging with the patient. I believe the edema is a combination of poor intake from recent hospitalizations resulting in lower protein and fluid overload. He has no formal diagnosis of heart failure. I encouraged him to elevated the legs. Will start on a small dose of lasix. He is to follow-up in the clinic this week for a post hospitalization follow-up. Encouraged a healthy diet with high protein. Discussed compression stockings but decided to hold off at this time. Discharge instructions as documented. Departure - Departure Time of Disposition: 18:44 Disposition: Home, Self-Care 01 Condition: Fair Clinical Impression: Edema Prescriptions: Furosemide [Lasix] 20 mg PO DAILY #30 tab Potassium Chloride 10 meq PO DAILY #30 tablet.er Instructions: Edema Referrals: Roxie Copeland NP [Primary Care Provider] - Forms: ED Department Discharge Additional Instructions: Follow-up with your primary care provider Sunday as planned. Make sure you're elevating the legs as much as possible. Eat a healthy diet. Eat higher protein foods as you protein was low today. Start the Lasix 1 tab in the morning. This medication will help urinate out the extra fluid. This can cause her potassium to be low, therefore I have started you on potassium 1 tab daily. You may start these medications tomorrow as they were given to you in the ED tonight. Please return to ER if your symptoms change or worsen.
[2018-02-24] MEDS ORDERED: Potassium Chloride 10 MEQ Tab.ER PO ONE (18:43)
[2018-02-24] MEDS ORDERED: Furosemide 20 MG Tab PO ONE (18:43)
--- NOTE | 2018-02-25 14:11 | US ---
Right lower extremity deep venous ultrasound: Duplex and color flow imaging was obtained of the right common femoral, proximal greater saphenous, superficial femoral, popliteal, posterior tibial and peroneal veins. Left common femoral vein was also evaluated. Normal phasic flow, augmentation and compression is seen. Subcutaneous edema is identified within the lower extremity. Impression: 1. Subcutaneous edema. 2. No evidence of deep venous thrombosis within the right lower extremity or within the left common femoral vein. Diagnostic code #2 I agree with preliminary report issued by [email or web address] ([facility] preliminary report dictated on 02/24/18, 7:20 PM Central Time)
--- NOTE | 2018-02-25 14:16 | CR ---
Chest: Portable view of the chest was obtained. Comparison: Prior chest x-ray of 12/14/15. Heart is enlarged. Tortuous thoracic aorta is seen. Lungs are clear with no acute parenchymal densities. Right-sided infusion catheter is seen. Old healed left lower rib fractures are seen as well as an old right lower rib fracture. Impression: 1. Findings as noted above. Nothing acute is seen on portable chest x-ray. Diagnostic code #2
== END 2018-02-24 19:05 | disposition home or self-care (01) ==
LOC: JD.ED 15:26
DX: R60.0 Localized edema (principal); E03.9 Hypothyroidism, unspecified; Z79.82 Long term (current) use of aspirin; Z79.899 Other long term (current) drug therapy
CPT/HCPCS: 36415; 71045; 80053; 83880; 85007; 85027; 93005; 93971; 99285; A9270

== ENCOUNTER 2021-07-14 08:35 | Inpatient (IN) | payer MEDICARE ==
[2021-07-14] MEDS ORDERED: HYDROmorphone 0.5 MG/0.5 ML Syringe IVPUSH ONE (09:05)
[2021-07-14] MEDS ORDERED: Metoclopramide 10 MG/2 ML SDV IVPUSH ONE (09:05)
--- NOTE | 2021-07-14 09:08 | EDM.PDOC ---
ED HPI GENERAL MEDICAL PROBLEM - General Chief Complaint: Gastrointestinal Problem Stated Complaint: VOMITING Time Seen by Provider: 07/14/21 08:53 Source of Information: Reports: Patient, Family (spouse) History Limitations: Reports: No Limitations - History of Present Illness INITIAL COMMENTS - FREE TEXT/NARRATIVE: 80-year-old male presents to the ED in the company of his . Yesterday he started vomiting mostly bilious slimy material. Unable to eat. He is in constant pain due to metastatic cancer involving his right hip and lower back. 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 Patient has been offered radiation therapy for pain relief but has refused. He is currently not taking any chemotherapy. He has had a total cystectomy and has a ureterostomy. At the time he was seen in the ED he is trembling all over due to severe chills with rigors. He is actually cool to touch at this time. has not appreciated any fever at home. His last pain pill was last evening and therefore he is in a great deal of pain in his left hip at this time Onset: Sudden Onset Date: 07/13/21 Onset Time: 16:00 Duration: Hour(s):, Constant Location: Reports: Other (Severe pain left hip and lumbar spine due to metastatic bone disease.) Quality: Reports: Other (Recurrent nausea and vomiting for the last 16 hours.) Severity: Moderate Improves with: Reports: None Worsens with: Reports: Movement Context: Reports: Other (Patient is chronically ill with metastatic bladder cancer to his left hip and lumbar spine.). Denies: Activity, Exercise, Lifting, Sick Contact, Trauma Associated Symptoms: Reports: Fever/Chills, Loss of Appetite, Malaise, Nausea/Vomiting, Weakness, Other (Generalized very poor appetite.). Denies: Confusion, Chest Pain, Cough, cough w sputum, Diaphoresis, Headaches, Rash, Seizure, Shortness of Breath (Chills in the ED with no fever yet.), Syncope Treatments ACCESS CLERK: Reports: Other (see below) (Nothing will stay down.) right hip and back Pain Score (Numeric/FACES): 9 - Related Data Allergies Allergy/AdvReac Type Severity Reaction Status Date / Time No Known Allergies Allergy Verified 02/02/18 10:04 Home Meds: Home Meds Gabapentin [Neurontin] 200 mg PO TID 07/14/21 [History] HYDROmorphone [Dilaudid] 4 mg PO Q4H PRN 07/14/21 [History] Levothyroxine 112 mcg PO DAILY 07/14/21 [History] Past Medical History HEENT History: Reports: Impaired Vision, Other (See Below) Other HEENT History: wears glasses, has upper denture Cardiovascular History: Reports: None Respiratory History: Reports: PE Gastrointestinal History: Reports: Hiatal Hernia Other Gastrointestinal History: R groin hernia repair Genitourinary History: Reports: Other (See Below) Other Genitourinary History: h/o bladder cancer s/p cystectomy with urostomy (stoma in RLQ). Musculoskeletal History: Reports: Arthritis Other Musculoskeletal History: chronic pelvic pain r/t cancer in that area. Endocrine/Metabolic History: Reports: Hypothyroidism Hematologic History: Reports: Other (See Below) Other Hematologic History: anemia problems when on chemo Immunologic History: Reports: Immunosuppression Oncologic (Cancer) History: Reports: Bladder (Bladder cancer first diagnosed in 2011. Treated with fulguration and cauterization. Had BCG treatments x6. Recurrence in 2013 requiring removal of his prostate pelvic lymph nodes right kidney and formation of an ileoconduit right lower quadrant. Recurrence of cancer to bones in the last 2 years.), Other (See Below) Other Oncologic History: pelvic bone with lymph node Dermatologic History: Reports: Other (See Below) Other Dermatologic History: cyst to neck (once it was removed, but grew back on back of head) - 1 about quarter size, one dime sized. - Infectious Disease History Infectious Disease History: Reports: C-Difficile, Chicken Pox - Past Surgical History HEENT Surgical History: Reports: Cataract Surgery, Oral Surgery, Tonsillectomy Cardiovascular Surgical History: Reports: None GI Surgical History: Reports: Colonoscopy, EGD, Hernia, Inguinal Male Surgical History: Reports: Cystectomy, Nephrectomy (Due to primary cancer of the urinary bladder. Right-sided nephrectomy performed later.), Prostatectomy, Other (See Below) (Patient has a ileoconduit lower abdomen.) Musculoskeletal Surgical History: Reports: Knee Replacement, Other (See Below) Other Musculoskeletal Surgeries/Procedures:: bilateral knee replacements Oncologic Surgical History: Reports: None Dermatological Surgical History: Reports: None Social & Family History - Family History Family Medical History: No Pertinent Family History - Caffeine Use Caffeine Use: Reports: Coffee, Soda, Tea - Living Situation & Occupation Living situation: Reports: , with Spouse Occupation: Employed ED ROS GENERAL - Review of Systems Review Of Systems: See Below Constitutional: Reports: Chills, Malaise (Rigors chills at the time of presentation to the ED.), Weakness, Fatigue, Decreased Appetite, Weight Loss (10 pounds weight loss in the last 6 weeks). Denies: Fever HEENT: Reports: Glasses, Hearing Loss Respiratory: Reports: Shortness of Breath Cardiovascular: Reports: Lightheadedness. Denies: Chest Pain, Blood Pressure Problem, Claudication, Dyspnea on Exertion, Orthopnea, Palpitations, PND, Syncope, Other GI/Abdominal: Reports: Constipation, Nausea : Reports: Other (Patient has had a total cystectomy and ileoconduit formation due to cancer of the bladder. Subsequent required right nephrectomy as well presumably due to spread into the ureter. Has known metastatic bone disease to left hip and lower back.) Musculoskeletal: Reports: Neck Pain, Back Pain (Diffuse pain lumbar and lower thoracic back), Leg Pain (Left hip pain) Skin: Reports: Pallor Neurological: Reports: No Symptoms Psychiatric: Reports: Anxiety, Other (Insomnia) Hematologic/Lymphatic: Reports: Anemia Immunologic: Reports: No Symptoms ED EXAM, GI/ABD - Physical Exam Exam: See Below Exam Limited By: Physical Impairment (His provides most of the history. Patient is able to answer few questions but he is experiencing severe rigors at the time of examination. Wants to be covered up with warm blankets and is in the position) General Appearance: Alert, Anxious, Moderate Distress, Thin, Cachetic Eyes: Bilateral: Normal Appearance (Mild blepharal pallor. No scleral icterus) Throat/Mouth: Other Head: Atraumatic, Normocephalic Neck: Non-Tender. No: Lymphadenopathy (L), Lymphadenopathy (R) Respiratory/Chest: Lungs Clear, No Accessory Muscle Use, Respiratory Distress (Tachypnea at the time of examination from hyperventilation 40/min), Decreased Breath Sounds, Other (Port-A-Cath right upper anterior chest). No: Crackles, Rales, Rhonchi, Wheezing Cardiovascular: No Edema, No Gallop, No JVD, No Rub, Tachycardia (Tachycardia at rest 125/min). No: Normal Peripheral Pulses GI/Abdominal Exam: No Organomegaly, No Distention, Abnormal Bowel Sounds (Decreased bowel sounds but they are present), Other (Ileoconduit right lower quadrant). No: Guarding, Rigid, Rebound (Male) Exam: No Hernia, Other (Evidence of multiple abdominal surgeries. Right nephrectomy scar) Back Exam: Vertebral Tenderness (Lumbar spine), Other (Pain to palpation lower thoracic spine thoracolumbar junction and lumbar spine) Extremities: Normal Inspection, Non-Tender, No Pedal Edema, Other (Severe pain with any movement of the right hip.) Neurological: Alert, Oriented, CN II-XII Intact, Normal Cognition, Other (Patient is suffering rigors at the time of exam.). No: Normal Gait (Came into the ED per wheelchair.), Confused, Disoriented Skin Exam: Dry, Cool Course - Vital Signs Last Recorded V/S: Last Vital Signs Temp 36.1 C 07/14/21 08:50 Pulse 125 H 07/14/21 08:50 Resp 39 H 07/14/21 08:50 BP 144/80 H 07/14/21 08:50 Pulse Ox - Orders/Labs/Meds Orders: Active Orders 24 hr Category Date Time Status Abdomen 1V Flat [CR] Stat Exams 07/14/21 09:08 Taken Chest 1V Frontal [CR] Stat Exams 07/14/21 09:03 Taken BLOOD CULTURE [MREF] Stat Lab 07/14/21 09:42 Received BLOOD CULTURE [MREF] Stat Lab 07/14/21 09:47 Received LACTATE SEPSIS W/ REFLEX [CHEM] Stat Lab 07/14/21 12:00 Ordered Dextrose 5%-0.9% NaCl [Dextrose 5%-Normal Saline] 1,000 Med 07/14/21 10:30 Active ml IV ASDIRECTED Potassium Chloride [KCl in Water 10 MEQ/100 ML] 10 meq Med 07/14/21 10:45 Active Premix Bag 1 bag IV Q1H Blood Culture x2 Reflex Set [OM.PC] Stat Oth 07/14/21 09:04 Ordered Medication Orders Dextrose/Sodium Chloride (Dextrose 5%-Normal Saline) 1,000 mls @ 999 mls/hr IV ASDIRECTED POOJA Potassium Chloride 10 meq/ (Premix) 100 mls @ 100 mls/hr IV Q1H POOJA Stop: 07/14/21 14:44 Labs: Laboratory Tests 07/14/21 07/14/21 07/14/21 Range/Units 09:15 09:15 09:15 WBC 11.43 H (4.23-9.07) K/mm3 RBC 3.50 L (4.63-6.08) M/mm3 Hgb 10.3 L D (13.7-17.5) gm/dl Hct 30.8 L (40.1-51.0) % MCV 88.0 D (79.0-92.2) fl MCH 29.4 (25.7-32.2) pg MCHC 33.4 (32.2-35.5) g/dl RDW Std Deviation 56.1 H (35.1-43.9) fL Plt Count 378 H D (163-337) K/mm3 MPV 10.0 (9.4-12.3) fl Neutrophils % (Manual) 79 H (40-60) % Band Neutrophils % 0 (0-10) % Lymphocytes % (Manual) 11 L (20-40) % Atypical Lymphs % 0 % Monocytes % (Manual) 8 (2-10) % Eosinophils % (Manual) 2 (0.8-7.0) % Basophils % (Manual) 0 L (0.2-1.2) Platelet Estimate Adequate RBC Morph Comment Normal ESR (0-15) mm/hr PT 12.9 H (9.7-12.0) SECONDS INR 1.17 APTT 34.4 H (21.7-31.4) SECONDS Sodium 133 L D (136-145) mEq/L Potassium 3.0 L (3.5-5.1) mEq/L Chloride 100 (98-107) mEq/L Carbon Dioxide 12 L D (21-32) mEq/L Anion Gap 24.0 H (5-15) BUN 18 (7-18) mg/dL Creatinine 2.5 H (0.7-1.3) mg/dL Est Cr Clr Drug Dosing TNP Estimated GFR (MDRD) 25 (>60) mL/min BUN/Creatinine Ratio 7.2 L (14-18) Glucose 195 H (70-99) mg/dL Lactic Acid (0.4-2.0) mmol/L Calcium 6.9 L D (8.5-10.1) mg/dL Magnesium 1.7 L (1.8-2.4) mg/dL Total Bilirubin 1.2 H (0.2-1.0) mg/dL AST 29 (15-37) U/L ALT 18 (16-63) U/L Alkaline Phosphatase 72 (46-116) U/L C-Reactive Protein 15.8 H* (<1.0) mg/dL NT-Pro-B Natriuret Pep (0-450) pg/mL Total Protein 7.2 (6.4-8.2) g/dl Albumin 2.4 L (3.4-5.0) g/dl Globulin 4.8 gm/dL Albumin/Globulin Ratio 0.5 L (1-2) Lipase 65 L (73-393) U/L TSH 3rd Generation (0.358-3.74) uIU/mL Urine Color (Yellow) Urine Appearance (Clear) Urine pH (5.0-8.0) Ur Specific [place] (1.005-1.030) Urine Protein (Negative) Urine Glucose (UA) (Negative) Urine Ketones (Negative) Urine Occult Blood (Negative) Urine Nitrite (Negative) Urine Bilirubin (Negative) Urine Urobilinogen (0.2-1.0) Ur Leukocyte Esterase (Negative) Urine RBC (0-5) /hpf Urine WBC (0-5) /hpf Ur Squamous Epith Cells (0-5) /hpf Amorphous Sediment (NOT SEEN) /hpf Urine Bacteria (FEW) /hpf Urine Mucus (FEW) /hpf SARS-CoV-2 RNA ([place]) (NEGATIVE) 07/14/21 07/14/21 07/14/21 Range/Units 09:15 09:15 09:15 WBC (4.23-9.07) K/mm3 RBC (4.63-6.08) M/mm3 Hgb (13.7-17.5) gm/dl Hct (40.1-51.0) % MCV (79.0-92.2) fl MCH (25.7-32.2) pg MCHC (32.2-35.5) g/dl RDW Std Deviation (35.1-43.9) fL Plt Count (163-337) K/mm3 MPV (9.4-12.3) fl Neutrophils % (Manual) (40-60) % Band Neutrophils % (0-10) % Lymphocytes % (Manual) (20-40) % Atypical Lymphs % % Monocytes % (Manual) (2-10) % Eosinophils % (Manual) (0.8-7.0) % Basophils % (Manual) (0.2-1.2) Platelet Estimate RBC Morph Comment ESR 99 H (0-15) mm/hr PT (9.7-12.0) SECONDS INR APTT (21.7-31.4) SECONDS Sodium (136-145) mEq/L Potassium (3.5-5.1) mEq/L Chloride (98-107) mEq/L Carbon Dioxide (21-32) mEq/L Anion Gap (5-15) BUN (7-18) mg/dL Creatinine (0.7-1.3) mg/dL Est Cr Clr Drug Dosing Estimated GFR (MDRD) (>60) mL/min BUN/Creatinine Ratio (14-18) Glucose (70-99) mg/dL Lactic Acid (0.4-2.0) mmol/L Calcium (8.5-10.1) mg/dL Magnesium (1.8-2.4) mg/dL Total Bilirubin (0.2-1.0) mg/dL AST (15-37) U/L ALT (16-63) U/L Alkaline Phosphatase (46-116) U/L C-Reactive Protein (<1.0) mg/dL NT-Pro-B Natriuret Pep 277 (0-450) pg/mL Total Protein (6.4-8.2) g/dl Albumin (3.4-5.0) g/dl Globulin gm/dL Albumin/Globulin Ratio (1-2) Lipase (73-393) U/L TSH 3rd Generation (0.358-3.74) uIU/mL Urine Color (Yellow) Urine Appearance (Clear) Urine pH (5.0-8.0) Ur Specific [place] (1.005-1.030) Urine Protein (Negative) Urine Glucose (UA) (Negative) Urine Ketones (Negative) Urine Occult Blood (Negative) Urine Nitrite (Negative) Urine Bilirubin (Negative) Urine Urobilinogen (0.2-1.0) Ur Leukocyte Esterase (Negative) Urine RBC (0-5) /hpf Urine WBC (0-5) /hpf Ur Squamous Epith Cells (0-5) /hpf Amorphous Sediment (NOT SEEN) /hpf Urine Bacteria (FEW) /hpf Urine Mucus (FEW) /hpf SARS-CoV-2 RNA ([place]) Negative (NEGATIVE) 07/14/21 07/14/21 07/14/21 Range/Units 09:15 09:15 10:45 WBC (4.23-9.07) K/mm3 RBC (4.63-6.08) M/mm3 Hgb (13.7-17.5) gm/dl Hct (40.1-51.0) % MCV (79.0-92.2) fl MCH (25.7-32.2) pg MCHC (32.2-35.5) g/dl RDW Std Deviation (35.1-43.9) fL Plt Count (163-337) K/mm3 MPV (9.4-12.3) fl Neutrophils % (Manual) (40-60) % Band Neutrophils % (0-10) % Lymphocytes % (Manual) (20-40) % Atypical Lymphs % % Monocytes % (Manual) (2-10) % Eosinophils % (Manual) (0.8-7.0) % Basophils % (Manual) (0.2-1.2) Platelet Estimate RBC Morph Comment ESR (0-15) mm/hr PT (9.7-12.0) SECONDS INR APTT (21.7-31.4) SECONDS Sodium (136-145) mEq/L Potassium (3.5-5.1) mEq/L Chloride (98-107) mEq/L Carbon Dioxide (21-32) mEq/L Anion Gap (5-15) BUN (7-18) mg/dL Creatinine (0.7-1.3) mg/dL Est Cr Clr Drug Dosing Estimated GFR (MDRD) (>60) mL/min BUN/Creatinine Ratio (14-18) Glucose (70-99) mg/dL Lactic Acid 6.5 H* (0.4-2.0) mmol/L Calcium (8.5-10.1) mg/dL Magnesium (1.8-2.4) mg/dL Total Bilirubin (0.2-1.0) mg/dL AST (15-37) U/L ALT (16-63) U/L Alkaline Phosphatase (46-116) U/L C-Reactive Protein (<1.0) mg/dL NT-Pro-B Natriuret Pep (0-450) pg/mL Total Protein (6.4-8.2) g/dl Albumin (3.4-5.0) g/dl Globulin gm/dL Albumin/Globulin Ratio (1-2) Lipase (73-393) U/L TSH 3rd Generation 43.245 H (0.358-3.74) uIU/mL Urine Color Yellow (Yellow) Urine Appearance Cloudy H (Clear) Urine pH 7.0 (5.0-8.0) Ur Specific [place] 1.025 (1.005-1.030) Urine Protein 3+ H (Negative) Urine Glucose (UA) Negative (Negative) Urine Ketones Trace H (Negative) Urine Occult Blood 3+ H (Negative) Urine Nitrite Negative (Negative) Urine Bilirubin Negative (Negative) Urine Urobilinogen 0.2 (0.2-1.0) Ur Leukocyte Esterase 1+ H (Negative) Urine RBC 30-40 H (0-5) /hpf Urine WBC 40-50 H (0-5) /hpf Ur Squamous Epith Cells 0-5 (0-5) /hpf Amorphous Sediment Moderate H (NOT SEEN) /hpf Urine Bacteria Many H (FEW) /hpf Urine Mucus Not seen (FEW) /hpf SARS-CoV-2 RNA ([place]) (NEGATIVE) Meds: Medications Generic Name Dose Route Start Last Admin Trade Name Freq PRN Reason Stop Dose Admin Dextrose/Sodium Chloride 1,000 mls @ 999 mls/hr 07/14/21 10:30 Dextrose 5%-Normal Saline IV ASDIRECTED POOJA Potassium Chloride 10 meq/ 100 mls @ 100 mls/hr 07/14/21 10:45 Premix IV 07/14/21 14:44 Q1H POOJA Discontinued Medications Generic Name Dose Route Start Last Admin Trade Name Freq PRN Reason Stop Dose Admin Acetaminophen 650 mg 07/14/21 10:22 07/14/21 10:41 Acetaminophen 325 Mg Tab PO 07/14/21 10:23 650 mg ONETIME ONE Administration Hydromorphone HCl 0.5 mg 07/14/21 09:05 07/14/21 09:20 Hydromorphone 0.5 Mg/0.5 Ml Syringe IVPUSH 07/14/21 09:06 0.5 mg ONETIME ONE Administration Dextrose/Sodium Chloride 1,000 mls @ 125 mls/hr 07/14/21 09:15 07/14/21 10:20 Dextrose 5%-Normal Saline IV 999 mls/hr ASDIRECTED POOJA Infusion Ceftriaxone Sodium 2 gm/ 100 mls @ 200 mls/hr 07/14/21 10:23 07/14/21 10:46 Sodium Chloride IV 07/14/21 10:52 200 mls/hr ONETIME ONE Administration Metoclopramide HCl 7.5 mg 07/14/21 09:05 07/14/21 09:23 Metoclopramide 10 Mg/2 Ml Sdv IVPUSH 07/14/21 09:06 7.5 mg ONETIME ONE Administration - Radiology Interpretation Free Text/Narrative:: 80-year-old male presents to the ED in the accompaniment of his . Chief complaint is recurrent nausea and vomiting of slight bilious slimy material for the last 18 hours. Patient has known metastatic bone cancer with primary cancer starting in his urinary bladder in 2011. He has known mets to his pelvis left hip lumbar spine. Patient is in significant pain upon arrival in the ED. He has been losing weight continuously for the last 3 months. Has lost his appetite suggesting metastatic disease possibly to his liver as well. He has opted for no further treatment and is DNR/DNI. Patient has a right lower quadrant ureterostomy and reports only 1 infection thus far. At time of presentation he seemed to be really cold with chills/rigors. He was afebrile. A septic work-up will be carried out. Plan IV D5 normal saline at 125 mils an hour. Given Dilaudid 0.5 mg IV with Reglan 7.5 mg IV for nausea and pain relief. Covid screen ordered. Patient is likely going to require admission to hospital. - Re-Assessments/Exams Free Text/Narrative Re-Assessment/Exam: 07/14/21 09:41 Chest x-ray done portably reveals slight hyperinflation of the lungs. Cardiac silhouette and mediastinum appear normal. Slight prominence of the right pulmonary artery appreciated. Port-A-Cath right upper anterior chest. KUB reveals multiple surgical shirley throughout the abdomen and pelvis. Sclerotic mass evident within the right iliac bone just superior to his right hip a in the acetabulum. No air-fluid levels. No significant constipation. No signs of bowel obstruction. 07/14/21 10:01 White count is mildly elevated at 11.43. 79% neutrophils no bands cells reported hemoglobin low at 10.3 with hematocrit of 30.8 platelet count is 378,000 slightly elevated 07/14/21 10:21 Sedimentation rate is 99. PT is 12.9 mildly elevated with an INR of 1.17. PTT is 34.4. This is concerning for possible metastatic disease to his liver. Sodium slightly low at 10/18/1933. Potassium low at 3.0. Chloride 100 with a bicarb of 12. Anion gap is 24.0. BUN is 18 with a creatinine of 2.5 and a GFR of only 25 i.e. stage IV renal insufficiency glucose was 195 lactic acid is markedly elevated at 6.5 calcium 6.9 magnesium 1.7 slightly low. Total bilirubin 1.2 AST 29 with an ALT of 18 and alk phosphatase of 72. C-reactive protein is 15.8. BNP is 277 total protein 7.2 with an albumin fraction low at 2.4 lipase is 65. Plan IV will be open to full. I will have him Rocephin 2 g IV for suspected urinary tract infection. Patient is much warmer now than he was at the time of admission to the ED. He is no longer having any rigors. We will give Tylenol 650 mg p.o. for fever relief. Current blood pressure is 106/61 with O2 sats of 94% room air. Heart rate is 70 and sinus. Urinalysis is not yet back. 07/14/21 10:31 Covid screen is negative. 07/14/21 11:38 Urinalysis reveals cloudy urine with 3+ proteinuria 3+ occult blo od 1+ leukocyte Estrace with 30-40 RBCs per high-power field and 40-50 white blood cells per high-power field. Many urine bacteria appreciated COVID-19 screen negative. Of note TSH is markedly elevated at 43.245 revealing severe hypothyroidism. Suspect noncompliance with levothyroxine replacement therapy. His med list suggest that he is on 112 mcg/day. I will discuss case with on- call hospitalist with a view to having the patient admitted to hospital. 07/14/21 11:42 I have spoken with on-call hospitalist Dr. Johnie Singh and the patient will be admitted to the hospital to our last bed available. He will be MedSurg overflow to ICU. Departure - Departure Time of Disposition: 11:45 Disposition: Admitted As Inpatient 65 Condition: Poor Clinical Impression: Rigors, Metastatic cancer to bone, History of ureterostomy, Hypokalemia due to inadequate potassium intake, Lactic acidosis, Hypothyroidism (acquired), Chronic renal insufficiency, stage IV (severe) Fever Qualifiers: Encounter type: initial encounter Urinary tract infection Qualifiers: Urinary tract infection type: acute pyelonephritis Qualified Code(s): N10 - Acute pyelonephritis Anemia Qualifiers: Anemia type: unspecified type Qualified Code(s): D64.9 - Anemia, unspecified - Discharge Information *PRESCRIPTION DRUG MONITORING PROGRAM REVIEWED*: Not Applicable *COPY OF PRESCRIPTION DRUG MONITORING REPORT IN PATIENT WALTER: Not Applicable Referrals: Gareth Gregory PA-C [Primary Care Provider] - Forms: ED Department Discharge Sepsis Event Note (ED) - Evaluation Sepsis Screening Result: No Definite Risk - Focused Exam Vital Signs: Vital Signs Temp Pulse Resp BP 07/14/21 08:50 36.1 C 125 H 39 H 144/80 H - My Orders Last 24 Hours: My Active Orders 07/14/21 09:03 Chest 1V Frontal [CR] Stat 07/14/21 09:04 Blood Culture x2 Reflex Set [OM.PC] Stat 07/14/21 09:08 Abdomen 1V Flat [CR] Stat 07/14/21 09:42 BLOOD CULTURE [MREF] Stat 07/14/21 09:47 BLOOD CULTURE [MREF] Stat 07/14/21 10:30 Dextrose 5%-0.9% NaCl [Dextrose 5%-Normal Saline] 1,000 ml IV ASDIRECTED 07/14/21 10:45 Potassium Chloride [KCl in Water 10 MEQ/100 ML] 10 meq Premix Bag 1 bag IV Q1H 07/14/21 12:00 LACTATE SEPSIS W/ REFLEX [CHEM] Stat - Assessment/Plan Last 24 Hours: My Active Orders 07/14/21 09:03 Chest 1V Frontal [CR] Stat 07/14/21 09:04 Blood Culture x2 Reflex Set [OM.PC] Stat 07/14/21 09:08 Abdomen 1V Flat [CR] Stat 07/14/21 09:42 BLOOD CULTURE [MREF] Stat 07/14/21 09:47 BLOOD CULTURE [MREF] Stat 07/14/21 10:30 Dextrose 5%-0.9% NaCl [Dextrose 5%-Normal Saline] 1,000 ml IV ASDIRECTED 07/14/21 10:45 Potassium Chloride [KCl in Water 10 MEQ/100 ML] 10 meq Premix Bag 1 bag IV Q1H 07/14/21 12:00 LACTATE SEPSIS W/ REFLEX [CHEM] Stat
[2021-07-14] MEDS ORDERED: Dextrose 5%-0.9% NaCl 1,000 ML IV SCH ×2 (09:15→10:30)
[2021-07-14] MEDS ORDERED: Acetaminophen 325 MG Tab PO ONE (10:22)
[2021-07-14] MEDS ORDERED: cefTRIAXone 2 GM in Sodium Chloride 0.9% 100 ML IV ONE (10:23)
[2021-07-14] MEDS: Potassium Chloride 10 MEQ in Premix Bag 1 BAG IV SCH ×4 (11:16→14:52)
[2021-07-14] MEDS ORDERED: Lactated Ringers 1,000 ML IV SCH (13:00)
--- NOTE | 2021-07-14 13:41 | PCM.HP.2 ---
H&P History of Present Illness - General Date of Service: 07/14/21 Admit Problem/Dx: Admission Diagnosis/Problem Admission Diagnosis/Problem Upper urinary tract infection Source of Information: Patient, Family History Limitations: Reports: No Limitations - History of Present Illness Initial Comments - Free Text/Narative: The patient is an 80-year-old gentleman who had presented to the emergency department with intractable nausea and vomiting. The patient has been unable to eat reportedly. The patient also says that he is in constant pain due to primary bladder cancer which is spread to bones of his pelvis and foot. He also had a right-sided nephrectomy due to the metastatic cancer. The patient also has a total cystectomy and ileal conduit. The patient has been offered radiation therapy but he has refused this. The patient is not on chemotherapy although he has a chemotherapy port. The patient also has been feeling very weak and he has been losing weight. Onset of Symptoms: Reports: Gradual Duration of Symptoms: Reports: Day(s):, Getting Worse Location: Reports: Abdomen, Pelvis, Generalized Quality: Reports: Ache, Stabbing, Throbbing Severity: Severe Improves with: Reports: Movement Worsens with: Reports: Movement Context: Reports: Other (Widely metastatic cancer) Associated Symptoms: Reports: Loss of Appetite, Nausea/Vomiting, Weakness right hip and back Pain Score (Numeric/FACES): 9 - Related Data Allergies/Adverse Reactions: Allergies Allergy/AdvReac Type Severity Reaction Status Date / Time No Known Allergies Allergy Verified 02/02/18 10:04 Home Medications: Home Meds Gabapentin [Neurontin] 200 mg PO TID 07/14/21 [History] HYDROmorphone [Dilaudid] 4 mg PO Q4H PRN 07/14/21 [History] Levothyroxine 112 mcg PO DAILY 07/14/21 [History] Past Medical History HEENT History: Reports: Impaired Vision, Other (See Below) Other HEENT History: wears glasses, has upper denture Cardiovascular History: Reports: None Respiratory History: Reports: PE Gastrointestinal History: Reports: Hiatal Hernia Other Gastrointestinal History: R groin hernia repair Genitourinary History: Reports: Other (See Below) Other Genitourinary History: h/o bladder cancer s/p cystectomy with urostomy (stoma in RLQ). Musculoskeletal History: Reports: Arthritis Other Musculoskeletal History: chronic pelvic pain r/t cancer in that area. Endocrine/Metabolic History: Reports: Hypothyroidism Hematologic History: Reports: Other (See Below) Other Hematologic History: anemia problems when on chemo Immunologic History: Reports: Immunosuppression Oncologic (Cancer) History: Reports: Bladder (Bladder cancer first diagnosed in 2011. Treated with fulguration and cauterization. Had BCG treatments x6. Recurrence in 2013 requiring removal of his prostate pelvic lymph nodes right kidney and formation of an ileoconduit right lower quadrant. Recurrence of cancer to bones in the last 2 years.), Bone, Other (See Below) Other Oncologic History: pelvic bone with lymph node Dermatologic History: Reports: Other (See Below) Other Dermatologic History: cyst to neck (once it was removed, but grew back on back of head) - 1 about quarter size, one dime sized. - Infectious Disease History Infectious Disease History: Reports: C-Difficile, Chicken Pox - Past Surgical History HEENT Surgical History: Reports: Cataract Surgery, Oral Surgery, Tonsillectomy Cardiovascular Surgical History: Reports: None GI Surgical History: Reports: Colonoscopy, EGD, Hernia, Inguinal Male Surgical History: Reports: Cystectomy, Nephrectomy (Due to primary cancer of the urinary bladder. Right-sided nephrectomy performed later.), Prostatectomy, Other (See Below) (Patient has a ileoconduit lower abdomen.) Musculoskeletal Surgical History: Reports: Knee Replacement, Other (See Below) Other Musculoskeletal Surgeries/Procedures:: bilateral knee replacements Oncologic Surgical History: Reports: None Dermatological Surgical History: Reports: None Social & Family History - Family History Family Medical History: No Pertinent Family History - Tobacco Use Tobacco Use Status *Q: Never Tobacco User - Caffeine Use Caffeine Use: Reports: Coffee, Soda, Tea - Living Situation & Occupation Living situation: Reports: , with Spouse Occupation: Employed H&P Review of Systems - Review of Systems: Review Of Systems: See Below General: Reports: Malaise, Weakness, Fatigue, Decreased Appetite, Weight Loss HEENT: Reports: No Symptoms Pulmonary: Reports: No Symptoms Cardiovascular: Reports: No Symptoms Gastrointestinal: Reports: Abdominal Pain, Anorexia, Nausea, Vomiting Genitourinary: Reports: No Symptoms Musculoskeletal: Reports: Back Pain Skin: Reports: No Symptoms Psychiatric: Reports: No Symptoms Neurological: Reports: No Symptoms Hematologic/Lymphatic: Reports: No Symptoms Immunologic: Reports: No Symptoms Exam - Exam Exam: See Below - Vital Signs Vital Signs: Last Vital Signs Temp 36.1 C 07/14/21 08:50 Pulse 125 H 07/14/21 08:50 Resp 20 07/14/21 13:15 BP 97/57 L 07/14/21 13:15 Pulse Ox 100 07/14/21 13:15 Weight: 64.864 kg - Exam Quality Assessment: Urinary Catheter (Ileostomy), Other (Cachexia). No: Supplemental Oxygen, DVT Prophylaxis General: Alert, Oriented, Cooperative, Moderate Distress HEENT: Conjunctiva Clear, EACs Clear, EOMI, Hearing Intact, PERRLA. No: Mucosa Moist & [place] (Dry) Neck: Supple, Trachea Midline Lungs: Clear to Auscultation, Normal Respiratory Effort Cardiovascular: Regular Rhythm, Normal S1, Normal S2, Tachycardia GI/Abdominal Exam: Normal Bowel Sounds, Tender (Generalized tenderness, multiple surgeries). No: Guarding, Rigid, Rebound (Male) Exam: Deferred Rectal (Males) Exam: Deferred Back Exam: Normal Inspection, Full Range of Motion Extremities: Normal Inspection, No Pedal Edema Skin: Warm, Dry, Intact Neurological: Cranial Nerves Intact, Normal Speech Psychiatric: Alert, Normal Affect, Depressed - Patient Data Lab Results Last 24 hrs: Laboratory Results - last 24 hr 07/14/21 07/14/21 07/14/21 Range/Units 09:15 09:15 09:15 WBC 11.43 H (4.23-9.07) K/mm3 RBC 3.50 L (4.63-6.08) M/mm3 Hgb 10.3 L D (13.7-17.5) gm/dl Hct 30.8 L (40.1-51.0) % MCV 88.0 D (79.0-92.2) fl MCH 29.4 (25.7-32.2) pg MCHC 33.4 (32.2-35.5) g/dl RDW Std Deviation 56.1 H (35.1-43.9) fL Plt Count 378 H D (163-337) K/mm3 MPV 10.0 (9.4-12.3) fl Neutrophils % (Manual) 79 H (40-60) % Band Neutrophils % 0 (0-10) % Lymphocytes % (Manual) 11 L (20-40) % Atypical Lymphs % 0 % Monocytes % (Manual) 8 (2-10) % Eosinophils % (Manual) 2 (0.8-7.0) % Basophils % (Manual) 0 L (0.2-1.2) Platelet Estimate Adequate RBC Morph Comment Normal ESR (0-15) mm/hr PT 12.9 H (9.7-12.0) SECONDS INR 1.17 APTT 34.4 H (21.7-31.4) SECONDS Sodium 133 L D (136-145) mEq/L Potassium 3.0 L (3.5-5.1) mEq/L Chloride 100 (98-107) mEq/L Carbon Dioxide 12 L D (21-32) mEq/L Anion Gap 24.0 H (5-15) BUN 18 (7-18) mg/dL Creatinine 2.5 H (0.7-1.3) mg/dL Est Cr Clr Drug Dosing TNP Estimated GFR (MDRD) 25 (>60) mL/min BUN/Creatinine Ratio 7.2 L (14-18) Glucose 195 H (70-99) mg/dL Lactic Acid (0.4-2.0) mmol/L Calcium 6.9 L D (8.5-10.1) mg/dL Magnesium 1.7 L (1.8-2.4) mg/dL Total Bilirubin 1.2 H (0.2-1.0) mg/dL AST 29 (15-37) U/L ALT 18 (16-63) U/L Alkaline Phosphatase 72 (46-116) U/L C-Reactive Protein 15.8 H* (<1.0) mg/dL NT-Pro-B Natriuret Pep (0-450) pg/mL Total Protein 7.2 (6.4-8.2) g/dl Albumin 2.4 L (3.4-5.0) g/dl Globulin 4.8 gm/dL Albumin/Globulin Ratio 0.5 L (1-2) Lipase 65 L (73-393) U/L TSH 3rd Generation (0.358-3.74) uIU/mL Urine Color (Yellow) Urine Appearance (Clear) Urine pH (5.0-8.0) Ur Specific [place] (1.005-1.030) Urine Protein (Negative) Urine Glucose (UA) (Negative) Urine Ketones (Negative) Urine Occult Blood (Negative) Urine Nitrite (Negative) Urine Bilirubin (Negative) Urine Urobilinogen (0.2-1.0) Ur Leukocyte Esterase (Negative) Urine RBC (0-5) /hpf Urine WBC (0-5) /hpf Ur Squamous Epith Cells (0-5) /hpf Amorphous Sediment (NOT SEEN) /hpf Urine Bacteria (FEW) /hpf Urine Mucus (FEW) /hpf SARS-CoV-2 RNA ([place]) (NEGATIVE) 07/14/21 07/14/21 07/14/21 Range/Units 09:15 09:15 09:15 WBC (4.23-9.07) K/mm3 RBC (4.63-6.08) M/mm3 Hgb (13.7-17.5) gm/dl Hct (40.1-51.0) % MCV (79.0-92.2) fl MCH (25.7-32.2) pg MCHC (32.2-35.5) g/dl RDW Std Deviation (35.1-43.9) fL Plt Count (163-337) K/mm3 MPV (9.4-12.3) fl Neutrophils % (Manual) (40-60) % Band Neutrophils % (0-10) % Lymphocytes % (Manual) (20-40) % Atypical Lymphs % % Monocytes % (Manual) (2-10) % Eosinophils % (Manual) (0.8-7.0) % Basophils % (Manual) (0.2-1.2) Platelet Estimate RBC Morph Comment ESR 99 H (0-15) mm/hr PT (9.7-12.0) SECONDS INR APTT (21.7-31.4) SECONDS Sodium (136-145) mEq/L Potassium (3.5-5.1) mEq/L Chloride (98-107) mEq/L Carbon Dioxide (21-32) mEq/L Anion Gap (5-15) BUN (7-18) mg/dL Creatinine (0.7-1.3) mg/dL Est Cr Clr Drug Dosing Estimated GFR (MDRD) (>60) mL/min BUN/Creatinine Ratio (14-18) Glucose (70-99) mg/dL Lactic Acid (0.4-2.0) mmol/L Calcium (8.5-10.1) mg/dL Magnesium (1.8-2.4) mg/dL Total Bilirubin (0.2-1.0) mg/dL AST (15-37) U/L ALT (16-63) U/L Alkaline Phosphatase (46-116) U/L C-Reactive Protein (<1.0) mg/dL NT-Pro-B Natriuret Pep 277 (0-450) pg/mL Total Protein (6.4-8.2) g/dl Albumin (3.4-5.0) g/dl Globulin gm/dL Albumin/Globulin Ratio (1-2) Lipase (73-393) U/L TSH 3rd Generation (0.358-3.74) uIU/mL Urine Color (Yellow) Urine Appearance (Clear) Urine pH (5.0-8.0) Ur Specific [place] (1.005-1.030) Urine Protein (Negative) Urine Glucose (UA) (Negative) Urine Ketones (Negative) Urine Occult Blood (Negative) Urine Nitrite (Negative) Urine Bilirubin (Negative) Urine Urobilinogen (0.2-1.0) Ur Leukocyte Esterase (Negative) Urine RBC (0-5) /hpf Urine WBC (0-5) /hpf Ur Squamous Epith Cells (0-5) /hpf Amorphous Sediment (NOT SEEN) /hpf Urine Bacteria (FEW) /hpf Urine Mucus (FEW) /hpf SARS-CoV-2 RNA ([place]) Negative (NEGATIVE) 07/14/21 07/14/21 07/14/21 Range/Units 09:15 09:15 10:45 WBC (4.23-9.07) K/mm3 RBC (4.63-6.08) M/mm3 Hgb (13.7-17.5) gm/dl Hct (40.1-51.0) % MCV (79.0-92.2) fl MCH (25.7-32.2) pg MCHC (32.2-35.5) g/dl RDW Std Deviation (35.1-43.9) fL Plt Count (163-337) K/mm3 MPV (9.4-12.3) fl Neutrophils % (Manual) (40-60) % Band Neutrophils % (0-10) % Lymphocytes % (Manual) (20-40) % Atypical Lymphs % % Monocytes % (Manual) (2-10) % Eosinophils % (Manual) (0.8-7.0) % Basophils % (Manual) (0.2-1.2) Platelet Estimate RBC Morph Comment ESR (0-15) mm/hr PT (9.7-12.0) SECONDS INR APTT (21.7-31.4) SECONDS Sodium (136-145) mEq/L Potassium (3.5-5.1) mEq/L Chloride (98-107) mEq/L Carbon Dioxide (21-32) mEq/L Anion Gap (5-15) BUN (7-18) mg/dL Creatinine (0.7-1.3) mg/dL Est Cr Clr Drug Dosing Estimated GFR (MDRD) (>60) mL/min BUN/Creatinine Ratio (14-18) Glucose (70-99) mg/dL Lactic Acid 6.5 H* (0.4-2.0) mmol/L Calcium (8.5-10.1) mg/dL Magnesium (1.8-2.4) mg/dL Total Bilirubin (0.2-1.0) mg/dL AST (15-37) U/L ALT (16-63) U/L Alkaline Phosphatase (46-116) U/L C-Reactive Protein (<1.0) mg/dL NT-Pro-B Natriuret Pep (0-450) pg/mL Total Protein (6.4-8.2) g/dl Albumin (3.4-5.0) g/dl Globulin gm/dL Albumin/Globulin Ratio (1-2) Lipase (73-393) U/L TSH 3rd Generation 43.245 H (0.358-3.74) uIU/mL Urine Color Yellow (Yellow) Urine Appearance Cloudy H (Clear) Urine pH 7.0 (5.0-8.0) Ur Specific [place] 1.025 (1.005-1.030) Urine Protein 3+ H (Negative) Urine Glucose (UA) Negative (Negative) Urine Ketones Trace H (Negative) Urine Occult Blood 3+ H (Negative) Urine Nitrite Negative (Negative) Urine Bilirubin Negative (Negative) Urine Urobilinogen 0.2 (0.2-1.0) Ur Leukocyte Esterase 1+ H (Negative) Urine RBC 30-40 H (0-5) /hpf Urine WBC 40-50 H (0-5) /hpf Ur Squamous Epith Cells 0-5 (0-5) /hpf Amorphous Sediment Moderate H (NOT SEEN) /hpf Urine Bacteria Many H (FEW) /hpf Urine Mucus Not seen (FEW) /hpf SARS-CoV-2 RNA ([place]) (NEGATIVE) 07/14/21 Range/Units 11:14 WBC (4.23-9.07) K/mm3 RBC (4.63-6.08) M/mm3 Hgb (13.7-17.5) gm/dl Hct (40.1-51.0) % MCV (79.0-92.2) fl MCH (25.7-32.2) pg MCHC (32.2-35.5) g/dl RDW Std Deviation (35.1-43.9) fL Plt Count (163-337) K/mm3 MPV (9.4-12.3) fl Neutrophils % (Manual) (40-60) % Band Neutrophils % (0-10) % Lymphocytes % (Manual) (20-40) % Atypical Lymphs % % Monocytes % (Manual) (2-10) % Eosinophils % (Manual) (0.8-7.0) % Basophils % (Manual) (0.2-1.2) Platelet Estimate RBC Morph Comment ESR (0-15) mm/hr PT (9.7-12.0) SECONDS INR APTT (21.7-31.4) SECONDS Sodium (136-145) mEq/L Potassium (3.5-5.1) mEq/L Chloride (98-107) mEq/L Carbon Dioxide (21-32) mEq/L Anion Gap (5-15) BUN (7-18) mg/dL Creatinine (0.7-1.3) mg/dL Est Cr Clr Drug Dosing Estimated GFR (MDRD) (>60) mL/min BUN/Creatinine Ratio (14-18) Glucose (70-99) mg/dL Lactic Acid 4.3 H* (0.4-2.0) mmol/L Calcium (8.5-10.1) mg/dL Magnesium (1.8-2.4) mg/dL Total Bilirubin (0.2-1.0) mg/dL AST (15-37) U/L ALT (16-63) U/L Alkaline Phosphatase (46-116) U/L C-Reactive Protein (<1.0) mg/dL NT-Pro-B Natriuret Pep (0-450) pg/mL Total Protein (6.4-8.2) g/dl Albumin (3.4-5.0) g/dl Globulin gm/dL Albumin/Globulin Ratio (1-2) Lipase (73-393) U/L TSH 3rd Generation (0.358-3.74) uIU/mL Urine Color (Yellow) Urine Appearance (Clear) Urine pH (5.0-8.0) Ur Specific [place] (1.005-1.030) Urine Protein (Negative) Urine Glucose (UA) (Negative) Urine Ketones (Negative) Urine Occult Blood (Negative) Urine Nitrite (Negative) Urine Bilirubin (Negative) Urine Urobilinogen (0.2-1.0) Ur Leukocyte Esterase (Negative) Urine RBC (0-5) /hpf Urine WBC (0-5) /hpf Ur Squamous Epith Cells (0-5) /hpf Amorphous Sediment (NOT SEEN) /hpf Urine Bacteria (FEW) /hpf Urine Mucus (FEW) /hpf SARS-CoV-2 RNA ([place]) (NEGATIVE) Result Diagrams: 07/14/21 09:15 07/14/21 09:15 Sepsis Event Note - Evaluation Sepsis Screening Result: No Definite Risk - Focused Exam Vital Signs: Vital Signs Temp Pulse Resp BP Pulse Ox 07/14/21 13:15 20 97/57 L 100 07/14/21 08:50 36.1 C 125 H 39 H 144/80 H - Problem List (1) Vomiting SNOMED Code(s): 914696570 ICD Code: R11.10 - VOMITING, UNSPECIFIED Status: Acute Priority: High Current Visit: Yes Qualifiers: Vomiting type: bilious vomiting Nausea presence: with nausea Qualified Code(s): R11.14 - Bilious vomiting (2) Hypokalemia due to inadequate potassium intake SNOMED Code(s): 90896492 ICD Code: E87.6 - HYPOKALEMIA Status: Acute Priority: High Current Visit: Yes (3) Bladder cancer metastasized to bone SNOMED Code(s): 87101855, 592399996 ICD Code: C67.9 - MALIGNANT NEOPLASM OF BLADDER, UNSPECIFIED; C79.51 - SECONDARY MALIGNANT NEOPLASM OF BONE Status: Chronic Priority: Low Current Visit: Yes (4) Hypothyroidism SNOMED Code(s): 90505040 ICD Code: E03.9 - HYPOTHYROIDISM, UNSPECIFIED Status: Chronic Priority: Medium Current Visit: Yes Qualifiers: Hypothyroidism type: due to acquired atrophy of thyroid Qualified Code(s): E03.4 - Atrophy of thyroid (acquired) Problem List Initiated/Reviewed/Updated: Yes Orders Last 24hrs: Active Orders 24 hr Category Date Time Status Admission Status [Patient Status] [ADT] Routine ADT 07/14/21 11:44 Active Abdomen 1V Flat [CR] Stat Exams 07/14/21 09:08 Taken Chest 1V Frontal [CR] Stat Exams 07/14/21 09:03 Taken BLOOD CULTURE [MREF] Stat Lab 07/14/21 09:42 Received BLOOD CULTURE [MREF] Stat Lab 07/14/21 09:47 Received REFLEX LACTIC ACID YES OR NO [CHEM] Routine Lab 07/14/21 12:46 Received Dextrose 5%-0.9% NaCl [Dextrose 5%-Normal Saline] 1,000 Med 07/14/21 10:30 Active ml IV ASDIRECTED Lactated Ringers [Ringers, Lactated] 1,000 ml Med 07/14/21 13:00 Active IV ASDIRECTED Potassium Chloride [KCl in Water 10 MEQ/100 ML] 10 meq Med 07/14/21 10:45 Active Premix Bag 1 bag IV Q1H Blood Culture x2 Reflex Set [OM.PC] Stat Oth 07/14/21 09:04 Ordered Medication Orders Dextrose/Sodium Chloride (Dextrose 5%-Normal Saline) 1,000 mls @ 999 mls/hr IV ASDIRECTED POOJA Last Admin: 07/14/21 12:25 Dose: 999 mls/hr Documented by: KARL Potassium Chloride 10 meq/ (Premix) 100 mls @ 100 mls/hr IV Q1H POOJA Stop: 07/14/21 14:44 Last Admin: 07/14/21 12:20 Dose: 100 mls/hr Documented by: Infusion: 07/14/21 12:16 Dose: 100 mls/hr Documented by: Admin: 07/14/21 11:16 Dose: 100 mls/hr Documented by: KARL Lactated Ringer's (Ringers, Lactated) 1,000 mls @ 999 mls/hr IV ASDIRECTED POOJA Assessment/Plan Comment:: The patient is a 80-year-old gentleman who has rather significant pain that has been interfering with his ability to eat and drink fluids. The patient will be admitted as an inpatient predominantly for pain management. The patient does have 2 different fentanyl patches on at this time and have asked for the nurse staff to update his medication list. I placed the patient on MS Contin 15 mg p.o. every 8 hours. This is in addition to his home dose of fentanyl and Dilaudid. The patient says that he is not nauseated now and Zofran has been ordered to assist with his nausea and vomiting. The patient also has chronic kidney disease and his creatinine is at 2.5 currently. Medications will need to be renally dosed. The patient's urinalysis obtained through the emergency department is suspicious but not confirmatory for UTI as he does have a urostomy. I will place the patient on ceftriaxone and this will be discontinued if cultures are negative. He also had his potassium replaced in the emergency department and was felt that this was due to GI loss. We will continue to monitor this and replace his electrolytes as needed. The patient will also be anticoagulated with the use of heparin 5000 units subcutaneous every 8 hours. Because of the patient's widely metastatic cancer and his pain I had a long discussion with the patient and the patient's family regarding pain control and possible hospice care. I have ordered a hospice consult. Overall the patient's prognosis is poor. - Mortality Measure Prognosis:: Poor
[2021-07-14] MEDS ORDERED: Ondansetron 8 MG in Sodium Chloride 0.9% 50 ML IV PRN (14:06)
[2021-07-14] MEDS ORDERED: Magnesium Hydroxide 400 MG/5 ML Susp 30 ML Cup PO PRN (14:06)
[2021-07-14] MEDS ORDERED: Ondansetron 4 MG Tab.DIS PO PRN (14:06)
[2021-07-14] MEDS ORDERED: Temazepam 7.5 MG Cap PO PRN (14:06)
[2021-07-14] MEDS: Morphine 15 MG Tab.ER PO SCH ×2 (14:48→23:24)
[2021-07-14] MEDS: Heparin Sodium 5,000 Units/ML Vial SUBCUT SCH ×2 (14:49→23:27)
[2021-07-14] MEDS ORDERED: Ondansetron 4 MG/2 ML SDV ONE (15:44)
--- NOTE | 2021-07-14 16:27 | CR ---
Chest: Portable view of the chest was obtained. Comparison: Prior chest x-ray of 02/24/18. Right-sided infusion catheter is seen. Heart size is normal. Tortuous thoracic aorta is seen. Degenerative change is scattered within the spine as well as both shoulders. Several old healed left-sided rib fractures are seen. Lungs are clear with no acute parenchymal change. Impression: 1. Stable findings as noted above. 2. Nothing acute is seen on portable chest x-ray. Diagnostic code #2
--- NOTE | 2021-07-14 16:27 | CR ---
Abdomen: Single portable view of the mid and right abdomen were obtained. Comparison: Prior abdominal x-ray and 04/24/18. Multiple surgical clips are seen within the abdomen. Visualized bowel gas is within normal limits. There is an area of sclerosis overlying the right side of the pelvis which is stable. Scattered compression deformities are seen within the spine with scoliosis and degenerative endplate osteophytes also seen which are also stable. Impression: 1. Findings as noted above. 2. Nothing acute is seen. No change from prior study is seen. Diagnostic code #2
[2021-07-14] MEDS: Sodium Chloride 0.9% 1,000 ML IV SCH (17:11)
[2021-07-14] MEDS ORDERED: HYDROmorphone 2 MG Tab PO ONE (18:20)
[2021-07-15] MEDS: Sodium Chloride 0.9% 1,000 ML IV SCH (03:49)
[2021-07-15] MEDS: Morphine 15 MG Tab.ER PO SCH ×4 (06:28→22:01)
[2021-07-15] MEDS: Heparin Sodium 5,000 Units/ML Vial SUBCUT SCH (06:28)
--- NOTE | 2021-07-15 07:48 | PCM.PN ---
<Jb Scott - Last Filed: 07/15/21 12:10> - General Info Date of Service: 07/15/21 Admission Dx/Problem (Free Text): Admission Diagnosis/Problem Admission Diagnosis/Problem Upper urinary tract infection Functional Status: Reports: Pain Controlled (for the most part ), Urinating. Denies: Tolerating Diet (minimal intake ), Ambulating, New Symptoms - Review of Systems General: Reports: Weakness, Fatigue, Malaise. Denies: Fever, Chills, Appetite HEENT: Reports: Eye Pain (Dry eyes). Denies: Headaches, Sore Throat Pulmonary: Reports: No Symptoms. Denies: Shortness of Breath, Cough, Sputum, Wheezing Cardiovascular: Reports: No Symptoms. Denies: Chest Pain, Palpitations, Dyspnea on Exertion, Orthopnea, Edema Gastrointestinal: Reports: Decreased Appetite. Denies: Abdominal Pain, Constipation, Diarrhea, Nausea, Vomiting Genitourinary: Reports: No Symptoms. Denies: Pain Musculoskeletal: Reports: Back Pain, Leg Pain, Foot Pain, Joint Pain Skin: Reports: No Symptoms. Denies: Cyanosis Neurological: Reports: Confusion, Difficulty Walking, Weakness, Gait Disturbance. Denies: Dizziness, Headache, Numbness, Seizure, Syncope, Tingling, Trouble Speaking Psychiatric: Reports: No Symptoms - Patient Data Vitals - Most Recent: Last Vital Signs Temp 98.1 F 07/15/21 03:06 Pulse 105 H 07/15/21 03:06 Resp 14 07/15/21 03:06 BP 98/56 L 07/15/21 03:06 Pulse Ox 99 07/15/21 03:06 Weight - Most Recent: 63.185 kg I&O - Last 24 Hours: Intake & Output 07/14/21 07/15/21 07/15/21 22:59 06:59 14:59 Intake Total 405 900 Output Total 375 400 Balance 30 500 Lab Results Last 24 Hours: Laboratory Results - last 24 hr 07/14/21 07/14/21 07/14/21 Range/Units 09:15 09:15 09:15 WBC 11.43 H (4.23-9.07) K/mm3 RBC 3.50 L (4.63-6.08) M/mm3 Hgb 10.3 L D (13.7-17.5) gm/dl Hct 30.8 L (40.1-51.0) % MCV 88.0 D (79.0-92.2) fl MCH 29.4 (25.7-32.2) pg MCHC 33.4 (32.2-35.5) g/dl RDW Std Deviation 56.1 H (35.1-43.9) fL Plt Count 378 H D (163-337) K/mm3 MPV 10.0 (9.4-12.3) fl Neutrophils % (Manual) 79 H (40-60) % Band Neutrophils % 0 (0-10) % Lymphocytes % (Manual) 11 L (20-40) % Atypical Lymphs % 0 % Monocytes % (Manual) 8 (2-10) % Eosinophils % (Manual) 2 (0.8-7.0) % Basophils % (Manual) 0 L (0.2-1.2) Platelet Estimate Adequate RBC Morph Comment Normal ESR (0-15) mm/hr PT 12.9 H (9.7-12.0) SECONDS INR 1.17 APTT 34.4 H (21.7-31.4) SECONDS Sodium 133 L D (136-145) mEq/L Potassium 3.0 L (3.5-5.1) mEq/L Chloride 100 (98-107) mEq/L Carbon Dioxide 12 L D (21-32) mEq/L Anion Gap 24.0 H (5-15) BUN 18 (7-18) mg/dL Creatinine 2.5 H (0.7-1.3) mg/dL Est Cr Clr Drug Dosing TNP Estimated GFR (MDRD) 25 (>60) mL/min BUN/Creatinine Ratio 7.2 L (14-18) Glucose 195 H (70-99) mg/dL Lactic Acid (0.4-2.0) mmol/L Calcium 6.9 L D (8.5-10.1) mg/dL Magnesium 1.7 L (1.8-2.4) mg/dL Total Bilirubin 1.2 H (0.2-1.0) mg/dL AST 29 (15-37) U/L ALT 18 (16-63) U/L Alkaline Phosphatase 72 (46-116) U/L C-Reactive Protein 15.8 H* (<1.0) mg/dL NT-Pro-B Natriuret Pep (0-450) pg/mL Total Protein 7.2 (6.4-8.2) g/dl Albumin 2.4 L (3.4-5.0) g/dl Globulin 4.8 gm/dL Albumin/Globulin Ratio 0.5 L (1-2) Lipase 65 L (73-393) U/L TSH 3rd Generation (0.358-3.74) uIU/mL Urine Color (Yellow) Urine Appearance (Clear) Urine pH (5.0-8.0) Ur Specific [place] (1.005-1.030) Urine Protein (Negative) Urine Glucose (UA) (Negative) Urine Ketones (Negative) Urine Occult Blood (Negative) Urine Nitrite (Negative) Urine Bilirubin (Negative) Urine Urobilinogen (0.2-1.0) Ur Leukocyte Esterase (Negative) Urine RBC (0-5) /hpf Urine WBC (0-5) /hpf Ur Squamous Epith Cells (0-5) /hpf Amorphous Sediment (NOT SEEN) /hpf Urine Bacteria (FEW) /hpf Urine Mucus (FEW) /hpf SARS-CoV-2 RNA ([facility]) (NEGATIVE) 07/14/21 07/14/21 07/14/21 Range/Units 09:15 09:15 09:15 WBC (4.23-9.07) K/mm3 RBC (4.63-6.08) M/mm3 Hgb (13.7-17.5) gm/dl Hct (40.1-51.0) % MCV (79.0-92.2) fl MCH (25.7-32.2) pg MCHC (32.2-35.5) g/dl RDW Std Deviation (35.1-43.9) fL Plt Count (163-337) K/mm3 MPV (9.4-12.3) fl Neutrophils % (Manual) (40-60) % Band Neutrophils % (0-10) % Lymphocytes % (Manual) (20-40) % Atypical Lymphs % % Monocytes % (Manual) (2-10) % Eosinophils % (Manual) (0.8-7.0) % Basophils % (Manual) (0.2-1.2) Platelet Estimate RBC Morph Comment ESR 99 H (0-15) mm/hr PT (9.7-12.0) SECONDS INR APTT (21.7-31.4) SECONDS Sodium (136-145) mEq/L Potassium (3.5-5.1) mEq/L Chloride (98-107) mEq/L Carbon Dioxide (21-32) mEq/L Anion Gap (5-15) BUN (7-18) mg/dL Creatinine (0.7-1.3) mg/dL Est Cr Clr Drug Dosing Estimated GFR (MDRD) (>60) mL/min BUN/Creatinine Ratio (14-18) Glucose (70-99) mg/dL Lactic Acid (0.4-2.0) mmol/L Calcium (8.5-10.1) mg/dL Magnesium (1.8-2.4) mg/dL Total Bilirubin (0.2-1.0) mg/dL AST (15-37) U/L ALT (16-63) U/L Alkaline Phosphatase (46-116) U/L C-Reactive Protein (<1.0) mg/dL NT-Pro-B Natriuret Pep 277 (0-450) pg/mL Total Protein (6.4-8.2) g/dl Albumin (3.4-5.0) g/dl Globulin gm/dL Albumin/Globulin Ratio (1-2) Lipase (73-393) U/L TSH 3rd Generation (0.358-3.74) uIU/mL Urine Color (Yellow) Urine Appearance (Clear) Urine pH (5.0-8.0) Ur Specific [place] (1.005-1.030) Urine Protein (Negative) Urine Glucose (UA) (Negative) Urine Ketones (Negative) Urine Occult Blood (Negative) Urine Nitrite (Negative) Urine Bilirubin (Negative) Urine Urobilinogen (0.2-1.0) Ur Leukocyte Esterase (Negative) Urine RBC (0-5) /hpf Urine WBC (0-5) /hpf Ur Squamous Epith Cells (0-5) /hpf Amorphous Sediment (NOT SEEN) /hpf Urine Bacteria (FEW) /hpf Urine Mucus (FEW) /hpf SARS-CoV-2 RNA ([place]) Negative (NEGATIVE) 07/14/21 07/14/21 07/14/21 Range/Units 09:15 09:15 10:45 WBC (4.23-9.07) K/mm3 RBC (4.63-6.08) M/mm3 Hgb (13.7-17.5) gm/dl Hct (40.1-51.0) % MCV (79.0-92.2) fl MCH (25.7-32.2) pg MCHC (32.2-35.5) g/dl RDW Std Deviation (35.1-43.9) fL Plt Count (163-337) K/mm3 MPV (9.4-12.3) fl Neutrophils % (Manual) (40-60) % Band Neutrophils % (0-10) % Lymphocytes % (Manual) (20-40) % Atypical Lymphs % % Monocytes % (Manual) (2-10) % Eosinophils % (Manual) (0.8-7.0) % Basophils % (Manual) (0.2-1.2) Platelet Estimate RBC Morph Comment ESR (0-15) mm/hr PT (9.7-12.0) SECONDS INR APTT (21.7-31.4) SECONDS Sodium (136-145) mEq/L Potassium (3.5-5.1) mEq/L Chloride (98-107) mEq/L Carbon Dioxide (21-32) mEq/L Anion Gap (5-15) BUN (7-18) mg/dL Creatinine (0.7-1.3) mg/dL Est Cr Clr Drug Dosing Estimated GFR (MDRD) (>60) mL/min BUN/Creatinine Ratio (14-18) Glucose (70-99) mg/dL Lactic Acid 6.5 H* (0.4-2.0) mmol/L Calcium (8.5-10.1) mg/dL Magnesium (1.8-2.4) mg/dL Total Bilirubin (0.2-1.0) mg/dL AST (15-37) U/L ALT (16-63) U/L Alkaline Phosphatase (46-116) U/L C-Reactive Protein (<1.0) mg/dL NT-Pro-B Natriuret Pep (0-450) pg/mL Total Protein (6.4-8.2) g/dl Albumin (3.4-5.0) g/dl Globulin gm/dL Albumin/Globulin Ratio (1-2) Lipase (73-393) U/L TSH 3rd Generation 43.245 H (0.358-3.74) uIU/mL Urine Color Yellow (Yellow) Urine Appearance Cloudy H (Clear) Urine pH 7.0 (5.0-8.0) Ur Specific [place] 1.025 (1.005-1.030) Urine Protein 3+ H (Negative) Urine Glucose (UA) Negative (Negative) Urine Ketones Trace H (Negative) Urine Occult Blood 3+ H (Negative) Urine Nitrite Negative (Negative) Urine Bilirubin Negative (Negative) Urine Urobilinogen 0.2 (0.2-1.0) Ur Leukocyte Esterase 1+ H (Negative) Urine RBC 30-40 H (0-5) /hpf Urine WBC 40-50 H (0-5) /hpf Ur Squamous Epith Cells 0-5 (0-5) /hpf Amorphous Sediment Moderate H (NOT SEEN) /hpf Urine Bacteria Many H (FEW) /hpf Urine Mucus Not seen (FEW) /hpf SARS-CoV-2 RNA ([place]) (NEGATIVE) 07/14/21 07/14/21 Range/Units 11:14 14:59 WBC (4.23-9.07) K/mm3 RBC (4.63-6.08) M/mm3 Hgb (13.7-17.5) gm/dl Hct (40.1-51.0) % MCV (79.0-92.2) fl MCH (25.7-32.2) pg MCHC (32.2-35.5) g/dl RDW Std Deviation (35.1-43.9) fL Plt Count (163-337) K/mm3 MPV (9.4-12.3) fl Neutrophils % (Manual) (40-60) % Band Neutrophils % (0-10) % Lymphocytes % (Manual) (20-40) % Atypical Lymphs % % Monocytes % (Manual) (2-10) % Eosinophils % (Manual) (0.8-7.0) % Basophils % (Manual) (0.2-1.2) Platelet Estimate RBC Morph Comment ESR (0-15) mm/hr PT (9.7-12.0) SECONDS INR APTT (21.7-31.4) SECONDS Sodium (136-145) mEq/L Potassium (3.5-5.1) mEq/L Chloride (98-107) mEq/L Carbon Dioxide (21-32) mEq/L Anion Gap (5-15) BUN (7-18) mg/dL Creatinine (0.7-1.3) mg/dL Est Cr Clr Drug Dosing Estimated GFR (MDRD) (>60) mL/min BUN/Creatinine Ratio (14-18) Glucose (70-99) mg/dL Lactic Acid 4.3 H* 2.8 H* (0.4-2.0) mmol/L Calcium (8.5-10.1) mg/dL Magnesium (1.8-2.4) mg/dL Total Bilirubin (0.2-1.0) mg/dL AST (15-37) U/L ALT (16-63) U/L Alkaline Phosphatase (46-116) U/L C-Reactive Protein (<1.0) mg/dL NT-Pro-B Natriuret Pep (0-450) pg/mL Total Protein (6.4-8.2) g/dl Albumin (3.4-5.0) g/dl Globulin gm/dL Albumin/Globulin Ratio (1-2) Lipase (73-393) U/L TSH 3rd Generation (0.358-3.74) uIU/mL Urine Color (Yellow) Urine Appearance (Clear) Urine pH (5.0-8.0) Ur Specific [place] (1.005-1.030) Urine Protein (Negative) Urine Glucose (UA) (Negative) Urine Ketones (Negative) Urine Occult Blood (Negative) Urine Nitrite (Negative) Urine Bilirubin (Negative) Urine Urobilinogen (0.2-1.0) Ur Leukocyte Esterase (Negative) Urine RBC (0-5) /hpf Urine WBC (0-5) /hpf Ur Squamous Epith Cells (0-5) /hpf Amorphous Sediment (NOT SEEN) /hpf Urine Bacteria (FEW) /hpf Urine Mucus (FEW) /hpf SARS-CoV-2 RNA ([place]) (NEGATIVE) Med Orders - Current: Current Medications Heparin Sodium (Porcine) (Heparin Sodium 5,000 Units/Ml Vial) 5,000 units SUBCUT Q8HR [facility] Last Admin: 07/15/21 06:28 Dose: 5,000 units Documented by: Lactated Ringer's (Ringers, Lactated) 1,000 mls @ 999 mls/hr IV ASDIRECTED POOJA Sodium Chloride (Normal Saline) 1,000 mls @ 100 mls/hr IV ASDIRECTED POOJA Last Admin: 07/15/21 03:49 Dose: 100 mls/hr Documented by: Ondansetron HCl 8 mg/ Sodium (Chloride) 54 mls @ 100 mls/hr IV Q4H PRN PRN Reason: Nausea/Vomiting Ceftriaxone Sodium 2 gm/ (Sodium Chloride) 100 mls @ 200 mls/hr IV Q24H [facility] Magnesium Hydroxide (Magnesium Hydroxide 400 Mg/5 Ml Susp 30 Ml Cup) 30 ml PO Q12H PRN PRN Reason: Constipation Morphine Sulfate (Morphine 15 Mg Tab.Er) 15 mg PO Q8HR [facility] Last Admin: 07/15/21 06:28 Dose: 15 mg Documented by: Ondansetron HCl (Ondansetron 4 Mg Tab.Dis) 8 mg PO Q6H PRN PRN Reason: Nausea/Vomiting Last Admin: 07/14/21 15:52 Dose: 8 mg Documented by: Temazepam (Temazepam 7.5 Mg Cap) 7.5 mg PO BEDTIME PRN PRN Reason: Sleep Discontinued Medications Acetaminophen (Acetaminophen 325 Mg Tab) 650 mg PO ONETIME ONE Stop: 07/14/21 10:23 Last Admin: 07/14/21 10:41 Dose: 650 mg Documented by: Hydromorphone HCl (Hydromorphone 0.5 Mg/0.5 Ml Syringe) 0.5 mg IVPUSH ONETIME ONE Stop: 07/14/21 09:06 Last Admin: 07/14/21 09:20 Dose: 0.5 mg Documented by: Hydromorphone HCl (Hydromorphone 2 Mg Tab) 4 mg PO ONETIME ONE Stop: 07/14/21 18:21 Last Admin: 07/14/21 18:21 Dose: 4 mg Documented by: Dextrose/Sodium Chloride (Dextrose 5%-Normal Saline) 1,000 mls @ 125 mls/hr IV ASDIRECTED [facility] Last Infusion: 07/14/21 10:20 Dose: 999 mls/hr Documented by: Dextrose/Sodium Chloride (Dextrose 5%-Normal Saline) 1,000 mls @ 999 mls/hr IV ASDIRECTED [facility] Last Admin: 07/14/21 12:25 Dose: 999 mls/hr Documented by: Ceftriaxone Sodium 2 gm/ (Sodium Chloride) 100 mls @ 200 mls/hr IV ONETIME ONE Stop: 07/14/21 10:52 Last Admin: 07/14/21 10:46 Dose: 200 mls/hr Documented by: Potassium Chloride 10 meq/ (Premix) 100 mls @ 100 mls/hr IV Q1H [facility] Stop: 07/14/21 14:44 Last Admin: 07/14/21 14:52 Dose: 100 mls/hr Documented by: Metoclopramide HCl (Metoclopramide 10 Mg/2 Ml Sdv) 7.5 mg IVPUSH ONETIME ONE Stop: 07/14/21 09:06 Last Admin: 07/14/21 09:23 Dose: 7.5 mg Documented by: Ondansetron HCl (Ondansetron 4 Mg/2 Ml Sdv) Confirm Administered Dose 8 mg .ROUTE .STK-MED ONE Stop: 07/14/21 15:45 Last Admin: 07/14/21 16:21 Dose: Not Given Documented by: - Exam Quality Assessment: Urine Catheter (Chroninc ileostomy), DVT Prophylaxis, Skin Breakdown (Ulcer on lower back back). No: Supplemental Oxygen Central Line Total Time: 0Days 22Hours General: Alert, Oriented (waxes and wanes ), Cooperative, No Acute Distress HEENT: Pupils Equal, Pupils Reactive, Mucous Membr. Moist/[place] Neck: Supple, Trachea Midline Lungs: Clear to Auscultation, Normal Respiratory Effort Cardiovascular: Regular Rate, Regular Rhythm GI/Abdominal Exam: Normal Bowel Sounds, Soft, Non-Tender, No Distention (Male) Exam: Deferred Back Exam: Decreased Range of Motion, Other (Ulceration on lower back) Extremities: Normal Inspection, No Pedal Edema, Leg Pain, Limited Range of Motion Skin: Warm, Dry, Intact Wound/Incisions: Dressing Dry and Intact, Decubitis. No: Erythema Neurological: No New Focal Deficit Psy/Mental Status: Alert, Normal Affect, Normal Mood - Patient Data Lab Results Last 24 hrs: Laboratory Results - last 24 hr 07/14/21 07/14/21 07/14/21 Range/Units 09:15 09:15 09:15 WBC 11.43 H (4.23-9.07) K/mm3 RBC 3.50 L (4.63-6.08) M/mm3 Hgb 10.3 L D (13.7-17.5) gm/dl Hct 30.8 L (40.1-51.0) % MCV 88.0 D (79.0-92.2) fl MCH 29.4 (25.7-32.2) pg MCHC 33.4 (32.2-35.5) g/dl RDW Std Deviation 56.1 H (35.1-43.9) fL Plt Count 378 H D (163-337) K/mm3 MPV 10.0 (9.4-12.3) fl Neutrophils % (Manual) 79 H (40-60) % Band Neutrophils % 0 (0-10) % Lymphocytes % (Manual) 11 L (20-40) % Atypical Lymphs % 0 % Monocytes % (Manual) 8 (2-10) % Eosinophils % (Manual) 2 (0.8-7.0) % Basophils % (Manual) 0 L (0.2-1.2) Platelet Estimate Adequate RBC Morph Comment Normal ESR (0-15) mm/hr PT 12.9 H (9.7-12.0) SECONDS INR 1.17 APTT 34.4 H (21.7-31.4) SECONDS Sodium 133 L D (136-145) mEq/L Potassium 3.0 L (3.5-5.1) mEq/L Chloride 100 (98-107) mEq/L Carbon Dioxide 12 L D (21-32) mEq/L Anion Gap 24.0 H (5-15) BUN 18 (7-18) mg/dL Creatinine 2.5 H (0.7-1.3) mg/dL Est Cr Clr Drug Dosing TNP Estimated GFR (MDRD) 25 (>60) mL/min BUN/Creatinine Ratio 7.2 L (14-18) Glucose 195 H (70-99) mg/dL Lactic Acid (0.4-2.0) mmol/L Calcium 6.9 L D (8.5-10.1) mg/dL Magnesium 1.7 L (1.8-2.4) mg/dL Total Bilirubin 1.2 H (0.2-1.0) mg/dL AST 29 (15-37) U/L ALT 18 (16-63) U/L Alkaline Phosphatase 72 (46-116) U/L C-Reactive Protein 15.8 H* (<1.0) mg/dL NT-Pro-B Natriuret Pep (0-450) pg/mL Total Protein 7.2 (6.4-8.2) g/dl Albumin 2.4 L (3.4-5.0) g/dl Globulin 4.8 gm/dL Albumin/Globulin Ratio 0.5 L (1-2) Lipase 65 L (73-393) U/L TSH 3rd Generation (0.358-3.74) uIU/mL Urine Color (Yellow) Urine Appearance (Clear) Urine pH (5.0-8.0) Ur Specific [place] (1.005-1.030) Urine Protein (Negative) Urine Glucose (UA) (Negative) Urine Ketones (Negative) Urine Occult Blood (Negative) Urine Nitrite (Negative) Urine Bilirubin (Negative) Urine Urobilinogen (0.2-1.0) Ur Leukocyte Esterase (Negative) Urine RBC (0-5) /hpf Urine WBC (0-5) /hpf Ur Squamous Epith Cells (0-5) /hpf Amorphous Sediment (NOT SEEN) /hpf Urine Bacteria (FEW) /hpf Urine Mucus (FEW) /hpf SARS-CoV-2 RNA ([place]) (NEGATIVE) 07/14/21 07/14/21 07/14/21 Range/Units 09:15 09:15 09:15 WBC (4.23-9.07) K/mm3 RBC (4.63-6.08) M/mm3 Hgb (13.7-17.5) gm/dl Hct (40.1-51.0) % MCV (79.0-92.2) fl MCH (25.7-32.2) pg MCHC (32.2-35.5) g/dl RDW Std Deviation (35.1-43.9) fL Plt Count (163-337) K/mm3 MPV (9.4-12.3) fl Neutrophils % (Manual) (40-60) % Band Neutrophils % (0-10) % Lymphocytes % (Manual) (20-40) % Atypical Lymphs % % Monocytes % (Manual) (2-10) % Eosinophils % (Manual) (0.8-7.0) % Basophils % (Manual) (0.2-1.2) Platelet Estimate RBC Morph Comment ESR 99 H (0-15) mm/hr PT (9.7-12.0) SECONDS INR APTT (21.7-31.4) SECONDS Sodium (136-145) mEq/L Potassium (3.5-5.1) mEq/L Chloride (98-107) mEq/L Carbon Dioxide (21-32) mEq/L Anion Gap (5-15) BUN (7-18) mg/dL Creatinine (0.7-1.3) mg/dL Est Cr Clr Drug Dosing Estimated GFR (MDRD) (>60) mL/min BUN/Creatinine Ratio (14-18) Glucose (70-99) mg/dL Lactic Acid (0.4-2.0) mmol/L Calcium (8.5-10.1) mg/dL Magnesium (1.8-2.4) mg/dL Total Bilirubin (0.2-1.0) mg/dL AST (15-37) U/L ALT (16-63) U/L Alkaline Phosphatase (46-116) U/L C-Reactive Protein (<1.0) mg/dL NT-Pro-B Natriuret Pep 277 (0-450) pg/mL Total Protein (6.4-8.2) g/dl Albumin (3.4-5.0) g/dl Globulin gm/dL Albumin/Globulin Ratio (1-2) Lipase (73-393) U/L TSH 3rd Generation (0.358-3.74) uIU/mL Urine Color (Yellow) Urine Appearance (Clear) Urine pH (5.0-8.0) Ur Specific [place] (1.005-1.030) Urine Protein (Negative) Urine Glucose (UA) (Negative) Urine Ketones (Negative) Urine Occult Blood (Negative) Urine Nitrite (Negative) Urine Bilirubin (Negative) Urine Urobilinogen (0.2-1.0) Ur Leukocyte Esterase (Negative) Urine RBC (0-5) /hpf Urine WBC (0-5) /hpf Ur Squamous Epith Cells (0-5) /hpf Amorphous Sediment (NOT SEEN) /hpf Urine Bacteria (FEW) /hpf Urine Mucus (FEW) /hpf SARS-CoV-2 RNA ([place]) Negative (NEGATIVE) 07/14/21 07/14/21 07/14/21 Range/Units 09:15 09:15 10:45 WBC (4.23-9.07) K/mm3 RBC (4.63-6.08) M/mm3 Hgb (13.7-17.5) gm/dl Hct (40.1-51.0) % MCV (79.0-92.2) fl MCH (25.7-32.2) pg MCHC (32.2-35.5) g/dl RDW Std Deviation (35.1-43.9) fL Plt Count (163-337) K/mm3 MPV (9.4-12.3) fl Neutrophils % (Manual) (40-60) % Band Neutrophils % (0-10) % Lymphocytes % (Manual) (20-40) % Atypical Lymphs % % Monocytes % (Manual) (2-10) % Eosinophils % (Manual) (0.8-7.0) % Basophils % (Manual) (0.2-1.2) Platelet Estimate RBC Morph Comment ESR (0-15) mm/hr PT (9.7-12.0) SECONDS INR APTT (21.7-31.4) SECONDS Sodium (136-145) mEq/L Potassium (3.5-5.1) mEq/L Chloride (98-107) mEq/L Carbon Dioxide (21-32) mEq/L Anion Gap (5-15) BUN (7-18) mg/dL Creatinine (0.7-1.3) mg/dL Est Cr Clr Drug Dosing Estimated GFR (MDRD) (>60) mL/min BUN/Creatinine Ratio (14-18) Glucose (70-99) mg/dL Lactic Acid 6.5 H* (0.4-2.0) mmol/L Calcium (8.5-10.1) mg/dL Magnesium (1.8-2.4) mg/dL Total Bilirubin (0.2-1.0) mg/dL AST (15-37) U/L ALT (16-63) U/L Alkaline Phosphatase (46-116) U/L C-Reactive Protein (<1.0) mg/dL NT-Pro-B Natriuret Pep (0-450) pg/mL Total Protein (6.4-8.2) g/dl Albumin (3.4-5.0) g/dl Globulin gm/dL Albumin/Globulin Ratio (1-2) Lipase (73-393) U/L TSH 3rd Generation 43.245 H (0.358-3.74) uIU/mL Urine Color Yellow (Yellow) Urine Appearance Cloudy H (Clear) Urine pH 7.0 (5.0-8.0) Ur Specific [place] 1.025 (1.005-1.030) Urine Protein 3+ H (Negative) Urine Glucose (UA) Negative (Negative) Urine Ketones Trace H (Negative) Urine Occult Blood 3+ H (Negative) Urine Nitrite Negative (Negative) Urine Bilirubin Negative (Negative) Urine Urobilinogen 0.2 (0.2-1.0) Ur Leukocyte Esterase 1+ H (Negative) Urine RBC 30-40 H (0-5) /hpf Urine WBC 40-50 H (0-5) /hpf Ur Squamous Epith Cells 0-5 (0-5) /hpf Amorphous Sediment Moderate H (NOT SEEN) /hpf Urine Bacteria Many H (FEW) /hpf Urine Mucus Not seen (FEW) /hpf SARS-CoV-2 RNA ([place]) (NEGATIVE) 07/14/21 07/14/21 Range/Units 11:14 14:59 WBC (4.23-9.07) K/mm3 RBC (4.63-6.08) M/mm3 Hgb (13.7-17.5) gm/dl Hct (40.1-51.0) % MCV (79.0-92.2) fl MCH (25.7-32.2) pg MCHC (32.2-35.5) g/dl RDW Std Deviation (35.1-43.9) fL Plt Count (163-337) K/mm3 MPV (9.4-12.3) fl Neutrophils % (Manual) (40-60) % Band Neutrophils % (0-10) % Lymphocytes % (Manual) (20-40) % Atypical Lymphs % % Monocytes % (Manual) (2-10) % Eosinophils % (Manual) (0.8-7.0) % Basophils % (Manual) (0.2-1.2) Platelet Estimate RBC Morph Comment ESR (0-15) mm/hr PT (9.7-12.0) SECONDS INR APTT (21.7-31.4) SECONDS Sodium (136-145) mEq/L Potassium (3.5-5.1) mEq/L Chloride (98-107) mEq/L Carbon Dioxide (21-32) mEq/L Anion Gap (5-15) BUN (7-18) mg/dL Creatinine (0.7-1.3) mg/dL Est Cr Clr Drug Dosing Estimated GFR (MDRD) (>60) mL/min BUN/Creatinine Ratio (14-18) Glucose (70-99) mg/dL Lactic Acid 4.3 H* 2.8 H* (0.4-2.0) mmol/L Calcium (8.5-10.1) mg/dL Magnesium (1.8-2.4) mg/dL Total Bilirubin (0.2-1.0) mg/dL AST (15-37) U/L ALT (16-63) U/L Alkaline Phosphatase (46-116) U/L C-Reactive Protein (<1.0) mg/dL NT-Pro-B Natriuret Pep (0-450) pg/mL Total Protein (6.4-8.2) g/dl Albumin (3.4-5.0) g/dl Globulin gm/dL Albumin/Globulin Ratio (1-2) Lipase (73-393) U/L TSH 3rd Generation (0.358-3.74) uIU/mL Urine Color (Yellow) Urine Appearance (Clear) Urine pH (5.0-8.0) Ur Specific [place] (1.005-1.030) Urine Protein (Negative) Urine Glucose (UA) (Negative) Urine Ketones (Negative) Urine Occult Blood (Negative) Urine Nitrite (Negative) Urine Bilirubin (Negative) Urine Urobilinogen (0.2-1.0) Ur Leukocyte Esterase (Negative) Urine RBC (0-5) /hpf Urine WBC (0-5) /hpf Ur Squamous Epith Cells (0-5) /hpf Amorphous Sediment (NOT SEEN) /hpf Urine Bacteria (FEW) /hpf Urine Mucus (FEW) /hpf SARS-CoV-2 RNA ([place]) (NEGATIVE) Result Diagrams: 07/15/21 09:00 07/15/21 09:00 Sepsis Event Note - Evaluation Sepsis Screening Result: No Definite Risk - Focused Exam Vital Signs: Vital Signs Temp Pulse Resp BP Pulse Ox 07/15/21 03:06 98.1 F 105 H 14 98/56 L 99 07/14/21 23:41 97.9 F 81 12 106/63 92 L - Problem List & Annotations (1) Hypophosphatemia SNOMED Code(s): 7730210 Code(s): E83.39 - OTHER DISORDERS OF PHOSPHORUS METABOLISM Status: Acute Priority: Medium Current Visit: Yes (2) Cachexia SNOMED Code(s): 091154013 Code(s): R64 - CACHEXIA Status: Chronic Priority: High Current Visit: Yes (3) Chronic renal insufficiency, stage IV (severe) SNOMED Code(s): 955523845 Code(s): N18.4 - CHRONIC KIDNEY DISEASE, STAGE 4 (SEVERE) Status: Chronic Priority: High Current Visit: Yes (4) Fever SNOMED Code(s): 985100995 Code(s): R50.9 - FEVER, UNSPECIFIED Status: Resolved Priority: High Current Visit: Yes Qualifiers: Encounter type: initial encounter (5) History of ureterostomy SNOMED Code(s): 015170050 Code(s): Z98.890 - OTHER SPECIFIED POSTPROCEDURAL STATES Status: Chronic Priority: Low Current Visit: No (6) Hypokalemia due to inadequate potassium intake SNOMED Code(s): 93069764 Code(s): E87.6 - HYPOKALEMIA Status: Acute Priority: High Current Visit: Yes (7) Hypothyroidism (acquired) SNOMED Code(s): 641624502 Code(s): E03.9 - HYPOTHYROIDISM, UNSPECIFIED Status: Chronic Priority: Medium Current Visit: Yes (8) Lactic acidosis SNOMED Code(s): 79834459 Code(s): E87.2 - ACIDOSIS Status: Acute Priority: High Current Visit: Yes (9) Metastatic cancer to bone Status: Acute Priority: High Current Visit: Yes (10) Urinary tract infection SNOMED Code(s): 24990165 Code(s): N39.0 - URINARY TRACT INFECTION, SITE NOT SPECIFIED Status: Acute Priority: High Current Visit: Yes Qualifiers: Urinary tract infection type: acute pyelonephritis Qualified Code(s): N10 - Acute pyelonephritis (11) Anemia SNOMED Code(s): 581656294 Code(s): D64.9 - ANEMIA, UNSPECIFIED Status: Chronic Priority: High Current Visit: Yes Qualifiers: Anemia type: unspecified type Qualified Code(s): D64.9 - Anemia, unspecified (12) Bladder cancer metastasized to bone SNOMED Code(s): 08008396, 710293825 Code(s): C67.9 - MALIGNANT NEOPLASM OF BLADDER, UNSPECIFIED; C79.51 - SECONDARY MALIGNANT NEOPLASM OF BONE Status: Chronic Priority: High Current Visit: Yes (13) Weakness SNOMED Code(s): 72903092 Code(s): R53.1 - WEAKNESS Status: Acute Priority: High Current Visit: Yes (14) History of nephrectomy, unilateral SNOMED Code(s): 65753825725671 Code(s): Z90.5 - ACQUIRED ABSENCE OF KIDNEY Status: Chronic Priority: Medium Current Visit: Yes (15) Hyponatremia SNOMED Code(s): 50475015 Code(s): E87.1 - HYPO-OSMOLALITY AND HYPONATREMIA Status: Acute Priority: Medium Current Visit: Yes (16) Hypomagnesemia SNOMED Code(s): 841978590 Code(s): E83.42 - HYPOMAGNESEMIA Status: Acute Priority: High Current Visit: Yes (17) Encounter for home hospice care SNOMED Code(s): 729382597, 963977229 Code(s): Z51.5 - ENCOUNTER FOR PALLIATIVE CARE Status: Acute Priority: High Current Visit: Yes (18) Severe pain SNOMED Code(s): 80191521 Code(s): R52 - PAIN, UNSPECIFIED Status: Acute Priority: High Current Visit: Yes (19) End of life care SNOMED Code(s): 234157491, 131499612 Code(s): Z51.5 - ENCOUNTER FOR PALLIATIVE CARE Status: Acute Priority: High Current Visit: Yes - Problem List Review Problem List Initiated/Reviewed/Updated: Yes - Assessment Assessment:: 07/14/2021 The patient is a 80-year-old gentleman who has rather significant pain that has been interfering with his ability to eat and drink fluids. The patient will be admitted as an inpatient predominantly for pain management. The patient does have 2 different fentanyl patches on at this time and have asked for the nurse staff to update his medication list. I placed the patient on MS Contin 15 mg p.o. every 8 hours. This is in addition to his home dose of fentanyl and Dilaudid. The patient says that he is not nauseated now and Zofran has been ordered to assist with his nausea and vomiting. The patient also has chronic kidney disease and his creatinine is at 2.5 currently. Medications will need to be renally dosed. The patient's urinalysis obtained through the emergency department is suspicious but not confirmatory for UTI as he does have a urostomy. I will place the patient on ceftriaxone and this will be discontinued if cultures are negative. He also had his potassium replaced in the emergency department and was felt that this was due to GI loss. We will continue to monitor this and replace his electrolytes as needed. The patient will also be anticoagulated with the use of heparin 5000 units subcutaneous every 8 hours. Because of the patient's widely metastatic cancer and his pain I had a long discussion with the patient and the patient's family regarding pain control and possible hospice care. I have ordered a hospice consult. Overall the patient's prognosis is poor. 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 Patient has been DNR/DNI. Today after significant discussion patient and family decided on comfort measures. Patient has multiple electrolyte abnormalities including hyponatremia, hypokalemia, hypophosphatemia, and hypomagnesemia. Family and patient do not want the supplemented. At this time patient would like to be made comfortable with pain medications and would like hospice consulted. Spiritual care consult has been ordered. We will discontinue IV fluids at the completion of this current bag at the request of the patient. We will also stop antibiotic treatment for his presumptive UTI. We will discontinue further lab draws and PT OT. Labs today sh ow WBC of 6.58. Hemoglobin is 7.7. Platelet 246,000. Neutrophils are elevated at 83.5%. Sodium is 133. Potassium 2.9. Chloride 105. Carbon dioxide is 16. Anion gap is 14.9. BUN is 14. Creatinine 2.2. GFR is 29. Glucose is 103. Calcium is 5.6 however corrected this is 7.4. Phosphorus 1.6. Magnesium 1.4. Total bilirubin 0.5. AST is 26, ALT 13, alkaline phosphatase 64. Protein is 4. 9. Albumin is 1.8. Family wants home medications discontinue with the exception of pain medications. Telemetry will be discontinued. Per hospice the earliest they can admit the patient is this coming Sunday. Family would like patient to remain hospitalized until hospice can be arranged at discharge. Patient will remain hospitalized until then. Scopolamine patch was ordered and patient's fentanyl patch was increased to 75 mcg. Plan will be to decrease some of patient's p.o. medications as his fentanyl patch begins to take effect. We will continue on regular diet. Likely discharge Sunday. - Plan Plan:: Encounter for home hospice care Severe pain End of life care Cachexia Metastatic cancer to bone Bladder cancer metastasized to bone Weakness History of ureterostomy History of nephrectomy, unilateral * Increase fentanyl patch to 75 mcg * P.o. pain medications as ordered * Scopolamine patch for nausea * Discontinue telemetry, lab draws, IV fluids, antibiotics, PT/OT, Heparin. * Vital signs every shift * Regular diet * Bedrest * Hospice consult * Spiritual care consult * As needed Ativan for anxiety * Patient states he does not want oxygen under any circumstance Inactive: Hypophosphatemia Chronic renal insufficiency, stage IV (severe) Fever, resolved Hypokalemia due to inadequate potassium intake Hypothyroidism (acquired) Lactic acidosis Urinary tract infection Anemia Hyponatremia Hypomagnesemia * Patient and family do not want electrolytes supplemented * Comfort cares initiated as above Code status: DNR/DNI/Comfort cares PCP: Gareth Gregory PA-C DVT prophylaxis: None indicated for comfort care. Disposition: Patient will remain hospitalized until he can be accepted into hosp ice, which we are told is 07/18/2021. Life expectancy less than 6 months. <Johnie Singh - Last Filed: 07/15/21 13:43> - Patient Data Vitals - Most Recent: Last Vital Signs Temp 36.7 C 07/15/21 03:06 Pulse 105 H 07/15/21 03:06 Resp 14 07/15/21 03:06 BP 98/56 L 07/15/21 03:06 Pulse Ox 99 07/15/21 03:06 I&O - Last 24 Hours: Intake & Output 07/14/21 07/15/21 07/15/21 22:59 06:59 14:59 Intake Total 405 900 Output Total 375 400 Balance 30 500 Lab Results Last 24 Hours: Laboratory Results - last 24 hr 07/14/21 07/15/21 07/15/21 Range/Units 14:59 09:00 09:00 WBC 6.58 (4.23-9.07) K/mm3 RBC 2.66 L (4.63-6.08) M/mm3 Hgb 7.7 L D (13.7-17.5) gm/dl Hct 23.9 L (40.1-51.0) % MCV 89.8 (79.0-92.2) fl MCH 28.9 (25.7-32.2) pg MCHC 32.2 (32.2-35.5) g/dl RDW Std Deviation 56.7 H (35.1-43.9) fL Plt Count 246 D (163-337) K/mm3 MPV 9.8 (9.4-12.3) fl Neut % (Auto) 83.5 H (34.0-67.9) % Lymph % (Auto) 6.8 L (21.8-53.1) % [place] % (Auto) 7.3 (5.3-12.2) % Eos % (Auto) 1.7 (0.8-7.0) Baso % (Auto) 0.2 (0.1-1.2) % Neut # (Auto) 5.50 H (1.78-5.38) K/mm3 Lymph # (Auto) 0.45 L (1.32-3.57) K/mm3 [place] # (Auto) 0.48 (0.30-0.82) K/mm3 Eos # (Auto) 0.11 (0.04-0.54) K/mm3 Baso # (Auto) 0.01 (0.01-0.08) K/mm3 Sodium 133 L (136-145) mEq/L Potassium 2.9 L (3.5-5.1) mEq/L Chloride 105 (98-107) mEq/L Carbon Dioxide 16 L (21-32) mEq/L Anion Gap 14.9 (5-15) BUN 14 (7-18) mg/dL Creatinine 2.2 H (0.7-1.3) mg/dL Est Cr Clr Drug Dosing 23.53 mL/min Estimated GFR (MDRD) 29 (>60) mL/min BUN/Creatinine Ratio 6.4 L (14-18) Glucose 103 H (70-99) mg/dL Lactic Acid 2.8 H* (0.4-2.0) mmol/L Calcium 5.6 L* (8.5-10.1) mg/dL Phosphorus 1.6 L (2.6-4.7) mg/dL Magnesium 1.4 L (1.8-2.4) mg/dL Total Bilirubin 0.5 (0.2-1.0) mg/dL AST 26 (15-37) U/L ALT 13 L (16-63) U/L Alkaline Phosphatase 64 (46-116) U/L Total Protein 4.9 L (6.4-8.2) g/dl Albumin 1.8 L (3.4-5.0) g/dl Globulin 3.1 gm/dL Albumin/Globulin Ratio 0.6 L (1-2) Med Orders - Current: Current Medications Artificial Tears (Carboxymethylcellulose Sodium 1% Ophth Gel 15 Ml Bottle) 0 ml EYEBOTH Q1H PRN PRN Reason: Dry Eyes Diclofenac Sodium (Diclofenac Sodium 1% Gel 100 Gm Tube) 0 gm TOP Q6H PRN PRN Reason: Knee/joint pain Fentanyl (Fentanyl 75 Mcg/Hr Transdermal Patch) 75 mcg TRDERM Q72H [facility] Last Admin: 07/15/21 10:24 Dose: 75 mcg Documented by: Gabapentin (Gabapentin 100 Mg Cap) 200 mg PO TID [facility] Last Admin: 07/15/21 10:22 Dose: 200 mg Documented by: Hydromorphone HCl (Hydromorphone 2 Mg Tab) 4 mg PO Q4H PRN PRN Reason: Pain Ondansetron HCl 8 mg/ Sodium (Chloride) 54 mls @ 100 mls/hr IV Q4H PRN PRN Reason: Nausea/Vomiting Lorazepam (Lorazepam 2 Mg/Ml Sdv) 0.5 mg IVPUSH Q4H PRN PRN Reason: Anxiety Magnesium Hydroxide (Magnesium Hydroxide 400 Mg/5 Ml Susp 30 Ml Cup) 30 ml PO Q12H PRN PRN Reason: Constipation Miscellaneous Information (Remove Fentanyl Patch) 1 ea TRDERM Q72H [facility] Miscellaneous Information (Remove Scopolamine Patch) 1 ea TRDERM Q72H [facility] Morphine Sulfate (Morphine 15 Mg Tab.Er) 15 mg PO Q8HR [facility] Last Admin: 07/15/21 06:28 Dose: 15 mg Documented by: Ondansetron HCl (Ondansetron 4 Mg Tab.Dis) 8 mg PO Q6H PRN PRN Reason: Nausea/Vomiting Last Admin: 07/14/21 15:52 Dose: 8 mg Documented by: Scopolamine (Scopolamine 1.5 Mg Transdermal Patch) 1.5 mg TRDERM Q72H [facility] Last Admin: 07/15/21 10:43 Dose: 1.5 mg Documented by: Temazepam (Temazepam 7.5 Mg Cap) 7.5 mg PO BEDTIME PRN PRN Reason: Sleep Discontinued Medications Acetaminophen (Acetaminophen 325 Mg Tab) 650 mg PO ONETIME ONE Stop: 07/14/21 10:23 Last Admin: 07/14/21 10:41 Dose: 650 mg Documented by: Heparin Sodium (Porcine) (Heparin Sodium 5,000 Units/Ml Vial) 5,000 units SUBCUT Q8HR [facility] Last Admin: 07/15/21 06:28 Dose: 5,000 units Documented by: Hydromorphone HCl (Hydromorphone 0.5 Mg/0.5 Ml Syringe) 0.5 mg IVPUSH ONETIME ONE Stop: 07/14/21 09:06 Last Admin: 07/14/21 09:20 Dose: 0.5 mg Documented by: Hydromorphone HCl (Hydromorphone 2 Mg Tab) 4 mg PO ONETIME ONE Stop: 07/14/21 18:21 Last Admin: 07/14/21 18:21 Dose: 4 mg Documented by: Dextrose/Sodium Chloride (Dextrose 5%-Normal Saline) 1,000 mls @ 125 mls/hr IV ASDIRECTED [facility] Last Infusion: 07/14/21 10:20 Dose: 999 mls/hr Documented by: Dextrose/Sodium Chloride (Dextrose 5%-Normal Saline) 1,000 mls @ 999 mls/hr IV ASDIRECTED [facility] Last Admin: 07/14/21 12:25 Dose: 999 mls/hr Documented by: Ceftriaxone Sodium 2 gm/ (Sodium Chloride) 100 mls @ 200 mls/hr IV ONETIME ONE Stop: 07/14/21 10:52 Last Admin: 07/14/21 10:46 Dose: 200 mls/hr Documented by: Potassium Chloride 10 meq/ (Premix) 100 mls @ 100 mls/hr IV Q1H [facility] Stop: 07/14/21 14:44 Last Admin: 07/14/21 14:52 Dose: 100 mls/hr Documented by: Lactated Ringer's (Ringers, Lactated) 1,000 mls @ 999 mls/hr IV ASDIRECTED [facility] Sodium Chloride (Normal Saline) 1,000 mls @ 100 mls/hr IV ASDIRECTED [facility] Last Admin: 07/15/21 03:49 Dose: 100 mls/hr Documented by: Ceftriaxone Sodium 2 gm/ (Sodium Chloride) 100 mls @ 200 mls/hr IV Q24H [facility] Last Admin: 07/15/21 10:22 Dose: 200 mls/hr Documented by: Potassium Phosphate 30 mmole/ (Sodium Chloride) 510 mls @ 102 mls/hr IV ONETIME ONE Stop: 07/15/21 16:59 Magnesium Sulfate 4 gm/ Premix 50 mls @ 12.5 mls/hr IV ONETIME ONE Stop: 07/15/21 14:29 Last Admin: 07/15/21 12:20 Dose: Not Given Documented by: Potassium Chloride 10 meq/ (Premix) 100 mls @ 100 mls/hr IV Q1H [facility] Stop: 07/15/21 20:59 Levothyroxine Sodium (Levothyroxine 112 Mcg Tab) 112 mcg PO ACBREAKFAST [facility] Last Admin: 07/15/21 10:27 Dose: Not Given Documented by: Metoclopramide HCl (Metoclopramide 10 Mg/2 Ml Sdv) 7.5 mg IVPUSH ONETIME ONE Stop: 07/14/21 09:06 Last Admin: 07/14/21 09:23 Dose: 7.5 mg Documented by: Miscellaneous Information (Remove Patch Fentanyl 25 Mcg Patch) 1 ea TRDERM ONETIME ONE Stop: 07/15/21 09:01 Last Admin: 07/15/21 10:27 Dose: Not Given Documented by: Miscellaneous Information (Remove Patch Fentanyl 12 Mcg Patch) 1 ea TRDERM ONETIME ONE Stop: 07/15/21 09:01 Last Admin: 07/15/21 10:26 Dose: 1 ea Documented by: Ondansetron HCl (Ondansetron 4 Mg/2 Ml Sdv) Confirm Administered Dose 8 mg .ROUTE .STK-MED ONE Stop: 07/14/21 15:45 Last Admin: 07/14/21 16:21 Dose: Not Given Documented by: - Patient Data Lab Results Last 24 hrs: Laboratory Results - last 24 hr 07/14/21 07/15/21 07/15/21 Range/Units 14:59 09:00 09:00 WBC 6.58 (4.23-9.07) K/mm3 RBC 2.66 L (4.63-6.08) M/mm3 Hgb 7.7 L D (13.7-17.5) gm/dl Hct 23.9 L (40.1-51.0) % MCV 89.8 (79.0-92.2) fl MCH 28.9 (25.7-32.2) pg MCHC 32.2 (32.2-35.5) g/dl RDW Std Deviation 56.7 H (35.1-43.9) fL Plt Count 246 D (163-337) K/mm3 MPV 9.8 (9.4-12.3) fl Neut % (Auto) 83.5 H (34.0-67.9) % Lymph % (Auto) 6.8 L (21.8-53.1) % [place] % (Auto) 7.3 (5.3-12.2) % Eos % (Auto) 1.7 (0.8-7.0) Baso % (Auto) 0.2 (0.1-1.2) % Neut # (Auto) 5.50 H (1.78-5.38) K/mm3 Lymph # (Auto) 0.45 L (1.32-3.57) K/mm3 [place] # (Auto) 0.48 (0.30-0.82) K/mm3 Eos # (Auto) 0.11 (0.04-0.54) K/mm3 Baso # (Auto) 0.01 (0.01-0.08) K/mm3 Sodium 133 L (136-145) mEq/L Potassium 2.9 L (3.5-5.1) mEq/L Chloride 105 (98-107) mEq/L Carbon Dioxide 16 L (21-32) mEq/L Anion Gap 14.9 (5-15) BUN 14 (7-18) mg/dL Creatinine 2.2 H (0.7-1.3) mg/dL Est Cr Clr Drug Dosing 23.53 mL/min Estimated GFR (MDRD) 29 (>60) mL/min BUN/Creatinine Ratio 6.4 L (14-18) Glucose 103 H (70-99) mg/dL Lactic Acid 2.8 H* (0.4-2.0) mmol/L Calcium 5.6 L* (8.5-10.1) mg/dL Phosphorus 1.6 L (2.6-4.7) mg/dL Magnesium 1.4 L (1.8-2.4) mg/dL Total Bilirubin 0.5 (0.2-1.0) mg/dL AST 26 (15-37) U/L ALT 13 L (16-63) U/L Alkaline Phosphatase 64 (46-116) U/L Total Protein 4.9 L (6.4-8.2) g/dl Albumin 1.8 L (3.4-5.0) g/dl Globulin 3.1 gm/dL Albumin/Globulin Ratio 0.6 L (1-2) Result Diagrams: 07/15/21 09:00 07/15/21 09:00 Sepsis Event Note - Focused Exam Vital Signs: Vital Signs Temp Pulse Resp BP Pulse Ox 07/15/21 03:06 36.7 C 105 H 14 98/56 L 99 - Problem List & Annotations (1) Vomiting SNOMED Code(s): 555577325 Code(s): R11.10 - VOMITING, UNSPECIFIED Status: Acute Priority: High Current Visit: Yes Qualifiers: Vomiting type: bilious vomiting Nausea presence: with nausea Qualified Code(s): R11.14 - Bilious vomiting (2) Hypokalemia due to inadequate potassium intake SNOMED Code(s): 37952498 Code(s): E87.6 - HYPOKALEMIA Status: Acute Priority: High Current Visit: Yes (3) Bladder cancer metastasized to bone SNOMED Code(s): 60949723, 826647063 Code(s): C67.9 - MALIGNANT NEOPLASM OF BLADDER, UNSPECIFIED; C79.51 - SECONDARY MALIGNANT NEOPLASM OF BONE Status: Chronic Priority: High Current Visit: Yes (4) Hypothyroidism SNOMED Code(s): 53129994 Code(s): E03.9 - HYPOTHYROIDISM, UNSPECIFIED Status: Chronic Priority: Medium Current Visit: Yes Qualifiers: Hypothyroidism type: due to acquired atrophy of thyroid Qualified Code(s): E03.4 - Atrophy of thyroid (acquired) - My Orders Last 24 Hours: My Active Orders 07/14/21 14:06 VTE/DVT Education [RC] PER UNIT ROUTINE Consult to Hospice [CONS] Routine Magnesium Hydroxide [Milk of Magnesia] 30 ml PO Q12H PRN Ondansetron [Zofran ODT] 8 mg PO Q6H PRN Ondansetron [Zofran] 8 mg Sodium Chloride 0.9% [Normal Saline] 50 ml IV Q4H Temazepam [Restoril] 7.5 mg PO BEDTIME PRN VTE Mechanical Contraindications [AST] Per Unit Routine 07/14/21 14:15 Morphine [MS Contin] 15 mg PO Q8HR 07/14/21 Dinner Regular Diet [DIET] 07/14/21 19:37 Renew/Continue Central Line Access [OM.PC] Routine 07/15/21 00:42 Renew/Continue Urinary Catheter [OM.PC] Routine 07/15/21 11:05 Renew/Continue Urinary Catheter [OM.PC] Routine 07/15/21 12:47 Renew/Continue Central Line Access [OM.PC] Routine - Free Text/Narrative Note: I have seen and examined the patient independently of MANUEL Scott. I have discussed the case with him. I have also reviewed and agree with the plan of care as outlined by him. Please see orders.
[2021-07-15] MEDS ORDERED: cefTRIAXone 2 GM in Sodium Chloride 0.9% 100 ML IV SCH (09:00)
[2021-07-15] MEDS ORDERED: [UNRECOGNIZED DRUG - REMARK] TRDERM ONE (09:00)
[2021-07-15] MEDS ORDERED: Levothyroxine 112 MCG Tab PO SCH (09:00)
[2021-07-15] MEDS ORDERED: REMOVE FENTANYL TRDERM ONE (09:00)
[2021-07-15] MEDS ORDERED: Carboxymethylcellulose Sodium 1% Ophth Gel 15 ML Bottle EYEBOTH PRN (09:48)
[2021-07-15] MEDS ORDERED: Diclofenac Sodium 1% Gel 100 GM Tube TOP PRN (09:49)
[2021-07-15] MEDS: Gabapentin 100 MG Cap PO SCH ×3 (10:22→20:52)
[2021-07-15] MEDS: fentaNYL 75 MCG/HR Transdermal Patch TRDERM SCH (10:24)
[2021-07-15] MEDS ORDERED: Magnesium Sulfate/Water 4 GM in Premix Bag 1 BAG IV ONE (10:30)
[2021-07-15] MEDS: Scopolamine 1.5 MG Transdermal Patch TRDERM SCH (10:43)
[2021-07-15] MEDS ORDERED: Potassium Phosphates 30 MMOLE in Sodium Chloride 0.9% 500 ML IV ONE (12:00)
[2021-07-15] MEDS ORDERED: Potassium Chloride 10 MEQ in Premix Bag 1 BAG IV SCH (17:00)
[2021-07-15] MEDS: HYDROmorphone 2 MG Tab PO PRN (17:02)
[2021-07-16] MEDS: Morphine 15 MG Tab.ER PO SCH ×3 (07:03→21:43)
--- NOTE | 2021-07-16 08:13 | PCM.PN ---
- General Info Date of Service: 07/16/21 Admission Dx/Problem (Free Text): Admission Diagnosis/Problem Admission Diagnosis/Problem UTI complicated by metastatic cancer. Subjective Update: The patient is an 80-year-old gentleman who had been admitted primarily for pain control due to his widely metastatic cancer. 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 The patient is currently awaiting hospice care. He is DO NOT INTUBATE DO NOT RESUSCITATE category with comfort measures. The patient says today that his pain is controlled. He slept better last night. He and the family have no other complaints. Functional Status: Reports: Pain Controlled, Tolerating Diet. Denies: New Symptoms - Review of Systems General: Reports: Weakness, Fatigue HEENT: Reports: No Symptoms Pulmonary: Reports: No Symptoms Cardiovascular: Reports: No Symptoms Gastrointestinal: Reports: No Symptoms Genitourinary: Reports: No Symptoms Musculoskeletal: Reports: No Symptoms Skin: Reports: No Symptoms Neurological: Reports: No Symptoms Psychiatric: Reports: No Symptoms - Patient Data Vitals - Most Recent: Last Vital Signs Temp 36.8 C 07/15/21 20:50 Pulse 73 07/15/21 20:50 Resp 13 07/15/21 20:50 BP 100/84 07/15/21 20:50 Pulse Ox 94 L 07/15/21 20:50 Weight - Most Recent: 63.185 kg I&O - Last 24 Hours: Intake & Output 07/15/21 07/16/21 07/16/21 22:59 06:59 14:59 Intake Total 650 0 Output Total 475 Balance 650 -475 Lab Results Last 24 Hours: Laboratory Results - last 24 hr 07/15/21 07/15/21 Range/Units 09:00 09:00 WBC 6.58 (4.23-9.07) K/mm3 RBC 2.66 L (4.63-6.08) M/mm3 Hgb 7.7 L D (13.7-17.5) gm/dl Hct 23.9 L (40.1-51.0) % MCV 89.8 (79.0-92.2) fl MCH 28.9 (25.7-32.2) pg MCHC 32.2 (32.2-35.5) g/dl RDW Std Deviation 56.7 H (35.1-43.9) fL Plt Count 246 D (163-337) K/mm3 MPV 9.8 (9.4-12.3) fl Neut % (Auto) 83.5 H (34.0-67.9) % Lymph % (Auto) 6.8 L (21.8-53.1) % Grant % (Auto) 7.3 (5.3-12.2) % Eos % (Auto) 1.7 (0.8-7.0) Baso % (Auto) 0.2 (0.1-1.2) % Neut # (Auto) 5.50 H (1.78-5.38) K/mm3 Lymph # (Auto) 0.45 L (1.32-3.57) K/mm3 Grant # (Auto) 0.48 (0.30-0.82) K/mm3 Eos # (Auto) 0.11 (0.04-0.54) K/mm3 Baso # (Auto) 0.01 (0.01-0.08) K/mm3 Sodium 133 L (136-145) mEq/L Potassium 2.9 L (3.5-5.1) mEq/L Chloride 105 (98-107) mEq/L Carbon Dioxide 16 L (21-32) mEq/L Anion Gap 14.9 (5-15) BUN 14 (7-18) mg/dL Creatinine 2.2 H (0.7-1.3) mg/dL Est Cr Clr Drug Dosing 23.53 mL/min Estimated GFR (MDRD) 29 (>60) mL/min BUN/Creatinine Ratio 6.4 L (14-18) Glucose 103 H (70-99) mg/dL Calcium 5.6 L* (8.5-10.1) mg/dL Phosphorus 1.6 L (2.6-4.7) mg/dL Magnesium 1.4 L (1.8-2.4) mg/dL Total Bilirubin 0.5 (0.2-1.0) mg/dL AST 26 (15-37) U/L ALT 13 L (16-63) U/L Alkaline Phosphatase 64 (46-116) U/L Total Protein 4.9 L (6.4-8.2) g/dl Albumin 1.8 L (3.4-5.0) g/dl Globulin 3.1 gm/dL Albumin/Globulin Ratio 0.6 L (1-2) Med Orders - Current: Current Medications Artificial Tears (Carboxymethylcellulose Sodium 1% Ophth Gel 15 Ml Bottle) 0 ml EYEBOTH Q1H PRN PRN Reason: Dry Eyes Diclofenac Sodium (Diclofenac Sodium 1% Gel 100 Gm Tube) 0 gm TOP Q6H PRN PRN Reason: Knee/joint pain Fentanyl (Fentanyl 75 Mcg/Hr Transdermal Patch) 75 mcg TRDERM Q72H [facility] Last Admin: 07/15/21 10:24 Dose: 75 mcg Documented by: Gabapentin (Gabapentin 100 Mg Cap) 200 mg PO TID [facility] Last Admin: 07/15/21 20:52 Dose: 200 mg Documented by: Hydromorphone HCl (Hydromorphone 2 Mg Tab) 4 mg PO Q4H PRN PRN Reason: Pain Last Admin: 07/15/21 17:02 Dose: 4 mg Documented by: Ondansetron HCl 8 mg/ Sodium (Chloride) 54 mls @ 100 mls/hr IV Q4H PRN PRN Reason: Nausea/Vomiting Lorazepam (Lorazepam 2 Mg/Ml Sdv) 0.5 mg IVPUSH Q4H PRN PRN Reason: Anxiety Magnesium Hydroxide (Magnesium Hydroxide 400 Mg/5 Ml Susp 30 Ml Cup) 30 ml PO Q12H PRN PRN Reason: Constipation Miscellaneous Information (Remove Fentanyl Patch) 1 ea TRDERM Q72H [facility] Miscellaneous Information (Remove Scopolamine Patch) 1 ea TRDERM Q72H [facility] Morphine Sulfate (Morphine 15 Mg Tab.Er) 15 mg PO Q8HR [facility] Last Admin: 07/16/21 07:03 Dose: 15 mg Documented by: Ondansetron HCl (Ondansetron 4 Mg Tab.Dis) 8 mg PO Q6H PRN PRN Reason: Nausea/Vomiting Last Admin: 07/14/21 15:52 Dose: 8 mg Documented by: Scopolamine (Scopolamine 1.5 Mg Transdermal Patch) 1.5 mg TRDERM Q72H [facility] Last Admin: 07/15/21 10:43 Dose: 1.5 mg Documented by: Temazepam (Temazepam 7.5 Mg Cap) 7.5 mg PO BEDTIME PRN PRN Reason: Sleep Discontinued Medications Acetaminophen (Acetaminophen 325 Mg Tab) 650 mg PO ONETIME ONE Stop: 07/14/21 10:23 Last Admin: 07/14/21 10:41 Dose: 650 mg Documented by: Heparin Sodium (Porcine) (Heparin Sodium 5,000 Units/Ml Vial) 5,000 units SUBCUT Q8HR [facility] Last Admin: 07/15/21 06:28 Dose: 5,000 units Documented by: Hydromorphone HCl (Hydromorphone 0.5 Mg/0.5 Ml Syringe) 0.5 mg IVPUSH ONETIME ONE Stop: 07/14/21 09:06 Last Admin: 07/14/21 09:20 Dose: 0.5 mg Documented by: Hydromorphone HCl (Hydromorphone 2 Mg Tab) 4 mg PO ONETIME ONE Stop: 07/14/21 18:21 Last Admin: 07/14/21 18:21 Dose: 4 mg Documented by: Dextrose/Sodium Chloride (Dextrose 5%-Normal Saline) 1,000 mls @ 125 mls/hr IV ASDIRECTED [facility] Last Infusion: 07/14/21 10:20 Dose: 999 mls/hr Documented by: Dextrose/Sodium Chloride (Dextrose 5%-Normal Saline) 1,000 mls @ 999 mls/hr IV ASDIRECTED [facility] Last Admin: 07/14/21 12:25 Dose: 999 mls/hr Documented by: Ceftriaxone Sodium 2 gm/ (Sodium Chloride) 100 mls @ 200 mls/hr IV ONETIME ONE Stop: 07/14/21 10:52 Last Admin: 07/14/21 10:46 Dose: 200 mls/hr Documented by: Potassium Chloride 10 meq/ (Premix) 100 mls @ 100 mls/hr IV Q1H [facility]OO[facility] Stop: 07/14/21 14:44 Last Admin: 07/14/21 14:52 Dose: 100 mls/hr Documented by: Lactated Ringer's (Ringers, Lactated) 1,000 mls @ 999 mls/hr IV ASDIRECTED [facility] Sodium Chloride (Normal Saline) 1,000 mls @ 100 mls/hr IV ASDIRECTED [facility] Last Admin: 07/15/21 03:49 Dose: 100 mls/hr Documented by: Ceftriaxone Sodium 2 gm/ (Sodium Chloride) 100 mls @ 200 mls/hr IV Q24H [facility] Last Admin: 07/15/21 10:22 Dose: 200 mls/hr Documented by: Potassium Phosphate 30 mmole/ (Sodium Chloride) 510 mls @ 102 mls/hr IV ONETIME ONE Stop: 07/15/21 16:59 Magnesium Sulfate 4 gm/ Premix 50 mls @ 12.5 mls/hr IV ONETIME ONE Stop: 07/15/21 14:29 Last Admin: 07/15/21 12:20 Dose: Not Given Documented by: Potassium Chloride 10 meq/ (Premix) 100 mls @ 100 mls/hr IV Q1H [facility]OO[facility] Stop: 07/15/21 20:59 Levothyroxine Sodium (Levothyroxine 112 Mcg Tab) 112 mcg PO ACBREAKFAST POOJA Last Admin: 07/15/21 10:27 Dose: Not Given Documented by: Metoclopramide HCl (Metoclopramide 10 Mg/2 Ml Sdv) 7.5 mg IVPUSH ONETIME ONE Stop: 07/14/21 09:06 Last Admin: 07/14/21 09:23 Dose: 7.5 mg Documented by: Miscellaneous Information (Remove Patch Fentanyl 25 Mcg Patch) 1 ea TRDERM ONETIME ONE Stop: 07/15/21 09:01 Last Admin: 07/15/21 10:27 Dose: Not Given Documented by: Miscellaneous Information (Remove Patch Fentanyl 12 Mcg Patch) 1 ea TRDERM ONETIME ONE Stop: 07/15/21 09:01 Last Admin: 07/15/21 10:26 Dose: 1 ea Documented by: Ondansetron HCl (Ondansetron 4 Mg/2 Ml Sdv) Confirm Administered Dose 8 mg .ROUTE .STK-MED ONE Stop: 07/14/21 15:45 Last Admin: 07/14/21 16:21 Dose: Not Given Documented by: - Exam Quality Assessment: No: Supplemental Oxygen, DVT Prophylaxis Central Line Total Time: 1Days 18Hours General: Alert, Oriented, Cooperative HEENT: Pupils Equal, Pupils Reactive, EOMI. No: Mucous Membr. Moist/[place] (Dry) Neck: Supple, Trachea Midline Lungs: Clear to Auscultation, Normal Respiratory Effort Cardiovascular: Regular Rate, Regular Rhythm GI/Abdominal Exam: Normal Bowel Sounds, Soft, Non-Tender, No Distention (Male) Exam: Deferred Back Exam: Normal Inspection, Full Range of Motion Extremities: Normal Inspection, No Pedal Edema Skin: Warm, Dry, Intact Neurological: No New Focal Deficit Psy/Mental Status: Alert, Normal Affect, Normal Mood - Patient Data Lab Results Last 24 hrs: Laboratory Results - last 24 hr 07/15/21 07/15/21 Range/Units 09:00 09:00 WBC 6.58 (4.23-9.07) K/mm3 RBC 2.66 L (4.63-6.08) M/mm3 Hgb 7.7 L D (13.7-17.5) gm/dl Hct 23.9 L (40.1-51.0) % MCV 89.8 (79.0-92.2) fl MCH 28.9 (25.7-32.2) pg MCHC 32.2 (32.2-35.5) g/dl RDW Std Deviation 56.7 H (35.1-43.9) fL Plt Count 246 D (163-337) K/mm3 MPV 9.8 (9.4-12.3) fl Neut % (Auto) 83.5 H (34.0-67.9) % Lymph % (Auto) 6.8 L (21.8-53.1) % Grant % (Auto) 7.3 (5.3-12.2) % Eos % (Auto) 1.7 (0.8-7.0) Baso % (Auto) 0.2 (0.1-1.2) % Neut # (Auto) 5.50 H (1.78-5.38) K/mm3 Lymph # (Auto) 0.45 L (1.32-3.57) K/mm3 Grant # (Auto) 0.48 (0.30-0.82) K/mm3 Eos # (Auto) 0.11 (0.04-0.54) K/mm3 Baso # (Auto) 0.01 (0.01-0.08) K/mm3 Sodium 133 L (136-145) mEq/L Potassium 2.9 L (3.5-5.1) mEq/L Chloride 105 (98-107) mEq/L Carbon Dioxide 16 L (21-32) mEq/L Anion Gap 14.9 (5-15) BUN 14 (7-18) mg/dL Creatinine 2.2 H (0.7-1.3) mg/dL Est Cr Clr Drug Dosing 23.53 mL/min Estimated GFR (MDRD) 29 (>60) mL/min BUN/Creatinine Ratio 6.4 L (14-18) Glucose 103 H (70-99) mg/dL Calcium 5.6 L* (8.5-10.1) mg/dL Phosphorus 1.6 L (2.6-4.7) mg/dL Magnesium 1.4 L (1.8-2.4) mg/dL Total Bilirubin 0.5 (0.2-1.0) mg/dL AST 26 (15-37) U/L ALT 13 L (16-63) U/L Alkaline Phosphatase 64 (46-116) U/L Total Protein 4.9 L (6.4-8.2) g/dl Albumin 1.8 L (3.4-5.0) g/dl Globulin 3.1 gm/dL Albumin/Globulin Ratio 0.6 L (1-2) Result Diagrams: 07/15/21 09:00 07/15/21 09:00 Sepsis Event Note - Evaluation Sepsis Screening Result: No Definite Risk - Focused Exam Vital Signs: Vital Signs Temp Pulse Resp BP Pulse Ox 07/15/21 20:50 36.8 C 73 13 100/84 94 L - Problem List & Annotations (1) Vomiting SNOMED Code(s): 013497320 Code(s): R11.10 - VOMITING, UNSPECIFIED Status: Resolved Priority: High Current Visit: Yes Qualifiers: Vomiting type: bilious vomiting Nausea presence: with nausea Qualified Code(s): R11.14 - Bilious vomiting (2) Hypokalemia due to inadequate potassium intake SNOMED Code(s): 05644212 Code(s): E87.6 - HYPOKALEMIA Status: Acute Priority: High Current Vi sit: Yes (3) Bladder cancer metastasized to bone SNOMED Code(s): 97580267, 337667649 Code(s): C67.9 - MALIGNANT NEOPLASM OF BLADDER, UNSPECIFIED; C79.51 - SECONDARY MALIGNANT NEOPLASM OF BONE Status: Chronic Priority: High Current Visit: Yes (4) Hypothyroidism SNOMED Code(s): 32214734 Code(s): E03.9 - HYPOTHYROIDISM, UNSPECIFIED Status: Chronic Priority: Medium Current Visit: Yes Qualifiers: Hypothyroidism type: due to acquired atrophy of thyroid Qualified Code(s): E03.4 - Atrophy of thyroid (acquired) - Problem List Review Problem List Initiated/Reviewed/Updated: Yes - My Orders Last 24 Hours: My Active Orders 07/15/21 11:05 Renew/Continue Urinary Catheter [OM.PC] Routine 07/15/21 12:47 Renew/Continue Central Line Access [OM.PC] Routine 07/15/21 17:08 Renew/Continue Central Line Access [OM.PC] Routine - Assessment Assessment:: 07/14/2021 The patient is a 80-year-old gentleman who has rather significant pain that has been interfering with his ability to eat and drink fluids. The patient will be admitted as an inpatient predominantly for pain management. The patient does have 2 different fentanyl patches on at this time and have asked for the nurse staff to update his medication list. I placed the patient on MS Contin 15 mg p.o. every 8 hours. This is in addition to his home dose of fentanyl and Dilaudid. The patient says that he is not nauseated now and Zofran has been ordered to assist with his nausea and vomiting. The patient also has chronic kidney disease and his creatinine is at 2.5 currently. Medications will need to be renally dosed. The patient's urinalysis obtained through the emergency department is suspicious but not confirmatory for UTI as he does have a urostomy. I will place the patient on ceftriaxone and this will be discontinued if cultures are negative. He also had his potassium replaced in the emergency department and was felt that this was due to GI loss. We will continue to monitor this and replace his electrolytes as needed. The patient will also be anticoagulated with the use of heparin 5000 units subcutaneous every 8 hours. Because of the patient's widely metastatic cancer and his pain I had a long discussion with the patient and the patient's family regarding pain control and possible hospice care. I have ordered a hospice consult. Overall the patient's prognosis is poor. 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 Patient has been DNR/DNI. Today after significant discussion patient and family decided on comfort measures. Patient has multiple electrolyte abnormalities including hyponatremia, hypokalemia, h ypophosphatemia, and hypomagnesemia. Family and patient do not want the supplemented. At this time patient would like to be made comfortable with pain medications and would like hospice consulted. Spiritual care consult has been ordered. We will discontinue IV fluids at the completion of this current bag at the request of the patient. We will also stop antibiotic treatment for his presumptive UTI. We will discontinue further lab draws and PT OT. Labs today show WBC of 6.58. Hemoglobin is 7.7. Platelet 246,000. Neutrophils are elevated at 83.5%. Sodium is 133. Potassium 2.9. Chloride 105. Carbon dioxide is 16. Anion gap is 14.9. BUN is 14. Creatinine 2.2. GFR is 29. Glucose is 103. Calcium is 5.6 however corrected this is 7.4. Phosphorus 1.6. Magnesium 1.4. Total bilirubin 0.5. AST is 26, ALT 13, alkaline phosphatase 64. Protein is 4.9. Albumin is 1.8. Family wants home medications discontinue with the exception of pain medications. Telemetry will be discontinued. Per hospice the earliest they can admit the patient is this coming Sunday. Family would like patient to remain hospitalized until hospice can be arranged at discharge. Patient will remain hospitalized until then. Scopolamine patch was ordered and patient's fentanyl patch was increased to 75 mcg. Plan will be to decrease some of patient's p.o. medications as his fentanyl patch begins to take effect. We will continue on regular diet. Likely discharge Sunday. - Plan Plan:: Encounter for home hospice care Severe pain End of life care Cachexia Metastatic cancer to bone Bladder cancer metastasized to bone Weakness History of ureterostomy History of nephrectomy, unilateral * Increase fentanyl patch to 75 mcg * P.o. pain medications as ordered * Scopolamine patch for nausea * Discontinue telemetry, lab draws, IV fluids, antibiotics, PT/OT, Heparin. * Vital signs every shift * Regular diet * Bedrest * Hospice consult * Spiritual care consult * As needed Ativan for anxiety * Patient states he does not want oxygen under any circumstance Inactive: Hypophosphatemia Chronic renal insufficiency, stage IV (severe) Fever, resolved Hypokalemia due to inadequate potassium intake Hypothyroidism (acquired) Lactic acidosis Urinary tract infection Anemia Hyponatremia Hypomagnesemia * Patient and family do not want electrolytes supplemented * Comfort cares initiated as above Code status: DNR/DNI/Comfort cares PCP: Gareth Gregory PA-C DVT prophylaxis: None indicated for comfort care. Disposition: Patient will remain hospitalized until he can be accepted into hospice, which we are told is 07/18/2021. Life expectancy less than 6 months. 07/16/2021 The patient is an 80-year-old gentleman who is much more comfortable today. Primary goals for this patient are pain control with the use of whenever required narcotics. He is currently awaiting hospice care and likely will have hospice at home. He is in a DO NOT RESUSCITATE/DO NOT INTUBATE category with comfort measures and no further testing will be done. Overall prognosis is poor.
[2021-07-16] MEDS: Gabapentin 100 MG Cap PO SCH ×4 (10:36→21:43)
[2021-07-16] MEDS: HYDROmorphone 2 MG Tab PO PRN ×2 (11:40→23:12)
[2021-07-17] MEDS: Morphine 15 MG Tab.ER PO SCH ×2 (06:45→13:28)
--- NOTE | 2021-07-17 07:29 | PCM.PN ---
- General Info Date of Service: 07/17/21 Admission Dx/Problem (Free Text): Admission Diagnosis/Problem Admission Diagnosis/Problem UTI complicated by metastatic cancer. Subjective Update: The patient is an 80-year-old gentleman who had been admitted primarily for pain control due to his widely metastatic cancer. The patient is somewhat disoriented and apparently had been agitated and mumbling during the night. The patient is currently awaiting hospice care. He is DO NOT INTUBATE DO NOT RESUSCITATE category with comfort measures. Functional Status: Reports: Pain Controlled, New Symptoms (Disorientation). Denies: Tolerating Diet - Review of Systems General: Reports: No Symptoms Systems Review Comment:: Not obtainable due to the patient's alteration in his mental status. - Patient Data Vitals - Most Recent: Last Vital Signs Temp 37.1 C 07/16/21 21:41 Pulse 80 07/16/21 21:41 Resp 15 07/16/21 21:41 BP 102/55 L 07/16/21 21:41 Pulse Ox 97 07/16/21 21:41 Weight - Most Recent: 63.185 kg I&O - Last 24 Hours: Intake & Output 07/16/21 07/17/21 07/17/21 22:59 06:59 14:59 Intake Total 150 50 Output Total 300 525 Balance -150 -475 Saman Results Last 24 Hours: Microbiology 07/14/21 09:47 Blood Culture - Preliminary Blood - Venous - Lab Draw 07/14/21 09:42 Blood Culture - Preliminary Blood - Venous Med Orders - Current: Current Medications Artificial Tears (Carboxymethylcellulose Sodium 1% Ophth Gel 15 Ml Bottle) 0 ml EYEBOTH Q1H PRN PRN Reason: Dry Eyes Diclofenac Sodium (Diclofenac Sodium 1% Gel 100 Gm Tube) 0 gm TOP Q6H PRN PRN Reason: Knee/joint pain Fentanyl (Fentanyl 75 Mcg/Hr Transdermal Patch) 75 mcg TRDERM Q72H [facility] Last Admin: 07/15/21 10:24 Dose: 75 mcg Documented by: Gabapentin (Gabapentin 100 Mg Cap) 200 mg PO TID [facility] Last Admin: 07/16/21 21:43 Dose: 200 mg Documented by: Hydromorphone HCl (Hydromorphone 2 Mg Tab) 4 mg PO Q4H PRN PRN Reason: Pain Last Admin: 07/16/21 23:12 Dose: 4 mg Documented by: Ondansetron HCl 8 mg/ Sodium (Chloride) 54 mls @ 100 mls/hr IV Q4H PRN PRN Reason: Nausea/Vomiting Lorazepam (Lorazepam 2 Mg/Ml Sdv) 0.5 mg IVPUSH Q4H PRN PRN Reason: Anxiety Magnesium Hydroxide (Magnesium Hydroxide 400 Mg/5 Ml Susp 30 Ml Cup) 30 ml PO Q12H PRN PRN Reason: Constipation Miscellaneous Information (Remove Fentanyl Patch) 1 ea TRDERM Q72H [facility] Miscellaneous Information (Remove Scopolamine Patch) 1 ea TRDERM Q72H [facility] Morphine Sulfate (Morphine 15 Mg Tab.Er) 15 mg PO Q8HR [facility] Last Admin: 07/17/21 06:45 Dose: 15 mg Documented by: Ondansetron HCl (Ondansetron 4 Mg Tab.Dis) 8 mg PO Q6H PRN PRN Reason: Nausea/Vomiting Last Admin: 07/14/21 15:52 Dose: 8 mg Documented by: Scopolamine (Scopolamine 1.5 Mg Transdermal Patch) 1.5 mg TRDERM Q72H [facility] Last Admin: 07/15/21 10:43 Dose: 1.5 mg Documented by: Temazepam (Temazepam 7.5 Mg Cap) 7.5 mg PO BEDTIME PRN PRN Reason: Sleep Discontinued Medications Acetaminophen (Acetaminophen 325 Mg Tab) 650 mg PO ONETIME ONE Stop: 07/14/21 10:23 Last Admin: 07/14/21 10:41 Dose: 650 mg Documented by: Heparin Sodium (Porcine) (Heparin Sodium 5,000 Units/Ml Vial) 5,000 units SUBCUT Q8HR [facility] Last Admin: 07/15/21 06:28 Dose: 5,000 units Documented by: Hydromorphone HCl (Hydromorphone 0.5 Mg/0.5 Ml Syringe) 0.5 mg IVPUSH ONETIME ONE Stop: 07/14/21 09:06 Last Admin: 07/14/21 09:20 Dose: 0.5 mg Documented by: Hydromorphone HCl (Hydromorphone 2 Mg Tab) 4 mg PO ONETIME ONE Stop: 07/14/21 18:21 Last Admin: 07/14/21 18:21 Dose: 4 mg Documented by: Dextrose/Sodium Chloride (Dextrose 5%-Normal Saline) 1,000 mls @ 125 mls/hr IV ASDIRECTED POOJA Last Infusion: 07/14/21 10:20 Dose: 999 mls/hr Documented by: Dextrose/Sodium Chloride (Dextrose 5%-Normal Saline) 1,000 mls @ 999 mls/hr IV ASDIRECTED POOJA Last Admin: 07/14/21 12:25 Dose: 999 mls/hr Documented by: Ceftriaxone Sodium 2 gm/ (Sodium Chloride) 100 mls @ 200 mls/hr IV ONETIME ONE Stop: 07/14/21 10:52 Last Admin: 07/14/21 10:46 Dose: 200 mls/hr Documented by: Potassium Chloride 10 meq/ (Premix) 100 mls @ 100 mls/hr IV Q1H [facility]OO[facility] Stop: 07/14/21 14:44 Last Admin: 07/14/21 14:52 Dose: 100 mls/hr Documented by: Lactated Ringer's (Ringers, Lactated) 1,000 mls @ 999 mls/hr IV ASDIRECTED POOJA Sodium Chloride (Normal Saline) 1,000 mls @ 100 mls/hr IV ASDIRECTED POOJA Last Admin: 07/15/21 03:49 Dose: 100 mls/hr Documented by: Ceftriaxone Sodium 2 gm/ (Sodium Chloride) 100 mls @ 200 mls/hr IV Q24H [facility] Last Admin: 07/15/21 10:22 Dose: 200 mls/hr Documented by: Potassium Phosphate 30 mmole/ (Sodium Chloride) 510 mls @ 102 mls/hr IV ONETIME ONE Stop: 07/15/21 16:59 Magnesium Sulfate 4 gm/ Premix 50 mls @ 12.5 mls/hr IV ONETIME ONE Stop: 07/15/21 14:29 Last Admin: 07/15/21 12:20 Dose: Not Given Documented by: Potassium Chloride 10 meq/ (Premix) 100 mls @ 100 mls/hr IV Q1H [facility]OO[facility] Stop: 07/15/21 20:59 Levothyroxine Sodium (Levothyroxine 112 Mcg Tab) 112 mcg PO ACBREAKFAST POOJA Last Admin: 07/15/21 10:27 Dose: Not Given Documented by: Metoclopramide HCl (Metoclopramide 10 Mg/2 Ml Sdv) 7.5 mg IVPUSH ONETIME ONE Stop: 07/14/21 09:06 Last Admin: 07/14/21 09:23 Dose: 7.5 mg Documented by: Miscellaneous Information (Remove Patch Fentanyl 25 Mcg Patch) 1 ea TRDERM ONETIME ONE Stop: 07/15/21 09:01 Last Admin: 07/15/21 10:27 Dose: Not Given Documented by: Miscellaneous Information (Remove Patch Fentanyl 12 Mcg Patch) 1 ea TRDERM ONETIME ONE Stop: 07/15/21 09:01 Last Admin: 07/15/21 10:26 Dose: 1 ea Documented by: Ondansetron HCl (Ondansetron 4 Mg/2 Ml Sdv) Confirm Administered Dose 8 mg .ROUTE .STK-MED ONE Stop: 07/14/21 15:45 Last Admin: 07/14/21 16:21 Dose: Not Given Documented by: - Exam Quality Assessment: Supplemental Oxygen, Urine Catheter (The patient has an ileal conduit), DVT Prophylaxis Central Line Total Time: 2Days 20Hours General: Mild Distress, Other (Cancer related cachexia). No: Alert, Oriented HEENT: Pupils Equal, Pupils Reactive. No: Mucous Membr. Moist/C[place] (Dry) Neck: Supple, Trachea Midline Lungs: Clear to Auscultation, Normal Respiratory Effort Cardiovascular: Regular Rate, Regular Rhythm GI/Abdominal Exam: Normal Bowel Sounds, Soft, Non-Tender, No Distention (Male) Exam: Deferred Back Exam: No: Normal Inspection (Appropriate for age), Full Range of Motion (Appropriate for age) Extremities: Normal Inspection, No Pedal Edema Skin: Warm, Dry, Intact Neurological: No New Focal Deficit. No: Normal Speech Psy/Mental Status: No: Alert, Normal Affect - Patient Data Result Diagrams: 07/15/21 09:00 07/15/21 09:00 Saman Results Last 24 hrs: Microbiology 07/14/21 09:47 Blood Culture - Preliminary Blood - Venous - Lab Draw 07/14/21 09:42 Blood Culture - Preliminary Blood - Venous Sepsis Event Note - Evaluation Sepsis Screening Result: No Definite Risk - Focused Exam Vital Signs: Vital Signs Temp Pulse Resp BP Pulse Ox 07/16/21 21:41 37.1 C 80 15 102/55 L 97 - Problem List & Annotations (1) Vomiting SNOMED Code(s): 118231592 Code(s): R11.10 - VOMITING, UNSPECIFIED Status: Resolved Priority: High Current Visit: Yes Qualifiers: Vomiting type: bilious vomiting Nausea presence: with nausea Qualified Code(s): R11.14 - Bilious vomiting (2) Hypokalemia due to inadequate potassium intake SNOMED Code(s): 57964167 Code(s): E87.6 - HYPOKALEMIA Status: Acute Priority: High Current Visi t: Yes (3) Bladder cancer metastasized to bone SNOMED Code(s): 50140519, 378264575 Code(s): C67.9 - MALIGNANT NEOPLASM OF BLADDER, UNSPECIFIED; C79.51 - SECONDARY MALIGNANT NEOPLASM OF BONE Status: Chronic Priority: High Current Visit: Yes (4) Hypothyroidism SNOMED Code(s): 41403288 Code(s): E03.9 - HYPOTHYROIDISM, UNSPECIFIED Status: Chronic Priority: Medium Current Visit: Yes Qualifiers: Hypothyroidism type: due to acquired atrophy of thyroid Qualified Code(s): E03.4 - Atrophy of thyroid (acquired) - Problem List Review Problem List Initiated/Reviewed/Updated: Yes - My Orders Last 24 Hours: My Active Orders 07/16/21 11:35 Renew/Continue Central Line Access [OM.PC] Routine 07/16/21 11:37 Renew/Continue Urinary Catheter [OM.PC] Routine - Assessment Assessment:: 07/14/2021 The patient is a 80-year-old gentleman who has rather significant pain that has been interfering with his ability to eat and drink fluids. The patient will be admitted as an inpatient predominantly for pain management. The patient does have 2 different fentanyl patches on at this time and have asked for the nurse staff to update his medication list. I placed the patient on MS Contin 15 mg p.o. every 8 hours. This is in addition to his home dose of fentanyl and Dilaudid. The patient says that he is not nauseated now and Zofran has been ordered to assist with his nausea and vomiting. The patient also has chronic kidney disease and his creatinine is at 2.5 currently. Medications will need to be renally dosed. The patient's urinalysis obtained through the emergency department is suspicious but not confirmatory for UTI as he does have a urostomy. I will place the patient on ceftriaxone and this will be discontinued if cultures are negative. He also had his potassium replaced in the emergency department and was felt that this was due to GI loss. We will continue to monitor this and replace his electrolytes as needed. The patient will also be anticoagulated with the use of heparin 5000 units subcutaneous every 8 hours. Because of the patient's widely metastatic cancer and his pain I had a long discussion with the patient and the patient's family regarding pain control and possible hospice care. I have ordered a hospice consult. Overall the patient's prognosis is poor. 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 Patient has been DNR/DNI. Today after significant discussion patient and family decided on comfort measures. Patient has multiple electrolyte abnormalities including hyponatremia, hypokalemia, hypophosphatemia, and hypomagnesemia. Family and patient do not want the supplemented. At this time patient would like to be made comfortable with pain medications and would like hospice consulted. Spiritual care consult has been ordered. We will discontinue IV fluids at the completion of this current bag at the request of the patient. We will also stop antibiotic treatment for his presumptive UTI. We will discontinue further lab draws and PT OT. Labs today show WBC of 6.58. Hemoglobin is 7.7. Platelet 246,000. Neutrophils are elevated at 83.5%. Sodium is 133. Potassium 2.9. Chloride 105. Carbon dioxide is 16. Anion gap is 14.9. BUN is 14. Creatinine 2.2. GFR is 29. Glucose is 103. Calcium is 5.6 however corrected this is 7.4. Phosphorus 1.6. Magnesium 1.4. Total bilirubin 0.5. AST is 26, ALT 13, alkaline phosphatase 64. Protein is 4.9. Albumin is 1.8. Family wants home medications discontinue with the exception of pain medications. Telemetry will be discontinued. Per hospice the earliest they can admit the patient is this coming Sunday. Family would like patient to remain hospitalized until hospice can be arranged at discharge. Patient will remain hospitalized until then. Scopolamine patch was ordered and patient's fentanyl patch was increased to 75 mcg. Plan will be to decrease some of patient's p.o. medications as his fentanyl patch begins to take effect. We will continue on regular diet. Likely discharge Sunday. - Plan Plan:: Encounter for home hospice care Severe pain End of life care Cachexia Metastatic cancer to bone Bladder cancer metastasized to bone Weakness History of ureterostomy History of nephrectomy, unilateral * Increase fentanyl patch to 75 mcg * P.o. pain medications as ordered * Scopolamine patch for nausea * Discontinue telemetry, lab draws, IV fluids, antibiotics, PT/OT, Heparin. * Vital signs every shift * Regular diet * Bedrest * Hospice consult * Spiritual care consult * As needed Ativan for anxiety * Patient states he does not want oxygen under any circumstance Inactive: Hypophosphatemia Chronic renal insufficiency, stage IV (severe) Fever, resolved Hypokalemia due to inadequate potassium intake Hypothyroidism (acquired) Lactic acidosis Urinary tract infection Anemia Hyponatremia Hypomagnesemia * Patient and family do not want electrolytes supplemented * Comfort cares initiated as above Code status: DNR/DNI/Comfort cares PCP: Gareth Gregory PA-C DVT prophylaxis: None indicated for comfort care. Disposition: Patient will remain hospitalized until he can be accepted into hosp ice, which we are told is 07/18/2021. Life expectancy less than 6 months. 07/16/2021 The patient is an 80-year-old gentleman who is much more comfortable today. Primary goals for this patient are pain control with the use of whenever required narcotics. He is currently awaiting hospice care and likely will have hospice at home. He is in a DO NOT RESUSCITATE/DO NOT INTUBATE category with comfort measures and no further testing will be done. Overall prognosis is po or. 07/17/2021 The patient is an 80-year-old gentleman who has had some alteration in his mental status. This may be a combination of cancer or medication. Regardless, this portends a poor prognosis. I have discussed with the family the patient's current prognosis. He is currently on comfort measures and his medication has been adjusted to help with his agitation. No further testing has been ordered. He is currently awaiting hospice at home.
[2021-07-17] MEDS: LORazepam 2 MG/ML SDV IVPUSH PRN (09:31)
[2021-07-17] MEDS: Gabapentin 100 MG Cap PO SCH ×3 (09:33→21:44)
[2021-07-17] MEDS: HYDROmorphone 2 MG Tab PO PRN ×2 (09:34→15:37)
[2021-07-17] MEDS: Morphine 10 MG/0.5 ML Oral Syringe PO SCH ×2 (18:44→21:43)
[2021-07-18] MEDS: Morphine 10 MG/0.5 ML Oral Syringe PO SCH ×6 (01:01→21:17)
[2021-07-18] MEDS: LORazepam 2 MG/ML SDV IVPUSH PRN ×3 (07:05→22:46)
--- NOTE | 2021-07-18 07:56 | PCM.PN ---
- General Info Date of Service: 07/18/21 Admission Dx/Problem (Free Text): Admission Diagnosis/Problem Admission Diagnosis/Problem UTI complicated by metastatic cancer. Subjective Update: The patient is an 80-year-old gentleman who had been admitted primarily for pain control due to his widely metastatic cancer. The patient is somewhat disoriented. The patient had a rough night with anger issues directed towards the family. The patient is still awaiting hospice care. He is DO NOT INTUBATE DO NOT RESUSCITATE category with comfort measures. - Review of Systems Systems Review Comment:: Patient is sedated and not able to respond for review of systems. - Patient Data Vitals - Most Recent: Last Vital Signs Temp 36.2 C 07/17/21 07:55 Pulse 73 07/17/21 07:55 Resp 20 07/17/21 07:55 BP 89/50 L 07/17/21 07:55 Pulse Ox 94 L 07/17/21 07:55 Weight - Most Recent: 63.185 kg I&O - Last 24 Hours: Intake & Output 07/17/21 07/18/21 07/18/21 22:59 06:59 14:59 Intake Total 200 0 Output Total 550 200 Balance -350 -200 Med Orders - Current: Current Medications Artificial Tears (Carboxymethylcellulose Sodium 1% Ophth Gel 15 Ml Bottle) 0 ml EYEBOTH Q1H PRN PRN Reason: Dry Eyes Diclofenac Sodium (Diclofenac Sodium 1% Gel 100 Gm Tube) 0 gm TOP Q6H PRN PRN Reason: Knee/joint pain Fentanyl (Fentanyl 75 Mcg/Hr Transdermal Patch) 75 mcg TRDERM Q72H [facility] Last Admin: 07/15/21 10:24 Dose: 75 mcg Documented by: Gabapentin (Gabapentin 100 Mg Cap) 200 mg PO TID [facility] Last Admin: 07/17/21 21:44 Dose: Not Given Documented by: Hydromorphone HCl (Hydromorphone 2 Mg Tab) 4 mg PO Q4H PRN PRN Reason: Pain Last Admin: 07/17/21 15:37 Dose: 4 mg Documented by: Ondansetron HCl 8 mg/ Sodium (Chloride) 54 mls @ 100 mls/hr IV Q4H PRN PRN Reason: Nausea/Vomiting Lorazepam (Lorazepam 2 Mg/Ml Sdv) 0.5 mg IVPUSH Q4H PRN PRN Reason: Anxiety Last Admin: 07/18/21 07:05 Dose: 0.5 mg Documented by: Magnesium Hydroxide (Magnesium Hydroxide 400 Mg/5 Ml Susp 30 Ml Cup) 30 ml PO Q12H PRN PRN Reason: Constipation Miscellaneous Information (Remove Fentanyl Patch) 1 ea TRDERM Q72H [facility] Miscellaneous Information (Remove Scopolamine Patch) 1 ea TRDERM Q72H [facility] Morphine Sulfate (Morphine 10 Mg/0.5 Ml Oral Syringe) 20 mg PO Q4H [facility] Last Admin: 07/18/21 05:54 Dose: 20 mg Documented by: Ondansetron HCl (Ondansetron 4 Mg Tab.Dis) 8 mg PO Q6H PRN PRN Reason: Nausea/Vomiting Last Admin: 07/14/21 15:52 Dose: 8 mg Documented by: Scopolamine (Scopolamine 1.5 Mg Transdermal Patch) 1.5 mg TRDERM Q72H [facility] Last Admin: 07/15/21 10:43 Dose: 1.5 mg Documented by: Temazepam (Temazepam 7.5 Mg Cap) 7.5 mg PO BEDTIME PRN PRN Reason: Sleep Discontinued Medications Acetaminophen (Acetaminophen 325 Mg Tab) 650 mg PO ONETIME ONE Stop: 07/14/21 10:23 Last Admin: 07/14/21 10:41 Dose: 650 mg Documented by: Heparin Sodium (Porcine) (Heparin Sodium 5,000 Units/Ml Vial) 5,000 units SUBCUT Q8HR [facility] Last Admin: 07/15/21 06:28 Dose: 5,000 units Documented by: Hydromorphone HCl (Hydromorphone 0.5 Mg/0.5 Ml Syringe) 0.5 mg IVPUSH ONETIME ONE Stop: 07/14/21 09:06 Last Admin: 07/14/21 09:20 Dose: 0.5 mg Documented by: Hydromorphone HCl (Hydromorphone 2 Mg Tab) 4 mg PO ONETIME ONE Stop: 07/14/21 18:21 Last Admin: 07/14/21 18:21 Dose: 4 mg Documented by: Dextrose/Sodium Chloride (Dextrose 5%-Normal Saline) 1,000 mls @ 125 mls/hr IV ASDIRECTED [facility] Last Infusion: 07/14/21 10:20 Dose: 999 mls/hr Documented by: Dextrose/Sodium Chloride (Dextrose 5%-Normal Saline) 1,000 mls @ 999 mls/hr IV ASDIRECTED [facility] Last Admin: 07/14/21 12:25 Dose: 999 mls/hr Documented by: Ceftriaxone Sodium 2 gm/ (Sodium Chloride) 100 mls @ 200 mls/hr IV ONETIME ONE Stop: 07/14/21 10:52 Last Admin: 07/14/21 10:46 Dose: 200 mls/hr Documented by: Potassium Chloride 10 meq/ (Premix) 100 mls @ 100 mls/hr IV Q1H [facility] Stop: 07/14/21 14:44 Last Admin: 07/14/21 14:52 Dose: 100 mls/hr Documented by: Lactated Ringer's (Ringers, Lactated) 1,000 mls @ 999 mls/hr IV ASDIRECTED [facility] Sodium Chloride (Normal Saline) 1,000 mls @ 100 mls/hr IV ASDIRECTED [facility] Last Admin: 07/15/21 03:49 Dose: 100 mls/hr Documented by: Ceftriaxone Sodium 2 gm/ (Sodium Chloride) 100 mls @ 200 mls/hr IV Q24H [facility] Last Admin: 07/15/21 10:22 Dose: 200 mls/hr Documented by: Potassium Phosphate 30 mmole/ (Sodium Chloride) 510 mls @ 102 mls/hr IV ONETIME ONE Stop: 07/15/21 16:59 Magnesium Sulfate 4 gm/ Premix 50 mls @ 12.5 mls/hr IV ONETIME ONE Stop: 07/15/21 14:29 Last Admin: 07/15/21 12:20 Dose: Not Given Documented by: Potassium Chloride 10 meq/ (Premix) 100 mls @ 100 mls/hr IV Q1H [facility] Stop: 07/15/21 20:59 Levothyroxine Sodium (Levothyroxine 112 Mcg Tab) 112 mcg PO ACBREAKFAST [facility] Last Admin: 07/15/21 10:27 Dose: Not Given Documented by: Metoclopramide HCl (Metoclopramide 10 Mg/2 Ml Sdv) 7.5 mg IVPUSH ONETIME ONE Stop: 07/14/21 09:06 Last Admin: 07/14/21 09:23 Dose: 7.5 mg Documented by: Miscellaneous Information (Remove Patch Fentanyl 25 Mcg Patch) 1 ea TRDERM ONETIME ONE Stop: 07/15/21 09:01 Last Admin: 07/15/21 10:27 Dose: Not Given Documented by: Miscellaneous Information (Remove Patch Fentanyl 12 Mcg Patch) 1 ea LUIS ONETIME ONE Stop: 07/15/21 09:01 Last Admin: 07/15/21 10:26 Dose: 1 ea Documented by: Morphine Sulfate (Morphine 15 Mg Tab.Er) 15 mg PO Q8HR [facility] Last Admin: 07/17/21 13:28 Dose: 15 mg Documented by: Ondansetron HCl (Ondansetron 4 Mg/2 Ml Sdv) Confirm Administered Dose 8 mg .ROUT E .STK-MED ONE Stop: 07/14/21 15:45 Last Admin: 07/14/21 16:21 Dose: Not Given Documented by: - Exam Quality Assessment: Urine Catheter (Ileal conduit). No: Supplemental Oxygen, DVT Prophylaxis Central Line Total Time: 3Days 19Hours General: Sedated. No: Alert HEENT: Pupils Equal, Pupils Reactive. No: Mucous Membr. Moist/[place] (Dry) Neck: Supple, Trachea Midline Lungs: Normal Respiratory Effort, Crackles Cardiovascular: Regular Rate, Regular Rhythm GI/Abdominal Exam: Soft, Non-Tender, No Distention. No: Normal Bowel Sounds (Hypoactive) (Male) Exam: Deferred Back Exam: No: Normal Inspection (Bedridden) Extremities: No: Normal Inspection Skin: Warm, Dry, Intact Neurological: No: No New Focal Deficit Psy/Mental Status: No: Alert (Sedated) - Patient Data Result Diagrams: 07/15/21 09:00 07/15/21 09:00 Sepsis Event Note - Evaluation Sepsis Screening Result: No Definite Risk - Problem List & Annotations (1) Vomiting SNOMED Code(s): 021718619 Code(s): R11.10 - VOMITING, UNSPECIFIED Status: Resolved Priority: High Current Visit: Yes Qualifiers: Vomiting type: bilious vomiting Nausea presence: with nausea Qualified Code(s): R11.14 - Bilious vomiting (2) Hypokalemia due to inadequate potassium intake SNOMED Code(s): 76923749 Code(s): E87.6 - HYPOKALEMIA Status: Acute Priority: High Current Visit: Yes (3) Bladder cancer metastasized to bone SNOMED Code(s): 23218250, 976860857 Code(s): C67.9 - MALIGNANT NEOPLASM OF BLADDER, UNSPECIFIED; C79.51 - SECONDARY MALIGNANT NEOPLASM OF BONE Status: Chronic Priority: High Current Visit: Yes (4) Hypothyroidism SNOMED Code(s): 43766579 Code(s): E03.9 - HYPOTHYROIDISM, UNSPECIFIED Status: Chronic Priority: Medium Current Visit: Yes Qualifiers: Hypothyroidism 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 The patient will be admitted as an inpatient predominantly for pain management. The patient does have 2 different fentanyl patches on at this time and have asked for the nurse staff to update his medication list. I placed the patient on MS Contin 15 mg p.o. every 8 hours. This is in addition to his home dose of fentanyl and Dilaudid. The patient says that he is not nauseated now and Zofran has been ordered to assist with his nausea and vomiting. The patient also has chronic k idney disease and his creatinine is at 2.5 currently. Medications will need to be renally dosed. The patient's urinalysis obtained through the emergency department is suspicious but not confirmatory for UTI as he does have a urostomy. I will place the patient on ceftriaxone and this will be discontinued if cultures are negative. He also had his potassium replaced in the emergency department and was felt that this was due to GI loss. We will continue to monitor this and replace his electrolytes as needed. The patient will also be anticoagulated with the use of heparin 5000 units subcutaneous every 8 hours. Because of the patient's widely metastatic cancer and his pain I had a long disc ussion with the patient and the patient's family regarding pain control and possible hospice care. I have ordered a hospice consult. Overall the patient's prognosis is poor. 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 Patient has been DNR/DNI. Today after significant discussion patient and family decided on comfort measures. Patient has multiple electrolyte abnormalities including hyponatremia, hypokalemia, hypophosphatemia, and hypomagnesemia. Family and patient do not want the supplemented. At this time patient would like to be made comfortable with pain medications and would like hospice consulted. Spiritual care consult has been ordered. We will discontinue IV fluids at the completion of this current bag at the request of the patient. We will also stop antibiotic treatment for his presumptive UTI. We will discontinue further lab draws and PT OT. Labs today show WBC of 6.58. Hemoglobin is 7.7. Platelet 246,000. Neutrophils are elevated at 83.5%. Sodium is 133. Potassium 2.9. Chloride 105. Carbon dioxide is 16. Anion gap is 14.9. BUN is 14. Creatinine 2.2. GFR is 29. Glucose is 103. Calcium is 5.6 however corrected this is 7.4. Phosphorus 1.6. Magnesium 1.4. Total bilirubin 0.5. AST is 26, ALT 13, alkaline phosphatase 64. Protein is 4.9. Albumin is 1.8. Family wants home medications discontinue with the exception of pain medications. Telemetry will be discontinued. Per hospice the earliest they can admit the patient is this coming Sunday. Family would like patient to remain hospitalized until hospice can be arranged at discharge. Patient will remain hospitalized until then. Scopolamine patch was ordered and patient's fentanyl patch was increased to 75 mcg. Plan will be to decrease some of patient's p.o. medications as his fentanyl patch begins to take effect. We will continue on regular diet. Likely discharge Sunday. - Plan Plan:: Encounter for home hospice care Severe pain End of life care Cachexia Metastatic cancer to bone Bladder cancer metastasized to bone Weakness History of ureterostomy History of nephrectomy, unilateral * Increase fentanyl patch to 75 mcg * P.o. pain medications as ordered * Scopolamine patch for nausea * Discontinue telemetry, lab draws, IV fluids, antibiotics, PT/OT, Heparin. * Vital signs every shift * Regular diet * Bedrest * Hospice consult * Spiritual care consult * As needed Ativan for anxiety * Patient states he does not want oxygen under any circumstance Inactive: Hypophosphatemia Chronic renal insufficiency, stage IV (severe) Fever, resolved Hypokalemia due to inadequate potassium intake Hypothyroidism (acquired) Lactic acidosis Urinary tract infection Anemia Hyponatremia Hypomagnesemia * Patient and family do not want electrolytes supplemented * Comfort cares initiated as above Code status: DNR/DNI/Comfort cares PCP: Gareth Gregory PA-C DVT prophylaxis: None indicated for comfort care. Disposition: Patient will remain hospitalized until he can be accepted into hospice, which we are told is 07/18/2021. Life expectancy less than 6 months. 07/16/2021 The patient is an 80-year-old gentleman who is much more comfortable today. Primary goals for this patient are pain control with the use of whenever required narcotics. He is currently awaiting hospice care and likely will have hospice at home. He is in a DO NOT RESUSCITATE/DO NOT INTUBATE category with comfort measures and no further testing will be done. Overall prognosis is poor. 07/17/2021 The patient is an 80-year-old gentleman who has had some alteration in his mental status. This may be a combination of cancer or medication. Regardless, this portends a poor prognosis. I have discussed with the family the patient's current prognosis. He is currently on comfort measures and his medication has been adjusted to help with his agitation. No further testing has been ordered. He is currently awaiting hospice at home. 07/18/2021 The patient is an 80-year-old gentleman who is sedated today and is currently awaiting hospice. The family does mention that they will not be able to care for him at home. He is currently awaiting placement for continuation of hospice care and comfort measures. We will continue with pain medications or benzodiazepines for agitation as needed. He also has a scopolamine patch for oral secretions. Poor prognosis.
[2021-07-18] MEDS: fentaNYL 75 MCG/HR Transdermal Patch TRDERM SCH (08:11)
[2021-07-18] MEDS: Gabapentin 100 MG Cap PO SCH ×3 (08:12→21:34)
[2021-07-18] MEDS: Scopolamine 1.5 MG Transdermal Patch TRDERM SCH (10:33)
[2021-07-19] MEDS: Morphine 10 MG/0.5 ML Oral Syringe PO SCH ×7 (00:01→23:43)
[2021-07-19] MEDS: LORazepam 2 MG/ML SDV IVPUSH PRN (05:46)
--- NOTE | 2021-07-19 07:04 | PCM.PN ---
- General Info Date of Service: 07/19/21 Admission Dx/Problem (Free Text): Admission Diagnosis/Problem Admission Diagnosis/Problem UTI complicated by metastatic cancer. Subjective Update: The patient is an 80-year-old gentleman who had been admitted primarily for pain control due to his widely metastatic cancer. The patient is somewhat obtunded. Awaiting placement. The patient is still awaiting hospice care. Pain controlled. He is DO NOT INTUBATE DO NOT RESUSCITATE category with comfort measures. Functional Status: Reports: Pain Controlled, Tolerating Diet - Review of Systems Systems Review Comment:: The patient is not able to participate in review of systems. - Patient Data Vitals - Most Recent: Last Vital Signs Temp 36.4 C 07/18/21 21:20 Pulse 87 07/18/21 21:20 Resp 16 07/18/21 21:36 BP 94/56 L 07/18/21 21:36 Pulse Ox 99 07/18/21 21:20 Weight - Most Recent: 63.185 kg I&O - Last 24 Hours: Intake & Output 07/18/21 07/19/21 07/19/21 22:59 06:59 14:59 Intake Total 200 0 Output Total 350 Balance 200 -350 Med Orders - Current: Current Medications Artificial Tears (Carboxymethylcellulose Sodium 1% Ophth Gel 15 Ml Bottle) 0 ml EYEBOTH Q1H PRN PRN Reason: Dry Eyes Diclofenac Sodium (Diclofenac Sodium 1% Gel 100 Gm Tube) 0 gm TOP Q6H PRN PRN Reason: Knee/joint pain Fentanyl (Fentanyl 75 Mcg/Hr Transdermal Patch) 75 mcg TRDERM Q72H [facility] Last Admin: 07/18/21 08:11 Dose: 75 mcg Documented by: Gabapentin (Gabapentin 100 Mg Cap) 200 mg PO TID [facility] Last Admin: 07/18/21 21:34 Dose: Not Given Documented by: Hydromorphone HCl (Hydromorphone 2 Mg Tab) 4 mg PO Q4H PRN PRN Reason: Pain Last Admin: 07/17/21 15:37 Dose: 4 mg Documented by: Ondansetron HCl 8 mg/ Sodium (Chloride) 54 mls @ 100 mls/hr IV Q4H PRN PRN Reason: Nausea/Vomiting Last Admin: 07/19/21 05:07 Dose: 100 mls/hr Documented by: Lorazepam (Lorazepam 2 Mg/Ml Sdv) 0.5 mg IVPUSH Q4H PRN PRN Reason: Anxiety Last Admin: 07/19/21 05:46 Dose: 0.5 mg Documented by: Magnesium Hydroxide (Magnesium Hydroxide 400 Mg/5 Ml Susp 30 Ml Cup) 30 ml PO Q12H PRN PRN Reason: Constipation Miscellaneous Information (Remove Fentanyl Patch) 1 ea TRDERM Q72H [facility] Last Admin: 07/18/21 08:12 Dose: 1 ea Documented by: Miscellaneous Information (Remove Scopolamine Patch) 1 ea TRDERM Q72H [facility] Last Admin: 07/18/21 10:34 Dose: 1 ea Documented by: Morphine Sulfate (Morphine 10 Mg/0.5 Ml Oral Syringe) 20 mg PO Q4H [facility] Last Admin: 07/19/21 05:15 Dose: 20 mg Documented by: Ondansetron HCl (Ondansetron 4 Mg Tab.Dis) 8 mg PO Q6H PRN PRN Reason: Nausea/Vomiting Last Admin: 07/14/21 15:52 Dose: 8 mg Documented by: Scopolamine (Scopolamine 1.5 Mg Transdermal Patch) 1.5 mg TRDERM Q72H [facility] Last Admin: 07/18/21 10:33 Dose: 1.5 mg Documented by: Temazepam (Temazepam 7.5 Mg Cap) 7.5 mg PO BEDTIME PRN PRN Reason: Sleep Discontinued Medications Acetaminophen (Acetaminophen 325 Mg Tab) 650 mg PO ONETIME ONE Stop: 07/14/21 10:23 Last Admin: 07/14/21 10:41 Dose: 650 mg Documented by: Heparin Sodium (Porcine) (Heparin Sodium 5,000 Units/Ml Vial) 5,000 units SUBCUT Q8HR [facility] Last Admin: 07/15/21 06:28 Dose: 5,000 units Documented by: Hydromorphone HCl (Hydromorphone 0.5 Mg/0.5 Ml Syringe) 0.5 mg IVPUSH ONETIME ONE Stop: 07/14/21 09:06 Last Admin: 07/14/21 09:20 Dose: 0.5 mg Documented by: Hydromorphone HCl (Hydromorphone 2 Mg Tab) 4 mg PO ONETIME ONE Stop: 07/14/21 18:21 Last Admin: 07/14/21 18:21 Dose: 4 mg Documented by: Dextrose/Sodium Chloride (Dextrose 5%-Normal Saline) 1,000 mls @ 125 mls/hr IV ASDIRECTED [facility]OOJA Last Infusion: 07/14/21 10:20 Dose: 999 mls/hr Documented by: Dextrose/Sodium Chloride (Dextrose 5%-Normal Saline) 1,000 mls @ 999 mls/hr IV ASDIRECTED [facility]OO[facility] Last Admin: 07/14/21 12:25 Dose: 999 mls/hr Documented by: Ceftriaxone Sodium 2 gm/ (Sodium Chloride) 100 mls @ 200 mls/hr IV ONETIME ONE Stop: 07/14/21 10:52 Last Admin: 07/14/21 10:46 Dose: 200 mls/hr Documented by: Potassium Chloride 10 meq/ (Premix) 100 mls @ 100 mls/hr IV Q1H [facility] Stop: 07/14/21 14:44 Last Admin: 07/14/21 14:52 Dose: 100 mls/hr Documented by: Lactated Ringer's (Ringers, Lactated) 1,000 mls @ 999 mls/hr IV ASDIRECTED POOJA Sodium Chloride (Normal Saline) 1,000 mls @ 100 mls/hr IV ASDIRECTED POOJA Last Admin: 07/15/21 03:49 Dose: 100 mls/hr Documented by: Ceftriaxone Sodium 2 gm/ (Sodium Chloride) 100 mls @ 200 mls/hr IV Q24H [facility] Last Admin: 07/15/21 10:22 Dose: 200 mls/hr Documented by: Potassium Phosphate 30 mmole/ (Sodium Chloride) 510 mls @ 102 mls/hr IV ONETIME ONE Stop: 07/15/21 16:59 Magnesium Sulfate 4 gm/ Premix 50 mls @ 12.5 mls/hr IV ONETIME ONE Stop: 07/15/21 14:29 Last Admin: 07/15/21 12:20 Dose: Not Given Documented by: Potassium Chloride 10 meq/ (Premix) 100 mls @ 100 mls/hr IV Q1H [facility] Stop: 07/15/21 20:59 Levothyroxine Sodium (Levothyroxine 112 Mcg Tab) 112 mcg PO ACBREAKFAST [facility] Last Admin: 07/15/21 10:27 Dose: Not Given Documented by: Metoclopramide HCl (Metoclopramide 10 Mg/2 Ml Sdv) 7.5 mg IVPUSH ONETIME ONE Stop: 07/14/21 09:06 Last Admin: 07/14/21 09:23 Dose: 7.5 mg Documented by: Miscellaneous Information (Remove Patch Fentanyl 25 Mcg Patch) 1 ea TRDERM ONETIME ONE Stop: 07/15/21 09:01 Last Admin: 07/15/21 10:27 Dose: Not Given Documented by: Miscellaneous Information (Remove Patch Fentanyl 12 Mcg Patch) 1 ea TRDERM ONETIME ONE Stop: 07/15/21 09:01 Last Admin: 07/15/21 10:26 Dose: 1 ea Documented by: Morphine Sulfate (Morphine 15 Mg Tab.Er) 15 mg PO Q8HR [facility] Last Admin: 07/17/21 13:28 Dose: 15 mg Documented by: Ondansetron HCl (Ondansetron 4 Mg/2 Ml Sdv) Confirm Administered Dose 8 mg .ROUTE .STK-MED ONE Stop: 07/14/21 15:45 Last Admin: 07/14/21 16:21 Dose: Not Given Documented by: - Exam Quality Assessment: No: Supplemental Oxygen, DVT Prophylaxis Central Line Total Time: 4Days 19Hours General: No: Alert, Oriented HEENT: Pupils Equal, Pupils Reactive Neck: Supple, Trachea Midline Lungs: Normal Respiratory Effort, Crackles Cardiovascular: Regular Rate, Regular Rhythm GI/Abdominal Exam: Normal Bowel Sounds, Soft, No Distention Back Exam: No: Normal Inspection (Bedridden, unable to test) Extremities: Normal Inspection, No Pedal Edema Skin: Warm, Dry, Intact Neurological: No New Focal Deficit Psy/Mental Status: No: Alert, Normal Affect - Patient Data Result Diagrams: 07/15/21 09:00 07/15/21 09:00 Sepsis Event Note - Evaluation Sepsis Screening Result: No Definite Risk - Focused Exam Vital Signs: Vital Signs Temp Pulse Resp BP BP Pulse Ox 07/18/21 21:36 16 94/56 L 07/18/21 21:20 36.4 C 87 82/39 L 99 - Problem List & Annotations (1) Vomiting SNOMED Code(s): 420523136 Code(s): R11.10 - VOMITING, UNSPECIFIED Status: Resolved Priority: High Current Visit: Yes Qualifiers: Vomiting type: bilious vomiting Nausea presence: with nausea Qualified Code(s): R11.14 - Bilious vomiting (2) Hypokalemia due to inadequate potassium intake SNOMED Code(s): 33125227 Code(s): E87.6 - HYPOKALEMIA Status: Acute Priority: High Current Visit: Yes (3) Bladder cancer metastasized to bone SNOMED Code(s): 52354632, 804236981 Code(s): C67.9 - MALIGNANT NEOPLASM OF BLADDER, UNSPECIFIED; C79.51 - SECONDARY MALIGNANT NEOPLASM OF BONE Status: Chronic Priority: High Current Visit: Yes (4) Hypothyroidism SNOMED Code(s): 70783430 Code(s): E03.9 - HYPOTHYROIDISM, UNSPECIFIED Status: Chronic Priority: Medium Current Visit: Yes Qualifiers: Hypothyroidism 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 The patient will be admitted as an inpatient predominantly for pain management. The patient does have 2 different fentanyl patches on at this time and have asked for the nurse staff to update his medication list. I placed the patient on MS Contin 15 mg p.o. every 8 hours. This is in addition to his home dose of fentanyl and Dilaudid. The patient says that he is not nauseated now and Zofran has been ordered to assist with his nausea and vomiting. The patient also has chronic kidney disease and his creatinine is at 2.5 currently. Medications will need to be renally dosed. The patient's urinalysis obtained through the emergency department is suspicious but not confirmatory for UTI as he does have a urostomy. I will place the patient on ceftriaxone and this will be discontinued if cultures are negative. He also had his potassium replaced in the emergency department and was felt that this was due to GI loss. We will continue to monitor this and replace his electrolytes as needed. The patient will also be anticoagulated with the use of heparin 5000 units subcutaneous every 8 hours. Because of the patient's widely metastatic cancer and his pain I had a long discussion with the patient and the patient's family regarding pain control and possible hospice care. I have ordered a hospice consult. Overall the patient's prognosis is poor. 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 Patient has been DNR/DNI. Today after significant discussion patient and family decided on comfort measures. Patient has multiple electrolyte abnormalities including hyponatremia, hypokalemia, hypophosphatemia, and hypomagnesemia. Family and patient do not want the supplemented. At this time patient would like to be made comfortable with pain medications and would like hospice consulted. Spiritual care consult has been ordered. We will discontinue IV fluids at the completion of this current bag at the request of the patient. We will also stop antibiotic treatment for his presumptive UTI. We will discontinue further lab draws and PT OT. Labs today show WBC of 6.58. Hemoglobin is 7.7. Platelet 246,000. Neutrophils are elevated at 83.5%. Sodium is 133. Potassium 2.9. Chloride 105. Carbon dioxide is 16. Anion gap is 14.9. BUN is 14. Creatinine 2.2. GFR is 29. Glucose is 103. Calcium is 5.6 however corrected this is 7.4. Phosphorus 1.6. Magnesium 1.4. Total bilirubin 0.5. AST is 26, ALT 13, alkaline phosphatase 64. Protein is 4.9. Albumin is 1.8. Family wants home medications discontinue with the exception of pain medications. Telemetry will be discontinued. Per hospice the earliest they can admit the patient is this coming Sunday. Family would like patient to remain hospitalized until hospice can be arranged at discharge. Patient will remain hospitalized until then. Scopolamine patch was ordered and patient's fentanyl patch was increased to 75 mcg. Plan will be to decrease some of patient's p.o. medications as his fentanyl patch begins to take effect. We will continue on regular diet. Likely discharge Sunday. - Plan Plan:: Encounter for home hospice care Severe pain End of life care Cachexia Metastatic cancer to bone Bladder cancer metastasized to bone Weakness History of ureterostomy History of nephrectomy, unilateral * Increase fentanyl patch to 75 mcg * P.o. pain medications as ordered * Scopolamine patch for nausea * Discontinue telemetry, lab draws, IV fluids, antibiotics, PT/OT, Heparin. * Vital signs every shift * Regular diet * Bedrest * Hospice consult * Spiritual care consult * As needed Ativan for anxiety * Patient states he does not want oxygen under any circumstance Inactive: Hypophosphatemia Chronic renal insufficiency, stage IV (severe) Fever, resolved Hypokalemia due to inadequate potassium intake Hypothyroidism (acquired) Lactic acidosis Urinary tract infection Anemia Hyponatremia Hypomagnesemia * Patient and family do not want electrolytes supplemented * Comfort cares initiated as above Code status: DNR/DNI/Comfort cares PCP: Garteh Gregory PA-C DVT prophylaxis: None indicated for comfort care. Disposition: Patient will remain hospitalized until he can be accepted into hospice, which we are told is 07/18/2021. Life expectancy less than 6 months. 07/16/2021 The patient is an 80-year-old gentleman who is much more comfortable today. Primary goals for this patient are pain control with the use of whenever required narcotics. He is currently awaiting hospice care and likely will have hospice at home. He is in a DO NOT RESUSCITATE/DO NOT INTUBATE category with comfort measures and no further testing will be done. Overall prognosis is poor. 07/17/2021 The patient is an 80-year-old gentleman who has had some alteration in his mental status. This may be a combination of cancer or medication. Regardless, this portends a poor prognosis. I have discussed with the family the patient's current prognosis. He is currently on comfort measures and his medication has been adjusted to help with his agitation. No further testing has been ordered. He is currently awaiting hospice at home. 07/18/2021 The patient is an 80-year-old gentleman who is sedated today and is currently awaiting hospice. The family does mention that they will not be able to care for him at home. He is currently awaiting placement for continuation of hospice care and comfort measures. We will continue with pain medications or benzodiazepines for agitation as needed. He also has a scopolamine patch for oral secretions. Poor prognosis. 07/19/2021 The patient is a 80-year-old gentleman who is currently awaiting placement in hospice. He is currently obtunded. I explained possible outcome to the family and the family's goal is to keep the patient comfortable and will continue with comfort measures. The patient's family will be unable to take care of him at home with home hospice. Overall, the patient's prognosis is poor. Continue scopolamine as necessary for oral secretions.
[2021-07-19] MEDS: Gabapentin 100 MG Cap PO SCH (10:36)
[2021-07-20] MEDS: Morphine 10 MG/0.5 ML Oral Syringe PO SCH ×3 (01:44→12:03)
[2021-07-20] MEDS: Morphine 10 MG/0.5 ML Oral Syringe PO PRN ×2 (13:20→20:45)
--- NOTE | 2021-07-20 16:06 | PCM.PN ---
- General Info Date of Service: 07/20/21 Admission Dx/Problem (Free Text): Admission Diagnosis/Problem Admission Diagnosis/Problem UTI complicated by metastatic cancer. Subjective Update: The patient is an 80-year-old gentleman who had been admitted primarily for pain control due to his widely metastatic cancer. Patient is nonresponsive this morning. Family is in room at bedside and states that he had a better night last night and rested comfortably. - Patient Data Vitals - Most Recent: Last Vital Signs Temp 99.9 F 07/20/21 11:38 Pulse 98 07/20/21 11:38 Resp 19 07/20/21 11:38 BP 95/53 L 07/20/21 11:38 Pulse Ox 97 07/20/21 11:38 Weight - Most Recent: 139 lb 4.8 oz I&O - Last 24 Hours: Intake & Output 07/20/21 07/20/21 07/20/21 06:59 14:59 22:59 Output Total 150 300 Balance -150 -300 Saman Results Last 24 Hours: Microbiology 07/14/21 09:47 Blood Culture - Final Blood - Venous - Lab Draw 07/14/21 09:42 Blood Culture - Final Blood - Venous Med Orders - Current: Current Medications Artificial Tears (Carboxymethylcellulose Sodium 1% Ophth Gel 15 Ml Bottle) 0 ml EYEBOTH Q1H PRN PRN Reason: Dry Eyes Diclofenac Sodium (Diclofenac Sodium 1% Gel 100 Gm Tube) 0 gm TOP Q6H PRN PRN Reason: Knee/joint pain Fentanyl (Fentanyl 75 Mcg/Hr Transdermal Patch) 75 mcg TRDERM Q72H [facility] Last Admin: 07/18/21 08:11 Dose: 75 mcg Documented by: Ondansetron HCl 8 mg/ Sodium (Chloride) 54 mls @ 100 mls/hr IV Q4H PRN PRN Reason: Nausea/Vomiting Last Admin: 07/19/21 05:07 Dose: 100 mls/hr Documented by: Lorazepam (Lorazepam 2 Mg/Ml Sdv) 0.5 mg IVPUSH Q4H PRN PRN Reason: Anxiety Last Admin: 07/19/21 05:46 Dose: 0.5 mg Documented by: Magnesium Hydroxide (Magnesium Hydroxide 400 Mg/5 Ml Susp 30 Ml Cup) 30 ml PO Q12H PRN PRN Reason: Constipation Miscellaneous Information (Remove Fentanyl Patch) 1 ea TRDERM Q72H [facility] Last Admin: 07/18/21 08:12 Dose: 1 ea Documented by: Miscellaneous Information (Remove Scopolamine Patch) 1 ea TRDERM Q72H [facility] Last Admin: 07/18/21 10:34 Dose: 1 ea Documented by: Morphine Sulfate (Morphine 10 Mg/0.5 Ml Oral Syringe) 20 mg PO Q2H PRN PRN Reason: PAIN Last Admin: 07/20/21 13:20 Dose: 20 mg Documented by: Ondansetron HCl (Ondansetron 4 Mg Tab.Dis) 8 mg PO Q6H PRN PRN Reason: Nausea/Vomiting Last Admin: 07/14/21 15:52 Dose: 8 mg Documented by: Scopolamine (Scopolamine 1.5 Mg Transdermal Patch) 1.5 mg TRDERM Q72H [facility] Last Admin: 07/18/21 10:33 Dose: 1.5 mg Documented by: Temazepam (Temazepam 7.5 Mg Cap) 7.5 mg PO BEDTIME PRN PRN Reason: Sleep Discontinued Medications Acetaminophen (Acetaminophen 325 Mg Tab) 650 mg PO ONETIME ONE Stop: 07/14/21 10:23 Last Admin: 07/14/21 10:41 Dose: 650 mg Documented by: Gabapentin (Gabapentin 100 Mg Cap) 200 mg PO TID [facility] Last Admin: 07/19/21 10:36 Dose: Not Given Documented by: Heparin Sodium (Porcine) (Heparin Sodium 5,000 Units/Ml Vial) 5,000 units SUBCUT Q8HR [facility] Last Admin: 07/15/21 06:28 Dose: 5,000 units Documented by: Hydromorphone HCl (Hydromorphone 0.5 Mg/0.5 Ml Syringe) 0.5 mg IVPUSH ONETIME ONE Stop: 07/14/21 09:06 Last Admin: 07/14/21 09:20 Dose: 0.5 mg Documented by: Hydromorphone HCl (Hydromorphone 2 Mg Tab) 4 mg PO ONETIME ONE Stop: 07/14/21 18:21 Last Admin: 07/14/21 18:21 Dose: 4 mg Documented by: Hydromorphone HCl (Hydromorphone 2 Mg Tab) 4 mg PO Q4H PRN PRN Reason: Pain Last Admin: 07/17/21 15:37 Dose: 4 mg Documented by: Dextrose/Sodium Chloride (Dextrose 5%-Normal Saline) 1,000 mls @ 125 mls/hr IV ASDIRECTED POOJA Last Infusion: 07/14/21 10:20 Dose: 999 mls/hr Documented by: Dextrose/Sodium Chloride (Dextrose 5%-Normal Saline) 1,000 mls @ 999 mls/hr IV ASDIRECTED POOJA Last Admin: 07/14/21 12:25 Dose: 999 mls/hr Documented by: Ceftriaxone Sodium 2 gm/ (Sodium Chloride) 100 mls @ 200 mls/hr IV ONETIME ONE Stop: 07/14/21 10:52 Last Admin: 07/14/21 10:46 Dose: 200 mls/hr Documented by: Potassium Chloride 10 meq/ (Premix) 100 mls @ 100 mls/hr IV Q1H [facility] Stop: 07/14/21 14:44 Last Admin: 07/14/21 14:52 Dose: 100 mls/hr Documented by: Lactated Ringer's (Ringers, Lactated) 1,000 mls @ 999 mls/hr IV ASDIRECTED POOJA Sodium Chloride (Normal Saline) 1,000 mls @ 100 mls/hr IV ASDIRECTED POOJA Last Admin: 07/15/21 03:49 Dose: 100 mls/hr Documented by: Ceftriaxone Sodium 2 gm/ (Sodium Chloride) 100 mls @ 200 mls/hr IV Q24H [facility] Last Admin: 07/15/21 10:22 Dose: 200 mls/hr Documented by: Potassium Phosphate 30 mmole/ (Sodium Chloride) 510 mls @ 102 mls/hr IV ONETIME ONE Stop: 07/15/21 16:59 Magnesium Sulfate 4 gm/ Premix 50 mls @ 12.5 mls/hr IV ONETIME ONE Stop: 07/15/21 14:29 Last Admin: 07/15/21 12:20 Dose: Not Given Documented by: Potassium Chloride 10 meq/ (Premix) 100 mls @ 100 mls/hr IV Q1H [facility] Stop: 07/15/21 20:59 Levothyroxine Sodium (Levothyroxine 112 Mcg Tab) 112 mcg PO ACBREAKFAST [facility] Last Admin: 07/15/21 10:27 Dose: Not Given Documented by: Metoclopramide HCl (Metoclopramide 10 Mg/2 Ml Sdv) 7.5 mg IVPUSH ONETIME ONE Stop: 07/14/21 09:06 Last Admin: 07/14/21 09:23 Dose: 7.5 mg Documented by: Miscellaneous Information (Remove Patch Fentanyl 25 Mcg Patch) 1 ea TRDERM ONETIME ONE Stop: 07/15/21 09:01 Last Admin: 07/15/21 10:27 Dose: Not Given Documented by: Miscellaneous Information (Remove Patch Fentanyl 12 Mcg Patch) 1 ea TRDERM ONETIME ONE Stop: 07/15/21 09:01 Last Admin: 07/15/21 10:26 Dose: 1 ea Documented by: Morphine Sulfate (Morphine 15 Mg Tab.Er) 15 mg PO Q8HR [facility] Last Admin: 07/17/21 13:28 Dose: 15 mg Documented by: Morphine Sulfate (Morphine 10 Mg/0.5 Ml Oral Syringe) 20 mg PO Q4H [facility] Last Admin: 07/20/21 12:03 Dose: Not Given Documented by: Ondansetron HCl (Ondansetron 4 Mg/2 Ml Sdv) Confirm Administered Dose 8 mg .ROUTE .STK-MED ONE Stop: 07/14/21 15:45 Last Admin: 07/14/21 16:21 Dose: Not Given Documented by: - Exam Central Line Total Time: 6Days 4Hours General: Obtunded Lungs: Clear to Auscultation, Normal Respiratory Effort Cardiovascular: Regular Rate, Regular Rhythm - Patient Data Result Diagrams: 07/15/21 09:00 07/15/21 09:00 Saman Results Last 24 hrs: Microbiology 07/14/21 09:47 Blood Culture - Final Blood - Venous - Lab Draw 07/14/21 09:42 Blood Culture - Final Blood - Venous Sepsis Event Note - Evaluation Sepsis Screening Result: No Definite Risk - Focused Exam Vital Signs: Vital Signs Temp Pulse Resp BP Pulse Ox 07/20/21 11:38 99.9 F 98 19 95/53 L 97 - Problem List & Annotations (1) End of life care SNOMED Code(s): 773781440, 270436650 Code(s): Z51.5 - ENCOUNTER FOR PALLIATIVE CARE Status: Acute Priority: High Current Visit: Yes (2) Metastatic cancer to bone Status: Acute Priority: High Current Visit: Yes - Problem List Review Problem List Initiated/Reviewed/Updated: Yes - Assessment Assessment:: 07/14/2021 The patient is a 80-year-old gentleman who has rather significant pain that has been interfering with his ability to eat and drink fluids. The patient will be admitted as an inpatient predominantly for pain management. The patient does have 2 different fentanyl patches on at this time and have asked for the nurse staff to update his medication list. I placed the patient on MS Contin 15 mg p.o. every 8 hours. This is in addition to his home dose of fentanyl and Dilaudid. The patient says that he is not nauseated now and Zofran has been ordered to assist with his nausea and vomiting. The patient also has chronic kidney disease and his creatinine is at 2.5 currently. Medications will need to be renally dosed. The patient's urinalysis obtained through the emergency department is suspicious but not confirmatory for UTI as he does have a urostomy. I will place the patient on ceftriaxone and this will be discontinued if cultures are negative. He also had his potassium replaced in the emergency department and was felt that this was due to GI loss. We will continue to monitor this and replace his electrolytes as needed. The patient will also be anticoagulated with the use of heparin 5000 units subcutaneous every 8 hours. Because of the patient's widely metastatic cancer and his pain I had a long discussion with the patient and the patient's family regarding pain control and possible hospice care. I have ordered a hospice consult. Overall the patient's prognosis is poor. 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 Patient has been DNR/DNI. Today after significant discussion patient and family decided on comfort measures. Patient has multiple electrolyte abnormalities including hyponatremia, hypokalemia, hypophosphatemia, and hypomagnesemia. Family and patient do not want the supplemented. At this time patient would like to be made comfortable with pain medications and would like hospice consulted. Spiritual care consult has been ordered. We will discontinue IV fluids at the completion of this current bag at the request of the patient. We will also stop antibiotic treatment for his pre sumptive UTI. We will discontinue further lab draws and PT OT. Labs today show WBC of 6.58. Hemoglobin is 7.7. Platelet 246,000. Neutrophils are elevated at 83.5%. Sodium is 133. Potassium 2.9. Chloride 105. Carbon dioxide is 16. Anion gap is 14.9. BUN is 14. Creatinine 2.2. GFR is 29. Glucose is 103. Calcium is 5.6 however corrected this is 7.4. Phosphorus 1.6. Magnesium 1.4. Total bilirubin 0.5. AST is 26, ALT 13, alkaline phosphatase 64. Protein is 4.9. Albumin is 1.8. Family wants home medications discontinue with the exception of pain medications. Telemetry will be discontinued. Per hospice the earliest they can admit the patient is this coming Sunday. Family would like patient to remain hospitalized until hospice can be arranged at discharge. Patient will remain hospitalized until then. Scopolamine patch was ordered and patient's fentanyl patch was increased to 75 mcg. Plan will be to decrease some of patient's p.o. medications as his fentanyl patch begins to take effect. We will continue on regular diet. Likely discharge Sunday. - Plan Plan:: Encounter for home hospice care Severe pain End of life care Cachexia Metastatic cancer to bone Bladder cancer metastasized to bone Weakness History of ureterostomy History of nephrectomy, unilateral * Increase fentanyl patch to 75 mcg * P.o. pain medications as ordered * Scopolamine patch for nausea * Discontinue telemetry, lab draws, IV fluids, antibiotics, PT/OT, Heparin. * Vital signs every shift * Regular diet * Bedrest * Hospice consult * Spiritual care consult * As needed Ativan for anxiety * Patient states he does not want oxygen under any circumstance Inactive: Hypophosphatemia Chronic renal insufficiency, stage IV (severe) Fever, resolved Hypokalemia due to inadequate potassium intake Hypothyroidism (acquired) Lactic acidosis Urinary tract infection Anemia Hyponatremia Hypomagnesemia * Patient and family do not want electrolytes supplemented * Comfort cares initiated as above Code status: DNR/DNI/Comfort cares PCP: Gareth Gregory PA-C DVT prophylaxis: None indicated for comfort care. Disposition: Patient will remain hospitalized until he can be accepted into hospice, which we are told is 07/18/2021. Life expectancy less than 6 months. 07/16/2021 The patient is an 80-year-old gentleman who is much more comfortable today. Primary goals for this patient are pain control with the use of whenever required narcotics. He is currently awaiting hospice care and likely will have hospice at home. He is in a DO NOT RESUSCITATE/DO NOT INTUBATE category with comfort measures and no further testing will be done. Overall prognosis is poor. 07/17/2021 The patient is an 80-year-old gentleman who has had some alteration in his menta l status. This may be a combination of cancer or medication. Regardless, this portends a poor prognosis. I have discussed with the family the patient's current prognosis. He is currently on comfort measures and his medication has been adjusted to help with his agitation. No further testing has been ordered. He is currently awaiting hospice at home. 07/18/2021 The patient is an 80-year-old gentleman who is sedated today and is currently awaiting hospice. The family does mention that they will not be able to care for him at home. He is currently awaiting placement for continuation of hospice care and comfort measures. We will continue with pain medications or benzodiazepines for agitation as needed. He also has a scopolamine patch for oral secretions. Poor prognosis. 07/19/2021 The patient is a 80-year-old gentleman who is currently awaiting placement in hospice. He is currently obtunded. I explained possible outcome to the family and the family's goal is to keep the patient comfortable and will continue with comfort measures. The patient's family will be unable to take care of him at home with home hospice. Overall, the patient's prognosis is poor. Continue scopolamine as necessary for oral secretions. 07/20/2021 80-year-old male with metastatic cancer on comfort measures. support services specialist reports that patient should have a bed available tomorrow for end-of-life care. Patient is comfortable this time so we will continue with current end-of-life treatment.
[2021-07-21 10:14] VITALS: BP 95/59; PULSE 93
[2021-07-21] MEDS: Morphine 10 MG/0.5 ML Oral Syringe PO PRN ×2 (10:32→12:36)
[2021-07-21] MEDS: fentaNYL 75 MCG/HR Transdermal Patch TRDERM SCH (10:35)
[2021-07-21] MEDS: Scopolamine 1.5 MG Transdermal Patch TRDERM SCH ×2 (10:41→10:42)
--- NOTE | 2021-07-21 12:24 | PCM.DCSUM1 ---
Discharge Summary - Hospital Course HPI Initial Comments: The patient is an 80-year-old gentleman who had presented to the emergency department with intractable nausea and vomiting. The patient has been unable to eat reportedly. The patient also says that he is in constant pain due to primary bladder cancer which is spread to bones of his pelvis and foot. He also had a right-sided nephrectomy due to the metastatic cancer. The patient also has a total cystectomy and ileal conduit. The patient has been offered radiation therapy but he has refused this. The patient is not on chemotherapy although he has a chemotherapy port. The patient also has been feeling very weak and he has been losing weight. Assessment/Plan Comment:: The patient is a 80-year-old gentleman who has rather significant pain that has been interfering with his ability to eat and drink fluids. The patient will be admitted as an inpatient predominantly for pain management. The patient does have 2 different fentanyl patches on at this time and have asked for the nurse staff to update his medication list. I placed the patient on MS Contin 15 mg p.o. every 8 hours. This is in addition to his home dose of fentanyl and Dilaudid. The patient says that he is not nauseated now and Zofran has been ordered to assist with his nausea and vomiting. The patient also has chronic kidney disease and his creatinine is at 2.5 currently. Medications will need to be renally dosed. The patient's urinalysis obtained through the emergency department is suspicious but not confirmatory for UTI as he does have a urostomy. I will place the patient on ceftriaxone and this will be discontinued if cultures are negative. He also had his potassium replaced in the emergency department and was felt that this was due to GI loss. We will continue to monitor this and replace his electrolytes as needed. The patient will also be anticoagulated with the use of heparin 5000 units subcutaneous every 8 hours. Because of the patient's widely metastatic cancer and his pain I had a long discussion with the patient and the patient's family regarding pain control and possible hospice care. I have ordered a hospice consult. Overall the patient's prognosis is poor. - Mortality Measure Prognosis:: Poor Diagnosis: Stroke: No - Discharge Data Discharge Date: 07/21/21 Discharge Disposition: DC/[facility] to [facility] Condition: Good - Referral to Home Health Primary Care Physician: Gareth Gregory PA-C - Discharge Diagnosis/Problem(s) (1) End of life care SNOMED Code(s): 890056653, [id number] ICD Code: Z51.5 - ENCOUNTER FOR PALLIATIVE CARE Status: Acute Priority: High Current Visit: Yes (2) Metastatic cancer to bone Status: Acute Priority: High Current Visit: Yes - Patient Summary/Data Consults: Consultations 07/14/21 14:06 Consult to Hospice [CONS] Routine 07/15/21 07:51 Consult to Case Management/[employer] Charging Machine Operator [CONS] Routine Consult to Spiritual Care [CONS] Routine Hospital Course: Assessment:: 07/14/2021 The patient is a 80-year-old gentleman who has rather significant pain that has been interfering with his ability to eat and drink fluids. The patient will be admitted as an inpatient predominantly for pain management. The patient does have 2 different fentanyl patches on at this time and have asked for the nurse staff to update his medication list. I placed the patient on MS Contin 15 mg p.o. every 8 hours. This is in addition to his home dose of fentanyl and Dilaudid. The patient says that he is not nauseated now and Zofran has been ordered to assist with his nausea and vomiting. The patient also has chronic kidney disease and his creatinine is at 2.5 currently. Medications will need to be renally dosed. The patient's urinalysis obtained through the emergency department is suspicious but not confirmatory for UTI as he does have a urostomy. I will place the patient on ceftriaxone and this will be discontinued if cultures are negative. He also had his potassium replaced in the emergency department and was felt that this was due to GI loss. We will continue to monitor this and replace his electrolytes as needed. The patient will also be anticoagulated with the use of heparin 5000 units subcutaneous every 8 hours. Because of the patient's widely metastatic cancer and his pain I had a long discussion with the patient and the patient's family regarding pain control and possible hospice care. I have ordered a hospice consult. Overall the patient's prognosis is poor. 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 Patient has been DNR/DNI. Today after significant discussion patient and family decided on comfort measures. Patient has multiple electrolyte abnormalities including hyponatremia, hypokalemia, hypophosphatemia, and hypomagnesemia. Family and patient do not want the supplemented. At this time patient would like to be made comfortable with pain medications and would like hospice consulted. Spiritual care consult has been ordered. We will discontinue IV fluids at the completion of this current bag at the request of the patient. We will also stop antibiotic treatment for his presumptive UTI. We will discontinue further lab draws and PT OT. Labs today show WBC of 6.58. Hemoglobin is 7.7. Platelet 246,000. Neutrophils are elevated at 83.5%. Sodium is 133. Potassium 2.9. Chloride 105. Carbon dioxide is 16. Anion gap is 14.9. BUN is 14. Creatinine 2.2. GFR is 29. Glu cose is 103. Calcium is 5.6 however corrected this is 7.4. Phosphorus 1.6. Magnesium 1.4. Total bilirubin 0.5. AST is 26, ALT 13, alkaline phosphatase 64. Protein is 4.9. Albumin is 1.8. Family wants home medications discontinue with the exception of pain medications. Telemetry will be discontinued. Per hospice the earliest they can admit the patient is this coming Sunday. Family would like patient to remain hospitalized until hospice can be arranged at discharge. Patient will remain hospitalized until then. Scopolamine patch was ordered and patient's fentanyl patch was increased to 75 mcg. Plan will be to decrease some of patient's p.o. medications as his fentanyl patch begins to take effect. We will continue on regular diet. Likely discharge Sunday. - Plan Plan:: Encounter for home hospice care Severe pain End of life care Cachexia Metastatic cancer to bone Bladder cancer metastasized to bone Weakness History of ureterostomy History of nephrectomy, unilateral * Increase fentanyl patch to 75 mcg * P.o. pain medications as ordered * Scopolamine patch for nausea * Discontinue telemetry, lab draws, IV fluids, antibiotics, PT/OT, Heparin. * Vital signs every shift * Regular diet * Bedrest * Hospice consult * Spiritual care consult * As needed Ativan for anxiety * Patient states he does not want oxygen under any circumstance Inactive: Hypophosphatemia Chronic renal insufficiency, stage IV (severe) Fever, resolved Hypokalemia due to inadequate potassium intake Hypothyroidism (acquired) Lactic acidosis Urinary tract infection Anemia Hyponatremia Hypomagnesemia * Patient and family do not want electrolytes supplemented * Comfort cares initiated as above Code status: DNR/DNI/Comfort cares PCP: Gareth Gregory PA-C DVT prophylaxis: None indicated for comfort care. Disposition: Patient will remain hospitalized until he can be accepted into hospice, which we are told is 07/18/2021. Life expectancy less than 6 months. 07/16/2021 The patient is an 80-year-old gentleman who is much more comfortable today. Primary goals for this patient are pain control with the use of whenever required narcotics. He is currently awaiting hospice care and likely will have hospice at home. He is in a DO NOT RESUSCITATE/DO NOT INTUBATE category with comfort measures and no further testing will be done. Overall prognosis is poor. 07/17/2021 The patient is an 80-year-old gentleman who has had some alteration in his mental status. This may be a combination of cancer or medication. Regardless, this portends a poor prognosis. I have discussed with the family the patient's current prognosis. He is currently on comfort measures and his medication has been adjusted to help with his agitation. No further testing has been ordered. He is currently awaiting hospice at home. 07/18/2021 The patient is an 80-year-old gentleman who is sedated today and is currently awaiting hospice. The family does mention that they will not be able to care for him at home. He is currently awaiting placement for continuation of hospice care and comfort measures. We will continue with pain medications or b enzodiazepines for agitation as needed. He also has a scopolamine patch for oral secretions. Poor prognosis. 07/19/2021 The patient is a 80-year-old gentleman who is currently awaiting placement in hospice. He is currently obtunded. I explained possible outcome to the family and the family's goal is to keep the patient comfortable and will continue with comfort measures. The patient's family will be unable to take care of him at home with home hospice. Overall, the patient's prognosis is poor. Continue scopolamine as necessary for oral secretions. 07/20/2021 80-year-old male with metastatic cancer on comfort measures. computing services director reports that patient should have a bed available tomorrow for end-of-life care. Patient is comfortable this time so we will continue with current end-of-life treatment. 07/21/2021 80-year-old male with metastatic cancer on comfort measures. Patient is being discharged to long-term care facility for comfort measures. - Patient Instructions Diet: Usual Diet as Tolerated Activity: As Tolerated Driving: Do Not Drive Showering/Bathing: No Showering Other/Special Instructions: Comfort measures. DNR/DNI - Discharge Plan *PRESCRIPTION DRUG MONITORING PROGRAM REVIEWED*: Not Applicable *COPY OF PRESCRIPTION DRUG MONITORING REPORT IN PATIENT WALTER: Not Applicable Prescriptions/Med Rec: fentaNYL [Duragesic] 75 mcg TRDERM Q72H #2 patch Morphine [Morphine 10 MG/0.5 ML Oral Syringe] 20 mg PO Q2H PRN #10 syringe PRN Reason: PAIN Scopolamine [Transderm-Scop] 1.5 mg TRDERM Q72H #2 patch Home Medications: Home Meds fentaNYL [Duragesic] 25 mcg TD Q3D 07/14/21 [History] Morphine [Morphine 10 MG/0.5 ML Oral Syringe] 20 mg PO Q2H PRN #10 syringe 07/21/21 [Rx] Remove Patch 1 ea TRDERM Q72H each 07/21/21 [Rx] Scopolamine [Transderm-Scop] 1.5 mg TRDERM Q72H #2 patch 07/21/21 [Rx] fentaNYL [Duragesic] 75 mcg TRDERM Q72H #2 patch 07/21/21 [Rx] Oxygen Therapy Mode: Room Air Patient Handouts: Urinary Tract Infection, Adult, [id number], Metastatic Cancer Forms: ED Department Discharge Referrals: Loc Jenkins MD [Physician] - (follow up as needed) - Discharge Summary/Plan Comment DC Time >30 min.: Yes Total # of Minutes for Discharge Time: 40 Total time spent includes seeing the patient, doing discharge paperwork, and arranging care. - General Info Date of Service: 07/21/21 Admission Dx/Problem (Free Text: Admission Diagnosis/Problem Admission Diagnosis/Problem UTI complicated by metastatic cancer. - Patient Data Vitals - Most Recent: Last Vital Signs Temp 99.0 F 07/21/21 09:00 Pulse 93 07/21/21 09:12 Resp 7 L 07/21/21 09:00 BP 95/59 L 07/21/21 09:12 Pulse Ox 97 07/21/21 09:12 Weight - Most Recent: 139 lb 4.8 oz I&O - Last 24 hours: Intake & Output 07/20/21 07/21/21 07/21/21 22:59 06:59 14:59 Output Total 300 300 Balance -300 -300 Lab Results - Last 24 hrs: Laboratory Results - last 24 hr 07/21/21 Range/Units 08:00 SARS-CoV-2 RNA ([facility]) Negative (NEGATIVE) [facility] Results - Last 24 hrs: Microbiology 07/14/21 09:47 Blood Culture - Final Blood - Venous - Lab Draw 07/14/21 09:42 Blood Culture - Final Blood - Venous Med Orders - Current: Current Medications Artificial Tears (Carboxymethylcellulose Sodium 1% Ophth Gel 15 Ml Bottle) 0 ml EYEBOTH Q1H PRN PRN Reason: Dry Eyes Diclofenac Sodium (Diclofenac Sodium 1% Gel 100 Gm Tube) 0 gm TOP Q6H PRN PRN Reason: Knee/joint pain Fentanyl (Fentanyl 75 Mcg/Hr Transdermal Patch) 75 mcg TRDERM Q72H [facility] Last Admin: 07/21/21 10:35 Dose: 75 mcg Documented by: Ondansetron HCl 8 mg/ Sodium (Chloride) 54 mls @ 100 mls/hr IV Q4H PRN PRN Reason: Nausea/Vomiting Last Admin: 07/19/21 05:07 Dose: 100 mls/hr Documented by: Lorazepam (Lorazepam 2 Mg/Ml Sdv) 0.5 mg IVPUSH Q4H PRN PRN Reason: Anxiety Last Admin: 07/19/21 05:46 Dose: 0.5 mg Documented by: Magnesium Hydroxide (Magnesium Hydroxide 400 Mg/5 Ml Susp 30 Ml Cup) 30 ml PO Q12H PRN PRN Reason: Constipation Miscellaneous Information (Remove Fentanyl Patch) 1 ea TRDERM Q72H [facility] Last Admin: 07/21/21 10:43 Dose: 1 ea Documented by: Miscellaneous Information (Remove Scopolamine Patch) 1 ea TRDERM Q72H [facility] Last Admin: 07/18/21 10:34 Dose: 1 ea Documented by: Morphine Sulfate (Morphine 10 Mg/0.5 Ml Oral Syringe) 20 mg PO Q2H PRN PRN Reason: PAIN Last Admin: 07/21/21 10:32 Dose: 20 mg Documented by: Ondansetron HCl (Ondansetron 4 Mg Tab.Dis) 8 mg PO Q6H PRN PRN Reason: Nausea/Vomiting Last Admin: 07/14/21 15:52 Dose: 8 mg Documented by: Scopolamine (Scopolamine 1.5 Mg Transdermal Patch) 1.5 mg TRDERM Q72H [facility] Last Admin: 07/21/21 10:42 Dose: 1.5 mg Documented by: Temazepam (Temazepam 7.5 Mg Cap) 7.5 mg PO BEDTIME PRN PRN Reason: Sleep Discontinued Medications Acetaminophen (Acetaminophen 325 Mg Tab) 650 mg PO ONETIME ONE Stop: 07/14/21 10:23 Last Admin: 07/14/21 10:41 Dose: 650 mg Documented by: Gabapentin (Gabapentin 100 Mg Cap) 200 mg PO TID [facility] Last Admin: 07/19/21 10:36 Dose: Not Given Documented by: Heparin Sodium (Porcine) (Heparin Sodium 5,000 Units/Ml Vial) 5,000 units SUBCUT Q8HR [facility] Last Admin: 07/15/21 06:28 Dose: 5,000 units Documented by: Hydromorphone HCl (Hydromorphone 0.5 Mg/0.5 Ml Syringe) 0.5 mg IVPUSH ONETIME ONE Stop: 07/14/21 09:06 Last Admin: 07/14/21 09:20 Dose: 0.5 mg Documented by: Hydromorphone HCl (Hydromorphone 2 Mg Tab) 4 mg PO ONETIME ONE Stop: 07/14/21 18:21 Last Admin: 07/14/21 18:21 Dose: 4 mg Documented by: Hydromorphone HCl (Hydromorphone 2 Mg Tab) 4 mg PO Q4H PRN PRN Reason: Pain Last Admin: 07/17/21 15:37 Dose: 4 mg Documented by: Dextrose/Sodium Chloride (Dextrose 5%-Normal Saline) 1,000 mls @ 125 mls/hr IV ASDIRECTED [facility] Last Infusion: 07/14/21 10:20 Dose: 999 mls/hr Documented by: Dextrose/Sodium Chloride (Dextrose 5%-Normal Saline) 1,000 mls @ 999 mls/hr IV ASDIRECTED [facility] Last Admin: 07/14/21 12:25 Dose: 999 mls/hr Documented by: Ceftriaxone Sodium 2 gm/ (Sodium Chloride) 100 mls @ 200 mls/hr IV ONETIME ONE Stop: 07/14/21 10:52 Last Admin: 07/14/21 10:46 Dose: 200 mls/hr Documented by: Potassium Chloride 10 meq/ (Premix) 100 mls @ 100 mls/hr IV Q1H [facility] Stop: 07/14/21 14:44 Last Admin: 07/14/21 14:52 Dose: 100 mls/hr Documented by: Lactated Ringer's (Ringers, Lactated) 1,000 mls @ 999 mls/hr IV ASDIRECTED [facility] Sodium Chloride (Normal Saline) 1,000 mls @ 100 mls/hr IV ASDIRECTED [facility] Last Admin: 07/15/21 03:49 Dose: 100 mls/hr Documented by: Ceftriaxone Sodium 2 gm/ (Sodium Chloride) 100 mls @ 200 mls/hr IV Q24H [facility] Last Admin: 07/15/21 10:22 Dose: 200 mls/hr Documented by: Potassium Phosphate 30 mmole/ (Sodium Chloride) 510 mls @ 102 mls/hr IV ONETIME ONE Stop: 07/15/21 16:59 Magnesium Sulfate 4 gm/ Premix 50 mls @ 12.5 mls/hr IV ONETIME ONE Stop: 07/15/21 14:29 Last Admin: 07/15/21 12:20 Dose: Not Given Documented by: Potassium Chloride 10 meq/ (Premix) 100 mls @ 100 mls/hr IV Q1H [facility] Stop: 07/15/21 20:59 Levothyroxine Sodium (Levothyroxine 112 Mcg Tab) 112 mcg PO ACBREAKFAST [facility] Last Admin: 07/15/21 10:27 Dose: Not Given Documented by: Metoclopramide HCl (Metoclopramide 10 Mg/2 Ml Sdv) 7.5 mg IVPUSH ONETIME ONE Stop: 07/14/21 09:06 Last Admin: 07/14/21 09:23 Dose: 7.5 mg Documented by: Miscellaneous Information (Remove Patch Fentanyl 25 Mcg Patch) 1 ea TRDERM ONETIME ONE Stop: 07/15/21 09:01 Last Admin: 07/15/21 10:27 Dose: Not Given Documented by: Miscellaneous Information (Remove Patch Fentanyl 12 Mcg Patch) 1 ea TRDERM ONETIME ONE Stop: 07/15/21 09:01 Last Admin: 07/15/21 10:26 Dose: 1 ea Documented by: Morphine Sulfate (Morphine 15 Mg Tab.Er) 15 mg PO Q8HR [facility] Last Admin: 07/17/21 13:28 Dose: 15 mg Documented by: Morphine Sulfate (Morphine 10 Mg/0.5 Ml Oral Syringe) 20 mg PO Q4H [facility] Last Admin: 07/20/21 12:03 Dose: Not Given Documented by: Ondansetron HCl (Ondansetron 4 Mg/2 Ml Sdv) Confirm Administered Dose 8 mg .ROUTE .STK-MED ONE Stop: 07/14/21 15:45 Last Admin: 07/14/21 16:21 Dose: Not Given Documented by: - Exam Quality Assessment: Denies: Supplemental Oxygen General: Reports: Obtunded. Denies: Alert Lungs: Reports: Clear to Auscultation, Normal Respiratory Effort Cardiovascular: Reports: Regular Rate, Regular Rhythm GI/Abdominal Exam: Soft, Non-Tender, No Distention *Q Meaningful Use (DIS) - VTE *Q VTE Mechanical Contraindications *Q: At Risk for Falls
== END 2021-07-21 13:15 | DRG 948 ==
LOC: JD.ED 08:35 → JD.ICU 13:05 → JD.MS 18:08 → JD.ICU 18:16 → JD.MS 07-15 12:00 → UNDODISIN 07-21 13:15
PROVIDERS: ADMIT Internal Medicine; ATTEND Internal Medicine
DX: N10 Acute pyelonephritis (principal); D64.9 Anemia, unspecified; R74.02 Elevation of levels of lactic acid dehydrogenase [LDH]; R50.9 Fever, unspecified; G89.3 Neoplasm related pain (acute) (chronic); Z93.6 Other artificial openings of urinary tract status; Z90.6 Acquired absence of other parts of urinary tract; Z85.51 Personal history of malignant neoplasm of bladder; C79.51 Secondary malignant neoplasm of bone; C77.9 Secondary and unspecified malignant neoplasm of lymph node, unspecified; C79.00 Secondary malignant neoplasm of unspecified kidney and renal pelvis; D84.9 Immunodeficiency, unspecified; N18.4 Chronic kidney disease, stage 4 (severe); E87.2 Acidosis; E87.1 Hypo-osmolality and hyponatremia; N39.0 Urinary tract infection, site not specified; Z51.5 Encounter for palliative care; C67.9 Malignant neoplasm of bladder, unspecified; Z66 Do not resuscitate; Z92.21 Personal history of antineoplastic chemotherapy; H54.7 Unspecified visual loss; K44.9 Diaphragmatic hernia without obstruction or gangrene; E03.9 Hypothyroidism, unspecified; R64 Cachexia; M19.90 Unspecified osteoarthritis, unspecified site; Z96.653 Presence of artificial knee joint, bilateral; Z20.822 Contact with and (suspected) exposure to COVID-19; E87.6 Hypokalemia; Z96.0 Presence of urogenital implants; Z79.890 Hormone replacement therapy; Z79.899 Other long term (current) drug therapy; Z86.711 Personal history of pulmonary embolism; Z79.01 Long term (current) use of anticoagulants; Z98.49 Cataract extraction status, unspecified eye; Z90.89 Acquired absence of other organs; E83.42 Hypomagnesemia; E83.39 Other disorders of phosphorus metabolism; Z90.5 Acquired absence of kidney; Z68.21 Body mass index [BMI] 21.0-21.9, adult
CPT/HCPCS: 36415; 36556; 71045; 74018; 80053; 81001; 83605 ×2; 83690; 83735; 83880; 84443; 85007; 85027; 85610; 85652; 85730; 86140; 87040 ×2; 93005; 96365; 96367; 96375; 99285; A9270; J0696; J1170; J2765; J3480 ×2; J7042 ×2; U0002; 84100; 85025; 87086; 93010; 99222; 99232; 99239; J1644; J2060; J2405; J7030